=== PATIENT | female | born 1970 | race Two or more races ===

== ENCOUNTER 2020-04-09 14:00 | Outpatient (REF) | payer OTHER, SELFPAY ==
[2020-04-09 16:07] LABS: MANUAL DIFF FLAG NO
[2020-04-09 16:11] LABS: Basophils Percent Auto 0.3 % (0-2); Eosinophils Absolute Auto 0.1 X10*3/uL (0.0-0.4); Eosinophils Percent Auto 1.1 % (0-4); Hematocrit 37.6 % (37-47); Hemoglobin 12.2 g/dl (12.0-16.0); Imm Gran Abs Auto 0.05 X10*3/uL (0.00-0.03); Imm Gran Pct Auto 0.4 % (0.0-0.4); Lymphocytes Absolute Auto 4.2 X10*3/uL (1.2-4.9); Lymphocytes Percent Auto 31.7 % (20-40); Mean Corpuscular HGB Conc 32.4 g/dl (31.0-35.0); Mean Corpuscular Hemoglobin 30.2 pg (27.0-33.0); Mean Corpuscular Volume 93.1 fL (80-98); Mean Platelet Volume 10.2 fL (9.4-12.3); Monocytes Absolute Auto 0.8 X10*3/uL (0.1-1.2); Monocytes Percent Auto 6.4 % (2-11); Neutrophils Absolute Auto 7.9 X10*3/uL (2.0-8.3); Neutrophils Percent Auto 60.1 % (45-73); Platelet Count 416 X10*3/uL (160-400); Red Blood Count 4.04 X10*6/uL (4.20-5.50); Red Cell Distribution Width 13.1 % (11.0-16.0); White Blood Count 13.2 X10*3/uL (4.8-10.8)
[2020-04-09 16:38] LABS: Alanine Aminotransferase 25 U/L (0-31); Albumin Level 4.3 g/dL (3.5-5.0); Alkaline Phosphatase 112 U/L (39-117); Anion Gap 13 (12-20); Aspartate Amino Transferase 24 U/L (5-31); Bilirubin Total 0.4 mg/dL (0.0-1.0); Blood Urea Nitrogen 15 mg/dL (9-16); Calcium 9.8 mg/dL (8.4-10.2); Carbon Dioxide 27 mmol/L (22-29); Chloride 103 mmol/L (96-108); Estimated Glomerular Filt Rate > 60; Glucose Random 81 mg/dL (60-115); Potassium 3.8 mmol/l (3.3-5.1); Sodium 139 mmol/L (135-145); Total Protein 7.4 g/dL (6.5-8.0)
== END 2020-04-09 14:01 | disposition home or self-care (01) ==
LOC: HO.LAB 14:00
PROVIDERS: PCP Internal Medicine; Referring Provider Internal Medicine; Visit Provider Physician Assistant
DX: R10.11 Right upper quadrant pain (principal); R10.9 Unspecified abdominal pain
CPT/HCPCS: 36415; 80053; 85025; 99202

== ENCOUNTER 2020-04-25 11:42 | Outpatient (REF) | payer OTHER, SELFPAY | END 2020-04-25 11:43 | disposition home or self-care (01) | LOC: HO.LNP 11:42 | PROVIDERS: Visit Provider Physician Assistant | DX: A04.8 Other specified bacterial intestinal infections (principal) | CPT/HCPCS: 87338 ==

== ENCOUNTER 2020-05-01 08:08 | Outpatient (REF) | payer OTHER, SELFPAY ==
[2020-05-04 18:37] LABS: HPV mRNA E6/E7 rflx Not Detected (Not Detected)
== END 2020-05-01 08:09 | disposition home or self-care (01) ==
LOC: HO.LAB 08:08
PROVIDERS: PCP Internal Medicine; Visit Provider Obstetrics & Gynecology
DX: N93.9 Abnormal uterine and vaginal bleeding, unspecified (principal); Z12.4 Encounter for screening for malignant neoplasm of cervix
CPT/HCPCS: 87624; 87625; 88142; 99202

== ENCOUNTER → 2020-05-08 12:00 | Outpatient (BNVA) | payer OTHER, SELFPAY | PROVIDERS: PCP Internal Medicine; Referring Provider Internal Medicine; Visit Provider Physician Assistant | DX: Z76.89 Persons encountering health services in other specified circumstances (principal) ==

== ENCOUNTER → 2020-06-19 12:33 | Outpatient (BNVA) | payer OTHER, SELFPAY | PROVIDERS: PCP Internal Medicine; Visit Provider Physician Assistant | DX: Z13.89 Encounter for screening for other disorder (principal) | CPT/HCPCS: 99212 ==

== ENCOUNTER 2020-07-15 09:33 | Outpatient (REF) | payer OTHER, SELFPAY ==
[2020-07-15 10:49] LABS: Alanine Aminotransferase 22 U/L (0-31); Albumin Level 4.5 g/dL (3.5-5.0); Alkaline Phosphatase 106 U/L (39-117); Anion Gap 12 (12-20); Aspartate Amino Transferase 18 U/L (5-31); Bilirubin Total 0.3 mg/dL (0.0-1.0); Blood Urea Nitrogen 20 mg/dL (9-16); Calcium 10.3 mg/dL (8.4-10.2); Carbon Dioxide 27 mmol/L (22-29); Chloride 107 mmol/L (96-108); Cholesterol 135 mg/dL; Estimated Glomerular Filt Rate > 60; Glucose Fasting 116 mg/dL (60-99); HDL Cholesterol 45 mg/dL; LDL Cholesterol Calculated 65 mg/dl; Potassium 4.6 mmol/L (3.3-5.1); Sodium 141 mmol/L (135-145); Total Protein 7.7 g/dL (6.5-8.0); Triglycerides 126 mg/dL
== END 2020-07-15 09:34 | disposition home or self-care (01) ==
LOC: HO.LAB 09:33
PROVIDERS: Absent Provider Internal Medicine; PCP Internal Medicine; Visit Provider Physician Assistant
DX: E11.9 Type 2 diabetes mellitus without complications (principal); A04.8 Other specified bacterial intestinal infections
CPT/HCPCS: 36415; 80053; 80061; 87338

== ENCOUNTER → 2020-07-18 13:23 | Outpatient (BNVA) | payer OTHER, SELFPAY | PROVIDERS: PCP Internal Medicine; Visit Provider Physician Assistant ==

== ENCOUNTER 2020-08-26 11:16 | Outpatient (REF) | payer OTHER, SELFPAY ==
[2020-08-26 13:12] LABS: MANUAL DIFF FLAG NO
[2020-08-26 13:18] LABS: Basophils Percent Auto 0.3 % (0-2); Eosinophils Absolute Auto 0.1 X10*3/uL (0.0-0.4); Eosinophils Percent Auto 0.5 % (0-4); Hematocrit 36.4 % (37-47); Hemoglobin 11.8 g/dl (12.0-16.0); Imm Gran Abs Auto 0.03 X10*3/uL (0.00-0.03); Imm Gran Pct Auto 0.3 % (0.0-0.4); Lymphocytes Absolute Auto 2.9 X10*3/uL (1.2-4.9); Lymphocytes Percent Auto 31.3 % (20-40); Mean Corpuscular HGB Conc 32.4 g/dl (31.0-35.0); Mean Corpuscular Volume 92.6 fL (80-98); Mean Platelet Volume 10.7 fL (9.4-12.3); Monocytes Absolute Auto 0.6 X10*3/uL (0.1-1.2); Monocytes Percent Auto 6.5 % (2-11); Neutrophils Absolute Auto 5.7 X10*3/uL (2.0-8.3); Neutrophils Percent Auto 61.1 % (45-73); Platelet Count 368 X10*3/uL (160-400); Red Blood Count 3.93 X10*6/uL (4.20-5.50); Red Cell Distribution Width 12.8 % (11.0-16.0); White Blood Count 9.3 X10*3/uL (4.8-10.8)
[2020-08-26 13:43] LABS: Alanine Aminotransferase 34 U/L (0-31); Albumin Level 4.5 g/dL (3.5-5.0); Alkaline Phosphatase 122 U/L (39-117); Anion Gap 12 (12-20); Aspartate Amino Transferase 24 U/L (5-31); Bilirubin Total 0.3 mg/dL (0.0-1.0); Blood Urea Nitrogen 19 mg/dL (9-16); Calcium 10.1 mg/dL (8.4-10.2); Carbon Dioxide 25 mmol/L (22-29); Chloride 105 mmol/L (96-108); Estimated Glomerular Filt Rate > 60; Glucose Random 115 mg/dL (60-115); Potassium 4.2 mmol/L (3.3-5.1); Sodium 138 mmol/L (135-145); Total Protein 7.6 g/dL (6.5-8.0)
[2020-08-26 13:54] LABS: Ferritin 92 ng/mL (10-250)
[2020-08-26 14:17] LABS: Erythrocyte Sedimentation Rate 15 MM/HR (0-20)
[2020-08-26 14:21] LABS: Folate 6.2 ng/mL (> or = 4.0); Vitamin B12 367 pg/mL (200-900)
[2020-08-28 13:02] LABS: Transglutaminase Ab IgG 2 U/mL; Transglutaminase IgA 1 U/mL
== END 2020-08-26 11:17 | disposition home or self-care (01) ==
LOC: HO.LAB 11:16
PROVIDERS: PCP Internal Medicine; Visit Provider Internal Medicine Gastroenterology
DX: R10.11 Right upper quadrant pain (principal); R11.2 Nausea with vomiting, unspecified; G89.29 Other chronic pain; R10.13 Epigastric pain; R10.33 Periumbilical pain; E11.9 Type 2 diabetes mellitus without complications; I10 Essential (primary) hypertension; K21.9 Gastro-esophageal reflux disease without esophagitis; E78.00 Pure hypercholesterolemia, unspecified; Z88.6 Allergy status to analgesic agent; Z88.5 Allergy status to narcotic agent; Z88.0 Allergy status to penicillin; Z88.8 Allergy status to other drugs, medicaments and biological substances
CPT/HCPCS: 36415; 80053; 82607; 82728; 82746; 83516; 85025; 85652; 99212

== ENCOUNTER 2020-08-27 08:05 | Outpatient (REF) | payer OTHER, SELFPAY ==
--- NOTE | ~2020-08-27 | US_ITS ---
EXAMINATION: US ABDOMEN COMPLETE CLINICAL INFORMATION: Unspecified abdominal pain. COMPARISON: X-ray abdomen 08/27/2020. CT abdomen and pelvis 09/29/2019. Ultrasound abdomen limited 02/27/2019. Ultrasound abdomen complete 01/12/2019. KUB 10/25/2017. TECHNIQUE: Real-time imaging of the abdominal viscera. Examination limited secondary to overlying bowel gas. FINDINGS: PANCREAS: Visualized portions of pancreas are normal in appearance. ABDOMINAL AORTA: The proximal, mid, and distal segments are normal in caliber. INFERIOR VENA CAVA: Visualized portions are normal. LIVER: The liver is normal in size. The liver contour is normal. Liver echogenicity is diffusely increased. There are a few areas of decreased echogenicity adjacent to the gallbladder, suspected focal fatty sparing. No focal hepatic lesion. There is no intrahepatic biliary duct dilatation seen. GALLBLADDER: Normal. The gallbladder is physiologically distended without evidence of stones, sludge, polyps, wall thickening or pericholecystic fluid. COMMON BILE DUCT: Normal in caliber measuring 0.4 cm in diameter. RIGHT KIDNEY: Normal. No hydronephrosis. No renal calculi or focal parenchymal lesions. The kidney measures 10.9 cm in maximum dimension. LEFT KIDNEY: Normal. No hydronephrosis. No renal calculi or focal parenchymal lesions. The kidney measures 10.7 cm in maximum dimension. SPLEEN: Normal. The spleen measures 8.8 cm in maximum dimension. FREE FLUID: None. US/US abdomen complete IMPRESSION: -Diffusely increased liver echogenicity most suggestive of hepatic steatosis. Correlation with liver enzymes recommended.
--- NOTE | ~2020-08-27 | XR_ITS ---
EXAMINATION: 1. RADIOGRAPHS CERVICAL SPINE 2. RADIOGRAPHS ABDOMEN CLINICAL INFORMATION: Cervicalgia. Right upper quadrant pain. COMPARISON: CT abdomen pelvis September 29, 2019 TECHNIQUE: 3 views of the cervical spine and a supine view of the abdomen was obtained. FINDINGS: Cervical spine: The cervical spine is visualized in its entirety. Normal alignment. Normal C1/2 articulation. Vertebral body heights and disc spaces are well-maintained. Prominent anterior osteophytes off the anterior surface of the C6 vertebral body. No prevertebral soft tissue swelling. ABDOMEN: No dilated air-filled loops of small bowel to suggest an obstructive process. There is a moderate stool burden appreciated throughout the colon. No acute osseous abnormality. Punctate pelvic calcifications are likely vascular in nature. XR/XR cervical spine 3V IMPRESSION: 1. Minimal degenerative changes of the cervical spine. 2. Moderate stool burden throughout the colon suggesting constipation.
--- NOTE | ~2020-08-27 | XR_ITS ---
EXAMINATION: 1. RADIOGRAPHS CERVICAL SPINE 2. RADIOGRAPHS ABDOMEN CLINICAL INFORMATION: Cervicalgia. Right upper quadrant pain. COMPARISON: CT abdomen pelvis September 29, 2019 TECHNIQUE: 3 views of the cervical spine and a supine view of the abdomen was obtained. FINDINGS: Cervical spine: The cervical spine is visualized in its entirety. Normal alignment. Normal C1/2 articulation. Vertebral body heights and disc spaces are well-maintained. Prominent anterior osteophytes off the anterior surface of the C6 vertebral body. No prevertebral soft tissue swelling. ABDOMEN: No dilated air-filled loops of small bowel to suggest an obstructive process. There is a moderate stool burden appreciated throughout the colon. No acute osseous abnormality. Punctate pelvic calcifications are likely vascular in nature. XR/XR abdomen 1V IMPRESSION: 1. Minimal degenerative changes of the cervical spine. 2. Moderate stool burden throughout the colon suggesting constipation.
[2020-08-27 11:49] LABS: Glucose Urine UA NEG (NEG); Leukocyte Esterase Urine NEG (NEG); Nitrite Urine NEG (NEG); Urine Blood NEG (NEG); Urine Ketones NEG (NEG); Urine Protein NEG (NEG-TRACE)
[2020-08-27 12:06] LABS: Appearance Urine CLEAR; Color Urine YELLOW
[2020-09-01 22:11] LABS: Calprotectin, Fecal 115 mcg/g
== END 2020-08-27 08:06 | disposition home or self-care (01) ==
LOC: HO.US 08:05
PROVIDERS: Internal Medicine Gastroenterology; PCP Internal Medicine; Visit Provider Internal Medicine
DX: M54.2 Cervicalgia (principal); R10.11 Right upper quadrant pain; R30.0 Dysuria; R11.0 Nausea; R11.2 Nausea with vomiting, unspecified
CPT/HCPCS: 72040; 74018; 76700; 81003; 83993

== ENCOUNTER → 2020-11-12 14:30 | Outpatient (BNVA) | payer OTHER, SELFPAY | PROVIDERS: PCP Internal Medicine; Referring Provider Internal Medicine; Visit Provider Internal Medicine | DX: I25.10 Atherosclerotic heart disease of native coronary artery without angina pectoris (principal); I10 Essential (primary) hypertension; E11.8 Type 2 diabetes mellitus with unspecified complications | CPT/HCPCS: 93005; 99212 ==

== ENCOUNTER 2020-12-10 10:59 | Outpatient (REF) | payer OTHER, SELFPAY ==
[2020-12-10 12:29] LABS: Alanine Aminotransferase 34 U/L (0-31); Albumin Level 4.5 g/dL (3.5-5.0); Alkaline Phosphatase 130 U/L (39-117); Anion Gap 12 (12-20); Aspartate Amino Transferase 27 U/L (5-31); Bilirubin Total 0.4 mg/dL (0.0-1.0); Blood Urea Nitrogen 13 mg/dL (9-16); Carbon Dioxide 27 mmol/L (22-29); Chloride 106 mmol/L (96-108); Cholesterol 126 mg/dL; Estimated Glomerular Filt Rate > 60; Glucose Fasting 121 mg/dL (60-99); HDL Cholesterol 47 mg/dL; LDL Cholesterol Calculated 66 mg/dl; Potassium 4.7 mmol/L (3.3-5.1); Sodium 140 mmol/L (135-145); Total Protein 7.7 g/dL (6.5-8.0); Triglycerides 69 mg/dL
[2020-12-10 12:31] LABS: Creatinine Urine 145.96 mg/dL; Microalbum/Creatinine Ratio Ur 4.7 ug/mg cr
[2020-12-10 12:39] LABS: Calcium 10.3 mg/dL (8.4-10.2)
[2020-12-13 18:56] LABS: Vitamin D 25-OH, D2 <4 ng/mL; Vitamin D 25-OH, D3 43 ng/mL; Vitamin D 25-OH, Total 43 ng/mL (30-100)
== END 2020-12-10 11:00 | disposition home or self-care (01) ==
LOC: HO.LAB 10:59
PROVIDERS: PCP Internal Medicine; Visit Provider Internal Medicine
DX: E55.9 Vitamin D deficiency, unspecified (principal); E11.9 Type 2 diabetes mellitus without complications; E78.5 Hyperlipidemia, unspecified; E11.8 Type 2 diabetes mellitus with unspecified complications
CPT/HCPCS: 36415; 80053; 80061; 82043; 82306

== ENCOUNTER 2020-12-25 06:58 | Day surgery (SDC) | payer OTHER, SELFPAY ==
[2020-12-19 10:18] VITALS: BMI 36.3
--- NOTE | 2020-12-24 08:15 | P.CONAN_ITS ---
Documented by User: Vicky Morrissey 12/24/20 08:19 HPI - Anesthesia Eval Consult details Narrative: 50yo F for Upper Endoscopy and Colonoscopy 10/2020 Routine cardiac visit. Stable nonobstructive CAD with 1 year f/u. *Multiple Med Allergies* PMFSH Active Problems Active Problems: All Active Problems (Updated 12/19/20 @ 10:32 by Sarah Urbano) Abdominal pain (Acute) H. pylori infection (Acute) Atherosclerotic cardiovascular disease (Acute) Type 2 diabetes mellitus with unspecified complications (Acute) Mixed hyperlipidemia (Acute) Obese (Acute) Anxiety (Acute) Moderate major depression (Acute) ESQUIVEL (nonalcoholic steatohepatitis) (Acute) Easy bruising (Acute) Memory loss (Acute) Neck pain (Acute) Nausea and vomiting (Acute) GERD (gastroesophageal reflux disease) (Acute) Essential hypertension (Acute) Diabetes mellitus (Acute) Past Medical History Medical History Anxiety COVID-19 vaccine series completed Diabetes mellitus Easy bruising Essential hypertension GERD (gastroesophageal reflux disease) Giant cell arteritis History of CVA (cerebrovascular accident) Leukocytosis Memory loss Mixed hyperlipidemia Moderate major depression ESQUIVEL (nonalcoholic steatohepatitis) Nausea and vomiting Neck pain Neuropathy Obese Renal cyst Family History Family History Father Stroke Mother Uterine cancer Hypertension Colon cancer, Onset Age: 64 Diabetes Brother Substance use disorder Family/Other Mental health disorder Surgical History Surgical History (Updated 12/19/20 @ 10:28 by Sarah Urbano) H/O tubal ligation H/O: History of appendectomy History of cardiac cath History of endometrial ablation History of hernia repair History of temporal artery biopsy Social History Social History (Updated 12/19/20 @ 10:33 by Sarah Urbano) Household Members: Significant Other and Children Housing: Apartment Patient Tobacco Use Status: Never used Tobacco e-Cigarette/Vaping Use: Never Used Second Hand Smoke Exposure: No Are you DNR?: No Advance Directives: No Advance Directives Information Provided: No Advance Directives on File: No Patient : No FDLMP: 2014 : No service: No Current occupational status: disabled Sexual orientation: Straight/Heterosexual Gender identity: female Meds Allergies Allergy/AdvReac Type Severity Reaction Status Date / Time acetaminophen [Percocet] Allergy Intermediate dyspnea Verified 12/16/20 15:13 aspirin [Aspirin] Allergy Intermediate SWELLING, Verified 12/16/20 15:13 hives, uticaria carbamazepine [From TEGRETOL] Allergy Intermediate SWELLING Verified 12/16/20 15:13 gabapentin Allergy Intermediate abdominal Verified 12/16/20 15:13 pain, abd pain morphine [MORPHINE] Allergy Intermediate HIVES Verified 12/16/20 15:13 naproxen [From ALEVE] Allergy Intermediate RASH, Verified 12/16/20 15:13 MOUTH SORES oxycodone [OXYCODONE] Allergy Intermediate HIVES Verified 12/16/20 15:13 Penicillins Allergy Intermediate HIVES Verified 12/16/20 15:13 sertraline Allergy Intermediate nausea Verified 12/16/20 15:13 lisinopril [LISINOPRIL] Allergy Mild HICCUPS Verified 12/16/20 15:13 pramipexole AdvReac Mild dizziness Verified 12/16/20 15:13 Home Medications Medication Instructions Recorded Confirmed Last Taken Type buspirone 10 mg tablet 10 mg PO .at bedtime tab 02/26/20 12/19/20 Unknown History lancets 28 gauge (FreeStyle #100 ea 02/26/20 12/16/20 Unknown History Lancets) pantoprazole 40 mg tablet,delayed 40 mg PO DAILY 02/26/20 12/19/20 Unknown History release zolpidem 10 mg tablet 10 mg PO BEDTIME PRN 02/26/20 12/19/20 Unknown History bupropion HCl 300 mg 24 hr tablet, 300 mg PO DAILY 08/26/20 12/19/20 Unknown History extended release atorvastatin 80 mg tablet 80 mg PO DAILY 11/12/20 12/19/20 Unknown History enalapril maleate 10 mg tablet 1 tab PO DAILY 12/19/20 12/19/20 Unknown History Exam Exam Date and Time: December 24, 2020 0815 Height,Weight and Vital Signs: Height 5 ft 2 in Weight 90.265 kg Narrative Narrative: EKG 10/2020 sinus rhythm, 93/Min; no significant ST-T changes; poor R-wave progression across anterior leads likely from her body habitus itself Per cardiac OV 10/2020 Myocardial perfusion imaging study from 2017 showed equivocal findings with mild intensity reversible ischemia in the distal anterior and apical wall.? Subsequently, she also had coronary angiogram.? She had about 40% stenosis in the proximal LAD.? Minimal to mild disease elsewhere.? Based on the above, continue medical therapy for stable coronary disease.? Continue Plavix as she is allergic to aspirin.? Assessment and Plan Assessment Anesthesia Assessment: Chart Reviewed Documented by User: Sofia Ramos 12/25/20 07:27 [facility] Past Medical History Medical History Anxiety COVID-19 vaccine series completed Diabetes mellitus Easy bruising Essential hypertension GERD (gastroesophageal reflux disease) Giant cell arteritis History of CVA (cerebrovascular accident) Leukocytosis Memory loss Mixed hyperlipidemia Moderate major depression ESQUIVEL (nonalcoholic steatohepatitis) Nausea and vomiting Neck pain Neuropathy Obese Renal cyst Functional capacity: independent ambulation Patient : No Family History Family History Father Stroke Mother Uterine cancer Hypertension Colon cancer, Onset Age: 64 Diabetes Brother Substance use disorder Family/Other Mental health disorder Family history of problems with anesthesia: No Surgical History Surgical History (Updated 12/19/20 @ 10:28 by Sarah Urbano) H/O tubal ligation H/O: History of appendectomy History of cardiac cath History of endometrial ablation History of hernia repair History of temporal artery biopsy Social History Social History (Updated 12/19/20 @ 10:33 by Sarah Urbano) Household Members: Significant Other and Children Housing: Apartment Patient Tobacco Use Status: Never used Tobacco e-Cigarette/Vaping Use: Never Used Second Hand Smoke Exposure: No Are you DNR?: No Advance Directives: No Advance Directives Information Provided: No Advance Directives on File: No Patient : No FDLMP: 2014 : No service: No Current occupational status: disabled Sexual orientation: Straight/Heterosexual Gender identity: female Meds Allergies Allergy/AdvReac Type Severity Reaction Status Date / Time acetaminophen [Percocet] Allergy Intermediate dyspnea Verified 12/16/20 15:13 aspirin [Aspirin] Allergy Intermediate SWELLING, Verified 12/16/20 15:13 hives, uticaria carbamazepine [From TEGRETOL] Allergy Intermediate SWELLING Verified 12/16/20 15:13 gabapentin Allergy Intermediate abdominal Verified 12/16/20 15:13 pain, abd pain morphine [MORPHINE] Allergy Intermediate HIVES Verified 12/16/20 15:13 naproxen [From ALEVE] Allergy Intermediate RASH, Verified 12/16/20 15:13 MOUTH SORES oxycodone [OXYCODONE] Allergy Intermediate HIVES Verified 12/16/20 15:13 Penicillins Allergy Intermediate HIVES Verified 12/16/20 15:13 sertraline Allergy Intermediate nausea Verified 12/16/20 15:13 lisinopril [LISINOPRIL] Allergy Mild HICCUPS Verified 12/16/20 15:13 pramipexole AdvReac Mild dizziness Verified 12/16/20 15:13 Home Medications Medication Instructions Recorded Confirmed Last Taken Type buspirone 10 mg tablet 10 mg PO .at bedtime tab 02/26/20 12/19/20 Unknown History lancets 28 gauge (FreeStyle #100 ea 02/26/20 12/16/20 Unknown History Lancets) pantoprazole 40 mg tablet,delayed 40 mg PO DAILY 02/26/20 12/19/20 Unknown History release zolpidem 10 mg tablet 10 mg PO BEDTIME PRN 02/26/20 12/19/20 Unknown History bupropion HCl 300 mg 24 hr tablet, 300 mg PO DAILY 08/26/20 12/19/20 Unknown History extended release atorvastatin 80 mg tablet 80 mg PO DAILY 11/12/20 12/19/20 Unknown History enalapril maleate 10 mg tablet 1 tab PO DAILY 12/19/20 12/19/20 Unknown History Exam Airway TM Dist: >3cm Neck ROM: Full Heart: RRR Lungs: CTA Assessment and Plan Final Anesthetic Review Family History of Problems with Anesthesia: No
[2020-12-25 07:06] VITALS: BP 129/70; PULSE 79; RESP 16; TEMP 36.6; O2SAT 95
--- NOTE | 2020-12-25 07:11 | MHC.SHP ---
Pre-Procedural Eval Section A Date of Service: 12/25/20 Section B Chief Complaint: abdominal pain,nausea with vomiting Details of Present Illness: mother--crc Relevant Family History (Specify if Yes): Yes Relevant Social History: None Present Medications: see Short Stay Collaborative assessment Medical History: Significant History (Anxiety COVID-19 vaccine series completed Diabetes mellitus Easy bruising Essential hypertension GERD (gastroesophageal reflux disease) Giant cell arteritis History of CVA (cerebrovascular accident) Leukocytosis Memory loss Mixed hyperlipidemia Moderate major depression ESQUIVEL (nonalcoholic steatohepa) History of Previous Operations: Relevant previous surgery/procedure and date(s) (H/O tubal ligation H/O: History of appendectomy History of cardiac cath History of endometrial ablation History of hernia repair History of temporal artery biopsy) Allergies: Allergies Allergy/AdvReac Type Severity Reaction Status Date / Time acetaminophen [Percocet] Allergy Intermediate dyspnea Verified 12/16/20 15:13 aspirin [Aspirin] Allergy Intermediate SWELLING, Verified 12/16/20 15:13 hives, uticaria carbamazepine [From TEGRETOL] Allergy Intermediate SWELLING Verified 12/16/20 15:13 gabapentin Allergy Intermediate abdominal Verified 12/16/20 15:13 pain, abd pain morphine [MORPHINE] Allergy Intermediate HIVES Verified 12/16/20 15:13 naproxen [From ALEVE] Allergy Intermediate RASH, Verified 12/16/20 15:13 MOUTH SORES oxycodone [OXYCODONE] Allergy Intermediate HIVES Verified 12/16/20 15:13 Penicillins Allergy Intermediate HIVES Verified 12/16/20 15:13 sertraline Allergy Intermediate nausea Verified 12/16/20 15:13 lisinopril [LISINOPRIL] Allergy Mild HICCUPS Verified 12/16/20 15:13 pramipexole AdvReac Mild dizziness Verified 12/16/20 15:13 Review of Systems Sugical H&P ROS: Negative: Constitution, Cardiovascular, Respiratory, Neurological, Psychiatric, Hem-Onc, Allergic/Immunologic, Gastrointestinal, Genitourinary, Musculoskeletal, Integumentary, Endocrine and Eyes/Ears/Nose/Throat Exam Surgical H&P Exam: Normal: HEENT, Normal: Heart, Normal: Lungs, Normal: Extremities, Normal: Abdomen, Normal: Skin and Normal: Neurological Plan Diagnosis/Plan: Unchanged I have reviewed the history and physical and performed a pertinent physical examination on my patient. No changes have occurred unless specified.
[2020-12-25 07:19] LABS: Glucose, Whole Blood 131 mg/dL (60-115)
[2020-12-25] MEDS: Lactated Ringers 1,000 ML 100 ML IVCONT (07:30)
--- NOTE | 2020-12-25 08:20 | PM.OP ---
Brief Operative Note Date of Service: 12/25/20 Pre-op diagnosis: abdominal pain, FH CRC in mother Post-op diagnosis: same Procedure: see op note Surgeon: Rosa Young MD Anesthesia: MAC Was an Honing Machine Operator Semiautomatic used for this Procedure?: No Estimated blood loss (mL): 0 Condition: stable Disposition: PACU
--- NOTE | 2020-12-25 08:20 | W.PM.OPN ---
Operative Note Operative Note Date of Service: 12/25/20 Narrative: Operative Information Procedure Description: EGD, Colonoscopy FLEXIBLE TRANSORAL UPPER GASTROINTESTINAL ENDOSCOPY AND COLONOSCOPY PROCEDURE NOTE UPPER ENDOSCOPY Consent: Indications for the procedure and potential complications of bleeding, perforation, reaction to medications and missed diagnosis were discussed with the patient and informed consent was obtained. Instrument: Olympus GIF H 190 J mid size upper endoscope Monitoring: Vital signs and clinical assessment, continuous EKG monitoring, Pulse oximetry, Carbon Dioxide monitoring and blood pressure monitoring were done throughout the procedure. Procedure: The patient was placed in the left lateral decubitis position and pre-procedure medications were administered and a bite block was placed. The endoscope was inserted into the mouth and advanced under direct vision to the third part of duodenum. A careful inspection was made as the upper endoscope was withdrawn including a retroflexed examination of the proximal stomach; Findings and interventions are described below. Findings: Larynx:normal Esophagus: GE junction at 37 cm, diaphragm hiatus at 37 cm, normal mucosa, slightyl irregular z line, bx taken from GEJ and random esophagus Stomach: mild erythema Biopsies were obtained. Grade 2 flap valve on retroflexed examination of the cardia. There appeared to be lack of gastric peristalsis. Duodenum: Normal bulb and descending duodenum, bx taken Intervention: Biopsies as noted above COLONOSCOPY Instrument: Olympus variable stiffness pediatric scope 190L Colonoscopy Monitoring: Vital signs and clinical assessment, continuous EKG monitoring, Pulse oximetry, Carbon Dioxide monitoring and blood pressure monitoring were done throughout the procedure. Colon withdrawal time was 15 minutes. Procedure: The patient was placed in the left lateral decubitis position and pre-procedure medications were administered. After a digital rectal examination of the ano-rectum, the video colonoscope was inserted into the rectum and advanced through the colon to the cecum/TI. The colonoscope was slowly withdrawn in a retrograde panoramic fashion and the colon mucosa was carefully examined including a retroflexed view of the rectum. Findings and interventions are described below. Procedure Difficulty: moderate due to looping random TI and colon bx taken Findings: Terminal Ileum-normal Cecum:normal Ascending Colon: normal Transverse Colon -normal Descending Colon:normal Sigmoid Colon: normal Rectum: Retroflexion with small internal hemorrhoids, grade I Anorectum - normal Colon preparation: Aulander Bowel Preparation Scale Right colon; 2 Transverse colon: 2 Left colon; 2 (0 = Unprepared colon segment with mucosa not seen due to solid stool that cannot be cleared. 1 = Portion of mucosa of the colon segment seen, but other areas of the colon segment not well seen due to staining, residual stool and/or opaque liquid. 2 = Minor amount of residual staining, small fragments of stool and/or opaque liquid, but mucosa of colon segment seen well. 3 = Entire mucosa of colon segment seen well with no residual staining, small fragments of stool or opaque liquid) Impression and Post Procedure Diagnosis: Endoscopy Findings: gastritis Colonoscopy Findings: internal hemorrhoids Plan: Await Pathology results Repeat Colonoscopy in 5 years due to FH of CRC in mother or earlier if clinically indicated High fiber diet leaflet avoid straining at stool, epsom salts and sitz bath, anusol supps or cream as needed if bx neg then GES to r/o gastroparesis Above findings were reviewed with the patient and relevant handouts were provided if indicated.
[2020-12-25 08:57] VITALS: BP 117/71; PULSE 78; RESP 16; TEMP 36.2; O2SAT 98
[2020-12-25 09:12] VITALS: BP 143/80; PULSE 76; RESP 16; O2SAT 99
== END 2020-12-25 09:48 | disposition home or self-care (01) ==
PROVIDERS: PCP Internal Medicine; Visit Provider Internal Medicine Gastroenterology
PROC: (CPT 45380; principal; 2020-12-25 08:10)
DX: R10.9 Unspecified abdominal pain (principal); Z80.0 Family history of malignant neoplasm of digestive organs; K64.0 First degree hemorrhoids; K59.00 Constipation, unspecified; K29.50 Unspecified chronic gastritis without bleeding; K44.9 Diaphragmatic hernia without obstruction or gangrene; K21.9 Gastro-esophageal reflux disease without esophagitis; I10 Essential (primary) hypertension; E11.9 Type 2 diabetes mellitus without complications; Z79.84 Long term (current) use of oral hypoglycemic drugs; Z79.51 Long term (current) use of inhaled steroids; Z88.8 Allergy status to other drugs, medicaments and biological substances; Z88.0 Allergy status to penicillin; Z79.899 Other long term (current) drug therapy
CPT/HCPCS: 45380; 43239; 82947; 88305; 88342

== ENCOUNTER 2021-01-02 10:07 | Outpatient (REF) | payer OTHER, SELFPAY ==
--- NOTE | ~2021-01-02 | US_ITS ---
EXAMINATION: US ABDOMEN COMPLETE CLINICAL INFORMATION: Right upper quadrant pain. COMPARISON: Ultrasound abdomen complete dated 08/27/2020. X-ray abdomen dated 08/27/2020. CT abdomen and pelvis without contrast dated 09/29/2019. Ultrasound abdomen limited dated 02/27/2019. KUB dated 10/25/2017. TECHNIQUE: Real-time imaging of the abdominal viscera. FINDINGS: PANCREAS: The visualized pancreatic head and body are unremarkable. The tail is obscured by overlying bowel gas. ABDOMINAL AORTA: The proximal, mid, and distal segments are normal in caliber. INFERIOR VENA CAVA: Visualized portions are normal. LIVER: The liver is normal in size. The liver contour is normal. There is diffuse increased liver parenchymal echogenicity, consistent with hepatic steatosis. No focal hepatic lesion. There is no intrahepatic biliary duct dilatation seen. GALLBLADDER: Echogenic bile. No gallbladder wall thickening or pericholecystic free fluid to suggest acute cholecystitis. COMMON BILE DUCT: Normal in caliber measuring 0.4 cm in diameter. RIGHT KIDNEY: Simple midpole cyst measuring 1.2 cm. Findings are not clinically significant and no followup imaging is recommended. No hydronephrosis or renal calculi. The kidney measures 10.6 cm in maximum dimension. LEFT KIDNEY: Normal. No hydronephrosis. No renal calculi or focal parenchymal lesions. The kidney measures 11.2 cm in maximum dimension. SPLEEN: Normal. The spleen measures 9.0 cm in maximum dimension. FREE FLUID: None. US/US abdomen complete IMPRESSION: Increased hepatic parenchymal echogenicity, which can be seen in the setting of steatosis. Underlying hepatocellular disease cannot be excluded. No hepatic parenchymal lesion or biliary ductal dilatation. Echogenic bile without gallbladder wall thickening or pericholecystic free fluid to suggest acute cholecystitis.
== END 2021-01-02 10:08 | disposition home or self-care (01) ==
LOC: HO.US 10:07
PROVIDERS: Visit Provider Internal Medicine Gastroenterology
DX: R10.11 Right upper quadrant pain (principal); R11.2 Nausea with vomiting, unspecified
CPT/HCPCS: 76700

== ENCOUNTER → 2021-03-21 10:37 | Outpatient (BNVA) | payer OTHER, SELFPAY | PROVIDERS: PCP Internal Medicine; Visit Provider Internal Medicine Gastroenterology ==

== ENCOUNTER 2021-04-02 15:04 | Outpatient (REF) | payer OTHER, SELFPAY ==
--- NOTE | ~2021-04-02 | MM_ITS ---
EXAMINATION: MM SCREENING DIGITAL BREAST TOMOSYNTHESIS, BILATERAL CLINICAL INFORMATION: Screening. Asymptomatic. Family history breast cancer mother and 2 sisters. The lifetime risk of breast cancer based on the Tyrer-Cuzick Model is 22%. COMPARISON: Mammography: 11/13/2019, 11/07/2018, 10/02/2016 TECHNIQUE: Digital breast tomosynthesis is performed in both the craniocaudal and mediolateral oblique views along with computer-aided detection (CAD). Synthesized 2D images are generated from the tomosynthesis. FINDINGS: There are scattered areas of fibroglandular density (ACR BI-RADS breast composition Category b). There are no significant masses, abnormal calcifications, or other abnormalities. Parenchymal pattern is similar to prior exams. There is no developing density or interval architectural abnormality. The axilla are unremarkable. Skin contours are smooth. MM/MM tomosynthesis screening BI IMPRESSION: No mammographic evidence of malignancy. ASSESSMENT: BI-RADS 1: Negative RECOMMENDATION: 1. Routine annual mammography screening. 2. The lifetime risk of breast cancer based on the Tyrer-Cuzick Model is 22%. Additional annual adjunct screening with breast MRI may be of benefit in women with a risk score of 20% or greater. This patient's information was entered into a reminder system with a target due date for their next mammogram.
== END 2021-04-02 15:05 | disposition home or self-care (01) ==
LOC: HO.MAMMO 15:04
PROVIDERS: PCP Internal Medicine; Visit Provider Internal Medicine
DX: Z12.31 Encounter for screening mammogram for malignant neoplasm of breast (principal)
CPT/HCPCS: 77063; 77067

== ENCOUNTER 2021-04-07 09:39 | Outpatient (REF) | payer OTHER, SELFPAY ==
[2021-04-07 11:17] LABS: Alanine Aminotransferase 40 U/L (0-31); Albumin Level 4.3 g/dL (3.5-5.0); Alkaline Phosphatase 115 U/L (39-117); Anion Gap 12 (12-20); Aspartate Amino Transferase 25 U/L (5-31); Bilirubin Total 0.3 mg/dL (0.0-1.0); Blood Urea Nitrogen 16 mg/dL (9-16); Carbon Dioxide 24 mmol/L (22-29); Chloride 107 mmol/L (96-108); Cholesterol 118 mg/dL; Estimated Glomerular Filt Rate > 60; Glucose Fasting 129 mg/dL (60-99); HDL Cholesterol 40 mg/dL; LDL Cholesterol Calculated 66 mg/dl; Potassium 4.4 mmol/L (3.3-5.1); Sodium 139 mmol/L (135-145); Total Protein 7.3 g/dL (6.5-8.0); Triglycerides 64 mg/dL
[2021-04-07 11:21] LABS: Thyroid Stimulating Hormone 2.85 uIU/mL (0.32-4.0)
[2021-04-07 11:23] LABS: Creatinine Urine 217.35 mg/dL; Microalbum/Creatinine Ratio Ur 5.9 ug/mg cr
[2021-04-13 13:26] LABS: Vitamin D 25-OH, D2 <4 ng/mL; Vitamin D 25-OH, D3 40 ng/mL; Vitamin D 25-OH, Total 40 ng/mL (30-100)
== END 2021-04-07 09:40 | disposition home or self-care (01) ==
LOC: HO.LAB 09:39
PROVIDERS: PCP Internal Medicine; Visit Provider Internal Medicine
DX: E11.8 Type 2 diabetes mellitus with unspecified complications (principal); E55.9 Vitamin D deficiency, unspecified; R41.3 Other amnesia; E78.5 Hyperlipidemia, unspecified
CPT/HCPCS: 36415; 80053; 80061; 82043; 82306; 84443

== ENCOUNTER 2021-04-08 14:42 | Outpatient (REF) | payer OTHER, SELFPAY ==
--- NOTE | ~2021-04-08 | US_ITS ---
EXAMINATION: US VENOUS ULTRASOUND WITH DOPPLER LOWER EXTREMITY, RIGHT CLINICAL INFORMATION: This is a 51-year-old female with pain and swelling of the right leg on the knee. COMPARISON: None TECHNIQUE: Ultrasound of the deep veins is performed from the hip to the calf with compression sonography and color and pulse Doppler assessment. Spectral analysis with color-flow imaging is performed. FINDINGS: There is normal venous compression and respiratory variation and augmented flow. The visualized common femoral vein, superficial femoral vein, profunda femoral vein, popliteal vein, and the trifurcation region shows no evidence of deep venous thrombosis. There is a popliteal fossa cyst measuring 4.1 x 0.6 x 1.7 cm. If the patient's symptoms persist, followup ultrasound in 5 days 7 days might be of value to exclude proximal propagation from a non-visualized calf vein. US/US venous duplex LE RT IMPRESSION: 1. No DVT demonstrated in the right lower extremity. 2. Possible Coreas's cyst.
== END 2021-04-08 14:43 | disposition home or self-care (01) ==
LOC: HO.US 14:42
PROVIDERS: PCP Internal Medicine; Visit Provider Internal Medicine Medical Oncology
DX: R60.0 Localized edema (principal); M79.604 Pain in right leg; M79.89 Other specified soft tissue disorders
CPT/HCPCS: 93971

== ENCOUNTER 2021-04-23 09:16 | Outpatient (REF) | payer OTHER, SELFPAY ==
[2021-04-25 15:21] LABS: Calcium, Ionized 5.4 mg/dL (4.8-5.6)
[2021-04-27 22:46] LABS: Parathyroid Hormone Related Pr 17 pg/mL (11-20)
== END 2021-04-23 09:17 | disposition home or self-care (01) ==
LOC: HO.LAB 09:16
PROVIDERS: PCP Internal Medicine; Visit Provider Internal Medicine
DX: E83.52 Hypercalcemia (principal)
CPT/HCPCS: 36415; 82330; 83519

== ENCOUNTER → 2021-06-11 07:55 | Outpatient (REF) | payer OTHER, SELFPAY ==
--- NOTE | ~2021-06-11 | NM_ITS ---
EXAMINATION: NM RADIONUCLIDE SOLID FOOD GASTRIC EMPTYING 4-HOUR STUDY CLINICAL INFORMATION: Early satiety. COMPARISON: None TECHNIQUE: A standard meal consisting of 4 oz of Egg Beaters brand tagged with 1.0 microcuries Tc-99m Sulfur Colloid, 8 oz water and 2 slices of toast with jelly was administered orally to the patient. Images were obtained using a dual head gamma camera in the anterior and posterior projections over of the stomach immediately post ingestion and at hourly intervals up to 4 hours post ingestion. The anterior and posterior counts at each time interval were averaged using the geometric mean and expressed as percentage of the immediate post ingestion counts. FINDINGS: There is good visualization of activity in the stomach immediately post ingestion. As the study progresses, there is good clearance of activity from the stomach and visualization of progressively increasing small bowel activity. By the end of the study, there is almost no retention noted in the stomach. Retention in the stomach at each time interval was: 1 hour 96% (normal 37%-90%) 2 hours 39% (normal 30%-60%) 3 hours not obtained as the camera was down. 4 hours 10% (normal 0%-10%) NM/NM gastric emptying study IMPRESSION: Normal 4-hour solid food gastric emptying study.
== END ==
LOC: HO.NUCMED 07:55
PROVIDERS: Visit Provider Internal Medicine Gastroenterology
DX: R68.81 Early satiety (principal)
CPT/HCPCS: 78264; A9541

== ENCOUNTER 2021-09-10 12:14 | Outpatient (REF) | payer OTHER, SELFPAY | END 2021-09-10 12:15 | disposition home or self-care (01) | LOC: HO.LAB 12:14 | PROVIDERS: Visit Provider Hospitalist | DX: Z20.822 Contact with and (suspected) exposure to COVID-19 (principal) | CPT/HCPCS: U0003; U0005 ==

== ENCOUNTER 2021-10-27 10:14 | Outpatient (REF) | payer OTHER, SELFPAY ==
[2021-10-27 10:24] LABS: MANUAL DIFF FLAG NO
[2021-10-27 11:48] LABS: Basophils Absolute Auto 0.1 X10*3/uL (0.0-0.2); Basophils Percent Auto 0.4 % (0-2); Eosinophils Absolute Auto 0.1 X10*3/uL (0.0-0.4); Eosinophils Percent Auto 0.7 % (0-4); Hematocrit 37.4 % (37.0-47.0); Imm Gran Abs Auto 0.06 X10*3/uL (0.00-0.03); Imm Gran Pct Auto 0.5 % (0.0-0.4); Lymphocytes Absolute Auto 3.4 X10*3/uL (1.2-4.9); Lymphocytes Percent Auto 26.2 % (20-40); Mean Corpuscular HGB Conc 32.1 g/dl (31.0-35.0); Mean Corpuscular Hemoglobin 29.5 pg (27.0-33.0); Mean Corpuscular Volume 91.9 fL (80.0-98.0); Mean Platelet Volume 11.5 fL (9.4-12.3); Monocytes Absolute Auto 0.8 X10*3/uL (0.1-1.2); Neutrophils Absolute Auto 8.5 x10*3/uL (2.0-8.3); Neutrophils Percent Auto 66.2 % (45-73); Platelet Count 379 X10*3/uL (160-400); Red Blood Count 4.07 X10*6/uL (4.20-5.50); Red Cell Distribution Width 13.2 % (11.0-16.0); White Blood Count 12.8 X10*3/uL (4.8-10.8)
[2021-10-27 12:22] LABS: Alanine Aminotransferase 39 U/L (0-31); Albumin Level 4.5 g/dL (3.5-5.0); Alkaline Phosphatase 127 U/L (39-117); Anion Gap 13 (12-20); Aspartate Amino Transferase 26 U/L (5-31); Bilirubin Total 0.3 mg/dL (0.0-1.0); Blood Urea Nitrogen 20 mg/dL (9-16); Calcium 10.5 mg/dL (8.4-10.2); Carbon Dioxide 25 mmol/L (22-29); Chloride 105 mmol/L (96-108); Estimated Glomerular Filt Rate > 60; Glucose Random 114 mg/dL (60-115); Magnesium 1.9 mg/dL (1.6-2.6); Potassium 4.3 mmol/L (3.3-5.1); Sodium 139 mmol/L (135-145); Total Protein 7.6 g/dL (6.5-8.0)
[2021-10-27 12:35] LABS: Free T4 (Free Thyroxine) 0.89 ng/dL (0.71-1.85)
[2021-10-27 12:58] LABS: Vitamin B12 427 pg/mL (200-900)
[2021-10-27 13:06] LABS: Thyroid Stimulating Hormone 1.76 uIU/mL (0.32-4.0)
== END 2021-10-27 10:15 | disposition home or self-care (01) ==
LOC: HO.LAB 10:14
PROVIDERS: PCP Internal Medicine; Visit Provider Internal Medicine
DX: G62.9 Polyneuropathy, unspecified (principal)
CPT/HCPCS: 36415; 80053; 82607; 82746; 83735; 84439; 84443; 85025

== ENCOUNTER → 2021-11-17 13:23 | Outpatient (BNVA) | payer OTHER, SELFPAY | PROVIDERS: PCP Internal Medicine; Referring Provider Internal Medicine; Visit Provider Internal Medicine | DX: I25.10 Atherosclerotic heart disease of native coronary artery without angina pectoris (principal); I10 Essential (primary) hypertension; E11.8 Type 2 diabetes mellitus with unspecified complications | CPT/HCPCS: 93005; 99212 ==

== ENCOUNTER → 2021-12-08 09:15 | Outpatient (BNVA) | payer OTHER, SELFPAY | PROVIDERS: PCP Internal Medicine; Visit Provider Internal Medicine Gastroenterology | DX: G43.509 Persistent migraine aura without cerebral infarction, not intractable, without status migrainosus (principal); Z79.899 Other long term (current) drug therapy | CPT/HCPCS: 99212 ==

== ENCOUNTER 2021-12-09 11:16 | Outpatient (REF) | payer OTHER, SELFPAY ==
[2021-12-09 13:01] LABS: Alanine Aminotransferase 39 U/L (0-31); Albumin Level 4.3 g/dL (3.5-5.0); Alkaline Phosphatase 109 U/L (39-117); Anion Gap 12 (12-20); Aspartate Amino Transferase 28 U/L (5-31); Bilirubin Total 0.4 mg/dL (0.0-1.0); Blood Urea Nitrogen 16 mg/dL (9-16); Calcium 9.8 mg/dL (8.4-10.2); Carbon Dioxide 26 mmol/L (22-29); Chloride 107 mmol/L (96-108); Cholesterol 112 mg/dL; Estimated Glomerular Filt Rate > 60; Glucose Fasting 117 mg/dL (60-99); HDL Cholesterol 44 mg/dL; LDL Cholesterol Calculated 55 mg/dl; Potassium 4.3 mmol/L (3.3-5.1); Sodium 141 mmol/L (135-145); Total Protein 7.2 g/dL (6.5-8.0); Triglycerides 69 mg/dL
[2021-12-09 13:26] LABS: Vitamin D 25-OH Total 44.4 ng/mL (>30)
[2021-12-09 13:49] LABS: Creatinine Urine 140.91 mg/dL; Microalbum/Creatinine Ratio Ur 4.2 ug/mg cr
== END 2021-12-09 11:17 | disposition home or self-care (01) ==
LOC: HO.LAB 11:16
PROVIDERS: PCP Internal Medicine; Visit Provider Internal Medicine
DX: E11.8 Type 2 diabetes mellitus with unspecified complications (principal); E55.9 Vitamin D deficiency, unspecified; E78.5 Hyperlipidemia, unspecified
CPT/HCPCS: 36415; 80053; 80061; 82043; 82306

== ENCOUNTER 2022-01-13 14:01 | Outpatient (REF) | payer OTHER, SELFPAY ==
--- NOTE | ~2022-01-13 | US_ITS ---
EXAMINATION: US DIAGNOSTIC ULTRASOUND BREAST, RIGHT CLINICAL INFORMATION: Mastodynia. COMPARISON: Mammography of same day and studies dating back to May 21, 2014. TECHNIQUE: Ultrasound of the breast is performed with real-time birch scale imaging and color Doppler. FINDINGS: There is no focal suspicious finding. There is no solid mass, architectural abnormality, duct ectasia, or edema in the soft tissue planes. Results are discussed with the patient at time of visit. US/US breast RT limited IMPRESSION: No suspicious right breast ultrasound findings. ASSESSMENT: BI-RADS 1: Negative RECOMMENDATION: Routine annual mammography screening. This patient's information was entered into a reminder system with a target due date for their next mammogram.
--- NOTE | ~2022-01-13 | MM_ITS ---
EXAMINATION: MM DIAGNOSTIC DIGITAL BREAST TOMOSYNTHESIS, RIGHT US BREAST, TARGETED, RIGHT CLINICAL INFORMATION: Mastodynia The lifetime risk of breast cancer based on the Tyrer-Cuzick Model is 16.7%. COMPARISON: Mammography: 04/02/2021 and studies dating back to 05/21/2014. TECHNIQUE: Digital breast tomosynthesis is performed in both the craniocaudal and mediolateral oblique views along with computer-aided detection (CAD). Synthesized 2D images are generated from the tomosynthesis. Targeted right breast ultrasound FINDINGS: The breasts are almost entirely fatty (ACR BI-RADS breast composition Category a). There are no significant masses, abnormal calcifications, or other abnormalities. Targeted right breast ultrasound to region of pain was performed. No abnormal cystic or solid masses were identified. No ductal dilatation or edematous change were identified. Results are discussed with the patient at time of visit. MM/MM tomosynthesis diagnostic RT IMPRESSION: No mammographic evidence of malignancy. ASSESSMENT: BI-RADS 1: Negative RECOMMENDATION: Routine annual mammography screening. This patient's information was entered into a reminder system with a target due date for their next mammogram.
== END 2022-01-13 14:02 | disposition home or self-care (01) ==
LOC: HO.MAMMO 14:01
PROVIDERS: PCP Internal Medicine; Visit Provider Internal Medicine
DX: N64.4 Mastodynia (principal)
CPT/HCPCS: 76642; 77061; 77065

== ENCOUNTER 2022-03-13 15:03 | Emergency (ER) | payer OTHER, SELFPAY ==
--- NOTE | ~2022-03-13 | CT_ITS ---
EXAMINATION: CT ABDOMEN AND PELVIS WITH CONTRAST CLINICAL INFORMATION: Right upper quadrant lower chest pain COMPARISON: CT abdomen pelvis 09/29/2019 TECHNIQUE: Multidetector volumetric images were obtained from the superior aspect of the liver through the pubic symphysis following administration 85 mL of Omnipaque 350 intravenous contrast. Sagittal and coronal reformatted images were obtained on the technologist's workstation. Oral contrast: No This CT examination was performed using dose optimization techniques as appropriate, variously including the following: *Automated exposure control *Adjustment of mA and/or kV according to patient size (this includes techniques or standardized protocols for targeted exams where dose is matched to indication/reason for exam; i.e. extremities or head) *Use of iterative reconstruction technique DLP: 745 mGy-cm FINDINGS: LUNG BASES: The visualized lung bases are unremarkable. LIVER, GALLBLADDER, AND BILIARY TREE: Liver is mildly enlarged measuring 19.4 cm in craniocaudal length. Diffuse hepatic hypoattenuation/steatosis. No liver lesion. No biliary ductal dilation. The gallbladder is unremarkable with no evidence of radiopaque gallstones, gallbladder wall thickening, or obvious pericholecystic inflammatory changes. PANCREAS: Unremarkable. SPLEEN: Unremarkable. ADRENAL GLANDS: Unremarkable. KIDNEYS AND URETERS: The nephrograms are symmetric. No hydronephrosis. 0.9 cm low-density cyst partially exophytic from the right upper pole, too small to accurately characterize and similar to prior. No renal calculi. No perinephric stranding or collections BLADDER: Unremarkable. GASTROINTESTINAL TRACT: No dilated bowel loops. No small bowel wall thickening. Appendix is not discretely visualized. No inflammatory change the cecal base. No ascites or free air. ABDOMINAL WALL: Reported history of prior spigelian hernia repair. There is mild linear scar tissue in the right lower quadrant abdominal wall. There is a defect of the internal oblique and transversus abdominis muscle with the ascending colon abutting the undersurface of the external oblique muscle, unchanged. No hernia/defect through the external oblique muscle. LYMPH NODES: No lymphadenopathy. VASCULAR: Normal caliber abdominal aorta. PELVIC VISCERA: Gynecologic structures are grossly unremarkable. OSSEOUS STRUCTURES: No acute fracture or suspicious osseous lesion. Mild multilevel degenerative disc disease. Posterior disc protrusion/extrusion at L4-L5 noted incidentally. CT/CT abdomen pelvis w IV con IMPRESSION: 1. No acute intra-abdominal process identified to explain the patient's right upper quadrant pain. 2. Mild hepatomegaly and hepatic steatosis.
[2022-03-13 15:41] VITALS: BP 114/50; PULSE 76; RESP 18; TEMP 37.2; O2SAT 99; BMI 47.5
[2022-03-13 16:20] LABS: MANUAL DIFF FLAG NO
[2022-03-13 16:22] LABS: Appearance Urine Clear; Color Urine Yellow; Glucose Urine UA Negative (Negative); Leukocyte Esterase Urine Trace (Negative); Nitrite Urine Negative (Negative); UMIC TRIGGER UACC YES; Urine Blood Negative (Negative); Urine Ketones Negative (Negative); Urine Protein Negative (Neg-Trace)
[2022-03-13 16:23] LABS: Basophils Absolute Auto 0.1 X10*3/uL (0.0-0.2); Basophils Percent Auto 0.4 % (0-2); Eosinophils Absolute Auto 0.1 X10*3/uL (0.0-0.4); Eosinophils Percent Auto 0.6 % (0-4); Hematocrit 36.9 % (37.0-47.0); Hemoglobin 12.1 g/dl (12.0-16.0); Imm Gran Abs Auto 0.05 X10*3/uL (0.00-0.03); Imm Gran Pct Auto 0.4 % (0.0-0.4); Lymphocytes Absolute Auto 3.9 X10*3/uL (1.2-4.9); Lymphocytes Percent Auto 31.4 % (20-40); Mean Corpuscular HGB Conc 32.8 g/dl (31.0-35.0); Mean Corpuscular Hemoglobin 29.1 pg (27.0-33.0); Mean Corpuscular Volume 88.7 fL (80.0-98.0); Mean Platelet Volume 10.6 fL (9.4-12.3); Monocytes Absolute Auto 0.8 X10*3/uL (0.1-1.2); Monocytes Percent Auto 6.2 % (2-11); Neutrophils Absolute Auto 7.5 x10*3/uL (2.0-8.3); Platelet Count 368 X10*3/uL (160-400); Red Blood Count 4.16 X10*6/uL (4.20-5.50); White Blood Count 12.3 X10*3/uL (4.8-10.8)
[2022-03-13 16:29] LABS: Bacteria Urine None Seen (None Seen); Hyaline Casts Urine 0-2 /LPF (0-2); RBC Urine 0-2 /HPF (0-2); Squamous Epithelial Cell Urine 0-2 /HPF (0-2); WBC Urine 0-5 /HPF (0-5)
[2022-03-13 16:39] LABS: Alanine Aminotransferase 38 U/L (0-31); Albumin Level 4.5 g/dL (3.5-5.0); Alkaline Phosphatase 115 U/L (39-117); Anion Gap 16 (12-20); Aspartate Amino Transferase 26 U/L (5-31); Bilirubin Direct 0.2 mg/dL (0.0-0.5); Bilirubin Total 0.5 mg/dL (0.0-1.0); Blood Urea Nitrogen 19 mg/dL (9-16); Calcium 10.7 mg/dL (8.4-10.2); Carbon Dioxide 24 mmol/L (22-29); Chloride 103 mmol/L (96-108); Creatinine Clr Calc Pharmacy 105.1; Estimated Glomerular Filt Rate > 60; Glucose Random 107 mg/dL (60-115); Lipase 43 U/L (8-78); Potassium 4.2 mmol/L (3.3-5.1); Sodium 139 mmol/L (135-145); Total Protein 7.5 g/dL (6.5-8.0)
--- NOTE | 2022-03-13 21:50 | ED_ITS ---
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 This acute change has not been associated with nausea, vomiting, chills, fevers, diarrhea, she denies any history of renal colic but does states she still has her gallbladder. Patient denies any traumatic falls or injuries and states that there are no alleviating or exacerbating incidence other than she is unable to lie on her right side. Related Data Home Medications Medication Instructions Recorded Confirmed buspirone 10 mg tablet 10 mg PO .at bedtime 02/26/20 01/15/22 lancets 28 gauge (FreeStyle #100 ea 02/26/20 01/15/22 Lancets) zolpidem 10 mg tablet 10 mg PO BEDTIME PRN Insomnia 02/26/20 01/15/22 bupropion HCl 300 mg 24 hr tablet, 300 mg PO DAILY 08/26/20 01/15/22 extended release Previous Rx's Medication Instructions Recorded blood-glucose meter (FreeStyle #1 ea 11/14/20 Lite Meter kit) fluocinonide 0.05 % topical cream 1 appl topical BID 30 days #30 12/20/20 grams enalapril maleate 10 mg tablet 10 mg PO DAILY 90 days #90 tabs 07/09/21 fluticasone propionate 50 1 spray intranasal DAILY 30 days 08/23/21 mcg/actuation nasal #16 grams spray,suspension (Flonase Allergy Relief) metformin 500 mg tablet 500 mg PO BID #180 tabs 08/31/21 tizanidine 4 mg capsule 4 mg PO BEDTIME PRN muscle 10/27/21 spasticity #20 caps clopidogrel 75 mg tablet (Plavix) 75 mg PO DAILY #90 tabs 10/31/21 nitroglycerin 0.4 mg sublingual 0.4 mg sublingual Q5M PRN chest 11/17/21 tablet pain 30 days #30 tabs cholecalciferol (vitamin D3) 25 25 mcg PO DAILY 90 days #90 tabs 11/27/21 mcg (1,000 unit) tablet linaclotide 145 mcg capsule 145 mcg PO DAILY #30 caps 12/08/21 (Linzess) propranolol 10 mg tablet 10 mg PO BID #30 tabs 12/08/21 blood sugar diagnostic (FreeStyle #100 strips 12/31/21 Lite Strips) lancets 33 gauge (TRUEplus Lancets) ##100 12/31/21 ondansetron HCl 8 mg tablet 8 mg PO DAILY 30 days #30 tabs 01/09/22 pantoprazole 40 mg tablet,delayed 40 mg PO DAILY 90 days #90 tabs 01/09/22 release fenofibrate 54 mg tablet 54 mg PO DAILY #30 tabs 02/24/22 amitriptyline 10 mg tablet 10 mg PO BEDTIME #30 tabs 02/25/22 atorvastatin 80 mg tablet 80 mg PO DAILY #90 tabs 02/25/22 Allergies Allergy/AdvReac Type Severity Reaction Status Date / Time acetaminophen [Percocet] Allergy Intermediate dyspnea Verified 01/15/22 15:38 aspirin [Aspirin] Allergy Intermediate SWELLING, Verified 01/15/22 15:38 hives, uticaria carbamazepine [From TEGRETOL] Allergy Intermediate SWELLING Verified 01/15/22 15:38 gabapentin Allergy Intermediate abdominal Verified 01/15/22 15:38 pain, abd pain morphine [MORPHINE] Allergy Intermediate HIVES Verified 01/15/22 15:38 naproxen [From ALEVE] Allergy Intermediate RASH, Verified 01/15/22 15:38 MOUTH SORES oxycodone [OXYCODONE] Allergy Intermediate HIVES Verified 01/15/22 15:38 Penicillins Allergy Intermediate HIVES Verified 01/15/22 15:38 sertraline Allergy Intermediate nausea Verified 01/15/22 15:38 lisinopril [LISINOPRIL] Allergy Mild HICCUPS Verified 01/15/22 15:38 pramipexole AdvReac Mild dizziness Verified 01/15/22 15:38 Review of Systems Review of Systems Pertinent positives and negatives as stated in HPI 10 point review of systems is otherwise negative. [facility] Past Medical History Source: nursing notes reviewed Medical History Anxiety COVID-19 vaccine series completed Easy bruising Essential hypertension GERD (gastroesophageal reflux disease) Giant cell arteritis History of CVA (cerebrovascular accident) Hypercalcemia Leukocytosis Lumbar degenerative disc disease Memory loss Mixed hyperlipidemia Moderate major depression ESQUIVEL (nonalcoholic steatohepatitis) Nausea and vomiting Neuropathy Obese Pre-op evaluation Renal cyst Surgical History H/O tubal ligation H/O: History of appendectomy History of cardiac cath History of endometrial ablation History of esophagogastroduodenoscopy (EGD) History of hernia repair History of temporal artery biopsy Hx of colonoscopy Family History Family History Father Stroke Mother Colon cancer, Onset Age: 64 Diabetes Hypertension Uterine cancer Brother Substance use disorder Family/Other Mental health disorder Sister Breast cancer Social History Social History Household Members: Significant Other and Children Housing: Apartment Patient Tobacco Use Status: Never used Tobacco e-Cigarette/Vaping Use: Never Used Second Hand Smoke Exposure: No Advance Directives: No Advance Directives Information Provided: No service: No Current occupational status: disabled Sexual orientation: Straight/Heterosexual Gender identity: Female Cognitive needs: No Hearing needs: No Vision needs: Yes Physical Exam ED Vital Signs: Vital Signs - 24 hr 03/13/22 15:41 Temperature 98.9 F Pulse Rate 76 Respiratory Rate 18 Blood Pressure 114/50 L Pulse Oximetry 99 Oxygen Delivery Method Room Air BMI result Body Mass Index 47.5 VITAL SIGNS: Reviewed. GENERAL: Elevated BMI, Well developed, well nourished, in no acute distress. HEAD: Normocephalic/atraumatic EYES: PERRLA, EOMI EARS: Ext canals without abnormality OROPHARYNX: no oral lesions noted, posterior pharynx clear LUNGS: Normal breath sounds. No adventitious sounds or accessory muscle use. SpO2<99>; CHEST WALL: Significant tenderness to palpation across the right lower anterior chest wall without noted deformity although patient began crying with minimal palpation CARDIOVASCULAR: Regular rate and rhythm without noted murmurs, no JVD or lower extremity edema. ABDOMEN: Soft, non-tender, non-distended with bowel sounds. MUSCULOSKELETAL: No tenderness, deformities, or effusions noted on gross inspection. EXTREMITIES: No cyanosis, clubbing or edema. SKIN: Inspection of the skin reveals no rashes NEUROLOGIC: Alert and oriented x 4. Strength and sensation to light touch were grossly intact x 4. Course Course Course Narrative: 51-year-old female with history and clinical presentation of acute on chronic right upper quadrant/right lower chest wall pain that does not seem to be related to any infectious symptoms and on review all investigations thus far there are no acute findings as her leukocytosis is consistent with prior values. Patient is otherwise hemodynamically stable and on review of her record she has had a gastric emptying study as well as being treated for H pylori by GI. However, given the clinical exam where in the patient is noted to be exquisitely tender will pursue a CT of the abdomen and pelvis with IV contrast. Review of all investigations otherwise negative for acute findings. All results were discussed with the patient at bedside and concluded that this may be secondary to a inflammatory response after surgery due to either scar tissue or musculoskeletal pain. These were discussed with the patient at bedside and she was reassured that she could continue with outpatient workup and investigations. MDM - Abdominal Pain Lab Data Result diagrams: 03/13/22 16:14 03/13/22 16:14 Labs: Lab Results 03/13/22 03/13/22 03/13/22 Range/Units 16:14 16:14 16:14 WBC 12.3 H (4.8-10.8) X10*3/uL RBC 4.16 L (4.20-5.50) X10*6/uL Hgb 12.1 (12.0-16.0) g/dl Hct 36.9 L (37.0-47.0) % MCV 88.7 (80.0-98.0) fL MCH 29.1 (27.0-33.0) pg MCHC 32.8 (31.0-35.0) g/dl RDW 13.0 (11.0-16.0) % Plt Count 368 (160-400) X10*3/uL MPV 10.6 (9.4-12.3) fL Immature Gran % (Auto) 0.4 (0.0-0.4) % Neut % (Auto) 61.0 (45-73) % Lymph % (Auto) 31.4 (20-40) % [place] % (Auto) 6.2 (2-11) % Eos % (Auto) 0.6 (0-4) % Baso % (Auto) 0.4 (0-2) % Lymph # (Auto) 3.9 (1.2-4.9) X10*3/uL [place] # (Auto) 0.8 (0.1-1.2) X10*3/uL Eos # (Auto) 0.1 (0.0-0.4) X10*3/uL Baso # (Auto) 0.1 (0.0-0.2) X10*3/uL Abs Immat Gran (auto) 0.05 H (0.00-0.03) X10*3/uL Absolute Neuts (auto) 7.5 (2.0-8.3) x10*3/uL Absolute Nucleated RBC 0.000 (0.0-0.012) X10*3/uL Nucleated RBC % (auto) 0.0 (0.0-0.2) /100WBC Sodium 139 (135-145) mmol/L Potassium 4.2 (3.3-5.1) mmol/L Chloride 103 (96-108) mmol/L Carbon Dioxide 24 (22-29) mmol/L Anion Gap 16 (12-20) BUN 19 H (9-16) mg/dL Creatinine 0.78 (0.5-1.4) mg/dL Estim Creat Clear Calc 105.1 Estimated GFR > 60 Random Glucose 107 (60-115) mg/dL Calcium 10.7 H D (8.4-10.2) mg/dL Total Bilirubin 0.5 (0.0-1.0) mg/dL Direct Bilirubin 0.2 (0.0-0.5) mg/dL AST 26 (5-31) U/L ALT 38 H (0-31) U/L Alkaline Phosphatase 115 (39-117) U/L Total Protein 7.5 (6.5-8.0) g/dL Albumin 4.5 (3.5-5.0) g/dL Lipase 43 (8-78) U/L Urine Color Yellow Urine Appearance Clear Urine pH 5.0 (5.0-9.0) Ur Specific [place] 1.010 (1.005-1.025) Urine Protein Negative (Neg-Trace) mg/dL Urine Glucose (UA) Negative (Negative) mg/dL Urine Ketones Negative (Negative) mg/dL Urine Blood Negative (Negative) Urine Nitrite Negative (Negative) Ur Leukocyte Esterase Trace H (Negative) Urine RBC 0-2 (0-2) /HPF Urine WBC 0-5 (0-5) /HPF Ur Squamous Epith Cells 0-2 (0-2) /HPF Urine Bacteria None Seen (None Seen) Hyaline Casts 0-2 (0-2) /LPF Discharge Plan Discharge Clinical Impression: Abdominal pain Patient Disposition: Home, Self-Care Instructions: Abdominal Pain (ED), Musculoskeletal Pain (ED), Chest Wall Pain (ED) Additional Instructions: 1. Reanudar todos los medicamentos caseros seg?n lo prescrito. 2. Le recomendamos que tome Tylenol de venta lonnie a menos que sea al?rgico al Tylenol. 3. Parche de lidoca?na, aplique en el ?teddy de m?xima sensibilidad sadie se indica en el empaque exterior. 4. Contin?e con el seguimiento con carter proveedor de atenci?n primaria llamando a la oficina el lunes por la ma?patricia. Regrese a la sarah de emergencias si los s?ntomas empeoran. Prescriptions: No Action (DME) blood-glucose meter [FreeStyle Lite Meter] Kit See Rx Instructions .ROUTE .MEDSUPPLY Qty: 1 0RF Rx Instructions: TEST 2 TIMES DAILY fluocinonide 0.05 % cream 1 appl topical BID 30 Days Qty: 30 0RF enalapril maleate 10 mg tablet 10 mg PO DAILY 90 Days Qty: 90 3RF fluticasone propionate [Flonase Allergy Relief] 50 mcg/actuation spray ,suspension 1 spray intranasal DAILY 30 Days Qty: 16 2RF Rx Instructions: administer into each nostril metformin 500 mg tablet 500 mg PO BID Qty: 180 3RF clopidogrel [Plavix] 75 mg tablet 75 mg PO DAILY Qty: 90 3RF cholecalciferol (vitamin D3) 25 mcg (1,000 unit) tablet 25 mcg PO DAILY 90 Days Qty: 90 3RF (DME) FreeStyle Lite Strips Strip See Rx Instructions .ROUTE .COMPLEX Qty: 100 11RF Dose Instruction: TEST BLOOD SUGAR TWICE DAILY DIRECTED Rx Instructions: TEST BLOOD SUGAR TWICE DAILY DIRECTED (DME) lancets [TRUEplus Lancets] 33 gauge misc See Rx Instructions .ROUTE .COMPLEX Qty: 100 11RF Dose Instruction: TEST BLOOD SUGAR TWICE DAILY Rx Instructions: TEST BLOOD SUGAR TWICE DAILY pantoprazole 40 mg tablet,delayed release (DR/EC) 40 mg PO DAILY 90 Days Qty: 90 1RF ondansetron HCl 8 mg tablet 8 mg PO DAILY 30 Days Qty: 30 5RF fenofibrate 54 mg tablet 54 mg PO DAILY Qty: 30 6RF atorvastatin 80 mg tablet 80 mg PO DAILY Qty: 90 3RF amitriptyline 10 mg tablet 10 mg PO BEDTIME Qty: 30 1RF zolpidem 10 mg tablet 10 mg PO BEDTIME PRN (Reason: Insomnia) buspirone 10 mg tablet 10 mg PO .at bedtime (DME) lancets [FreeStyle Lancets] 28 gauge misc See Rx Instructions .ROUTE .MEDSUPPLY Qty: 100 Rx Instructions: Twice a day As directed tizanidine 4 mg capsule 4 mg PO BEDTIME PRN (Reason: muscle spasticity) Qty: 20 0RF bupropion HCl 300 mg tablet extended release 24 hr 300 mg PO DAILY nitroglycerin 0.4 mg tablet, sublingual 0.4 mg sublingual Q5M PRN (Reason: chest pain) 30 Days Qty: 30 5RF Rx Instructions: do not exceed 3 doses per episode Linzess 145 mcg capsule 145 mcg PO DAILY Qty: 30 3RF propranolol 10 mg tablet 10 mg PO BID Qty: 30 0RF Referrals: Patricia England MD [Primary Care Provider] - Print Language: Mauritanian
[2022-03-13] MEDS: iohexoL 350 MG/ML 100 ML INFUS..BTL IV (22:07)
[2022-03-13] MEDS: Lidocaine 4 % Patch ADH..PATCH 1 PATCH TRANSDERMA (22:21)
[2022-03-14] MEDS: Lidocaine HCl Viscous 2 % 15 ML SOLUTION 10 ML MUCOUS MEM (00:03)
[2022-03-14] MEDS: Magnesium Hydrox/Alum Hydrox 30 ML ORAL.SUSP PO (00:03)
== END 2022-03-14 00:07 | disposition home or self-care (01) ==
PROVIDERS: Emergency Provider Student in an Organized Health Care Education/Training Program; PCP Internal Medicine
DX: R10.11 Right upper quadrant pain (principal); I10 Essential (primary) hypertension; E78.2 Mixed hyperlipidemia; E66.9 Obesity, unspecified; Z68.42 Body mass index [BMI] 45.0-49.9, adult; Z79.02 Long term (current) use of antithrombotics/antiplatelets; Z79.899 Other long term (current) drug therapy
CPT/HCPCS: 36415; 74177; 80053; 81001; 82248; 83690; 85025; 99282; 99284; Q9967

== ENCOUNTER 2022-03-26 11:33 | Outpatient (REF) | payer OTHER, SELFPAY ==
--- NOTE | 2022-03-26 10:15 | EMG_ITS ---
Right tibial and peroneal motor studies were performed. Right superficial peroneal and sural sensory studies were performed. Tibial H-reflex was obtained and paraspinal muscles were tested with a needle. 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 There was no evidence of generalized neuropathy or radiculopathy. MD BIBI Aviles/BONITA / [phone]
== END 2022-03-26 11:34 | disposition home or self-care (01) ==
LOC: HO.NEURO 11:33
PROVIDERS: PCP Internal Medicine; Visit Provider Internal Medicine
DX: R20.0 Anesthesia of skin (principal)
CPT/HCPCS: 95886; 95909

== ENCOUNTER 2022-04-08 14:31 | Outpatient (REF) | payer OTHER, SELFPAY ==
--- NOTE | ~2022-04-08 | MM_ITS ---
EXAMINATION: MM SCREENING DIGITAL BREAST TOMOSYNTHESIS, BILATERAL CLINICAL INFORMATION: Screening. Asymptomatic. The lifetime risk of breast cancer based on the Tyrer-Cuzick Model is 15%. COMPARISON: Mammography: 01/13/2022, 04/02/2021, 11/13/2019, 11/07/2018 TECHNIQUE: Digital breast tomosynthesis is performed in both the craniocaudal and mediolateral oblique views along with computer-aided detection (CAD). Synthesized 2D images are generated from the tomosynthesis. FINDINGS: There are scattered areas of fibroglandular density (ACR BI-RADS breast composition Category b). There are no significant masses, abnormal calcifications, or other abnormalities. Parenchymal asymmetry anterior upper outer right breast is similar to prior studies. No developing density. The axilla and skin contours are unremarkable. No significant changes. MM/MM tomosynthesis screening BI IMPRESSION: No mammographic evidence of malignancy. ASSESSMENT: BI-RADS 2: Benign RECOMMENDATION: Routine annual mammography screening. This patient's information was entered into a reminder system with a target due date for their next mammogram.
== END 2022-04-08 14:32 | disposition home or self-care (01) ==
LOC: HO.MAMMO 14:31
PROVIDERS: PCP Internal Medicine; Visit Provider Internal Medicine
DX: Z12.31 Encounter for screening mammogram for malignant neoplasm of breast (principal)
CPT/HCPCS: 77063; 77067

== ENCOUNTER 2022-04-20 10:08 | Outpatient (REF) | payer OTHER, SELFPAY ==
[2022-04-20 12:04] LABS: Alanine Aminotransferase 42 U/L (0-31); Albumin Level 4.4 g/dL (3.5-5.0); Alkaline Phosphatase 116 U/L (39-117); Anion Gap 14 (12-20); Aspartate Amino Transferase 26 U/L (5-31); Bilirubin Total 0.3 mg/dL (0.0-1.0); Blood Urea Nitrogen 18 mg/dL (9-16); Calcium 10.4 mg/dL (8.4-10.2); Carbon Dioxide 24 mmol/L (22-29); Chloride 106 mmol/L (96-108); Cholesterol 123 mg/dL; Estimated Glomerular Filt Rate > 60; Glucose Fasting 116 mg/dL (60-99); HDL Cholesterol 42 mg/dL; LDL Cholesterol Calculated 62 mg/dl; Potassium 4.2 mmol/L (3.3-5.1); Sodium 140 mmol/L (135-145); Total Protein 7.2 g/dL (6.5-8.0); Triglycerides 98 mg/dL
[2022-04-20 12:08] LABS: Creatinine Urine 129.58 mg/dL; Microalbum/Creatinine Ratio Ur 4.6 ug/mg cr
[2022-04-20 12:12] LABS: Vitamin D 25-OH Total 38.7 ng/mL (>30)
== END 2022-04-20 10:09 | disposition home or self-care (01) ==
LOC: HO.LAB 10:08
PROVIDERS: PCP Internal Medicine; Visit Provider Internal Medicine
DX: E55.9 Vitamin D deficiency, unspecified (principal); E78.5 Hyperlipidemia, unspecified; E11.9 Type 2 diabetes mellitus without complications
CPT/HCPCS: 36415; 80053; 80061; 82043; 82306

== ENCOUNTER 2022-05-07 14:09 | Outpatient (REF) | payer OTHER, SELFPAY | END 2022-05-07 14:10 | disposition home or self-care (01) | LOC: HO.MRI 14:09 | PROVIDERS: Visit Provider Internal Medicine | DX: R53.1 Weakness (principal) | CPT/HCPCS: 70551 ==

== ENCOUNTER 2022-06-11 20:15 | Emergency (ER) | payer OTHER, SELFPAY ==
[2022-06-11 20:27] VITALS: BP 126/62; BP 142/74; PULSE 78; PULSE 94; RESP 21; TEMP 37.1; O2SAT 96; O2SAT 97; BMI 37.0
--- NOTE | 2022-06-11 20:42 | PC.NURSE ---
Pt presents with about 1.5 lac to L hand d/t use of kitchen knife while attempting to cut a pumpkin while cooking and the knife slipped. Pt is mildly anxious. 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
--- NOTE | 2022-06-11 20:56 | PC.NURSE ---
pt changed into hospital attire, call coburn placed within reach
--- NOTE | 2022-06-11 21:21 | PC.NURSE ---
pt afebrile, lac d/t knife slipping while cutting pumpkin, no signs of septicemia
--- NOTE | 2022-06-11 22:03 | ED_ITS ---
HPI - Wound/Laceration General Chief Complaint: Wound/Laceration Stated Complaint: left hand lac Time Seen by Provider: 06/11/22 21:27 Source: patient Mode of arrival: ambulatory History of Present Illness HPI narrative: 52-year-old female with a past medical history of diabetes,anxiety, HTN, GERD, giant cell arteritis, CVA, Torres, presenting to ED complaining of laceration to left hand s/p stabbing hand with knife [employer] while trying to cut into a pumpkin. denies injury to other area, numbness, tingling, weakness, fever. Tetanus unknown Onset (ago): hour(s) Related Data Home Medications Medication Instructions Recorded Confirmed buspirone 10 mg tablet 10 mg PO .at bedtime 02/26/20 04/23/22 lancets 28 gauge (FreeStyle #100 ea 02/26/20 04/23/22 Lancets) zolpidem 10 mg tablet 10 mg PO BEDTIME PRN Insomnia 02/26/20 04/23/22 bupropion HCl 300 mg 24 hr tablet, 300 mg PO DAILY 08/26/20 04/23/22 extended release Previous Rx's Medication Instructions Recorded blood-glucose meter (FreeStyle #1 ea 11/14/20 Lite Meter kit) fluocinonide 0.05 % topical cream 1 appl topical BID 30 days #30 12/20/20 grams enalapril maleate 10 mg tablet 10 mg PO DAILY 90 days #90 tabs 07/09/21 metformin 500 mg tablet 500 mg PO BID #180 tabs 08/31/21 tizanidine 4 mg capsule 4 mg PO BEDTIME PRN muscle 10/27/21 spasticity #20 caps clopidogrel 75 mg tablet (Plavix) 75 mg PO DAILY #90 tabs 10/31/21 cholecalciferol (vitamin D3) 25 25 mcg PO DAILY 90 days #90 tabs 11/27/21 mcg (1,000 unit) tablet linaclotide 145 mcg capsule 145 mcg PO DAILY #30 caps 12/08/21 (Linzess) propranolol 10 mg tablet 10 mg PO BID #30 tabs 12/08/21 blood sugar diagnostic (FreeStyle #100 strips 12/31/21 Lite Strips) lancets 33 gauge (TRUEplus Lancets) ##100 12/31/21 ondansetron HCl 8 mg tablet 8 mg PO DAILY 30 days #30 tabs 01/09/22 pantoprazole 40 mg tablet,delayed 40 mg PO DAILY 90 days #90 tabs 01/09/22 release fenofibrate 54 mg tablet 54 mg PO DAILY #30 tabs 02/24/22 amitriptyline 10 mg tablet 10 mg PO BEDTIME #30 tabs 02/25/22 atorvastatin 80 mg tablet 80 mg PO DAILY #90 tabs 02/25/22 lidocaine 5 % topical patch 1 patch topical DAILY PRN pain 30 04/23/22 days #30 ea nitroglycerin 0.4 mg sublingual 0.4 mg sublingual Q5M PRN chest 04/24/22 tablet pain #25 tabs fluticasone propionate 50 1 spray intranasal DAILY 30 days 04/29/22 mcg/actuation nasal #16 grams spray,suspension (Flonase Allergy Relief) nirmatrelvir 300 mg (150 mg 3 ea PO PER PKG DIR 5 days #30 ea 05/01/22 x2)-ritonavir 100 mg tablet,dose pack(EUA) (Paxlovid) cephalexin 500 mg capsule 500 mg PO QID 7 days #28 caps 06/11/22 Allergies Allergy/AdvReac Type Severity Reaction Status Date / Time acetaminophen [Percocet] Allergy Intermediate dyspnea Verified 04/23/22 15:09 aspirin [Aspirin] Allergy Intermediate SWELLING, Verified 04/23/22 15:09 hives, uticaria carbamazepine [From TEGRETOL] Allergy Intermediate SWELLING Verified 04/23/22 15:09 gabapentin Allergy Intermediate abdominal Verified 04/23/22 15:09 pain, abd pain morphine [MORPHINE] Allergy Intermediate HIVES Verified 04/23/22 15:09 naproxen [From ALEVE] Allergy Intermediate RASH, Verified 04/23/22 15:09 MOUTH SORES oxycodone [OXYCODONE] Allergy Intermediate HIVES Verified 04/23/22 15:09 Penicillins Allergy Intermediate HIVES Verified 04/23/22 15:09 sertraline Allergy Intermediate nausea Verified 04/23/22 15:09 lisinopril [LISINOPRIL] Allergy Mild HICCUPS Verified 04/23/22 15:09 pramipexole AdvReac Mild dizziness Verified 04/23/22 15:09 Review of Systems Review of Systems: Constitutional: No Fever, No Chills ENT/Mouth: No Ear Pain, No Nasal Congestion, No Swallowing Difficulty Cardiovascular: No Chest Pain, No SOB Respiratory: No Cough, No Sputum, No Wheezing Gastrointestinal: No Nausea, No Vomiting, No Diarrhea, No Constipation, No Abdominal pain Musculoskeletal: No joint pain, No Myalgias, No Joint Swelling Skin: + Skin Lesions, No rash Neuro: No Weakness, No Numbness, No Paresthesia Yes all other systems are reviewed and are negative Constitutional: Constitutional: Reports as per [facility] Past Medical History Attestation statement: The following information was validated with the patient. Medical History Anxiety COVID-19 vaccine series completed Easy bruising Essential hypertension GERD (gastroesophageal reflux disease) Giant cell arteritis History of CVA (cerebrovascular accident) Hypercalcemia Leukocytosis Lumbar degenerative disc disease Memory loss Mixed hyperlipidemia Moderate major depression TORRES (nonalcoholic steatohepatitis) Nausea and vomiting Neuropathy Obese Pre-op evaluation Renal cyst Surgical History H/O tubal ligation H/O: History of appendectomy History of cardiac cath History of endometrial ablation History of esophagogastroduodenoscopy (EGD) History of hernia repair History of temporal artery biopsy Hx of colonoscopy Family History Family History Father Stroke Mother Colon cancer, Onset Age: 64 Diabetes Hypertension Uterine cancer Brother Substance use disorder Family/Other Mental health disorder Sister Breast cancer Social History Social History Household Members: Significant Other and Children Housing: Apartment Alcohol intake: never Patient Tobacco Use Status: Never used Tobacco Smoked in Last 30 Days: No e-Cigarette/Vaping Use: Never Used Second Hand Smoke Exposure: No Use of substances other than those prescribed or required for medical reasons: No Advance Directives: No Advance Directives Information Provided: No Patient : No service: No Current occupational status: disabled Sexual orientation: Straight/Heterosexual Gender identity: Female Cognitive needs: No Hearing needs: No Vision needs: Yes Physical Exam Vital Signs: Vital Signs: Last Vital Signs Temp 98.3 F 06/11/22 23:09 Pulse 77 06/11/22 23:09 Resp 18 06/11/22 23:09 BP 116/62 06/11/22 23:09 Pulse Ox 97 06/11/22 23:09 O2 Del Method 06/11/22 23:09 BMI result Body Mass Index 37.0 Const: Other: anxious General: cooperative, healthy appearing and no acute distress Orientation/consciousness: patient oriented x3 Limitations: no limitations HEENT: Head: Yes normal to inspection and Yes atraumatic Ears: hearing grossly normal bilaterally General nose exam: Normal external nose present Face and sinus: Yes normal facial exam Eyes: General: appearance normal, both eyes and all related structures EOM: EOMs intact bilaterally Neck: Neck: Yes normal visual inspection and Yes no meningeal signs Resp: Effort & Inspection: normal respiratory effort and no respiratory distress Cardio: Rate: regular rate Heart sounds: S1 normal heart sound present and S2 normal heart sound present Peripheral pulses: radial pulses present and ulnar radial pulses present Skin: Other: 1.5 cm superficial laceration noted to left hand volar aspect between thumb and index finger. Bleeding controlled. Underlying structures intact. FROM digits intact w/pain. Sensation intact to light touch Rashes: no rashes Neuro: General: patient oriented x3, tone normal and no meningeal signs Gait exam (Neuro): Normal gait present Extrem: General: Yes normal to inspection Medications Administered Discontinued Medications Generic Name Dose Route Start Last Admin Trade Name Freq PRN Reason Stop Dose Admin Diphtheria/Tetanus/Acell Pertussis 0.5 ml 06/11/22 21:49 06/11/22 22:07 Diphth,Pertus(Acell),Tet Adult 0.5 Ml Syringe IM 06/11/22 21:50 0.5 ml .ONCE ONE Administration Lidocaine HCl 5 ml 06/11/22 21:49 06/11/22 22:07 Lidocaine Hcl 1 % Mpf 5 Ml Vial INFILTRATI 06/11/22 21:50 5 ml ONCE ONE Administration Medical Decision Making Medical Decision Making MDM Narrative: 52-year-old female with a past medical history of diabetes,anxiety, HTN, GERD, giant cell arteritis, CVA, Torres, presenting to ED complaining of laceration to left hand s/p stabbing hand with knife [employer] while trying to cut into a pumpkin. on exam mildly tachypneic and tachycardic, anxious, physical exam as above. Low suspicion or evidence of underlying structure disruption. Will update tetanus and repair wound. Differential Diagnosis Differential Diagnoses: The differential diagnosis associated with the presentation includes As above External Record Review External record reviewed: Office record and Prior outpatient labs Prescription Management I considered prescription management with: Pain Medication Procedures Laceration Laceration 1: Side (If applicable): left Size (cm): 1.5 Description: linear Depth: simple, single layer Local Anesthetic: lidocaine 1% Amount of anesthesia used (mL): 2 Pre-repair: wound explored Skin layer closed with: nylon Size (cm): 4-0 Number of sutures: 3 Technique: simple, interrupted Discharge Plan Discharge Clinical Impression: Hand laceration Patient Disposition: Home, Self-Care Instructions: Laceration (ED) Additional Instructions: Your wounds were repaired today in the emergency department. Keep dry and clean. You need to return to any emergency department, urgent care, or your PCPs office in 7-10 days for suture removal Keflex as an antibiotic please take as prescribed Apply bacitracin and or Neosporin daily Once sutures are removed apply anti scar cream like Mederma If area begins look infected, is red, there is drainage, streaking, or you have fever please return to the emergency department Tus heridas fueron reparadas hoy en el departamento de emergencias. Mant?ngase seco y limpio. Keflex sadie antibi?marcos, t?mayen seg?n lo prescrito Debe regresar a cualquier departamento de emergencias, atenci?n de urgencia o al consultorio de carter PCP en 7 a 10 d?as para que le quiten las suturas. Aplique bacitracina y/o Neosporin diariamente José vez que se retiran las suturas, aplique josé crema anticicatrices sadie Meder ma. Si el ?teddy comienza a lucir infectada, est? lawanda, hay antonyje, macario o tiene nuria, regrese al departamento de emergencias. Prescriptions: New cephalexin 500 mg capsule 500 mg PO QID 7 Days Qty: 28 0RF No Action (DME) blood-glucose meter [FreeStyle Lite Meter] Kit See Rx Instructions .ROUTE .MEDSUPPLY Qty: 1 0RF Rx Instructions: TEST 2 TIMES DAILY fluocinonide 0.05 % cream 1 appl topical BID 30 Days Qty: 30 0RF enalapril maleate 10 mg tablet 10 mg PO DAILY 90 Days Qty: 90 3RF metformin 500 mg tablet 500 mg PO BID Qty: 180 3RF clopidogrel [Plavix] 75 mg tablet 75 mg PO DAILY Qty: 90 3RF cholecalciferol (vitamin D3) 25 mcg (1,000 unit) tablet 25 mcg PO DAILY 90 Days Qty: 90 3RF (DME) FreeStyle Lite Strips Strip See Rx Instructions .ROUTE .COMPLEX Qty: 100 11RF Dose Instruction: TEST BLOOD SUGAR TWICE DAILY DIRECTED Rx Instructions: TEST BLOOD SUGAR TWICE DAILY DIRECTED (DME) lancets [TRUEplus Lancets] 33 gauge misc See Rx Instructions .ROUTE .COMPLEX Qty: 100 11RF Dose Instruction: TEST BLOOD SUGAR TWICE DAILY Rx Instructions: TEST BLOOD SUGAR TWICE DAILY pantoprazole 40 mg tablet,delayed release (DR/EC) 40 mg PO DAILY 90 Days Qty: 90 1RF ondansetron HCl 8 mg tablet 8 mg PO DAILY 30 Days Qty: 30 5RF fenofibrate 54 mg tablet 54 mg PO DAILY Qty: 30 6RF atorvastatin 80 mg tablet 80 mg PO DAILY Qty: 90 3RF amitriptyline 10 mg tablet 10 mg PO BEDTIME Qty: 30 1RF nitroglycerin 0.4 mg tablet, sublingual 0.4 mg sublingual Q5M PRN (Reason: chest pain) Qty: 25 3RF Rx Instructions: Place 1 tablet under tongue every 5 mins as needed for chest pain. Maximum of 3 tablets. fluticasone propionate [Flonase Allergy Relief] 50 mcg/actuation spray,suspension 1 spray intranasal DAILY 30 Days Qty: 16 2RF Rx Instructions: administer into each nostril Paxlovid (EUA) 300 mg (150 mg x 2)-100 mg tablets,dose pack 3 ea PO PER PKG DIR 5 Days Qty: 30 0RF zolpidem 10 mg tablet 10 mg PO BEDTIME PRN (Reason: Insomnia) buspirone 10 mg tablet 10 mg PO .at bedtime (DME) lancets [FreeStyle Lancets] 28 gauge misc See Rx Instructions .ROUTE .MEDSUPPLY Qty: 100 Rx Instructions: Twice a day As directed tizanidine 4 mg capsule 4 mg PO BEDTIME PRN (Reason: muscle spasticity) Qty: 20 0RF lidocaine 5 % adhesive patch,medicated 1 patch topical DAILY PRN (Reason: pain) 30 Days Qty: 30 1RF Rx Instructions: leave on most painful area for up to 12 hrs bupropion HCl 300 mg tablet extended release 24 hr 300 mg PO DAILY Linzess 145 mcg capsule 145 mcg PO DAILY Qty: 30 3RF propranolol 10 mg tablet 10 mg PO BID Qty: 30 0RF Referrals: Sidra Franks MD [Physician] - ( hand surgeon) Patricia England MD [Primary Care Provider] - ( 7-10 days for suture removal) Interventions: ED Discharge Assessment Last Done: 06/11/22 23:13 Discharge Date/Time: 06/11/22 23:14 Print Language: Prydeinig
[2022-06-11] MEDS: Lidocaine HCl 1 % MPF 5 ML VIAL INFILTRATI (22:07)
[2022-06-11] MEDS: Diphth,Pertus(ACell),Tet Adult 0.5 ML SYRINGE IM (22:07)
[2022-06-11 23:09] VITALS: BP 116/62; PULSE 77; RESP 18; TEMP 36.8; O2SAT 97
--- NOTE | 2022-06-11 23:13 | PC.NURSE ---
Discharge instructions given and explained; patient ambulates safely/independently; no apparent distress
== END 2022-06-11 23:14 | disposition home or self-care (01) ==
PROVIDERS: Emergency Provider Internal Medicine; PCP Internal Medicine
DX: S61.412A Laceration without foreign body of left hand, initial encounter (principal); S60.512A Abrasion of left hand, initial encounter; W26.0XXA Contact with knife, initial encounter; Y93.9 Activity, unspecified; Y92.9 Unspecified place or not applicable; Y99.9 Unspecified external cause status; Z79.899 Other long term (current) drug therapy; Z23 Encounter for immunization
CPT/HCPCS: 12001; 90471; 90715; 99284

== ENCOUNTER 2022-08-18 09:18 | Outpatient (REF) | payer OTHER, SELFPAY ==
[2022-08-18 09:26] LABS: MANUAL DIFF FLAG NO
[2022-08-18 09:40] LABS: Basophils Absolute Auto 0.1 X10*3/uL (0.0-0.2); Basophils Percent Auto 0.5 % (0-2); Eosinophils Absolute Auto 0.1 X10*3/uL (0.0-0.4); Eosinophils Percent Auto 0.8 % (0-4); Hematocrit 37.5 % (37.0-47.0); Hemoglobin 12.1 g/dl (12.0-16.0); Imm Gran Abs Auto 0.04 X10*3/uL (0.00-0.03); Imm Gran Pct Auto 0.4 % (0.0-0.4); Lymphocytes Absolute Auto 3.2 X10*3/uL (1.2-4.9); Lymphocytes Percent Auto 30.8 % (20-40); Mean Corpuscular HGB Conc 32.3 g/dl (31.0-35.0); Mean Corpuscular Hemoglobin 29.4 pg (27.0-33.0); Mean Corpuscular Volume 91.2 fL (80.0-98.0); Mean Platelet Volume 10.7 fL (9.4-12.3); Monocytes Absolute Auto 0.6 X10*3/uL (0.1-1.2); Monocytes Percent Auto 5.6 % (2-11); Neutrophils Absolute Auto 6.5 x10*3/uL (2.0-8.3); Neutrophils Percent Auto 61.9 % (45-73); Platelet Count 384 X10*3/uL (160-400); Red Blood Count 4.11 X10*6/uL (4.20-5.50); Red Cell Distribution Width 13.2 % (11.0-16.0); White Blood Count 10.5 X10*3/uL (4.8-10.8)
[2022-08-18 10:19] LABS: Alanine Aminotransferase 33 U/L (0-31); Albumin Level 4.5 g/dL (3.5-5.0); Alkaline Phosphatase 95 U/L (39-117); Anion Gap 11 (12-20); Aspartate Amino Transferase 26 U/L (5-31); Bilirubin Total 0.4 mg/dL (0.0-1.0); Blood Urea Nitrogen 19 mg/dL (9-16); Calcium 10.3 mg/dL (8.4-10.2); Carbon Dioxide 29 mmol/L (22-29); Chloride 106 mmol/L (96-108); Cholesterol 149 mg/dL; Estimated Glomerular Filt Rate > 60; Glucose Fasting 115 mg/dL (60-99); HDL Cholesterol 45 mg/dL; LDL Cholesterol Calculated 86 mg/dl; Potassium 4.8 mmol/L (3.3-5.1); Sodium 141 mmol/L (135-145); Total Protein 7.3 g/dL (6.5-8.0); Triglycerides 91 mg/dL
[2022-08-18 10:34] LABS: Creatinine Urine 94.13 mg/dL; Microalbum/Creatinine Ratio Ur 8.4 ug/mg cr
[2022-08-18 10:40] LABS: Vitamin D 25-OH Total 53.4 ng/mL (>30)
== END 2022-08-18 09:19 | disposition home or self-care (01) ==
LOC: HO.LAB 09:18
PROVIDERS: PCP Internal Medicine; Visit Provider Internal Medicine
DX: E11.9 Type 2 diabetes mellitus without complications (principal); E55.9 Vitamin D deficiency, unspecified; E78.5 Hyperlipidemia, unspecified; D64.9 Anemia, unspecified
CPT/HCPCS: 36415; 80053; 80061; 82043; 82306; 85025

== ENCOUNTER → 2022-11-17 12:42 | Outpatient (BNVA) | payer OTHER, SELFPAY | PROVIDERS: Visit Provider Internal Medicine | DX: I25.10 Atherosclerotic heart disease of native coronary artery without angina pectoris (principal); I10 Essential (primary) hypertension; E11.8 Type 2 diabetes mellitus with unspecified complications; Z79.02 Long term (current) use of antithrombotics/antiplatelets; Z79.84 Long term (current) use of oral hypoglycemic drugs; Z79.899 Other long term (current) drug therapy | CPT/HCPCS: 93005; 99212 ==

== ENCOUNTER 2022-12-17 16:44 | Emergency (ER) | payer OTHER, SELFPAY ==
--- NOTE | ~2022-12-17 | XR_ITS ---
EXAMINATION: XR KNEE, LEFT XR TIBIA-FIBULA, LEFT XR ANKLE, LEFT XR FOOT, PAIN CLINICAL INFORMATION: Left knee radiograph from 11/26/2014 left ankle radiograph from 08/22/2008 COMPARISON: None available. TECHNIQUE: 4 views of the left knee 2 views left tibia-fibula 3 views of the left foot 2 views of the left ankle FINDINGS: No acute visible fracture or dislocation. Ankle mortise is symmetric. Enthesopathy at the Achilles tendon insertion site. Tiny plantar calcaneal heel spur. Joint spaces and alignment are maintained. Trace knee joint effusion. Soft tissues are unremarkable. XR/XR foot LT min 3V IMPRESSION: 1. No acute visible fracture or dislocation. 2. Enthesopathy at the Achilles tendon insertion site. 3. Tiny plantar calcaneal heel spur. 4. Trace knee joint effusion.
--- NOTE | ~2022-12-17 | XR_ITS ---
EXAMINATION: XR KNEE, LEFT XR TIBIA-FIBULA, LEFT XR ANKLE, LEFT XR FOOT, PAIN CLINICAL INFORMATION: Left knee radiograph from 11/26/2014 left ankle radiograph from 08/22/2008 COMPARISON: None available. TECHNIQUE: 4 views of the left knee 2 views left tibia-fibula 3 views of the left foot 2 views of the left ankle FINDINGS: No acute visible fracture or dislocation. Ankle mortise is symmetric. Enthesopathy at the Achilles tendon insertion site. Tiny plantar calcaneal heel spur. Joint spaces and alignment are maintained. Trace knee joint effusion. Soft tissues are unremarkable. XR/XR tibia fibula LT 2V IMPRESSION: 1. No acute visible fracture or dislocation. 2. Enthesopathy at the Achilles tendon insertion site. 3. Tiny plantar calcaneal heel spur. 4. Trace knee joint effusion.
--- NOTE | ~2022-12-17 | XR_ITS ---
EXAMINATION: XR KNEE, LEFT XR TIBIA-FIBULA, LEFT XR ANKLE, LEFT XR FOOT, PAIN CLINICAL INFORMATION: Left knee radiograph from 11/26/2014 left ankle radiograph from 08/22/2008 COMPARISON: None available. TECHNIQUE: 4 views of the left knee 2 views left tibia-fibula 3 views of the left foot 2 views of the left ankle FINDINGS: No acute visible fracture or dislocation. Ankle mortise is symmetric. Enthesopathy at the Achilles tendon insertion site. Tiny plantar calcaneal heel spur. Joint spaces and alignment are maintained. Trace knee joint effusion. Soft tissues are unremarkable. XR/XR knee LT 3V IMPRESSION: 1. No acute visible fracture or dislocation. 2. Enthesopathy at the Achilles tendon insertion site. 3. Tiny plantar calcaneal heel spur. 4. Trace knee joint effusion.
--- NOTE | ~2022-12-17 | XR_ITS ---
EXAMINATION: XR KNEE, LEFT XR TIBIA-FIBULA, LEFT XR ANKLE, LEFT XR FOOT, PAIN CLINICAL INFORMATION: Left knee radiograph from 11/26/2014 left ankle radiograph from 08/22/2008 COMPARISON: None available. TECHNIQUE: 4 views of the left knee 2 views left tibia-fibula 3 views of the left foot 2 views of the left ankle FINDINGS: No acute visible fracture or dislocation. Ankle mortise is symmetric. Enthesopathy at the Achilles tendon insertion site. Tiny plantar calcaneal heel spur. Joint spaces and alignment are maintained. Trace knee joint effusion. Soft tissues are unremarkable. XR/XR ankle LT min 3V IMPRESSION: 1. No acute visible fracture or dislocation. 2. Enthesopathy at the Achilles tendon insertion site. 3. Tiny plantar calcaneal heel spur. 4. Trace knee joint effusion.
[2022-12-17 16:59] VITALS: BP 134/62; PULSE 74; O2SAT 97
[2022-12-17 17:47] VITALS: BP 132/81; PULSE 83; RESP 17; TEMP 36; O2SAT 100; BMI 42.3
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
[2022-12-17 19:40] VITALS: BP 134/76; PULSE 78; RESP 18; TEMP 36.6; O2SAT 99
== END 2022-12-17 23:08 | disposition home or self-care (01) ==
PROVIDERS: Emergency Provider Emergency Medicine; PCP Internal Medicine
DX: S83.92XA Sprain of unspecified site of left knee, initial encounter (principal); M25.572 Pain in left ankle and joints of left foot; M79.672 Pain in left foot; V43.52XA Car driver injured in collision with other type car in traffic accident, initial encounter; Y93.9 Activity, unspecified; Y92.410 Unspecified street and highway as the place of occurrence of the external cause; Y99.9 Unspecified external cause status
CPT/HCPCS: 73562; 73590; 73610; 73630; 99282; 99283

== ENCOUNTER → 2023-01-05 09:34 | Outpatient (REF) | payer OTHER, SELFPAY ==
--- NOTE | ~2023-01-05 | NM_ITS ---
Exercise Myocardial perfusion study Indication: Precordial pain to evaluate for myocardial ischemia Technique: The patient was brought in for an exercise perfusion study on 01/05/2023. Patient performed exercise as per Timothy protocol and was injected 35 mCi of sestamibi was given intravenously one target HR was achieved. Images were obtained using the SPECT gamma camera interlaced with the gating device. Images were obtained in supine position. Resting perfusion study was performed on 01/06/2023. Patient was administered 35 mCi of sestamibi intravenously at rest. Images were then obtained in supine position. Images obtained with and without CT attenuation. Total DLP 136 mGy-cm. Images were processed with the software and compared side to side in short axis, horizontal long axis and vertical long axis views. Findings: The stress perfusion study showed non attenuated images show minimal thinning of the distal lateral wall of the LV myocardium. Attenuation corrected images show mildly reduced uptake in the distal anterior, apical and distal septal wall of the LV myocardium.. The gated study shows normal LV systolic function with calculated LVEF of greater than 70%. LV cavity is normal in size. The gated study shows normal systolic wall thickening and contraction of all segments. There is no transient ischemic dilation. Resting study shows no change in perfusion pattern compared to stress perfusion study. Gating at rest reveals normal systolic wall motion with ejection fraction at 72%. The findings are consistent with no clear reversible defect suggestive of ischemia.. NM/NM cardiolite stress test Impression: 1. Likely normal myocardial perfusion 2. Gated LVEF is 72% 3. Transient ischemic dilatation not present Stress EKG is negative for ischemia
--- NOTE | 2023-01-05 09:41 | CA_ITS ---
Acquisition Time: 2023-01-05 09:39:57 Total Exercise Time: 00:07:33 Test Indications: CP Medications: SEE H Protocol: GEGE Max HR: 146 BPM 86% of Pred: 169 BPM Max BP: 160/076 mmHG Max Work Load: 7.2 METS Exercise stress test exercise 7 min 33 sec of Gege protocol stage 2 held achieving 86% MPHR, with 6/10 chest pressure, mild SOB, with isolated PVCs, with normotensive response to exercise, without EKG changes. Chest pressure resolved with rest. Nuclear images pending. Test reviewed with Dr. Miller Referred By: Oracio Hooker Overread By: Joellen Mcintyre
== END ==
LOC: HO.CARD 09:34
PROVIDERS: PCP Internal Medicine; Visit Provider Internal Medicine
DX: I25.10 Atherosclerotic heart disease of native coronary artery without angina pectoris (principal); R07.2 Precordial pain
CPT/HCPCS: 78452; 93017; A9500; J0280; J2785

== ENCOUNTER → 2023-01-05 09:41 | Outpatient (BNV) | payer OTHER, SELFPAY | PROVIDERS: PCP Internal Medicine; Visit Provider Nurse Practitioner | DX: R07.2 Precordial pain (principal) | CPT/HCPCS: 78452; 93016; 93018 ==

== ENCOUNTER 2023-01-05 11:27 | Outpatient (AMB) | payer OTHER, SELFPAY ==
[2023-01-05 11:31] VITALS: BP 128/84; PULSE 83; O2SAT 99; BMI 36.2
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
== END 2023-01-05 12:13 | disposition home or self-care (01) ==
PROVIDERS: PCP Internal Medicine; Visit Provider Nurse Practitioner Family
DX: M25.561 Pain in right knee (principal); M25.562 Pain in left knee; M54.9 Dorsalgia, unspecified; E11.9 Type 2 diabetes mellitus without complications
CPT/HCPCS: 83036; 99214

== ENCOUNTER → 2023-01-13 09:20 | Outpatient (REF) | payer OTHER, SELFPAY ==
--- NOTE | 2023-01-13 09:23 | CA_ITS ---
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 Study Quality: Adequate w contrast ECG Rhythm: Sinus Conclusions: - The left ventricular systolic function is normal. The calculated ejection fraction is 68% by biplane method. - No obvious valvular pathology seen on this study. Findings Procedure Information Contrast agent, definity, is being given per protocol without apparent complications. Left Ventricle Normal left ventricular cavity size. There is normal left ventricular wall thickness. The left ventricular systolic function is normal. The calculated ejection fraction is 68% by biplane method. There is no evidence of regional wall motion abnormalities. Evidence suggests grade I (mild) diastolic dysfunction. Right Ventricle Normal right ventricular cavity size. There is low normal right ventricular systolic function. Atria Both atria are normal in size. Aortic Valve There is a normal trileaflet aortic valve. There is no aortic valve stenosis. There is no aortic valve regurgitation. Mitral Valve There is mild anterior mitral leaflet thickening. There is no mitral valve regurgitation. There is no mitral valve stenosis. Pulmonic Valve The pulmonic valve is likely normal. Tricuspid Valve There is no tricuspid valve regurgitation. Tricuspid regurgitation envelope is inadequate for calculation of right ventricular systolic pressure. Great Vessels The asc aorta is normal in size. Venous The inferior vena cava was not well visualized. Pericardium/Pleural There is no evidence of pericardial effusion. Prior Study Comparison No significant change compared to prior study dated: 01/12/2019. Recommendations, Care & Conclusions No obvious valvular pathology seen on this study. Measurements 2D Linear Measurements IVSd: 0.93 0.6-0.9/0.6-1.0 cm LVIDd: 4.10 3.9-5.3/4.2-5.9 cm LVIDd Index: 2.16 2.4-3.2/2.2-3.1 cm/m2 LVIDs: 2.80 2.0-3.6 cm LVPWd: 0.91 0.7-1.1 cm LA Diam: 3.70 2.7-3.8/3.0-4.0 cm LAIDs Index: 1.95 1.5-2.3 cm/m2 LV Mass: 145.74 67-162/88-224 g LV Mass Index: 76.71 43-95/49-115 g/m2 LVOT Diam: 2.00 3.0+(-)1.3 cm 2D Systolic Function EF 4C: 66.70 >55% EF 2C: 68.70 >55% EF BiP: 67.50 >55% Mitral Valve MV Pk E: 0.75 MV PK A: 0.86 MV Decel Time: 130.00 E/A: 0.90 E'Lateral: 6.64 E'Medial: 4.57 E/E' Med: 16.30 E/E' Lat: 11.20 PHT: 38.00 MVA PHT: 5.79 Decel Brewster: 5.75 Aortic Valve AoV Pk Tc: 1.16 AoV Pk Grad: 5.00 ANUSHA: 2.12 LVOT LVOT Pk Tc: 0.78 LVOT Mn Tc: 0.57 LVOT VTI: 0.17 LVOT Pk Grad: 2.00 LVOT Mn Grad: 1.00 LVOT Diam: 2.00 LVOT Area: 3.14 Diastolic Function MV Pk E: 0.75 MV Pk A: 0.86 E/A: 0.90 E'Medial: 4.57 E/E' Med: 16.30 E' Laterial: 6.64 E/E' Lat: 11.20 Right Ventricle TAPSE (mm): 16.80 TVS' Tc: 10.40 Tricuspid Valve RA Press: 3.00 Great Vessels Aorta Sinus of Valsalva: 3.20 2.0-3.5 cm Ao Asc: 3.00 2.1-3.4 cm Ao Desc: 2.50 Pulmonary Veins Pulm Vein S/D 2.10 Pulmonary Valve PV Pk Tc: 0.77 Peak PV Grad: 2.00 Updated in Other Vendor System with Status of Final Oracio Hooker MD electronically signed on 01/15/2023 1:24:41 PM with status of Final
== END ==
LOC: HO.CARD 09:20
PROVIDERS: PCP Internal Medicine; Visit Provider Internal Medicine
DX: I25.10 Atherosclerotic heart disease of native coronary artery without angina pectoris (principal)
CPT/HCPCS: 93306; Q9957

== ENCOUNTER → 2023-01-13 09:23 | Outpatient (BNV) | payer OTHER, SELFPAY | PROVIDERS: PCP Internal Medicine; Visit Provider Internal Medicine | DX: I51.9 Heart disease, unspecified (principal) | CPT/HCPCS: 93306 ==

== ENCOUNTER 2023-01-22 09:44 | Outpatient (REF) | payer OTHER, SELFPAY ==
[2023-01-22 11:32] LABS: Creatinine Urine 87.26 mg/dL; Microalbumin Urine < 5.0 mg/L
[2023-01-22 11:40] LABS: Alanine Aminotransferase 29 U/L (0-31); Albumin Level 4.2 g/dL (3.5-5.0); Alkaline Phosphatase 131 U/L (39-117); Anion Gap 15 (12-20); Aspartate Amino Transferase 20 U/L (5-31); Bilirubin Total 0.4 mg/dL (0.0-1.0); Blood Urea Nitrogen 15 mg/dL (9-16); Calcium 10.7 mg/dL (8.4-10.2); Carbon Dioxide 25 mmol/L (22-29); Chloride 103 mmol/L (96-108); Cholesterol 118 mg/dL (<200); Estimated Glomerular Filt Rate > 60; Glucose Fasting 141 mg/dL (60-99); HDL Cholesterol 38 mg/dL (>40); LDL Cholesterol Calculated 56 mg/dL (<100); Potassium 4.4 mmol/L (3.3-5.1); Sodium 139 mmol/L (135-145); Total Protein 7.5 g/dL (6.5-8.0); Triglycerides 122 mg/dL (<150); Vitamin D 25-OH Total 50.5 ng/mL (>30)
== END 2023-01-22 09:45 | disposition home or self-care (01) ==
LOC: HO.LAB 09:44
PROVIDERS: PCP Internal Medicine; Visit Provider Internal Medicine
DX: E55.9 Vitamin D deficiency, unspecified (principal); E11.9 Type 2 diabetes mellitus without complications; E78.5 Hyperlipidemia, unspecified
CPT/HCPCS: 36415; 80053; 80061; 82043; 82306; 82570

== ENCOUNTER 2023-01-26 17:14 | Outpatient (AMB) | payer OTHER, SELFPAY ==
[2023-01-26 17:18] VITALS: BP 138/70; PULSE 84; O2SAT 98; BMI 36.9
--- NOTE | 2023-01-26 17:18 | MHC.PC.OV ---
Vital Signs 01/26/23 17:18 Height 5 ft 2 in Weight 202 lb BMI 36.9 BP 138/70 Blood Pressure Location Lt brachial Position Sitting Pulse 84 Pulse Source Pulse Oximeter Pulse Oximetry (%) 98 Oxygen Delivery Method Room Air Intake Visit Reasons: PE Card Stripper Required: No Accompanied by: Self / Same As Patient Allergies acetaminophen [Percocet] Allergy (Intermediate, Verified 01/26/23 17:31) dyspnea aspirin [Aspirin] Allergy (Intermediate, Verified 01/26/23 17:31) SWELLING, hives, uticaria carbamazepine [From TEGRETOL] Allergy (Intermediate, Verified 01/26/23 17:31) SWELLING gabapentin Allergy (Intermediate, Verified 01/26/23 17:31) abdominal pain, abd pain morphine [MORPHINE] Allergy (Intermediate, Verified 01/26/23 17:31) HIVES naproxen [From ALEVE] Allergy (Intermediate, Verified 01/26/23 17:31) RASH, MOUTH SORES oxycodone [OXYCODONE] Allergy (Intermediate, Verified 01/26/23 17:31) HIVES Penicillins Allergy (Intermediate, Verified 01/26/23 17:31) HIVES sertraline Allergy (Intermediate, Verified 01/26/23 17:31) nausea lisinopril [LISINOPRIL] Allergy (Mild, Verified 01/26/23 17:31) HICCUPS pramipexole Adverse Reaction (Mild, Verified 01/26/23 17:31) dizziness Medication List - Last Reconciled 01/26/23 by Patricia Connelyl MD amitriptyline 10 mg PO BEDTIME atorvastatin 80 mg PO DAILY blood sugar diagnostic (FreeStyle Lite Strips) TEST BLOOD SUGAR TWICE DAILY DIRECTED blood-glucose meter (FreeStyle Lite Meter kit) TEST 2 TIMES DAILY bupropion HCl 300 mg PO DAILY buspirone 10 mg PO .at bedtime cholecalciferol (vitamin D3) 25 mcg PO DAILY 90 days clopidogrel (Plavix) 75 mg PO DAILY enalapril maleate 10 mg PO DAILY 90 days fenofibrate 54 mg PO DAILY fluocinonide 0.05% 1 appl topical BID 30 days fluticasone propionate 50 mcg/actuation (Flonase Allergy Relief) 1 spray intranasal DAILY 30 days lancets (FreeStyle Lancets) Twice a day As directed lancets (TRUEplus Lancets) TEST BLOOD SUGAR TWICE DAILY lidocaine 5% 1 patch topical DAILY PRN 30 days linaclotide (Linzess) 145 mcg PO DAILY metformin 500 mg PO BID nitroglycerin 0.4 mg sublingual Q5M PRN ondansetron HCl 8 mg PO DAILY 30 days pantoprazole 40 mg PO DAILY 90 days propranolol 10 mg PO BID tizanidine 4 mg PO BEDTIME PRN 7 days zolpidem 10 mg PO BEDTIME PRN Tobacco use date assessed: 08/25/22 Dental Screening Dental Screen Date: 01/26/23 Did you have a dental visit in the last 12 months?: Yes Did you have a dental problem in the last 6 months where you did not have access to dental care?: No Was dental information given to patient?: Patient has dentist HPI HPI Comments History of Present Illness Details This is a 52-year-old female with moderate major depression and diabetes mellitus type 2 that comes for her physical exam. Depression stable with bupropion and counseling. A1c not on goal and I will add Trulicity. Side effects were discussed such as nausea and vomiting. Denies any chest pain or shortness of breath. Last mammogram was March 2022. Last Pap smear was 2019. Last colonoscopy was 2020. Complains of left knee pain. [facility] Medical History (Updated 01/26/23 @ 17:52 by Patricia Connelly MD) Anxiety COVID-19 vaccine series completed Easy bruising Essential hypertension GERD (gastroesophageal reflux disease) Giant cell arteritis History of CVA (cerebrovascular accident) Hypercalcemia Leukocytosis Lumbar degenerative disc disease Memory loss Mixed hyperlipidemia Moderate major depression ESQUIVEL (nonalcoholic steatohepatitis) Nausea and vomiting Neuropathy Obese Pre-op evaluation Renal cyst Surgical History H/O tubal ligation H/O: History of appendectomy History of cardiac cath History of endometrial ablation History of esophagogastroduodenoscopy (EGD) History of hernia repair History of temporal artery biopsy Hx of colonoscopy Family History Father Stroke Mother Colon cancer, Onset Age: 64 Diabetes Hypertension Uterine cancer Brother Substance use disorder Family/Other Mental health disorder Sister Breast cancer Social History Household Members: Significant Other and Children Housing: Apartment Alcohol intake: never Patient Tobacco Use Status: Never used Tobacco e-Cigarette/Vaping Use: Never Used Second Hand Smoke Exposure: No service: No Current occupational status: disabled Sexual orientation: Straight/Heterosexual Gender identity: Female Cognitive needs: No Hearing needs: No Vision needs: Yes Female Reproductive History Menstrual Age of Menarche: 13 Questionnaire PHQ-9 Over the last 2 weeks, how often have you been bothered by any of the following problems? 1. Little interest or pleasure in doing things: not at all 2. Feeling down, depressed, or hopeless: not at all 3. Trouble falling or staying asleep, or sleeping too much: not at all 4. Feeling tired or having little energy: not at all 5. Poor appetite or overeating: not at all 6. Feeling bad about yourself - or that you are a failure or have let yourself or your family down: not at all 7. Trouble concentrating on things, such as reading the newspaper or watching television: not at all 8. Moving or speaking so slowly that other people could have noticed. Or the opposite - being so fidgety or restless that you have been moving around a lot more than usual: not at all 9. Thoughts that you would be better off or of hurting yourself in some way: not at all Total score: 0 Depression Screening Interpretation: Negative [id number] - PHQ-9 Billing: Yes Source: Developed by Drs. Santosh Maynard, Adam Henry and colleagues, with an educational jasper from [employer]. Thrive Questionnaire Date Thrive assessed: 08/25/22 AUDIT C Alcohol Use Questionnaire (AUDIT-C) 1. How often do you have a drink containing alcohol?: Never 3. How often do you have six or more drinks on one occasion?: Never Total Score: 0 Score Reviewed/Action Taken: No MARYCARMEN-7 AMB Questionnaire MARYCARMEN-7 Date MARYCARMEN - 7 assessed: 08/25/22 Source: Developed by Drs. Santosh Maynard, Adam Henry and colleagues, with an educational jasper from [employer]. Review of Systems Const All systems reviewed & are unremarkable except as noted in HPI and below Eyes Reports no additional complaints, Denies change in vision and Denies other visual disturbances Card Denies chest pain at rest, Denies chest pain with activity, Denies edema, Denies irregular heart rhythm, Denies claudication, Denies dyspnea, Denies dyspnea on exertion, Denies orthopnea, Denies paroxysmal nocturnal dyspnea and Denies slow heart rate Resp Denies cough, Denies dyspnea and Denies dyspnea on exertion GI Denies abdominal pain, Denies change in bowel habits, Denies excessive flatus, Denies nausea and Denies vomiting Denies urinary incontinence, Denies urinary hesitancy and Denies urinary urgency Musc Denies abnormal gait, Denies atrophy, Denies deformity, Reports arthralgias and Denies limited range of motion Skin/Breast Denies bleeding lesions, Denies changing lesions and Denies rash Neuro Denies abnormal gait and Denies lack of coordination Physical exam (Primary Care) Vital Signs: Last Vital Signs Pulse 84 01/26/23 17:18 BP 138/70 01/26/23 17:18 Pulse Ox 98 01/26/23 17:18 Oxygen Delivery Method Room Air 01/26/23 17:18 BMI result Body Mass Index 36.9 Tobacco/Smoking Status: Tobacco use Status Tobacco use date assessed 08/25/22 01/26/23 17:24 Patient Tobacco Use Status Never used Tobacco 01/26/23 17:24 e-Cigarette/Vaping Use Never Used 01/26/23 17:24 PHQ-9: PHQ-9 Score PHQ-9: Total score 0 01/26/23 17:24 Depression Screening Interpretation: Negative Thrive Assessment: Date of Thrive Assessment Date Thrive assessed 08/25/22 01/26/23 17:24 Const Orientation/consciousness: patient oriented x3 Eyes General: appearance normal, both eyes and all related structures Eyelids: Yes eyelids normal Conjunctivae: conjunctivae normal Neck Neck: Yes normal visual inspection and Yes supple Resp Effort & Inspection: normal respiratory effort Auscultation: clear to auscultation bilaterally Cardio Jugular venous distension: no JVD Rate: regular rate Rhythm: regular rhythm Heart sounds: S1 normal heart sound present and S2 normal heart sound present GI Inspection: Yes normal to inspection Palpation (GI): Soft to palpation and nontender Auscultation: normal bowel sounds Skin General skin exam: no rashes or lesions noted Neuro General: patient oriented x3 and no focal motor deficits Extrem General: Yes full ROM Psych Appearance: grossly normal Assessment and Plan Assessment & Plan (1) Physical exam: Code(s): Z00.00 - Encounter for general adult medical examination without abnormal findings Plan: Repeat in a year (2) Diabetes mellitus, without long-term current use of insulin: Code(s): E11.9 - Type 2 diabetes mellitus without complications Plan: Continue metformin. Start Trulicity. A1c goal is equal or less than 7%. (3) Moderate major depression: Code(s): F32.1 - Major depressive disorder, single episode, moderate Plan: Continue bupropion. Follow-up with counseling. Orders: Orders Lipid Panel 4 Months E78.5 - Hyperlipidemia, unspecified Microalbumin, Random (w Creat) 4 Months E11.9 - Type 2 diabetes mellitus without complications Vitamin D 25-OH Total 4 Months E55.9 - Vitamin D deficiency, unspecified Comprehensive [place]. Panel Fast 4 Months E11.9 - Type 2 diabetes mellitus without complications Medications: New nabumetone 750 mg PO BID 30 days PRN 60 tabs 0RF pain diclofenac sodium 1% (Arthritis Pain (diclofenac)) apply to single elbow, wrist or hand; for hand includes palm/fingers/back of hand 2 grams topical QID 30 days 100 grams 0RF dulaglutide (Trulicity) 0.75 mg (0.5 mL) subcut QWEEK 90 days 6.5 mL 1RF E11.9 - Type 2 diabetes mellitus without complications Coding Level of Care Code Est Pt Prev Care 40-64y(58923) Diagnoses Physical exam Z00.00 Diabetes mellitus, without long-term current use of insulin E11.9 Moderate major depression F32.1 Time Spent (min) 35
== END 2023-01-26 17:49 | disposition home or self-care (01) ==
PROVIDERS: Visit Provider Internal Medicine
DX: Z00.00 Encounter for general adult medical examination without abnormal findings (principal); E11.9 Type 2 diabetes mellitus without complications; F32.1 Major depressive disorder, single episode, moderate
CPT/HCPCS: 99396

== ENCOUNTER 2023-02-02 10:02 | Outpatient (RCR) | payer OTHER, SELFPAY | END 2023-03-19 11:26 | disposition home or self-care (01) | LOC: HO.PT 10:02 | PROVIDERS: PCP Internal Medicine; Visit Provider Nurse Practitioner Family | DX: M25.562 Pain in left knee (principal) ==

== ENCOUNTER 2023-02-15 09:27 | Outpatient (REF) | payer OTHER, SELFPAY ==
[2023-02-15 10:36] LABS: Anion Gap 17 (12-20); Blood Urea Nitrogen 16 mg/dL (9-16); Calcium 10.3 mg/dL (8.4-10.2); Carbon Dioxide 24 mmol/L (22-29); Chloride 105 mmol/L (96-108); Estimated Glomerular Filt Rate > 60; Glucose Random 127 mg/dL (60-115); Potassium 4.3 mmol/L (3.3-5.1); Sodium 142 mmol/L (135-145)
== END 2023-02-15 09:28 | disposition home or self-care (01) ==
LOC: HO.LAB 09:27
PROVIDERS: PCP Internal Medicine; Visit Provider Nurse Practitioner
DX: Z01.810 Encounter for preprocedural cardiovascular examination (principal)
CPT/HCPCS: 36415; 80048

== ENCOUNTER 2023-03-05 09:20 | Outpatient (AMB) | payer OTHER, SELFPAY ==
[2023-03-05 09:22] VITALS: BP 138/74; PULSE 82; BMI 36.4
--- NOTE | 2023-03-05 09:22 | MHC.OFFVIS ---
Intake Vital Signs 03/05/23 09:22 Height 5 ft 2 in Weight 198 lb 13.711 oz BMI 36.4 BP 138/74 Blood Pressure Location Lt brachial Position Sitting Pulse 82 Pulse Source Pulse Oximeter Intake Visit Reasons: r/s followup cta Intake Note: f/u cta patient having s/b and some palpitations [employer] Administrator Required: Yes [employer] Linux Administrator Language: Full Stack Engineer Name: felecia luu [id number] Allergies acetaminophen [Percocet] Allergy (Intermediate, Verified 03/05/23 09:25) dyspnea aspirin [Aspirin] Allergy (Intermediate, Verified 03/05/23 09:25) SWELLING, hives, uticaria carbamazepine [From TEGRETOL] Allergy (Intermediate, Verified 03/05/23 09:25) SWELLING gabapentin Allergy (Intermediate, Verified 03/05/23 09:25) abdominal pain, abd pain morphine [MORPHINE] Allergy (Intermediate, Verified 03/05/23 09:25) HIVES naproxen [From ALEVE] Allergy (Intermediate, Verified 03/05/23 09:25) RASH, MOUTH SORES oxycodone [OXYCODONE] Allergy (Intermediate, Verified 03/05/23 09:25) HIVES Penicillins Allergy (Intermediate, Verified 03/05/23 09:25) HIVES sertraline Allergy (Intermediate, Verified 03/05/23 09:25) nausea lisinopril [LISINOPRIL] Allergy (Mild, Verified 03/05/23 09:25) HICCUPS pramipexole Adverse Reaction (Mild, Verified 03/05/23 09:25) dizziness Medication List - Last Reconciled 03/05/23 by Kelly Flynn NP-C amitriptyline 10 mg PO BEDTIME atorvastatin 80 mg PO DAILY baclofen 5 mg PO DAILY blood sugar diagnostic (FreeStyle Lite Strips) TEST BLOOD SUGAR TWICE DAILY DIRECTED blood-glucose meter (FreeStyle Lite Meter kit) TEST 2 TIMES DAILY bupropion HCl 300 mg PO DAILY buspirone 10 mg PO .at bedtime cholecalciferol (vitamin D3) 25 mcg PO DAILY 90 days clopidogrel (Plavix) 75 mg PO DAILY diclofenac sodium 1% (Arthritis Pain (diclofenac)) 2 grams topical QID 30 days dulaglutide (Trulicity) 0.75 mg (0.5 mL) subcut QWEEK 90 days enalapril maleate 10 mg PO DAILY 90 days fenofibrate 54 mg PO DAILY fluocinonide 0.05% 1 appl topical BID 30 days fluticasone propionate 50 mcg/actuation (Flonase Allergy Relief) 1 spray intranasal DAILY 30 days lancets (FreeStyle Lancets) Twice a day As directed lancets (TRUEplus Lancets) TEST BLOOD SUGAR TWICE DAILY lidocaine 5% 1 patch topical DAILY PRN 30 days linaclotide (Linzess) 145 mcg PO DAILY metformin 500 mg PO BID nabumetone 750 mg PO BID PRN 30 days nitroglycerin 0.4 mg sublingual Q5M PRN ondansetron HCl 8 mg PO DAILY 30 days pantoprazole 40 mg PO DAILY 90 days propranolol 10 mg PO BID tizanidine 4 mg PO BEDTIME PRN 7 days zolpidem 10 mg PO BEDTIME PRN HPI r/s followup cta HPI Details Barbara is a 52-year-old female with past medical history of obesity, hypertension, hyperlipidemia, diabetes, nonobstructive coronary artery disease who presents for follow-up after recent cardiac testing. Today she reports that she is still getting discomfort in her chest. She is vague in describing it even with the use of a machine clothing replacer. It seems to be a pain that occurs randomly. At time she takes nitroglycerin and says it does help. She is not clear exactly what brings it on but does state today that it can happen with activity and with rest. Overall it has not changed in recent months. No significant shortness of breath. She does notice heart palpitations but again is vague in describing this in more detail. No presyncope, syncope, falls. No PND, orthopnea or edema. Taking meds routinely. [facility] Medical History Pre-op evaluation Lumbar degenerative disc disease Hypercalcemia Leukocytosis Renal cyst Giant cell arteritis Neuropathy History of CVA (cerebrovascular accident) COVID-19 vaccine series completed Mixed hyperlipidemia Obese Anxiety Moderate major depression ESQUIVEL (nonalcoholic steatohepatitis) Easy bruising Memory loss Nausea and vomiting GERD (gastroesophageal reflux disease) Essential hypertension Surgical History Hx of colonoscopy History of esophagogastroduodenoscopy (EGD) History of temporal artery biopsy History of cardiac cath History of endometrial ablation History of hernia repair H/O tubal ligation History of appendectomy H/O: Family History Father Stroke Mother Colon cancer, Onset Age: 64 Diabetes Hypertension Uterine cancer Brother Substance use disorder Family/Other Mental health disorder Sister Breast cancer Social History Household Members: Significant Other and Children Housing: Apartment Alcohol intake: never Patient Tobacco Use Status: Never used Tobacco e-Cigarette/Vaping Use: Never Used Second Hand Smoke Exposure: No service: No Current occupational status: disabled Sexual orientation: Straight/Heterosexual Gender identity: Female Cognitive needs: No Hearing needs: No Vision needs: Yes Female Reproductive History Menstrual Age of Menarche: 13 Review of Systems Const All systems reviewed & are unremarkable except as noted in HPI and below ENT Reports dizziness Card Reports chest pain, Denies chest pain at rest, Denies chest pain with activity, Denies rapid heart rate, Denies pedal edema, Denies edema, Denies leg edema, Denies lightheadedness, Denies palpitations, Denies dyspnea, Denies dyspnea on exertion and Denies orthopnea Resp Denies cough, Denies dyspnea and Denies dyspnea on exertion GI Denies hematochezia and Denies change in stool character Musc Denies abnormal gait, Denies limited range of motion, Denies muscle cramps, Denies muscle weakness, Denies numbness, Denies radiating pain into limb, Denies stiffness and Denies tingling Neuro Denies abnormal gait, Reports dizziness, Denies numbness and Denies tingling Endo Denies palpitations Physical Exam Vital Signs: Last Vital Signs Pulse 82 03/05/23 09:22 BP 138/74 03/05/23 09:22 BMI result Body Mass Index 36.4 Const General: cooperative, healthy appearing, comfortable and no acute distress Orientation/consciousness: patient oriented x3 Neck Neck: Yes normal visual inspection Resp Effort & Inspection: normal respiratory effort Auscultation: clear to auscultation bilaterally, no crackles, no rales, no rhonchi and no wheezes Cardio Jugular venous distension: no JVD Rate: regular rate Rhythm: regular rhythm Heart sounds: S1 normal heart sound present, S2 normal heart sound present, no murmurs and no rubs Neuro General: patient oriented x3 Extrem General: Yes normal to inspection, No no pedal edema and No calf tenderness Psych Appearance: grossly normal Mental Status: mental status grossly normal Speech and movement: Normal speech and movement present Assessment & Plan Assessment & Plan (1) Atherosclerotic cardiovascular disease: Code(s): I25.10 - Atherosclerotic heart disease of [place] coronary artery without angina pectoris Plan: History of CAD, nonobstructive with cardiac catheterization in 2017 showing a 40% stenosis in the proximal LAD, minimal to mild disease elsewhere. Currently reporting chest discomfort which has more atypical type features. She does take nitroglycerin at times and states it does help which can be a typical finding. She did undergo an exercise stress test on 01/13/2023 with exercise 7-1/2 minutes with chest discomfort, no EKG changes and normal myocardial perfusion imaging. An echocardiogram was done 01/05/2023 showing EF 68%, no valve abnormalities and no regional wall motion abnormalities. Due to her chest discomfort she then underwent a CTA of the coronary arteries which showed proximal LAD 40% stenosis, terminal LAD not visible, proximal RCA mixed plaque, 50% stenosis. FFR is completed, mid LAD 0.94, terminal LAD 0.82, mid RCA 0.94, no significant decrease in the EF F Fares noted. Review test results with her. No strong indication that her symptom is anginal in nature. Recommended she avoid the use of nitroglycerin. Signs and symptoms of angina reviewed with her. Continue medical management for stable CAD including Plavix as she has aspirin allergy, atorvastatin, fenofibrate, propranolol. Emergency care if ever needed for symptoms. Cardiology office visit in 6 months, sooner if needed (2) Chest discomfort: Code(s): R07.89 - Other chest pain (3) Essential hypertension: Code(s): I10 - Essential (primary) hypertension Plan: Well controlled at present time. Continue enalapril, propranolol (4) Mixed hyperlipidemia: Code(s): E78.2 - Mixed hyperlipidemia Plan: [place] LDL goal less than 70. Labs done 01/22/2023 shows LDL 56. Continue high-dose atorvastatin and fenofibrate. Medications: Refilled clopidogrel (Plavix) 75 mg PO DAILY 90 tabs 3RF Coding Level of Care Code Est Pt Level 3 (50929) Diagnoses Atherosclerotic cardiovascular disease I25.10 Chest discomfort R07.89 Essential hypertension I10 Mixed hyperlipidemia E78.2 Time Spent (min) 26
== END 2023-03-05 10:00 | disposition home or self-care (01) ==
PROVIDERS: PCP Internal Medicine; Visit Provider Nurse Practitioner Family
DX: I25.10 Atherosclerotic heart disease of native coronary artery without angina pectoris (principal); R07.89 Other chest pain; I10 Essential (primary) hypertension; E78.2 Mixed hyperlipidemia
CPT/HCPCS: 99213

== ENCOUNTER → 2023-03-05 09:20 | Outpatient (BNVA) | payer OTHER, SELFPAY | PROVIDERS: PCP Internal Medicine; Visit Provider Nurse Practitioner Family | DX: I25.10 Atherosclerotic heart disease of native coronary artery without angina pectoris (principal); I10 Essential (primary) hypertension; R07.89 Other chest pain; E78.2 Mixed hyperlipidemia | CPT/HCPCS: 99212 ==

== ENCOUNTER 2023-03-09 16:20 | Outpatient (AMB) | payer OTHER, SELFPAY ==
[2023-03-09 16:21] VITALS: BP 132/80; BMI 36.6
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
== END 2023-03-09 16:41 | disposition home or self-care (01) ==
PROVIDERS: PCP Internal Medicine; Visit Provider Internal Medicine
DX: M25.562 Pain in left knee (principal); F32.1 Major depressive disorder, single episode, moderate; E11.9 Type 2 diabetes mellitus without complications; M54.9 Dorsalgia, unspecified; I10 Essential (primary) hypertension
CPT/HCPCS: 99214

== ENCOUNTER 2023-04-14 14:26 | Outpatient (REF) | payer OTHER, SELFPAY ==
--- NOTE | ~2023-04-14 | MM_ITS ---
EXAMINATION: MM SCREENING DIGITAL BREAST TOMOSYNTHESIS, BILATERAL CLINICAL INFORMATION: Screening. Asymptomatic. COMPARISON: Mammography: This study is compared with prior exams dating back to 2017. TECHNIQUE: Digital breast tomosynthesis is performed in both the craniocaudal and mediolateral oblique views along with computer-aided detection (CAD). Synthesized 2D images are generated from the tomosynthesis. FINDINGS: The breasts are almost entirely fatty (ACR BI-RADS breast composition Category a). There are no significant masses, abnormal calcifications, or other abnormalities. MM/MM tomosynthesis screening BI IMPRESSION: No mammographic evidence of malignancy. ASSESSMENT: BI-RADS BI-RADS 1 - Negative RECOMMENDATION: Routine annual mammography screening. 1 year F/U This examination should not preclude the clinical evaluation of a suspicious palpable abnormality. This patient's information was entered into a reminder system with a target due date for their next mammogram.
== END 2023-04-14 14:27 | disposition home or self-care (01) ==
LOC: HO.MAMMO 14:26
PROVIDERS: PCP Internal Medicine; Visit Provider Internal Medicine
DX: Z12.31 Encounter for screening mammogram for malignant neoplasm of breast (principal)
CPT/HCPCS: 77063; 77067

== ENCOUNTER → 2023-04-14 14:45 | Outpatient (BNV) | payer OTHER, SELFPAY | PROVIDERS: PCP Internal Medicine; Visit Provider Radiology Diagnostic Radiology | DX: Z12.31 Encounter for screening mammogram for malignant neoplasm of breast (principal) | CPT/HCPCS: 77063; 77067 ==

== ENCOUNTER 2023-06-02 09:17 | Outpatient (REF) | payer OTHER, SELFPAY ==
[2023-06-02 10:56] LABS: Alanine Aminotransferase 34 U/L (0-31); Albumin Level 4.3 g/dL (3.5-5.0); Alkaline Phosphatase 127 U/L (39-117); Anion Gap 15 (12-20); Aspartate Amino Transferase 24 U/L (5-31); Bilirubin Total 0.5 mg/dL (0.0-1.0); Blood Urea Nitrogen 16 mg/dL (9-16); Carbon Dioxide 26 mmol/L (22-29); Chloride 105 mmol/L (96-108); Cholesterol 156 mg/dL (<200); Estimated Glomerular Filt Rate > 60; Glucose Fasting 135 mg/dL (60-99); HDL Cholesterol 42 mg/dL (>40); LDL Cholesterol Calculated 86 mg/dL (<100); Potassium 4.2 mmol/L (3.3-5.1); Sodium 142 mmol/L (135-145); Triglycerides 140 mg/dL (<150)
[2023-06-02 10:58] LABS: Creatinine Urine 108.06 mg/dL; Microalbum/Creatinine Ratio Ur 14.8 ug/mg cr (<30)
[2023-06-02 11:01] LABS: Vitamin D 25-OH Total 46.4 ng/mL (>30)
== END 2023-06-02 09:18 | disposition home or self-care (01) ==
LOC: HO.LAB 09:17
PROVIDERS: PCP Internal Medicine; Visit Provider Internal Medicine
DX: E11.9 Type 2 diabetes mellitus without complications (principal); E55.9 Vitamin D deficiency, unspecified; E78.5 Hyperlipidemia, unspecified
CPT/HCPCS: 36415; 80053; 80061; 82043; 82306; 82570

== ENCOUNTER 2023-06-03 11:01 | Outpatient (AMB) | payer OTHER, SELFPAY ==
--- NOTE | 2023-06-03 11:12 | A.OFFPC_ITS ---
Vital Signs 06/03/23 11:13 Height 5 ft 2 in Weight 201 lb BMI 36.8 BP 130/82 Blood Pressure Location Lt brachial Position Sitting Intake Visit Reasons: dm Intake Note: Patient here for a follow up DM, c/o right knee pain Saw Filer Required: No Accompanied by: Self / Same As Patient Allergies acetaminophen [Percocet] Allergy (Intermediate, Verified 06/03/23 11:27) dyspnea aspirin [Aspirin] Allergy (Intermediate, Verified 06/03/23 11:27) SWELLING, hives, uticaria carbamazepine [From TEGRETOL] Allergy (Intermediate, Verified 06/03/23 11:27) SWELLING gabapentin Allergy (Intermediate, Verified 06/03/23 11:27) abdominal pain, abd pain morphine [MORPHINE] Allergy (Intermediate, Verified 06/03/23 11:) HIVES naproxen [From ALEVE] Allergy (Intermediate, Verified 06/03/23 11:) RASH, MOUTH SORES oxycodone [OXYCODONE] Allergy (Intermediate, Verified 06/03/23 11:) HIVES Penicillins Allergy (Intermediate, Verified 06/03/23 11:27) HIVES sertraline Allergy (Intermediate, Verified 06/03/23 11:27) nausea lisinopril [LISINOPRIL] Allergy (Mild, Verified 06/03/23 11:27) HICCUPS pramipexole Adverse Reaction (Mild, Verified 06/03/23 11:27) dizziness Medication List - Last Reconciled 06/03/23 by Patricia Connelly MD amitriptyline 10 mg PO BEDTIME atorvastatin 80 mg PO DAILY baclofen 5 mg PO DAILY blood sugar diagnostic (FreeStyle Lite Strips) TEST BLOOD SUGAR TWICE DAILY DIRECTED blood-glucose meter (FreeStyle Lite Meter kit) TEST 2 TIMES DAILY bupropion HCl 300 mg PO DAILY buspirone 10 mg PO .at bedtime cholecalciferol (vitamin D3) 25 mcg PO DAILY 90 days clopidogrel (Plavix) 75 mg PO DAILY diclofenac sodium 1% (Arthritis Pain (diclofenac)) 2 grams topical QID 30 days dulaglutide (Trulicity) 0.75 mg (0.5 mL) subcut QWEEK 90 days enalapril maleate 10 mg PO DAILY 90 days fenofibrate 54 mg PO DAILY fluocinonide 0.05% 1 appl topical BID 30 days fluticasone propionate 50 mcg/actuation (Flonase Allergy Relief) 1 spray intranasal DAILY 30 days lancets (FreeStyle Lancets) Twice a day As directed lancets (TRUEplus Lancets) TEST BLOOD SUGAR TWICE DAILY lidocaine 5% 1 patch topical DAILY PRN 30 days linaclotide (Linzess) 145 mcg PO DAILY metformin 500 mg PO BID nabumetone 750 mg PO BID PRN 30 days nitroglycerin 0.4 mg sublingual Q5M PRN ondansetron HCl 8 mg PO DAILY 30 days pantoprazole 40 mg PO DAILY 90 days propranolol 10 mg PO BID tizanidine 4 mg PO BEDTIME PRN 7 days zolpidem 10 mg PO BEDTIME PRN Tobacco use date assessed: 06/03/23 Dental Screening Dental Screen Date: 06/03/23 Did you have a dental visit in the last 12 months?: No Did you have a dental problem in the last 6 months where you did not have access to dental care?: No Was dental information given to patient?: Patient has dentist HPI HPI Comments History of Present Illness Details This is a 53-year-old female with diabetes mellitus type 2, hypertension, hyperlipidemia and moderate major depression that complains today of right knee pain that has been present for few months. The pain is more pro minent when she is trying to change from sitting position to standing position. Does not recall any previous injury. A1c elevated today and I will increase metformin and discontinue Trulicity to start Ozempic. Blood pressure stable. LDL more elevated and she admits not having a low-cholesterol diet this past few months. Lipid panel will be repeated in 4 months and if LDL is over 70 then we will add Zetia. Depression stable with medications and this is follow by Psychiatry. [facility] Medical History Pre-op evaluation Lumbar degenerative disc disease Hypercalcemia Leukocytosis Renal cyst Giant cell arteritis Neuropathy History of CVA (cerebrovascular accident) COVID-19 vaccine series completed Mixed hyperlipidemia Obese Anxiety Moderate major depression ESQUIVEL (nonalcoholic steatohepatitis) Easy bruising Memory loss Nausea and vomiting GERD (gastroesophageal reflux disease) Essential hypertension Surgical History Hx of colonoscopy History of esophagogastroduodenoscopy (EGD) History of temporal artery biopsy History of cardiac cath History of endometrial ablation History of hernia repair H/O tubal ligation History of appendectomy H/O: Family History Father Stroke Mother Colon cancer, Onset Age: 64 Diabetes Hypertension Uterine cancer Brother Substance use disorder Family/Other Mental health disorder Sister Breast cancer Social History Household Members: Significant Other and Children Housing: Apartment Alcohol intake: never Patient Tobacco Use Status: Never used Tobacco e-Cigarette/Vaping Use: Never Used Second Hand Smoke Exposure: No service: No Current occupational status: disabled Sexual orientation: Straight/Heterosexual Gender identity: Female Cognitive needs: No Hearing needs: No Vision needs: Yes Female Reproductive History Menstrual Age of Menarche: 13 Questionnaire PHQ-9 Over the last 2 weeks, how often have you been bothered by any of the following problems? 1. Little interest or pleasure in doing things: several days 2. Feeling down, depressed, or hopeless: several days 3. Trouble falling or staying asleep, or sleeping too much: several days 4. Feeling tired or having little energy: several days 5. Poor appetite or overeating: not at all 6. Feeling bad about yourself - or that you are a failure or have let yourself or your family down: several days 7. Trouble concentrating on things, such as reading the newspaper or watching television: several days 8. Moving or speaking so slowly that other people could have noticed. Or the opposite - being so fidgety or restless that you have been moving around a lot more than usual: several days 9. Thoughts that you would be better off or of hurting yourself in some way: not at all Total score: 7 Depression Screening Interpretation: Positive Depression Screening Follow-up: Existing condition, In treatment and Community Mental Health Worker F/U Depression Screening Done: Yes 13479 - PHQ-9 Billing: Yes Source: Developed by Drs. Santosh Maynard, Frances Santiago, Adam Cohen and colleagues, with an educational jasper from [employer]. Thrive Questionnaire Date Thrive assessed: 06/03/23 I am a: Patient What is your living situation today?: I have a steady place to live Within the past 12 months, did the food you bought not last and you didn't have the money to get more?: Never true Within the past 12 months, did you worry whether your food would run out before you got money to buy more?: Never true Do you have trouble paying for medicines?: No Do you have trouble getting transportation to medical appointments?: No Do you have trouble paying your heating and electricity bill?: No Do you have trouble taking care of your child, family member or friend?: No Do you have trouble with day-to-day activities such as bathing, preparing meals, shopping, managing finances, etc.?: No Are you currently unemployed and looking for a job?: No Are you interested in more education?: No Please select the resources that you would like help with: None Currently or been in a relationship where the following occur: no concerns reported AUDIT C Alcohol Use Questionnaire (AUDIT-C) 1. How often do you have a drink containing alcohol?: Never Total Score: 0 Score Reviewed/Action Taken: No MARYCARMEN-7 AMB Questionnaire MARYCARMEN-7 Date MARYCARMEN - 7 assessed: 06/03/23 Feeling nervous, anxious, or on edge: 1 = Several days Not being able to stop or control worryin = Not at all Worrying too much about different things: 1 = Several days Trouble relaxin = Several days Being so restless that it is hard to sit still: 1 = Several days Becoming easily annoyed or irritable: 1 = Several days Feeling afraid as if something awful might happen: 2 = More than half the days Total MARYCARMEN-7 score (0-4 normal; 5-9 mild; 10-14 moderate; 15-21 severe): 7 Source: Developed by Drs. Santosh Maynard, Frances Santiago, Adam Cohen and colleagues, with an educational jasper from [employer]. MARYCARMEN-7 Assessment Billing MARYCARMEN-7 Assessment Tool: MARYCARMEN-7 Assessment 17467 Review of Systems Const All systems reviewed & are unremarkable except as noted in HPI and below Eyes Reports no additional complaints, Denies change in vision and Denies other visual disturbances Card Denies chest pain at rest, Denies chest pain with activity, Denies edema, Denies irregular heart rhythm, Denies claudication, Denies dyspnea, Denies dyspnea on exertion, Denies orthopnea, Denies paroxysmal nocturnal dyspnea and Denies slow heart rate Resp Denies cough, Denies dyspnea and Denies dyspnea on exertion GI Denies abdominal pain, Denies change in bowel habits, Denies excessive flatus, Denies nausea and Denies vomiting Denies urinary incontinence, Denies urinary hesitancy and Denies urinary urgency Musc Denies abnormal gait, Denies atrophy, Denies deformity, Reports arthralgias and Denies limited range of motion Skin/Breast Denies bleeding lesions, Denies changing lesions and Denies rash Neuro Denies abnormal gait, Denies behavioral changes and Denies lack of coordination Psych Denies behavioral changes Physical exam (Primary Care) Vital Signs: Last Vital Signs BP 130/82 06/03/23 11:13 BMI result Body Mass Index 36.8 Tobacco/Smoking Status: Tobacco use Status Tobacco use date assessed 06/03/23 06/03/23 11:21 Patient Tobacco Use Status Never used Tobacco 06/03/23 11:17 e-Cigarette/Vaping Use Never Used 06/03/23 11:17 PHQ-9: PHQ-9 Score PHQ-9: Total score 7 06/03/23 12:18 Depression Screening Interpretation: Positive Depression Screening Follow-up: Existing condition, In treatment and Community Mental Health Worker F/U Thrive Assessment: Date of Thrive Assessment Date Thrive assessed 06/03/23 06/03/23 11:17 Currently or been in a relationship where the following occur: no concerns reported Eyes General: appearance normal, both eyes and all related structures Eyelids: Yes eyelids normal Conjunctivae: conjunctivae normal Neck Neck: Yes normal visual inspection and Yes supple Resp Effort & Inspection: normal respiratory effort Auscultation: clear to auscultation bilaterally Cardio Jugular venous distension: no JVD Rate: regular rate Rhythm: regular rhythm Heart sounds: S1 normal heart sound present and S2 normal heart sound present Extrem General: Yes full ROM Office Procedures Flu Questionnaire Does the patient have a severe egg allergy?: No Does the patient have severe life threatening allergies?: No Does the patient have a fever or illness today?: No Has the patient ever had Guillain-Dupont Syndrome?: No Has the patient ever had any past reaction to a flu shot?: No Results AMB Hemoglobin A1c AMB Hemoglobin A1c 7.9 % Last Edit by ROYCE Benites on 06/03/23 11:2 4 Immunizations flu vacc [id number] 6mos up(PF) 60 mcg(15 mcgx4)/0.5 mL IM syringe Performing Provider: Patricia Connelly MD [facility] Administered by: ROYCE Mccarty on 06/03/23 11:44 Dose Route Admin Location Dispensed Lot Number Expiration Date NDC [employer] 0.5 mL IM Left Deltoid 0.5 mL [id number] 11/21/23 12274-301-56 [employer] VIS Given Date VIS Provided VIS Publication Date 06/03/23 Single Vaccine 20 Eligibility Eligibility Date Funding Source Not VFC Eligible 06/03/23 Private Results Reviewed Results Reviewed: Laboratory Last Values Hgb A1c (Clinic) 7.9 % (4.0-6.0) H 06/03/23 11:22 Assessment and Plan Assessment & Plan (1) Diabetes mellitus, without long-term current use of insulin: Code(s): E11.9 - Type 2 diabetes mellitus without complications Qualifiers: Diabetes mellitus complication status: with hyperglycemia Diabetes mellitus type: type 2 Qualified Code(s): E11.65 - Type 2 diabetes mellitus with hyperglycemia Plan: Increase metformin. Discontinue Trulicity. Start Ozempic. A1c goal is equal or less than 7%. (2) Hyperlipidemia LDL goal <70: Code(s): E78.5 - Hyperlipidemia, unspecified Plan: Continue statins. Start low cholesterol diet. LDL goal is less than 70. (3) Moderate major depression: Code(s): F32.1 - Major depressive disorder, single episode, moderate Plan: Continue bupropion. Follow-up with psychiatry. (4) Essential hypertension: Code(s): I10 - Essential (primary) hypertension Plan: Continue enalapril. Blood pressure goal is equal or less than 130/80. (5) Right knee pain: Code(s): M25.561 - Pain in right knee Qualifiers: Chronicity: acute Qualified Code(s): M25.561 - Pain in right knee Plan: X-ray ordered. Referred to Ortho. Orders: Orders Influenza [id number] Immunization Today Z23 - Encounter for immunization AMB Hemoglobin A1c Today E11.9 - Type 2 diabetes mellitus without complications XR knee RT 2V Today M25.561 - Pain in right knee Lipid Panel 4 Months E78.5 - Hyperlipidemia, unspecified Comprehensive [place]. Panel Fast 4 Months E11.9 - Type 2 diabetes mellitus without complications Microalbumin, Random (w Creat) 4 Months E11.9 - Type 2 diabetes mellitus without complications Vitamin D 25-OH Total 4 Months E55.9 - Vitamin D deficiency, unspecified Referrals Orthopedics Referral M25.561 - Pain in right knee Medications: New semaglutide (Ozempic) for 4 weeks 0.25 mg (0.368 mL) subcut QWEEK 1.472 mL 0RF 28 days E11.9 - Type 2 diabetes mellitus without complications metformin 625 mg PO BID 180 tabs 1RF 90 days E11.9 - Type 2 diabetes mellitus without complications Discontinued metformin Discontinued Reason: Patient Completed Course 500 mg PO BID 180 tabs 3RF dulaglutide (Trulicity) Discontinued Reason: Patient Completed Course 0.75 mg (0.5 mL) subcut QWEEK 90 days 6.5 mL 1RF E11.9 - Type 2 diabetes mellitus without complications Coding Level of Care Code Est Pt Level 4 (90410) Diagnoses Type 2 diabetes mellitus with hyperglycemia, without long-term current use of insulin E11.65 Diabetes mellitus complication status: with hyperglycemia Diabetes mellitus type: type 2 Hyperlipidemia LDL goal <70 E78.5 Moderate major depression F32.1 Essential hypertension I10 Acute pain of right knee M25.561 Chronicity: acute Additional Codes MARYCARMEN-7 Assessment Billing - MARYCARMEN-7 Assessment Tool: MARYCARMEN-7 Assessment 29089 ([id number]) Time Spent (min) 23
[2023-06-03 11:13] VITALS: BP 130/82; BMI 36.8
== END 2023-06-03 11:42 | disposition home or self-care (01) ==
PROVIDERS: PCP Internal Medicine; Visit Provider Internal Medicine
DX: Z23 Encounter for immunization (principal); E11.65 Type 2 diabetes mellitus with hyperglycemia; E78.5 Hyperlipidemia, unspecified; F32.1 Major depressive disorder, single episode, moderate; I10 Essential (primary) hypertension; M25.561 Pain in right knee
CPT/HCPCS: 83036; 90471; 90686; 99214

== ENCOUNTER 2023-06-21 09:46 | Outpatient (REF) | payer OTHER, SELFPAY ==
--- NOTE | ~2023-06-21 | XR_ITS ---
EXAMINATION: XR KNEE, RIGHT CLINICAL INFORMATION: Pain in right knee. COMPARISON: 02/16/2020 TECHNIQUE: Two views of the right knee. FINDINGS: Minimal medial joint space narrowing. No significant joint effusion. Small posterior patellar osteophytes. Minimal medial and lateral marginal osteophytes. XR/XR knee RT 2V IMPRESSION: Mild tricompartmental degenerative changes.
== END 2023-06-21 09:47 | disposition home or self-care (01) ==
LOC: HO.XRAY 09:46
PROVIDERS: PCP Internal Medicine; Visit Provider Internal Medicine
DX: M25.561 Pain in right knee (principal)
CPT/HCPCS: 73560

== ENCOUNTER 2023-06-25 09:19 | Outpatient (REF) | payer OTHER, SELFPAY ==
--- NOTE | ~2023-06-25 | XR_ITS ---
EXAMINATION: XR KNEE, RIGHT XR KNEE AP STANDING CLINICAL INFORMATION: Right knee pain. COMPARISON: Prior radiographs, most recently 06/21/2023. TECHNIQUE: An axial view of the right knee is submitted knee. AP bilateral standing view of the knees was obtained. FINDINGS: The lateral, medial and patellofemoral joint space compartments of the right knee are well-maintained. There is minimal tricompartment peripheral osteophyte formation of the right knee. The lateral and medial joint space compartments of the left knee are well-maintained, each showing minimal peripheral osteophyte formation. No fracture or dislocation is seen. There is no significant varus or valgus configuration. XR/XR knee standing BI IMPRESSION: There are minimal degenerative changes of the bilateral knees. No fracture or dislocation is seen. There is no significant varus or valgus configuration bilaterally.
--- NOTE | ~2023-06-25 | XR_ITS ---
EXAMINATION: XR KNEE, RIGHT XR KNEE AP STANDING CLINICAL INFORMATION: Right knee pain. COMPARISON: Prior radiographs, most recently 06/21/2023. TECHNIQUE: An axial view of the right knee is submitted knee. AP bilateral standing view of the knees was obtained. FINDINGS: The lateral, medial and patellofemoral joint space compartments of the right knee are well-maintained. There is minimal tricompartment peripheral osteophyte formation of the right knee. The lateral and medial joint space compartments of the left knee are well-maintained, each showing minimal peripheral osteophyte formation. No fracture or dislocation is seen. There is no significant varus or valgus configuration. XR/XR knee RT 1V IMPRESSION: There are minimal degenerative changes of the bilateral knees. No fracture or dislocation is seen. There is no significant varus or valgus configuration bilaterally.
== END 2023-06-25 09:20 | disposition home or self-care (01) ==
LOC: HO.HOSX 09:19
PROVIDERS: Visit Provider Physician Assistant
DX: M17.11 Unilateral primary osteoarthritis, right knee (principal); M25.562 Pain in left knee
CPT/HCPCS: 20610; 73560; 73565; 99202; J1020

== ENCOUNTER 2023-06-25 09:57 | Outpatient (AMB) | payer OTHER, SELFPAY ==
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
[2023-06-25 10:09] VITALS: BMI 36.8
== END 2023-06-25 10:49 | disposition home or self-care (01) ==
PROVIDERS: PCP Internal Medicine; Visit Provider Physician Assistant
DX: M17.11 Unilateral primary osteoarthritis, right knee (principal)
CPT/HCPCS: 20610; 99203

== ENCOUNTER 2023-08-31 09:56 | Outpatient (AMB) | payer OTHER, SELFPAY ==
[2023-08-31 10:02] VITALS: BP 116/70; PULSE 78; BMI 36.4
--- NOTE | 2023-08-31 10:02 | MHC.OFFVIS ---
Intake Vital Signs 08/31/23 10:02 Height 5 ft 2 in Weight 198 lb 13.711 oz BMI 36.4 BP 116/70 Blood Pressure Location Lt brachial Position Sitting Pulse 78 Intake Visit Reasons: 6 month follow up Intake Note: 6 month F/U PT feels good Surgical Services Coordinator Required: Yes Surgical Services Coordinator Name: [id number] Allergies acetaminophen [Percocet] Allergy (Intermediate, Verified 06/25/23 10:10) dyspnea aspirin [Aspirin] Allergy (Intermediate, Verified 06/25/23 10:10) SWELLING, hives, uticaria carbamazepine [From TEGRETOL] Allergy (Intermediate, Verified 06/25/23 10:10) SWELLING gabapentin Allergy (Intermediate, Verified 06/25/23 10:10) abdominal pain, abd pain morphine [MORPHINE] Allergy (Intermediate, Verified 06/25/23 10:10) HIVES naproxen [From ALEVE] Allergy (Intermediate, Verified 06/25/23 10:10) RASH, MOUTH SORES oxycodone [OXYCODONE] Allergy (Intermediate, Verified 06/25/23 10:10) HIVES Penicillins Allergy (Intermediate, Verified 06/25/23 10:10) HIVES sertraline Allergy (Intermediate, Verified 06/25/23 10:10) nausea lisinopril [LISINOPRIL] Allergy (Mild, Verified 06/25/23 10:10) HICCUPS pramipexole Adverse Reaction (Mild, Verified 06/25/23 10:10) dizziness Medication List - Last Reconciled 08/31/23 by IVETH Tapia amitriptyline 10 mg PO BEDTIME atorvastatin 80 mg PO DAILY baclofen 5 mg PO DAILY blood sugar diagnostic (FreeStyle Lite Strips) TEST BLOOD SUGAR TWICE DAILY DIRECTED blood-glucose meter (FreeStyle Lite Meter kit) TEST 2 TIMES DAILY bupropion HCl XL 300 mg PO DAILY buspirone 10 mg PO .at bedtime cholecalciferol (vitamin D3) 25 mcg PO DAILY 90 days clopidogrel (Plavix) 75 mg PO DAILY diclofenac sodium 1% (Arthritis Pain (diclofenac)) 2 grams topical QID 30 days enalapril maleate 10 mg PO DAILY 90 days fenofibrate 54 mg PO DAILY fluocinonide 0.05% 1 appl topical BID 30 days fluticasone propionate 50 mcg/actuation (Flonase Allergy Relief) 1 spray intranasal DAILY 30 days lancets (FreeStyle Lancets) Twice a day As directed lancets (TRUEplus Lancets) TEST BLOOD SUGAR TWICE DAILY lidocaine 5% 1 patch topical DAILY PRN 30 days linaclotide (Linzess) 145 mcg PO DAILY metformin 850 mg PO BID 30 days nabumetone 750 mg PO BID PRN 30 days nitroglycerin 0.4 mg sublingual Q5M PRN ondansetron HCl 8 mg PO DAILY 30 days pantoprazole 40 mg PO DAILY 90 days propranolol 10 mg PO BID semaglutide (Ozempic) 0.25 mg (0.368 mL) subcut QWEEK 28 days tizanidine 4 mg PO BEDTIME PRN 7 days zolpidem 10 mg PO BEDTIME PRN HPI 6 month follow up HPI Details Barbara is a 53-year-old female with past medical history of obesity, hypertension, hyperlipidemia, diabetes, nonobstructive coronary artery disease who presents for follow-up. Today she reports that she has been feeling well recently. She says she is not getting chest discomfort in recent months. No recent nitroglycerin use. Denies shortness of breath, concerning heart palpitations, presyncope, syncope, PND, orthopnea or edema. Taking all meds as directed. 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 [facility] Medical History Pre-op evaluation Lumbar degenerative disc disease Hypercalcemia Leukocytosis Renal cyst Giant cell arteritis Neuropathy History of CVA (cerebrovascular accident) COVID-19 vaccine series completed Mixed hyperlipidemia Obese Anxiety Moderate major depression ESQUIVEL (nonalcoholic steatohepatitis) Easy bruising Memory loss Nausea and vomiting GERD (gastroesophageal reflux disease) Essential hypertension Surgical History Hx of colonoscopy History of esophagogastroduodenoscopy (EGD) History of temporal artery biopsy History of cardiac cath History of endometrial ablation History of hernia repair H/O tubal ligation History of appendectomy H/O: Family History Father Stroke Mother Colon cancer, Onset Age: 64 Diabetes Hypertension Uterine cancer Brother Substance use disorder Family/Other Mental health disorder Sister Breast cancer Social History Household Members: Significant Other and Children Housing: Apartment Alcohol intake: never Patient Tobacco Use Status: Never used Tobacco e-Cigarette/Vaping Use: Never Used Second Hand Smoke Exposure: No service: No Current occupational status: disabled Sexual orientation: Straight/Heterosexual Gender identity: Female Cognitive needs: No Hearing needs: No Vision needs: Yes Female Reproductive History Menstrual Age of Menarche: 13 Review of Systems Const All systems reviewed & are unremarkable except as noted in HPI and below Denies weakness ENT Denies dizziness Card Denies chest pain, Denies chest pain with activity, Denies syncope, Denies rapid heart rate, Denies pedal edema, Denies edema, Denies leg edema, Denies lightheadedness, Denies palpitations, Denies dyspnea, Denies dyspnea on exertion and Denies orthopnea Resp Denies cough, Denies dyspnea and Denies dyspnea on exertion GI Denies hematochezia and Denies change in stool character Musc Denies abnormal gait, Denies muscle cramps, Denies muscle weakness, Denies numbness, Denies radiating pain into limb and Denies tingling Neuro Denies abnormal gait, Denies dizziness, Denies syncope, Denies numbness, Denies tingling and Denies weakness Endo Denies palpitations Physical Exam Vital Signs: Last Vital Signs Pulse 78 08/31/23 10:02 BP 116/70 08/31/23 10:02 BMI result Body Mass Index 36.4 Const General: cooperative, healthy appearing, comfortable and no acute distress Orientation/consciousness: patient oriented x3 Neck Neck: Yes normal visual inspection Resp Effort & Inspection: normal respiratory effort Auscultation: clear to auscultation bilaterally, no crackles, no rales, no rhonchi and no wheezes Cardio Jugular venous distension: no JVD Rate: regular rate Rhythm: regular rhythm Heart sounds: S1 normal heart sound present, S2 normal heart sound present, no murmurs and no rubs Neuro General: patient oriented x3 Extrem General: Yes normal to inspection, No no pedal edema and No calf tenderness Psych Appearance: grossly normal Mental Status: mental status grossly normal Speech and movement: Normal speech and movement present Assessment & Plan Assessment & Plan (1) Atherosclerotic cardiovascular disease: Code(s): I25.10 - Atherosclerotic heart disease of [place] coronary artery without angina pectoris Plan: History of CAD, nonobstructive with cardiac catheterization in 2017 showing a 40% stenosis in the proximal LAD, minimal to mild disease elsewhere. On prior visit reported chest discomfort which had atypical type features. She was taking nitroglycerin at times and stated it does help, which can be a typical finding. She did undergo an exercise stress test on 01/13/2023 with exercise 7-1/2 minutes with chest discomfort, no EKG changes and normal myocardial perfusion imaging. An echocardiogram was done 01/05/2023 showing EF 68%, no valve abnormalities and no regional wall motion abnormalities. Due to her chest discomfort she then underwent a CTA of the coronary arteries on 02/26/2023 which showed proximal LAD 40% stenosis, terminal LAD not visible, proximal RCA mixed plaque, 50% stenosis. FFR is completed, mid LAD 0.94, terminal LAD 0.82, mid RCA 0.94, no significant decrease in the FFRs noted. No strong indication that her symptom was anginal in nature. At this time she reports that her chest discomfort has improved. She denies any concerning symptoms at this visit. Will continue medical management for stable CAD including Plavix as she has aspirin allergy, atorvastatin, fenofibrate, propranolol. Signs and symptoms of angina reviewed. Emergency care if ever needed for symptoms. Cardiology office visit in 6 months, sooner if needed (2) Essential hypertension: Code(s): I10 - Essential (primary) hypertension Plan: Well controlled at present time. Continue enalapril, propranolol (3) Mixed hyperlipidemia: Code(s): E78.2 - Mixed hyperlipidemia Plan: [place] LDL goal less than 70. Labs done 01/22/2023 shows LDL 56. Continue high-dose atorvastatin and fenofibrate. Plan Time spent on chart review, documentation, interview and assessment Coding Level of Care Code Est Pt Level 3 (96235) Diagnoses Atherosclerotic cardiovascular disease I25.10 Essential hypertension I10 Mixed hyperlipidemia E78.2 Time Spent (min) 24
== END 2023-08-31 10:37 | disposition home or self-care (01) ==
PROVIDERS: PCP Internal Medicine; Visit Provider Nurse Practitioner Family
DX: I25.10 Atherosclerotic heart disease of native coronary artery without angina pectoris (principal); I10 Essential (primary) hypertension; E78.2 Mixed hyperlipidemia
CPT/HCPCS: 99213

== ENCOUNTER → 2023-08-31 09:56 | Outpatient (BNVA) | payer OTHER, SELFPAY | PROVIDERS: PCP Internal Medicine; Visit Provider Nurse Practitioner Family | DX: I25.10 Atherosclerotic heart disease of native coronary artery without angina pectoris (principal); I10 Essential (primary) hypertension; E78.2 Mixed hyperlipidemia | CPT/HCPCS: 99212 ==

== ENCOUNTER → 2023-09-16 09:10 | Outpatient (BNVA) | payer SELFPAY | PROVIDERS: PCP Internal Medicine; Visit Provider Physician Assistant Medical ==

== ENCOUNTER 2023-10-01 09:35 | Outpatient (REF) | payer OTHER, SELFPAY ==
[2023-10-01 11:34] LABS: Alanine Aminotransferase 27 U/L (0-31); Albumin Level 4.5 g/dL (3.5-5.0); Alkaline Phosphatase 118 U/L (39-117); Anion Gap 16 (12-20); Aspartate Amino Transferase 21 U/L (5-31); Bilirubin Total 0.6 mg/dL (0.0-1.0); Blood Urea Nitrogen 11 mg/dL (9-16); Calcium 10.3 mg/dL (8.4-10.2); Carbon Dioxide 27 mmol/L (22-29); Chloride 101 mmol/L (96-108); Cholesterol 106 mg/dL (<200); Estimated Glomerular Filt Rate > 60; Glucose Fasting 112 mg/dL (60-99); HDL Cholesterol 37 mg/dL (>40); LDL Cholesterol Calculated 49 mg/dL (<100); Sodium 140 mmol/L (135-145); Total Protein 8.2 g/dL (6.5-8.0); Triglycerides 103 mg/dL (<150)
[2023-10-01 11:35] LABS: Vitamin D 25-OH Total 55.8 ng/mL (>30)
[2023-10-01 11:50] LABS: Creatinine Urine 224.11 mg/dL; Microalbum/Creatinine Ratio Ur 3.5 ug/mg cr (<30)
== END 2023-10-01 09:36 | disposition home or self-care (01) ==
LOC: HO.LAB 09:35
PROVIDERS: PCP Internal Medicine; Visit Provider Internal Medicine
DX: E78.5 Hyperlipidemia, unspecified (principal); E11.9 Type 2 diabetes mellitus without complications; E55.9 Vitamin D deficiency, unspecified
CPT/HCPCS: 36415; 80053; 80061; 82043; 82306; 82570

== ENCOUNTER 2023-10-05 09:36 | Outpatient (AMB) | payer OTHER, SELFPAY ==
--- NOTE | 2023-10-05 09:37 | MHC.PC.OV ---
Vital Signs 10/05/23 09:45 Height 5 ft 2 in Weight 193 lb BMI 35.3 BP 112/70 Blood Pressure Location Lt brachial Position Sitting Intake Visit Reasons: 4mth f/u Intake Note: Patient here for a 4 month follow up A R Collections Rep Required: No Accompanied by: Self / Same As Patient Allergies acetaminophen [Percocet] Allergy (Intermediate, Verified 10/05/23 09:52) dyspnea aspirin [Aspirin] Allergy (Intermediate, Verified 10/05/23 09:52) SWELLING, hives, uticaria carbamazepine [From TEGRETOL] Allergy (Intermediate, Verified 10/05/23 09:52) SWELLING gabapentin Allergy (Intermediate, Verified 10/05/23 09:52) abdominal pain, abd pain morphine [MORPHINE] Allergy (Intermediate, Verified 10/05/23 09:52) HIVES naproxen [From ALEVE] Allergy (Intermediate, Verified 10/05/23 09:52) RASH, MOUTH SORES oxycodone [OXYCODONE] Allergy (Intermediate, Verified 10/05/23 09:52) HIVES Penicillins Allergy (Intermediate, Verified 10/05/23 09:52) HIVES sertraline Allergy (Intermediate, Verified 10/05/23 09:52) nausea lisinopril [LISINOPRIL] Allergy (Mild, Verified 10/05/23 09:52) HICCUPS pramipexole Adverse Reaction (Mild, Verified 10/05/23 09:52) dizziness Medication List - Last Reconciled 10/05/23 by Patricia Connelly MD amitriptyline 10 mg PO BEDTIME atorvastatin 80 mg PO DAILY baclofen 5 mg PO DAILY blood sugar diagnostic (FreeStyle Lite Strips) TEST BLOOD SUGAR TWICE DAILY DIRECTED blood-glucose meter (FreeStyle Lite Meter kit) TEST 2 TIMES DAILY bupropion HCl XL 300 mg PO DAILY buspirone 10 mg PO .at bedtime cholecalciferol (vitamin D3) 25 mcg PO DAILY 90 days clopidogrel (Plavix) 75 mg PO DAILY diclofenac sodium 1% (Arthritis Pain (diclofenac)) 2 grams topical QID 30 days enalapril maleate 10 mg PO DAILY 90 days fenofibrate 54 mg PO DAILY fluocinonide 0.05% 1 appl topical BID 30 days fluticasone propionate 50 mcg/actuation (Flonase Allergy Relief) 1 spray intranasal DAILY 30 days lancets (FreeStyle Lancets) Twice a day As directed lancets (TRUEplus Lancets) TEST BLOOD SUGAR TWICE DAILY lidocaine 5% 1 patch topical DAILY PRN 30 days linaclotide (Linzess) 145 mcg PO DAILY metformin 850 mg PO BID 30 days nabumetone 750 mg PO BID PRN 30 days nitroglycerin 0.4 mg sublingual Q5M PRN ondansetron HCl 8 mg PO DAILY 30 days pantoprazole 40 mg PO DAILY 90 days propranolol 10 mg PO BID semaglutide (Ozempic) 0.25 mg (0.368 mL) subcut QWEEK 28 days tizanidine 4 mg PO BEDTIME PRN 7 days zolpidem 10 mg PO BEDTIME PRN Tobacco use date assessed: 06/03/23 Dental Screening Dental Screen Date: 06/03/23 HPI HPI Comments History of Present Illness Details This is a 53-year-old female with diabetes mellitus type 2, moderate major depression, hypertension and hyperlipidemia that comes today for follow-up on her conditions. A1c has improved to within goal. Depression stable with bupropion and this is follow by Psychiatry. Blood pressure stable. LDL within goal. Paperwork was fill out. She has 20/20 with glasses and horizontal visual jean is 125 degrees. [facility], [facility] Medical History Pre-op evaluation Lumbar degenerative disc disease Hypercalcemia Leukocytosis Renal cyst Giant cell arteritis Neuropathy History of CVA (cerebrovascular accident) COVID-19 vaccine series completed Mixed hyperlipidemia Obese Anxiety Moderate major depression ESQUIVEL (nonalcoholic steatohepatitis) Easy bruising Memory loss Nausea and vomiting GERD (gastroesophageal reflux disease) Essential hypertension Surgical History Hx of colonoscopy History of esophagogastroduodenoscopy (EGD) History of temporal artery biopsy History of cardiac cath History of endometrial ablation History of hernia repair H/O tubal ligation History of appendectomy H/O: Family History Father Stroke Mother Colon cancer, Onset Age: 64 Diabetes Hypertension Uterine cancer Brother Substance use disorder Family/Other Mental health disorder Sister Breast cancer Social History Household Members: Significant Other and Children Housing: Apartment Alcohol intake: never Patient Tobacco Use Status: Never used Tobacco e-Cigarette/Vaping Use: Never Used Second Hand Smoke Exposure: No service: No Current occupational status: disabled Sexual orientation: Straight/Heterosexual Gender identity: Female Cognitive needs: No Hearing needs: No Vision needs: Yes Female Reproductive History Menstrual Age of Menarche: 13 Questionnaire Thrive Questionnaire Date Thrive assessed: 06/03/23 MARYCARMEN-7 AMB Questionnaire MARYCARMEN-7 Date MARYCARMEN - 7 assessed: 06/03/23 Source: Developed by Drs. Santosh Maynard, Frances Santiago, Adam Cohen and colleagues, with an educational jasper from [employer]. Review of Systems Const All systems reviewed & are unremarkable except as noted in HPI and below Eyes Reports no additional complaints, Denies change in vision and Denies other visual disturbances Card Denies chest pain at rest, Denies chest pain with activity, Denies edema, Denies irregular heart rhythm, Denies claudication, Denies dyspnea, Denies dyspnea on exertion, Denies orthopnea, Denies paroxysmal nocturnal dyspnea and Denies slow heart rate Resp Denies cough, Denies dyspnea and Denies dyspnea on exertion GI Denies abdominal pain, Denies change in bowel habits, Denies excessive flatus, Denies nausea and Denies vomiting Physical exam (Primary Care) Vital Signs: Last Vital Signs BP 112/70 10/05/23 09:45 BMI result Body Mass Index 35.3 Tobacco/Smoking Status: Tobacco use Status Tobacco use date assessed 06/03/23 10/05/23 09:38 Patient Tobacco Use Status Never used Tobacco 10/05/23 09:38 e-Cigarette/Vaping Use Never Used 10/05/23 09:38 Thrive Assessment: Date of Thrive Assessment Date Thrive assessed 06/03/23 10/05/23 09:38 Const Nutritional Appearance: obese Eyes Visual Jean: normal visual jean by confrontation Resp Effort & Inspection: normal respiratory effort Auscultation: clear to auscultation bilaterally Cardio Jugular venous distension: no JVD Rate: regular rate Rhythm: regular rhythm Heart sounds: S1 normal heart sound present and S2 normal heart sound present Extrem General: Yes full ROM Psych Appearance: grossly normal Results AMB Hemoglobin A1c AMB Hemoglobin A1c 7.0 % Last Edit by ROYCE Benites on 10/05/23 10:00 Assessment and Plan Assessment & Plan (1) Diabetes mellitus, without long-term current use of insulin: Code(s): E11.9 - Type 2 diabetes mellitus without complications Qualifiers: Diabetes mellitus type: type 2 Diabetes mellitus complication status: with hyperglycemia Qualified Code(s): E11.65 - Type 2 diabetes mellitus with hyperglycemia Plan: Continue metformin and Ozempic. A1c goal is equal or less than 7% (2) Hyperlipidemia LDL goal <70: Code(s): E78.5 - Hyperlipidemia, unspecified Plan: Continue statins. LDL goal is less than 70. (3) Essential hypertension: Code(s): I10 - Essential (primary) hypertension Plan: Continue enalapril. Blood pressure goal is equal or less than 130/80. (4) Moderate major depression: Code(s): F32.1 - Major depressive disorder, single episode, moderate Plan: Continue bupropion. Follow-up with psychiatry. Orders: Orders Lipid Panel 4 Months E78.5 - Hyperlipidemia, unspecified Comprehensive [place]. Panel Fast 4 Months E11.65 - Type 2 diabetes mellitus with hyperglycemia AMB Hemoglobin A1c Today E11.65 - Type 2 diabetes mellitus with hyperglycemia Microalbumin, Random (w Creat) 4 Months E11.9 - Type 2 diabetes mellitus without complications Vitamin D 25-OH Total 4 Months E55.9 - Vitamin D deficiency, unspecified Medications: New semaglutide (Ozempic) 0.5 mg (0.736 mL) subcut QWEEK 4 weeks 2.944 mL 0RF E11.65 - Type 2 diabetes mellitus with hyperglycemia Discontinued tizanidine Discontinued Reason: Patient Completed Course 4 mg PO BEDTIME 7 days PRN 7 tabs 0RF muscle spasticity semaglutide (Ozempic) for 4 weeks Discontinued Reason: Patient Completed Course 0.25 mg (0.368 mL) subcut QWEEK 28 days 1.472 mL 0RF E11.9 - Type 2 diabetes mellitus without complications Coding Level of Care Code Est Pt Level 4 (12057) Diagnoses Type 2 diabetes mellitus with hyperglycemia, without long-term current use of insulin E11.65 Diabetes mellitus type: type 2 Diabetes mellitus complication status: with hyperglycemia Hyperlipidemia LDL goal <70 E78.5 Essential hypertension I10 Moderate major depression F32.1 Time Spent (min) 25
[2023-10-05 09:45] VITALS: BP 112/70; BMI 35.3
== END 2023-10-05 10:06 | disposition home or self-care (01) ==
PROVIDERS: PCP Internal Medicine; Visit Provider Internal Medicine
DX: E11.65 Type 2 diabetes mellitus with hyperglycemia (principal); F32.1 Major depressive disorder, single episode, moderate; E78.5 Hyperlipidemia, unspecified; I10 Essential (primary) hypertension
CPT/HCPCS: 83036; 99214

== ENCOUNTER 2024-01-27 09:56 | Outpatient (REF) | payer OTHER, SELFPAY ==
[2024-01-27 11:25] LABS: Alanine Aminotransferase 25 U/L (0-31); Albumin Level 4.2 g/dL (3.5-5.0); Alkaline Phosphatase 140 U/L (39-117); Anion Gap 12 (12-20); Aspartate Amino Transferase 19 U/L (5-31); Bilirubin Total 0.4 mg/dL (0.0-1.0); Blood Urea Nitrogen 13 mg/dL (9-16); Calcium 10.1 mg/dL (8.4-10.2); Carbon Dioxide 27 mmol/L (22-29); Chloride 107 mmol/L (96-108); Cholesterol 115 mg/dL (<200); Estimated Glomerular Filt Rate > 60; Glucose Fasting 116 mg/dL (60-99); HDL Cholesterol 41 mg/dL (>40); LDL Cholesterol Calculated 60 mg/dL (<100); Potassium 4.2 mmol/L (3.3-5.1); Sodium 142 mmol/L (135-145); Total Protein 7.6 g/dL (6.5-8.0); Triglycerides 70 mg/dL (<150)
[2024-01-27 11:26] LABS: Vitamin D 25-OH Total 58.3 ng/mL (>30)
[2024-01-27 12:52] LABS: Creatinine Urine 183.89 mg/dL; Microalbum/Creatinine Ratio Ur 3.2 ug/mg cr (<30)
== END 2024-01-27 09:57 | disposition home or self-care (01) ==
LOC: HO.LAB 09:56
PROVIDERS: PCP Internal Medicine; Visit Provider Internal Medicine
DX: E55.9 Vitamin D deficiency, unspecified (principal); E78.5 Hyperlipidemia, unspecified; E11.65 Type 2 diabetes mellitus with hyperglycemia
CPT/HCPCS: 36415; 80053; 80061; 82043; 82306; 82570

== ENCOUNTER 2024-02-02 09:07 | Outpatient (AMB) | payer OTHER, SELFPAY ==
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
[2024-02-02 09:11] VITALS: BP 120/76; BMI 32.6
== END 2024-02-02 09:43 | disposition home or self-care (01) ==
PROVIDERS: PCP Internal Medicine; Visit Provider Internal Medicine
DX: Z00.00 Encounter for general adult medical examination without abnormal findings (principal); M17.11 Unilateral primary osteoarthritis, right knee; M25.551 Pain in right hip; E11.65 Type 2 diabetes mellitus with hyperglycemia; F32.1 Major depressive disorder, single episode, moderate
CPT/HCPCS: 83036; 99213; 99396

== ENCOUNTER 2024-03-23 09:22 | Outpatient (AMB) | payer OTHER, SELFPAY ==
--- NOTE | 2024-03-23 09:29 | A.OFFVIS_ITS ---
Vital Signs 03/23/24 09:51 Height 5 ft 2 in Weight 178 lb BMI 32.6 Intake Visit Reasons: OV- Right Knee osteoarthritis Intake Note: Barbara a 54 year old female presents today for a follow up of right knee OA, last injection on 06/25/23. Patient reports last injection did not provide her with any relief, stating it only elevated her blood sugar. She continues to have constant pain, making it difficult to drive and use stairs. Her knee gives out. She continues to use knee brace, however brace is stretched out due to her loosing weight. Agency Appointments Supervisor Required: Yes Agency Appointments Supervisor Services: Agency Appointments Supervisor Present Agency Appointments Supervisor Name: Clay ID#[id number] Allergies acetaminophen [Percocet] Allergy (Intermediate, Verified 03/23/24 09:48) dyspnea aspirin [Aspirin] Allergy (Intermediate, Verified 03/23/24 09:48) SWELLING, hives, uticaria carbamazepine [From TEGRETOL] Allergy (Intermediate, Verified 03/23/24 09:48) SWELLING gabapentin Allergy (Intermediate, Verified 03/23/24 09:48) abdominal pain, abd pain morphine [MORPHINE] Allergy (Intermediate, Verified 03/23/24 09:48) HIVES naproxen [From ALEVE] Allergy (Intermediate, Verified 03/23/24 09:48) RASH, MOUTH SORES oxycodone [OXYCODONE] Allergy (Intermediate, Verified 03/23/24 09:48) HIVES Penicillins Allergy (Intermediate, Verified 03/23/24 09:48) HIVES sertraline Allergy (Intermediate, Verified 03/23/24 09:48) nausea lisinopril [LISINOPRIL] Allergy (Mild, Verified 03/23/24 09:48) HICCUPS pramipexole Adverse Reaction (Mild, Verified 03/23/24 09:48) dizziness Medication List - Last Reconciled 03/23/24 by Idris De La Paz PA-C amitriptyline 10 mg PO BEDTIME atorvastatin 80 mg PO DAILY baclofen 5 mg PO DAILY blood sugar diagnostic (FreeStyle Lite Strips) TEST BLOOD SUGAR TWICE DAILY DIRECTED blood-glucose meter (FreeStyle Lite Meter kit) TEST 2 TIMES DAILY bupropion HCl XL 300 mg PO DAILY buspirone 10 mg PO .at bedtime cholecalciferol (vitamin D3) 25 mcg PO DAILY 90 days clopidogrel 75 mg PO DAILY diclofenac sodium 1% (Arthritis Pain (diclofenac)) 2 grams topical QID 30 days enalapril maleate 10 mg PO DAILY 90 days fenofibrate 54 mg PO DAILY fluocinonide 0.05% 1 appl topical BID 30 days fluticasone propionate 50 mcg/actuation (Flonase Allergy Relief) 1 spray intranasal DAILY 30 days lancets (FreeStyle Lancets) Twice a day As directed lancets (TRUEplus Lancets) TEST BLOOD SUGAR TWICE DAILY lidocaine 5% 1 patch topical DAILY PRN 30 days linaclotide (Linzess) 145 mcg PO DAILY metformin 850 mg PO BID 30 days nabumetone 750 mg PO BID PRN 30 days nitroglycerin 0.4 mg sublingual Q5M PRN ondansetron HCl 8 mg PO DAILY 30 days pantoprazole 40 mg PO DAILY 90 days propranolol 10 mg PO BID semaglutide (Ozempic) 1 mg (0.75 mL) subcut QWEEK 4 weeks zolpidem 10 mg PO BEDTIME PRN HPI HPI OV- Right Knee osteoarthritis: Details: 54-year-old female who returns to the office today with an graphics manager for a fo llow-up of right knee pain. She continues to have constant pain in her knee that makes her difficult to drive or use stairs. She also reports her knee gives out. She has been using her knee brace however her brace is stretched out due to her losing weight. She had her last injection on 06/25/23 that did not provide her any relief. She reports her sugar level went up after taking the injection. [facility] Medical History Pre-op evaluation Lumbar degenerative disc disease Hypercalcemia Leukocytosis Renal cyst Giant cell arteritis Neuropathy History of CVA (cerebrovascular accident) COVID-19 vaccine series completed Mixed hyperlipidemia Obese Anxiety Moderate major depression ESQUIVEL (nonalcoholic steatohepatitis) Easy bruising Memory loss Nausea and vomiting GERD (gastroesophageal reflux disease) Essential hypertension Surgical History Hx of colonoscopy History of esophagogastroduodenoscopy (EGD) History of temporal artery biopsy History of cardiac cath History of endometrial ablation History of hernia repair H/O tubal ligation History of appendectomy H/O: Family History Father Stroke Mother Colon cancer, Onset Age: 64 Diabetes Hypertension Uterine cancer Brother Substance use disorder Family/Other Mental health disorder Sister Breast cancer Social History Household Members: Significant Other and Children Housing: Apartment Alcohol intake: never Patient Tobacco Use Status: Never used Tobacco e-Cigarette/Vaping Use: Never Used Second Hand Smoke Exposure: No service: No Current occupational status: disabled Sexual orientation: Straight/Heterosexual Gender identity: Female Cognitive needs: No Hearing needs: No Vision needs: Yes Female Reproductive History Menstrual Age of Menarche: 13 Review of Systems Const All systems reviewed & are unremarkable except as noted in HPI and below Physical Exam Vital Signs: BMI result Body Mass Index 32.6 Extrem Other: Right knee: Skin intact, no erythema or joint effusion. Tenderness along the medial and lateral joint line. Full ROM with crepitus. Negative Nando?s. No ligamentous laxity. NVI. Assessment & Plan Assessment & Plan (1) Osteoarthritis of right knee: Code(s): M17.11 - Unilateral primary osteoarthritis, right knee Category: Medical Qualifiers: Osteoarthritis type: primary Qualified Code(s): M17.11 - Unilateral primary osteoarthritis, right knee Plan We discussed options which include PT, NSAIDs and injections. The patient will defer on the injection today and proceed with PT and NSAIDs. If symptoms persist, she will contact me for an injection, otherwise, PRN. Orders: Orders PT Evaluation and Treatment Today M17.11 - Unilateral primary osteoarthritis, right knee Medications: New celecoxib (Celebrex) 200 mg PO BID 60 caps 3RF 30 days Patient Instructions: Scribed for Idris De La Paz PA-C, by Moises Loomis medical staffing coordinator, on 03/23/2024 at 9:45 AM EST.? I, Idris De La Paz PA-C, have personally reviewed and agree with the information entered by the scribe. Coding Level of Care Code Est Pt Level 3 (84062) Complex EM visit Add On G2211 Diagnoses Primary osteoarthritis of right knee M17.11 Osteoarthritis type: primary
[2024-03-23 09:51] VITALS: BMI 32.6
== END 2024-03-23 10:18 | disposition home or self-care (01) ==
LOC: HO.HOS 09:22
PROVIDERS: PCP Internal Medicine; Visit Provider Physician Assistant
DX: M17.11 Unilateral primary osteoarthritis, right knee (principal)
CPT/HCPCS: 99213; G2211

== ENCOUNTER → 2024-03-23 09:22 | Outpatient (BNVA) | payer OTHER, SELFPAY | PROVIDERS: PCP Internal Medicine; Visit Provider Physician Assistant | DX: M17.11 Unilateral primary osteoarthritis, right knee (principal) | CPT/HCPCS: 99212 ==

== ENCOUNTER 2024-04-28 09:52 | Outpatient (AMB) | payer OTHER, SELFPAY ==
--- NOTE | 2024-04-28 09:58 | A.OFFVIS_ITS ---
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/Financial Market Dealer Required: Yes Account Adjuster Name: Jet [id number] Information Interpreted: non-clinical & clinical Apricot Packer: Apricot Packer Present ([place]) Allergies acetaminophen [Percocet] Allergy (Intermediate, Verified 04/28/24 10:01) dyspnea aspirin [Aspirin] Allergy (Intermediate, Verified 04/28/24 10:01) SWELLING, hives, uticaria carbamazepine [From TEGRETOL] Allergy (Intermediate, Verified 04/28/24 10:01) SWELLING gabapentin Allergy (Intermediate, Verified 04/28/24 10:01) abdominal pain, abd pain morphine [MORPHINE] Allergy (Intermediate, Verified 04/28/24 10:01) HIVES naproxen [From ALEVE] Allergy (Intermediate, Verified 04/28/24 10:01) RASH, MOUTH SORES oxycodone [OXYCODONE] Allergy (Intermediate, Verified 04/28/24 10:01) HIVES Penicillins Allergy (Intermediate, Verified 04/28/24 10:01) HIVES sertraline Allergy (Intermediate, Verified 04/28/24 10:01) nausea lisinopril [LISINOPRIL] Allergy (Mild, Verified 04/28/24 10:01) HICCUPS pramipexole Adverse Reaction (Mild, Verified 04/28/24 10:01) dizziness HPI Comments Details: She is a postmenopausal woman 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 She is doing well with concerns: She reports urgency and incontinence symptoms, denies any UTI symptoms or pelvic pain. Currently not sexually active. Denies any vaginal dryness or irritation. STI testing offered; she accepts including bloodwork. Attempting to eat a healthy diet with calcium and vitamin D and stays active with exercise. Last pap smear; 2019, negative. Last mammogram; March,. Colonoscopy is UTD-2020. Denies any family history of ovarian cancer. Three relatives first-degree with breast cancer. Family history of colon cancer-mother. [facility] Medical History (Updated 04/28/24 @ 10:59 by Suzette Reilly CNM) Urge incontinence of urine FHx: breast cancer in first degree relative Pre-op evaluation Lumbar degenerative disc disease Hypercalcemia Leukocytosis Renal cyst Giant cell arteritis Neuropathy History of CVA (cerebrovascular accident) COVID-19 vaccine series completed Mixed hyperlipidemia Obese Anxiety Moderate major depression ESQUIVEL (nonalcoholic steatohepatitis) Easy bruising Memory loss Nausea and vomiting GERD (gastroesophageal reflux disease) Essential hypertension Surgical History Hx of colonoscopy History of esophagogastroduodenoscopy (EGD) History of temporal artery biopsy History of cardiac cath History of endometrial ablation History of hernia repair H/O tubal ligation History of appendectomy H/O: Family History (Updated 04/28/24 @ 10:48 by Suzette Reilly CNM) Father Stroke Breast cancer Mother Colon cancer, Onset Age: 64 Diabetes Hypertension Uterine cancer Breast cancer Brother Substance use disorder Family/Other Mental health disorder Sister Breast cancer Social History Household Members: Significant Other and Children Housing: Apartment Alcohol intake: never Patient Tobacco Use Status: Never used Tobacco e-Cigarette/Vaping Use: Never Used Second Hand Smoke Exposure: No service: No Current occupational status: disabled Sexual orientation: Straight/Heterosexual Gender identity: Female Cognitive needs: No Hearing needs: No Vision needs: Yes Female Reproductive History Menstrual Age of Menarche: 13 control method: permanent sterilization Permanent Sterilization: BTL Menopause type: surgical Total pregnancies: 3 Full term: 3 Number of Living Children: 3 Date of last pap smear: 05/01/20 (neg pap and hpv) Date of Mammogram: 04/14/23 (Bir[facility] 1) Review of Systems Const All systems reviewed & are unremarkable except as noted in HPI and below Reports as per HPI Eyes Reports no additional complaints ENT Reports no additional complaints Card Reports no additional complaints Resp Reports no additional complaints GI Reports as per HPI and Reports no additional complaints Reports as per HPI Musc Reports no additional complaints Skin/Breast Reports as per HPI Neuro Reports no additional complaints Psych Reports no additional complaints Endo Reports no additional complaints Ryan/Lymph Reports no additional complaints Aller/Immun Reports no additional complaints Physical Exam Vital Signs: Last Vital Signs BP 108/74 04/28/24 10:01 BMI result Body Mass Index 30.9 Const General: cooperative, healthy appearing, no acute distress, well developed and alert Orientation/consciousness: patient oriented x3 HEENT Head: Yes normal to inspection Eyes General: appearance normal, both eyes and all related structures Neck Neck: Yes normal visual inspection Thyroid: Thyroid normal Chest Chest palpation & inspection: normal inspection of the chest and other (no puckering, dimpling, peau de orange, retraction, discharge, masses) Breast/axilla inspection: normal inspection of the breasts Breast/axilla palpation: normal palpation of the breasts Resp Effort & Inspection: normal respiratory effort GI Inspection: Yes normal to inspection Palpation (GI): Soft to palpation Rectal Exam - Female: deferred General: Yes bladder normal to palpation External Female Exam: normal external appearance and normal appearance of the urethra Speculum Exam - Vagina: normal appearance of the vagina, normal palpation, normal vaginal discharge and vagina atrophic Speculum Exam - Cervix: normal appearance of the cervix and normal palpation Bimanual exam- vagina & uterus: normal bimanual exam, normal palpation, uterine size normal, bladder normal to palpation, normal palpation and non-tender Bimanual Exam- Adnexa, other: no masses Skin General skin exam: no rashes or lesions noted Rashes: no rashes Neuro General: patient oriented x3 Cognition (Neuro): normal cognition Extrem General: Yes normal to inspection Psych Attitude: cooperative Thought process: Normal thought process present Results AMB Urinalysis, Automated UA Leukoctes 0 Marianela/uL Last Edit by ROYCE Mauricio on 04/28/24 11:16 UA Nitrite Negative Last Edit by ROYCE Mauricio on 04/28/24 11:16 UA Urobilinogen 0 mg/dL Last Edit by ROYCE Mauricio on 04/28/24 11:1 6 UA Protein 0.5 mg/dL Last Edit by ROYCE Mauricio on 04/28/24 11:16 UA pH 5.0 Last Edit by ROYCE Mauricio on 04/28/24 11:16 UA Blood 0 Rafael/uL Last Edit by ROYCE Mauricio on 04/28/24 11:16 UA Specific [place] 1.030 Last Edit by ROYCE Mauricio on 04/28/24 11:16 UA Ketone Negative Last Edit by ORYCE Mauricio on 04/28/24 11:16 UA Bilirubin 1 mg/dL Last Edit by ROYCE Mauricio on 04/28/24 11:16 UA Glucose 0 mg/dL Last Edit by ROYCE Mauricio on 04/28/24 11:16 Assessment & Plan Assessment & Plan (1) Encounter for well woman exam with routine gynecological exam: Code(s): Z01.419 - Encounter for gynecological examination (general) (routine) without abnormal findings Category: Medical (2) Urge incontinence of urine: Code(s): N39.41 - Urge incontinence Category: Medical (3) FHx: breast cancer in first degree relative: Code(s): Z80.3 - Family history of malignant neoplasm of breast Category: Medical Plan Discussed: Current recommendations for pap smears per ASCCP guidelines. Breast awareness, periodic self breast exams and yearly mammogram. Maintain a healthy lifestyle, well balanced diet including Calcium 1,200 mg and Vitamin D 600 IU daily, and routine exercise. Use of condoms for STI prevention if indicated. Contact the office with any postmenopausal bleeding. Referral placed to urology for evaluation, and to breast surgeon for genetic screening. Patient verbalizes understanding and agrees to the plan of care. She was given opportunity to ask questions and all questions were answered to the best of my ability. RTO in 1 year for annual simulation technician exam. This note is constructed using voice recognition software. While every effort has been made to ensure accuracy, contact lens inspector errors may have been included. Orders: Orders Syphilis Screen Today Z20.2 - Contact with and (suspected) exposure to infections with a predominantly sexual mode of transmission Bacterial Vaginosis Panel Today Z20.2 - Contact with and (suspected) exposure to infections with a predominantly sexual mode of transmission HIV Ab/Ag Today Z20.2 - Contact with and (suspected) exposure to infections with a predominantly sexual mode of transmission Hepatitis C Antibody Reflex Today Z20.2 - Contact with and (suspected) exposure to infections with a predominantly sexual mode of transmission Hepatitis B Core Antibody Today Z20.2 - Contact with and (suspected) exposure to infections with a predominantly sexual mode of transmission CT NG by PCR Today Z20.2 - Contact with and (suspected) exposure to infections with a predominantly sexual mode of transmission Referrals Breast Surgery Referral Z80.3 - Family history of malignant neoplasm of breast Urology Referral N39.41 - Urge incontinence Coding Level of Care Code Est Pt Prev Care 40-64y(14068) Diagnoses Encounter for well woman exam with routine gynecological exam Z01.419 Urge incontinence of urine N39.41 FHx: breast cancer in first degree relative Z80.3
[2024-04-28 10:01] VITALS: BP 108/74; BMI 30.9
== END 2024-04-28 11:15 | disposition home or self-care (01) ==
LOC: HO.HWS 09:52
PROVIDERS: PCP Internal Medicine; Visit Provider Advanced Practice Midwife
DX: Z01.419 Encounter for gynecological examination (general) (routine) without abnormal findings (principal); N39.41 Urge incontinence; Z80.3 Family history of malignant neoplasm of breast
CPT/HCPCS: 99396

== ENCOUNTER 2024-04-28 09:52 | Outpatient (REF) | payer OTHER, SELFPAY ==
[2024-04-28 15:20] LABS: Bacterial Vaginosis PCR NEGATIVE (Negative); Candida Group PCR NOT DETECTED (Not Detect); Candida glab krusei PCR NOT DETECTED (Not Detect); Trichomonas vaginalis PCR NOT DETECTED (Not Detect)
== END 2024-04-28 09:53 | disposition home or self-care (01) ==
LOC: HO.LAB 09:52
PROVIDERS: PCP Internal Medicine; Visit Provider Advanced Practice Midwife
DX: Z01.419 Encounter for gynecological examination (general) (routine) without abnormal findings (principal); Z20.2 Contact with and (suspected) exposure to infections with a predominantly sexual mode of transmission; N39.41 Urge incontinence; Z80.3 Family history of malignant neoplasm of breast
CPT/HCPCS: 0352U; 81003; 99396

== ENCOUNTER 2024-04-28 10:57 | Outpatient (REF) | payer OTHER, SELFPAY ==
[2024-04-28 12:51] LABS: Syphilis Screen Nonreactive (Nonreactive)
[2024-04-28 12:55] LABS: HBc Num1 0.09 S/CO (0.00-0.79); HIV AB/AG Nonreactive (Nonreactive); HIV Num 1 0.05 S/CO (0.00-0.99); Hepatitis B Core Antibody Nonreactive (Nonreactive); ~Hepatitis C Antibody Nonreactive (Nonreactive)
[2024-04-28 13:47] LABS: CT PCR NOT DETECTED (Not Detect.); NG PCR NOT DETECTED (Not Detect.)
== END 2024-04-28 10:58 | disposition home or self-care (01) ==
LOC: HO.LNP 10:57
PROVIDERS: Visit Provider Advanced Practice Midwife
DX: Z20.2 Contact with and (suspected) exposure to infections with a predominantly sexual mode of transmission (principal)
CPT/HCPCS: 86704; 86780; 86803; 87389; 87491; 87591

== ENCOUNTER 2024-05-01 09:23 | Outpatient (AMB) | payer OTHER, SELFPAY ==
--- NOTE | 2024-05-01 09:27 | AM.OFFVISNUR ---
Intake Visit Reasons: Flu shot Allergies acetaminophen [Percocet] Allergy (Intermediate, Verified 04/28/24 10:01) dyspnea aspirin [Aspirin] Allergy (Intermediate, Verified 04/28/24 10:01) SWELLING, hives, uticaria carbamazepine [From TEGRETOL] Allergy (Intermediate, Verified 04/28/24 10:01) SWELLING gabapentin Allergy (Intermediate, Verified 04/28/24 10:01) abdominal pain, abd pain morphine [MORPHINE] Allergy (Intermediate, Verified 04/28/24 10:01) HIVES naproxen [From ALEVE] Allergy (Intermediate, Verified 04/28/24 10:01) RASH, MOUTH SORES oxycodone [OXYCODONE] Allergy (Intermediate, Verified 04/28/24 10:01) HIVES Penicillins Allergy (Intermediate, Verified 04/28/24 10:01) HIVES sertraline Allergy (Intermediate, Verified 04/28/24 10:01) nausea lisinopril [LISINOPRIL] Allergy (Mild, Verified 04/28/24 10:01) HICCUPS pramipexole Adverse Reaction (Mild, Verified 04/28/24 10:01) dizziness Office Procedures Flu Questionnaire Does the patient have a severe egg allergy?: No Does the patient have severe life threatening allergies?: No Does the patient have a fever or illness today?: No Has the patient ever had Guillain-Clanton Syndrome?: No Has the patient ever had any past reaction to a flu shot?: No Immunizations Fluarix Triv [id number] (PF) 45 mcg (15 mcg x 3)/0.5 mL IM syringe Performing Provider: Patricia Connelly MD [facility] Administered by: Kelsey Ba LPN on 05/01/24 09:28 Dose Route Admin Location Dispensed Lot Number Expiration Date [facility] System Validation Engineer 0.5 mL IM Left Deltoid 0.5 mL [id number] 11/20/24 07862-935-53 [employer] VIS Given Date VIS Provided VIS Publication Date 05/01/24 Single Vaccine 20 Eligibility Eligibility Date Funding Source Not [facility] Eligible 05/01/24 Private Assessment & Plan Assessment & Plan Orders: Orders Influenza [id number] Immunization Today Z23 - Encounter for immunization Medications: New Fluarix Triv (PF) (flu vacc [id number] 6mos up(PF)) 0.5 mL IM ONCE 0.5 mL 0RF NS Z23 - Encounter for immunization
== END 2024-05-01 12:07 | disposition home or self-care (01) ==
PROVIDERS: PCP Internal Medicine; Visit Provider Internal Medicine
DX: Z23 Encounter for immunization (principal)

== ENCOUNTER → 2024-05-01 09:23 | Outpatient (BNVA) | payer OTHER, SELFPAY | PROVIDERS: PCP Internal Medicine; Visit Provider Internal Medicine | DX: Z23 Encounter for immunization (principal) | CPT/HCPCS: 90471; 90656 ==

== ENCOUNTER 2024-05-19 10:00 | Outpatient (RCR) | payer OTHER, SELFPAY ==
--- NOTE | 2024-05-08 12:30 | MHC.PT.EP ---
[facility] Office [place] Office [place] Office [address] [phone] F: [phone] F: [phone] F: [phone] F: [phone] Physical Therapy Plan of Care Date of Evaluation: 05/08/24 Date of Surgery: Diagnosis: OA Rt KNEE Assessment: 54 YO FEMALE REF TO PT FOR Rt KNEE OA, PROGRESSIVE x 1.5 YRS- SHE HAS HAD AN INJECTION W SOIME RELIEF- SHE DOES NOT USE ANY ASST DEVICES. OBJECTIVE FINDINGS, PAIN LIMITING END ROM Rt KNEE, DECR STRENGTH IN Rt LE/ LUMBOPELVIC REGION, DECR PATELLAR MOB, AND FLUCTUATING PAIN IN Rt INFRAPATELLAR REGION. THE Pt HAS ALTERED GAIT, LIMITED STAIR NAVIGATION AND SQUATTING MECH. 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 SHE WOULD BENEFIT FROM PT TO ADDRESS THE ABOVE FINDINGS AND MAXIMIZE INDEPENDENCE. Frequency and Duration: The patient will be seen 2 x WK x 4 WKS Short Term Goals: DECR Rt KNEE PAIN INCR Rt LATERAL PATELLAR MOB INITIATE HEP IMPROVE EFFICIENCY W STAIR NAVIGATION Pt DEMON IMPROVED FUNCT SQUAT Painting Worker Goals: Pt INDEP W HEP AND SELF SX MGMT TECHN Pt INCR Rt LE STRENGTH BY 1 GRADE Pt RESUME REG ADLs W/O EXACERB Rt KNEE SXS IMPROVE LEFI ( AT EVAL ) Treatment Plan: Modalities to reduce pain, spasms and effusion. Manual therapy to restore motion and function. Therapeutic exercise to improve strength and flexibility. Neuromuscular re-education for posture and balance. Therapeutic activities to return to functional activities of daily living. Electronically signed by: TRISTIN VERDUGO,PT Please sign and return to therapist. Thank you for your referral.
--- NOTE | 2024-06-03 15:10 | MHC.PT.DC ---
[facility] [place] Office [place] Office [place] Office [address] Flex [address] [phone] F: [phone] F: [phone] F: [phone] F: [phone] Physical Therapy Discharge Report Diagnosis: OA Rt KNEE Date of Surgery: Date of Evaluation: 05/08/24 Date of Discharge: 06/03/24 Treatments to Date: 4 Cancellations to Date: 1 No Shows to Date: 3 Discharge Status: Improved Function Patient Elected to Stop Visit Non-compliance Discharge Summary: SOILA WAS MAKING PROGRESS IN PT FOR HER Rt KNEE PAIN- WE WERE ADDRESSING PATELLAR MOB, SOFT TISSUE EASING, MAN TECH, GAIT MECH, AND THER EXR FOR STRENGTH/ FLEXIB/ STABILITY-> UTMOST, EDUC HER RE DECR COMPRESSIVE FORCES ON HER PATELLA (IE W TIGHT LEGGINGS AND PROLONGED SITTING W INCR KNEE FLEX...- SHE HAD OBVIOUS MUSCULAR FATIGUE W CAUTIOUSLY PROGRESSIVE THER EXER. TH EPt DID NOT ATTEND HER LAST FEW SCHED APPTS, AND, PER OUR DEPT ATTENDANCE POLICY, SHE IS D/C THIS DATE FROM PT. Electronically signed by: charlette castelan,pt Please sign and return to therapist. Thank you for your referral.
== END 2024-06-03 15:11 | disposition home or self-care (01) ==
LOC: HO.PT 10:00
PROVIDERS: PCP Internal Medicine; Visit Provider Physician Assistant
DX: M17.11 Unilateral primary osteoarthritis, right knee (principal)
CPT/HCPCS: 97110; 97140; 97161

== ENCOUNTER 2024-06-01 09:37 | Outpatient (AMB) | payer OTHER, SELFPAY ==
--- NOTE | 2024-06-01 09:38 | MHC.OFFVIS ---
Vital Signs 06/01/24 09:49 Height 5 ft 2 in Weight 165 lb BMI 30.2 BP 135/65 Blood Pressure Location Lt brachial Position Sitting Pulse 86 Intake Visit Reasons: Fam hx of malignant neoplasm of breast Intake Note: Patient is seen in office for family history of malignant neoplasm of the breast. 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 Accompanied by: Self / Same As Patient Allergies acetaminophen [Percocet] Allergy (Intermediate, Verified 06/01/24 09:49) dyspnea aspirin [Aspirin] Allergy (Intermediate, Verified 06/01/24 09:49) SWELLING, hives, uticaria carbamazepine [From TEGRETOL] Allergy (Intermediate, Verified 06/01/24 09:49) SWELLING gabapentin Allergy (Intermediate, Verified 06/01/24 09:49) abdominal pain, abd pain morphine [MORPHINE] Allergy (Intermediate, Verified 06/01/24 09:49) HIVES naproxen [From ALEVE] Allergy (Intermediate, Verified 06/01/24 09:49) RASH, MOUTH SORES oxycodone [OXYCODONE] Allergy (Intermediate, Verified 06/01/24 09:49) HIVES Penicillins Allergy (Intermediate, Verified 06/01/24 09:49) HIVES sertraline Allergy (Intermediate, Verified 06/01/24 09:49) nausea lisinopril [LISINOPRIL] Allergy (Mild, Verified 06/01/24 09:49) HICCUPS pramipexole Adverse Reaction (Mild, Verified 06/01/24 09:49) dizziness Medication List - Last Reconciled 06/01/24 by Samir Lozoya MD amitriptyline 10 mg PO BEDTIME atorvastatin 80 mg PO DAILY baclofen 5 mg PO DAILY blood sugar diagnostic (FreeStyle Lite Strips) TEST BLOOD SUGAR TWICE DAILY DIRECTED blood-glucose meter (FreeStyle Lite Meter kit) TEST 2 TIMES DAILY bupropion HCl XL 300 mg PO DAILY buspirone 10 mg PO .at bedtime celecoxib (Celebrex) 200 mg PO BID 30 days cholecalciferol (vitamin D3) 25 mcg PO DAILY 90 days clopidogrel 75 mg PO DAILY diclofenac sodium 1% (Arthritis Pain (diclofenac)) 2 grams topical QID 30 days enalapril maleate 10 mg PO DAILY 90 days fenofibrate 54 mg PO DAILY fluocinonide 0.05% 1 appl topical BID 30 days fluticasone propionate 50 mcg/actuation (Flonase Allergy Relief) 1 spray intranasal DAILY 30 days lancets (FreeStyle Lancets) Twice a day As directed lancets (TRUEplus Lancets) TEST BLOOD SUGAR TWICE DAILY lidocaine 5% 1 patch topical DAILY PRN 30 days linaclotide (Linzess) 145 mcg PO DAILY metformin 850 mg PO BID 30 days nabumetone 750 mg PO BID PRN 30 days nitroglycerin 0.4 mg sublingual Q5M PRN ondansetron HCl 8 mg PO DAILY 30 days pantoprazole 40 mg PO DAILY 90 days propranolol 10 mg PO BID semaglutide (Ozempic) 1 mg (0.75 mL) subcut QWEEK 4 weeks zolpidem 10 mg PO BEDTIME PRN HPI Comments Details: 54-year-old female patient presenting for high risk breast cancer evaluation. She has a strong family history of breast cancer including her father, mother, and 2 sisters. She denies any current breast symptoms or breast lumps and denies any previous history of breast surgery or breast biopsies. She is postmenopausal and her last menstrual period was 1-2 years ago. She is 3 para 3 and breastfed 2 of her children. Menarche was the age of 13. Her last mammogram was dated 04/14/2023 and revealed no mammographic evidence of malignancy (BI-RADS 1). She missed her appointment for a mammogram in 2023 in [facility]. [facility] Medical History Urge incontinence of urine FHx: breast cancer in first degree relative Pre-op evaluation Lumbar degenerative disc disease Hypercalcemia Leukocytosis Renal cyst Giant cell arteritis Neuropathy History of CVA (cerebrovascular accident) COVID-19 vaccine series completed Mixed hyperlipidemia Obese Anxiety Moderate major depression ESQUIVEL (nonalcoholic steatohepatitis) Easy bruising Memory loss Nausea and vomiting GERD (gastroesophageal reflux disease) Essential hypertension Surgical History Hx of colonoscopy History of esophagogastroduodenoscopy (EGD) History of temporal artery biopsy History of cardiac cath History of endometrial ablation History of hernia repair H/O tubal ligation History of appendectomy H/O: Family History Father Stroke Breast cancer Mother Colon cancer, Onset Age: 64 Diabetes Hypertension Uterine cancer Brother Substance use disorder Family/Other Mental health disorder Sister Breast cancer, Onset Age: 38 Sister Breast cancer, Onset Age: 49 Social History Household Members: Significant Other and Children Housing: Apartment Alcohol intake: never Patient Tobacco Use Status: Never used Tobacco e-Cigarette/Vaping Use: Never Used Second Hand Smoke Exposure: No service: No Current occupational status: disabled Sexual orientation: Straight/Heterosexual Gender identity: Female Cognitive needs: No Hearing needs: No Vision needs: Yes Female Reproductive History Menstrual Age of Menarche: 13 Age of menopause: 51 Total pregnancies: 3 Number of Living Children: 3 Review of Systems Const All systems reviewed & are unremarkable except as noted in HPI and below Denies chills, Denies fever(s), Denies headache(s), Denies poor appetite and Denies weakness ENT Denies headache(s) Card Denies chest pain, Denies irregular heart rhythm, Denies palpitations and Denies dyspnea Resp Denies cough, Denies excessive phlegm production and Denies dyspnea GI Denies abdominal pain, Denies bloating, Denies change in bowel habits, Denies constipation, Denies heartburn, Denies diarrhea, Denies nausea and Denies vomiting Denies urinary frequency Musc Denies back pain, Denies muscle weakness and Denies numbness Skin/Breast Denies changing lesions and Denies unusual bruising Neuro Denies headache(s), Denies numbness, Denies paresthesias and Denies weakness Psych Denies anxiety and Denies depression Endo Denies palpitations Ryan/Lymph Denies lymphadenopathy Physical Exam Vital Signs: Last Vital Signs Pulse 86 06/01/24 09:49 BP 135/65 06/01/24 09:49 BMI result Body Mass Index 30.2 Const General: cooperative and no acute distress Nutritional Appearance: well nourished Orientation/consciousness: patient oriented x3 Limitations: no limitations HEENT Head: Yes normocephalic and Yes atraumatic Ears: hearing grossly normal bilaterally Chest Other: Left breast: No skin change, no nipple retraction, no nipple discharge, no palpable mass, no enlarged lymph nodes. Right breast: No skin change, no nipple retraction, no nipple discharge, no palpable mass, no enlarged lymph nodes Resp Effort & Inspection: normal respiratory effort, no audible wheezes, no cough and no respiratory distress Cardio Jugular venous distension: no JVD GI Inspection: Yes normal to inspection Skin Other: Warm, dry, no rash Neuro General: patient oriented x3 Extrem General: Yes no clubbing, cyanosis or edema Assessment & Plan Assessment & Plan (1) FHx: breast cancer in first degree relative: Code(s): Z80.3 - Family history of malignant neoplasm of breast Category: Medical (2) At high risk for breast cancer: Code(s): Z91.89 - Other specified personal risk factors, not elsewhere classified Category: Medical Plan 54-year-old female patient with a strong family history of breast cancer including her father, mother, and 2 sisters. None of her family members have undergone genetic testing prior to this. She denies any breast symptoms currently and examination revealed no suspicious findings in either breast. Her last mammogram performed on 04/14/2023 revealed no mammographic evidence of malignancy (BI-RADS 1). I will place an order for a new mammogram to be performed as soon as possible. We discussed genetic testing including the risks and benefits. She wishes to proceed with this and will return approximately 6 weeks to review the results. She would also be a good candidate for increased breast screening including twice yearly clinical breast 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 Further high-risk screening would be based on the genetic testing. She expressed understanding and agrees with the plan. Coding Level of Care Code New Pt Level 4 (16168) Diagnoses FHx: breast cancer in first degree relative Z80.3 At high risk for breast cancer Z91.89
[2024-06-01 09:49] VITALS: BP 135/65; PULSE 86; BMI 30.2
== END 2024-06-01 10:08 | disposition home or self-care (01) ==
PROVIDERS: PCP Internal Medicine; Referring Provider Internal Medicine; Visit Provider Surgery
DX: Z80.3 Family history of malignant neoplasm of breast (principal); Z91.89 Other specified personal risk factors, not elsewhere classified
CPT/HCPCS: 99204

== ENCOUNTER → 2024-06-01 09:37 | Outpatient (BNVA) | payer OTHER, SELFPAY | PROVIDERS: PCP Internal Medicine; Referring Provider Internal Medicine; Visit Provider Surgery | DX: Z91.89 Other specified personal risk factors, not elsewhere classified (principal); Z80.3 Family history of malignant neoplasm of breast | CPT/HCPCS: 99202 ==

== ENCOUNTER 2024-06-18 14:20 | Emergency (ER) | payer OTHER, SELFPAY ==
--- NOTE | ~2024-06-18 | XR_ITS ---
CLINICAL HISTORY: chest pain 2 view chest x-ray Comparison: CR/SR - CHEST 2 VIEWS - 12/12/18 08:58 EDT Findings: The lungs are clear. Normal size heart. No acute fracture. IMPRESSION: 1. No acute findings. This document has been electronically signed by: Katina Gannon MD on 06/18/2024 16:35:15
[2024-06-18 15:02] VITALS: BP 113/73; PULSE 100; RESP 18; TEMP 36.7; O2SAT 98; BMI 29.6
--- NOTE | 2024-06-18 15:05 | ECG_ITS ---
Test Reason : CHEST PAIN Blood Pressure : */* mmHG Vent. Rate : 98 BPM Atrial Rate : 98 BPM P-R Int : 176 ms QRS Dur : 96 ms QT Int : 354 ms P-R-T Axes : 60 30 55 degrees QTcB Int : 451 ms Normal sinus rhythm Cannot rule out Anterior infarct , age undetermined Abnormal ECG When compared with ECG of 12-Dec-2018 08:20, NH interval has decreased Criteria for Inferior infarct are no longer Present Referred By: Generic ED Physician Electronically Signed By: FAVIOLA BERGMAN
--- NOTE | 2024-06-18 15:12 | ED.GENADULT ---
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 Paul Zhou HPI narrative: 54-year-old female with a history diabetes mellitus, hypertension, coronary disease, who presents emergency department for evaluation of headache, chest pain, dizziness, nausea, chills shortness of breath and neck pain x2 days. The patient's states she was had nausea with no vomiting. Patient has a tightness in the center of her chest that is worse with breathing. She denied fever denied cough. She states that the chest tightness and symptoms got worse today. The patient denied myalgias, arthralgias or diarrhea. Related Data Home Medications ?Medication ?Instructions ?Recorded ?Confirmed buspirone 10 mg tablet 10 mg PO .at bedtime 02/26/20 06/01/24 lancets 28 gauge (FreeStyle #100 ea 02/26/20 06/01/24 Lancets) zolpidem 10 mg tablet 10 mg PO BEDTIME PRN Insomnia 02/26/20 06/01/24 bupropion HCl 300 mg 24 hr tablet, 300 mg PO DAILY 08/26/20 06/01/24 extended release baclofen 5 mg tablet 5 mg PO DAILY 03/05/23 06/01/24 Previous Rx's ?Medication ?Instructions ?Recorded blood-glucose meter (FreeStyle #1 ea 11/14/20 Lite Meter kit) fluocinonide 0.05 % topical cream 1 appl topical BID 30 days #30 12/20/20 grams linaclotide 145 mcg capsule 145 mcg PO DAILY #30 caps 12/08/21 (Linzess) propranolol 10 mg tablet 10 mg PO BID #30 tabs 12/08/21 blood sugar diagnostic (FreeStyle #100 strips 12/31/21 Lite Strips) lancets 33 gauge (TRUEplus Lancets) ##100 12/31/21 ondansetron HCl 8 mg tablet 8 mg PO DAILY 30 days #30 tabs 01/09/22 nitroglycerin 0.4 mg sublingual 0.4 mg sublingual Q5M PRN chest 04/24/22 tablet pain #25 tabs fenofibrate 54 mg tablet 54 mg PO DAILY #30 tabs 10/22/22 diclofenac sodium 1 % topical gel 2 g topical QID 30 days #100 grams 01/26/23 (Arthritis Pain (diclofenac)) lidocaine 5 % topical patch 1 patch topical DAILY PRN pain 30 07/03/23 days #30 ea enalapril maleate 10 mg tablet 10 mg PO DAILY 90 days #90 tabs 08/03/23 cholecalciferol (vitamin D3) 25 25 mcg PO DAILY 90 days #90 tabs 09/08/23 mcg (1,000 unit) tablet nabumetone 750 mg tablet 750 mg PO BID PRN pain 30 days #60 02/25/24 tabs pantoprazole 40 mg tablet,delayed 40 mg PO DAILY 90 days #90 tabs 02/27/24 release clopidogrel 75 mg tablet 75 mg PO DAILY #90 tabs 02/28/24 celecoxib 200 mg capsule (Celebrex) 200 mg PO BID 30 days #60 caps 03/23/24 atorvastatin 80 mg tablet 80 mg PO DAILY #90 tabs 04/24/24 amitriptyline 10 mg tablet 10 mg PO BEDTIME #30 tabs 05/02/24 fluticasone propionate 50 1 spray intranasal DAILY 30 days 05/18/24 mcg/actuation nasal #16 grams spray,suspension (Flonase Allergy Relief) metformin 850 mg tablet 850 mg PO BID 30 days #60 tabs 05/21/24 semaglutide 1 mg/dose (4 mg/3 mL) 1 mg (0.75 mL) subcut QWEEK 4 05/24/24 subcutaneous pen injector (Ozempic) weeks #3 mL ondansetron 4 mg disintegrating 4 mg PO Q6-8H PRN nausea and 06/18/24 tablet vomiting #14 tabs Allergies Allergy/AdvReac Type Severity Reaction Status Date / Time acetaminophen [Percocet] Allergy Intermediate dyspnea Verified 06/18/24 15:03 aspirin [Aspirin] Allergy Intermediate SWELLING, Verified 06/18/24 15:03 hives, uticaria carbamazepine [From TEGRETOL] Allergy Intermediate SWELLING Verified 06/18/24 15:03 gabapentin Allergy Intermediate abdominal Verified 06/18/24 15:03 pain, abd pain morphine [MORPHINE] Allergy Intermediate HIVES Verified 06/18/24 15:03 naproxen [From ALEVE] Allergy Intermediate RASH, Verified 06/18/24 15:03 MOUTH SORES oxycodone [OXYCODONE] Allergy Intermediate HIVES Verified 06/18/24 15:03 Penicillins Allergy Intermediate HIVES Verified 06/18/24 15:03 sertraline Allergy Intermediate nausea Verified 06/18/24 15:03 lisinopril [LISINOPRIL] Allergy Mild HICCUPS Verified 06/18/24 15:03 pramipexole AdvReac Mild dizziness Verified 06/18/24 15:03 Review of Systems Review of Systems: Yes all other systems are reviewed and are negative COUNT INCLUDES THE [facility] Past Medical History Medical History Urge incontinence of urine FHx: breast cancer in first degree relative Pre-op evaluation Lumbar degenerative disc disease Hypercalcemia Leukocytosis Renal cyst Giant cell arteritis Neuropathy History of CVA (cerebrovascular accident) COVID-19 vaccine series completed Mixed hyperlipidemia Obese Anxiety Moderate major depression ESQUIVEL (nonalcoholic steatohepatitis) Easy bruising Memory loss Nausea and vomiting GERD (gastroesophageal reflux disease) Essential hypertension Surgical History Hx of colonoscopy History of esophagogastroduodenoscopy (EGD) History of temporal artery biopsy History of cardiac cath History of endometrial ablation History of hernia repair H/O tubal ligation History of appendectomy H/O: Family History Family History Father Stroke Breast cancer Mother Colon cancer, Onset Age: 64 Diabetes Hypertension Uterine cancer Brother Substance use disorder Family/Other Mental health disorder Sister Breast cancer, Onset Age: 38 Sister Breast cancer, Onset Age: 49 Social History Social History Household Members: Significant Other and Children Housing: Apartment Alcohol intake: never Patient Tobacco Use Status: Never used Tobacco e-Cigarette/Vaping Use: Never Used Second Hand Smoke Exposure: No Advance Directives: No Advance Directives Information Provided: No Do you have a plan to hurt others: No Plan service: No Current occupational status: disabled Sexual orientation: Straight/Heterosexual Gender identity: Female Cognitive needs: No Hearing needs: No Vision needs: Yes Physical Exam ED Vital Signs: Vital Signs - 24 hr 06/18/24 15:02 06/18/24 19:29 06/18/24 21:29 Temperature 98.1 F 97.9 F 98.3 F Pulse Rate 100 85 77 Respiratory Rate 18 16 16 Blood Pressure 113/73 122/63 124/73 Pulse Oximetry 98 98 98 Oxygen Delivery Method Room Air Room Air Room Air 06/18/24 21:50 Temperature 98.3 F Pulse Rate 77 Respiratory Rate 16 Blood Pressure 124/73 Pulse Oximetry 98 Oxygen Delivery Method Room Air BMI result Body Mass Index 29.6 Vital signs were unremarkable. Exam: General: Awake, alert in no distress Head: Normocephalic, atraumatic EENT: PERRL, Lids normal, sclera normal, conjunctiva normal, nose normal , ears normal, throat without erythema or exudates Neck: Supple, no adenopathy Lung: breath sounds symmetric, no wheezing, rales or rhonchi Chest: symmetric movement, nontender Heart: regular rate and rhythm, normal S1, S2 no murmurs or rubs Abdomen: soft, non-tender, nondistended, normal bowel sounds Back: no vertebral tenderness, no CVAT Extremities: no deformities, moves all extremities symmetrically Neuro: Awake, alert, oriented, normal speech, cranial nerves intact, moves all extremities symmetrically Psych: Pleasant, cooperative Course Course Course Narrative: This is a rapid medical exam. Deferred additional HPI, ROS, PE to primary provider. 54 yo female with history of DM, HLD, HTN here with complaints of headache, dizziness, chest pain, shortness of breath, chills. Will obtain labs, EKG, CXR, viral testing TAZ Lilly APRN Medications Administered Discontinued Medications Generic Name Dose Route Start Last Admin Trade Name Freq PRN Reason Stop Dose Admin Ibuprofen 400 mg 06/18/24 21:22 06/18/24 21:48 Ibuprofen 400 Mg Tablet PO 06/18/24 21:23 400 mg ONCE STA Administration Ondansetron HCl 4 mg 06/18/24 21:22 06/18/24 21:49 Ondansetron Odt 4 Mg Tab.Rapdis TRANSLINGU 06/18/24 21:23 4 mg ONCE STA Administration Medical Decision Making Medical Decision Making MDM Narrative: 54-year-old female with a history diabetes mellitus, hypertension, coronary disease, who presents emergency department for evaluation of headache, chest pain, dizziness, nausea, chills shortness of breath and neck pain x2 days. The patient's states she was had nausea with no vomiting. Patient has a tightness in the center of her chest that is worse with breathing. She denied fever denied cough. She states that the chest tightness and symptoms got worse today. The patient denied myalgias, arthralgias or diarrhea. Differential diagnosis: ?Includes but is not limited to viral syndrome, myocardial infarction, myocardial ischemia, RSV, influenza, COVID-19, anemia, electrolyte abnormalities Course: The patient's laboratory evaluation was unremarkable. The patient's COVID-19, RSV and influenza tests were negative. Patient's 12 EKG did not reveal any acute abnormalities and patient was high sensitive troponin I was below detectable limits which is reassuring suggesting that your chest pain is not caused by myocardial ischemia or infarction. Patient's symptoms are most likely caused by a viral syndrome and I did discuss this with the patient. Patient was advised to take Tylenol and ibuprofen for pain and fever. She was prescribed Zofran ODT 4 mg every 8 hours as needed for nausea and vomiting. She was given printed and verbal instructions and discharged home. Admission/Observation Consideration of admission/observation: Escalation of care including admission/observation considered (Yes) Lab Data MDM Lab Attestation statement: I reviewed the patient's lab results. My independent interpretation patient's laboratory evaluation is as follows: CBC was normal. Glucose elevated 169. COVID-19, influenza and RSV were negative. High sensitive troponin I was below detectable limits. 06/18/24 15:13 06/18/24 15:13 Labs: Lab Results 06/18/24 Range/Units 15:13 WBC 8.9 (4.8-10.8) X10*3/uL RBC 4.42 (4.20-5.50) X10*6/uL Hgb 13.5 (12.0-16.0) g/dl Hct 39.6 (37.0-47.0) % MCV 89.6 (80.0-98.0) fL MCH 30.5 (27.0-33.0) pg MCHC 34.1 (31.0-35.0) g/dl RDW 12.8 (11.0-16.0) % Plt Count 330 (160-400) X10*3/uL MPV 10.6 (9.4-12.3) fL Immature Gran % (Auto) 0.2 (0.0-0.4) % Neut % (Auto) 58.2 (45-73) % Lymph % (Auto) 34.6 (20-40) % [place] % (Auto) 6.1 (2-11) % Eos % (Auto) 0.6 (0-4) % Baso % (Auto) 0.3 (0-2) % Lymph # (Auto) 3.1 (1.2-4.9) X10*3/uL [place] # (Auto) 0.5 (0.1-1.2) X10*3/uL Eos # (Auto) 0.1 (0.0-0.4) X10*3/uL Baso # (Auto) 0.0 (0.0-0.2) X10*3/uL Abs Immat Gran (auto) 0.02 (0.00-0.03) X10*3/uL Absolute Neuts (auto) 5.2 (2.0-8.3) x10*3/uL Absolute Nucleated RBC 0.000 (0.0-0.012) X10*3/uL Nucleated RBC % (auto) 0.0 (0.0-0.2) /100WBC Sodium 140 (135-145) mmol/L Potassium 3.6 (3.3-5.1) mmol/L Chloride 106 (96-108) mmol/L Carbon Dioxide 27 (22-29) mmol/L Anion Gap 11 L (12-20) BUN 12 (9-16) mg/dL Creatinine 0.94 (0.5-1.4) mg/dL Estim Creat Clear Calc 64.9 Estimated GFR > 60 Random Glucose 169 H (60-115) mg/dL Calcium 10.2 (8.4-10.2) mg/dL Magnesium 2.1 (1.6-2.6) mg/dL Total Bilirubin 0.5 (0.0-1.0) mg/dL Direct Bilirubin 0.2 (0.0-0.5) mg/dL AST 29 (5-31) U/L ALT 26 (0-31) U/L Alkaline Phosphatase 108 (39-117) U/L Troponin I High Sens < 2.7 (<3.5-17.0) ng/L Total Protein 7.9 (6.5-8.0) g/dL Albumin 4.3 (3.5-5.0) g/dL Influenza Type A (PCR) NEGATIVE (Negative) Influenza Type B (PCR) NEGATIVE (Negative) RSV RNA Qual (PCR) NEGATIVE (Negative) SARS-CoV-2 RNA (RT-PCR) NEGATIVE (Negative) Independent Interpretation I performed an independent interpretation of an: EKG Interpretation: My independent interpretation patient's 12 EKG done at 15:07 hours is as follows: Normal sinus rhythm with rate of 98, normal DE interval, QRS duration QTC interval, no ST segment elevation, no ST segment depression, poor R-wave progression from V2 to V3, no significant T-wave abnormalities, no PACs, no PVCs. Compared to EKG dated 12/12/2018 at 08:20 hours the poor R-wave progression is new however I suspect that it may be due to lead placement and not secondary to myocardial injury. My independent interpretation patient's 12 EKG is as follows: No acute disease Radiology Impression Discussion of test interpretation with radiology: I have reviewed the radiologist's reading. Radiologist Impression: 2 view chest x-ray Comparison: CR/SR - CHEST 2 VIEWS - 12/12/18 08:58 EDT Findings: The lungs are clear. Normal size heart. No acute fracture. IMPRESSION: 1. No acute findings. This document has been electronically signed by: Katina Gannon MD on 06/18/2024 16:35:15 Prescription Management I considered prescription management with: Other (Antiemetic: Zofran ODT) Chronic Conditions Patient?s care impacted by: Diabetes Discharge Plan Discharge Clinical Impression: Viral syndrome, Nausea, Chest pain Patient Disposition: Home, Self-Care Instructions: Viral Syndrome (ED) Additional Instructions: You had a complete blood count, comprehensive metabolic panel, high sensitive troponin I, chest x-ray, EKG, COVID-19, influenza and RSV test. All of these tests were normal which is reassuring. Your symptoms are consistent with a viral infection/viral syndrome Take ibuprofen 200 mg pills, 2 pills every 6 hours as needed for pain or fever. Take Tylenol (acetaminophen) 500 mg pills, 2 pills every 6 hours as needed for pain or fever. Take Zofran ODT 4 mg pills, 1 pill dissolved in your mouth every 8 hours as needed for nausea and vomiting. Follow-up with your doctor in 2 days. Please return to the emergency department if your symptoms get worse or if you develop any symptoms that are concerning to you. Prescriptions: New ondansetron 4 mg tablet,disintegrating 4 mg PO Q6-8H PRN (Reason: nausea and vomiting) Qty: 14 0RF No Action (DME) blood-glucose meter [FreeStyle Lite Meter] Kit See Rx Instructions .ROUTE .MEDSUPPLY Qty: 1 0RF Rx Instructions: TEST 2 TIMES DAILY fluocinonide 0.05 % cream 1 appl topical BID 30 Days Qty: 30 0RF (DME) FreeStyle Lite Strips Strip See Rx Instructions .ROUTE .COMPLEX Qty: 100 11RF Dose Instruction: TEST BLOOD SUGAR TWICE DAILY DIRECTED Rx Instructions: TEST BLOOD SUGAR TWICE DAILY DIRECTED (DME) lancets [TRUEplus Lancets] 33 gauge misc See Rx Instructions .ROUTE .COMPLEX Qty: 100 11RF Dose Instruction: TEST BLOOD SUGAR TWICE DAILY Rx Instructions: TEST BLOOD SUGAR TWICE DAILY ondansetron HCl 8 mg tablet 8 mg PO DAILY 30 Days Qty: 30 5RF nitroglycerin 0.4 mg tablet, sublingual 0.4 mg sublingual Q5M PRN (Reason: chest pain) Qty: 25 3RF Rx Instructions: Place 1 tablet under tongue every 5 mins as needed for chest pain. Maximum of 3 tablets. fenofibrate 54 mg tablet 54 mg PO DAILY Qty: 30 6RF lidocaine 5 % adhesive patch,medicated 1 patch topical DAILY PRN (Reason: pain) 30 Days Qty: 30 1RF Rx Instructions: leave on most painful area for up to 12 hrs enalapril maleate 10 mg tablet 10 mg PO DAILY 90 Days Qty: 90 3RF cholecalciferol (vitamin D3) 25 mcg (1,000 unit) tablet 25 mcg PO DAILY 90 Days Qty: 90 3RF nabumetone 750 mg tablet 750 mg PO BID PRN (Reason: pain) 30 Days Qty: 60 0RF pantoprazole 40 mg tablet,delayed release (DR/EC) 40 mg PO DAILY 90 Days Qty: 90 1RF clopidogrel 75 mg tablet 75 mg PO DAILY Qty: 90 3RF atorvastatin 80 mg tablet 80 mg PO DAILY Qty: 90 3RF amitriptyline 10 mg tablet 10 mg PO BEDTIME Qty: 30 2RF fluticasone propionate [Flonase Allergy Relief] 50 mcg/actuation spray,suspension 1 spray intranasal DAILY 30 Days Qty: 16 2RF Rx Instructions: administer into each nostril metformin 850 mg tablet 850 mg PO BID 30 Days Qty: 60 3RF Ozempic 1 mg/dose (4 mg/3 mL) pen injector 1 mg subcut QWEEK 28 Days Qty: 3 2RF zolpidem 10 mg tablet 10 mg PO BEDTIME PRN (Reason: Insomnia) buspirone 10 mg tablet 10 mg PO .at bedtime (DME) lancets [FreeStyle Lancets] 28 gauge misc See Rx Instructions .ROUTE .MEDSUPPLY Qty: 100 Rx Instructions: Twice a day As directed diclofenac sodium [Arthritis Pain (diclofenac)] 1 % gel 2 g topical QID 30 Days Qty: 100 0RF Rx Instructions: apply to single elbow, wrist or hand; for hand includes palm/fingers/back of hand bupropion HCl 300 mg tablet extended release 24 hr 300 mg PO DAILY Linzess 145 mcg capsule 145 mcg PO DAILY Qty: 30 3RF propranolol 10 mg tablet 10 mg PO BID Qty: 30 0RF celecoxib [Celebrex] 200 mg capsule 200 mg PO BID 30 Days Qty: 60 3RF baclofen 5 mg tablet 5 mg PO DAILY Interventions: ED Discharge Assessment Last Done: 06/18/24 21:50 Discharge Date/Time: 06/18/24 21:50 Print Language: Ivorian
[2024-06-18 15:17] LABS: MANUAL DIFF FLAG NO
[2024-06-18 15:19] LABS: Basophils Percent Auto 0.3 % (0-2); Eosinophils Absolute Auto 0.1 X10*3/uL (0.0-0.4); Eosinophils Percent Auto 0.6 % (0-4); Hematocrit 39.6 % (37.0-47.0); Hemoglobin 13.5 g/dl (12.0-16.0); Imm Gran Abs Auto 0.02 X10*3/uL (0.00-0.03); Imm Gran Pct Auto 0.2 % (0.0-0.4); Lymphocytes Absolute Auto 3.1 X10*3/uL (1.2-4.9); Lymphocytes Percent Auto 34.6 % (20-40); Mean Corpuscular HGB Conc 34.1 g/dl (31.0-35.0); Mean Corpuscular Hemoglobin 30.5 pg (27.0-33.0); Mean Corpuscular Volume 89.6 fL (80.0-98.0); Mean Platelet Volume 10.6 fL (9.4-12.3); Monocytes Absolute Auto 0.5 X10*3/uL (0.1-1.2); Monocytes Percent Auto 6.1 % (2-11); Neutrophils Absolute Auto 5.2 x10*3/uL (2.0-8.3); Neutrophils Percent Auto 58.2 % (45-73); Platelet Count 330 X10*3/uL (160-400); Red Blood Count 4.42 X10*6/uL (4.20-5.50); Red Cell Distribution Width 12.8 % (11.0-16.0); White Blood Count 8.9 X10*3/uL (4.8-10.8)
[2024-06-18 15:35] LABS: Alanine Aminotransferase 26 U/L (0-31); Albumin Level 4.3 g/dL (3.5-5.0); Alkaline Phosphatase 108 U/L (39-117); Anion Gap 11 (12-20); Aspartate Amino Transferase 29 U/L (5-31); Bilirubin Direct 0.2 mg/dL (0.0-0.5); Bilirubin Total 0.5 mg/dL (0.0-1.0); Blood Urea Nitrogen 12 mg/dL (9-16); Calcium 10.2 mg/dL (8.4-10.2); Carbon Dioxide 27 mmol/L (22-29); Chloride 106 mmol/L (96-108); Creatinine Clr Calc Pharmacy 64.9; Estimated Glomerular Filt Rate > 60; Glucose Random 169 mg/dL (60-115); Magnesium 2.1 mg/dL (1.6-2.6); Potassium 3.6 mmol/L (3.3-5.1); Sodium 140 mmol/L (135-145); Total Protein 7.9 g/dL (6.5-8.0)
[2024-06-18 15:48] LABS: Troponin-I High Sensitivity < 2.7 ng/L (<3.5-17.0)
[2024-06-18 15:57] LABS: Influenza A PCR NEGATIVE (Negative); Influenza B PCR NEGATIVE (Negative); Resp Syncy Virus RNA Qual PCR NEGATIVE (Negative); SARS COV2 PCR INHOUSE NEGATIVE (Negative)
[2024-06-18 19:29] VITALS: BP 122/63; PULSE 85; RESP 16; TEMP 36.6; O2SAT 98
--- OUTSIDE RECORDS SUMMARY | 2024-06-18 19:48 | XMS_ITS | Encounter Summary ---
Author Organization [facility] Address [address] [place] [address] Care Team Providers Care Contract Coordinator Name Role Phone Unavailable Primary Care Provider Unavailabl e Encounter Details Date Type Department Care Team (Latest Contact Info) Description 10/01/2021 Abstract [facility] Dental, Provider, DDS Social History Tobacco Use Types Packs/Day Years Used Date Smoking Tobacco: Never Assessed Comments Unknown Sex and Gender Information Value Date Recorded Sex Assigned at Female 03/23/2022 10:20 AM EDT Legal Sex Female 10:20 AM EDT Gender Identity Female 03/23/2022 10:20 AM EDT Sexual Orientation Straight 03/23/2022 10 :20 AM EDT documented as of this encounter Plan of Treatment Not on file documented as of this encounter Visit Diagnoses Not on filedocumented in this encounter
--- OUTSIDE RECORDS SUMMARY | 2024-06-18 19:48 | XMS_ITS | Encounter Summary ---
Author Organization [facility] Address [address] [place] [address] Care Team Providers Care Nurse Anesthesia Program Director Name Role Phone Unavailable Primary Care Provider Unavailabl e Encounter Details Date Type Department Care Team (Latest Contact Info) Description 07/22/2020 Abstract [facility] Dental, Provider, DDS Social [...]
--- OUTSIDE RECORDS SUMMARY | 2024-06-18 19:48 | XMS_ITS | Encounter Summary ---
Author Organization [employer] Address [address] [place] [address] Care Team Providers Care Garment Parts Cutter Hand Name Role Phone Unavailable Primary Care Provider Unavailabl e Encounter Details Date Type Department Care Team (Late st Contact Info) Description 04/22/2022 Abstract [facility] [address] [place] [address] Dental, Provider, DDS Social History Tobacco Use [...] on file documented as of this encounter Procedures Procedure Name Priority Date/Time Associated Diagnosis Comments 31,30,19,22 PARTIAL DENTURE - RESIN Routine 04/22/2022 12:00 AM EST 6,10,11,14 PARTIAL DENTURE - RESIN Routine 04/22/2022 12:00 AM EST 9 CROWN - PORCELAIN/CERAMIC Routine 04/22/2022 12:00 AM EST 8 CROWN - PORCELAIN/CERAMIC Routine 04/22/2022 12:00 AM EST 13 MOD COMPOSITE FILLING Routine 022 12:00 AM EST 12 O COMPOSITE FILLING Routine 12:00 AM EST 7 ML COMPOSITE FILLING Routine 12:00 AM EST 5 DO COMPOSITE FILLING Routine 2 12:00 AM EST 4 O COMPOSITE FILLING Routine 04/22/2022 12:00 AM EST 4 M COMPOSITE FILLING Routine 04/22/2022 12:00 AM EST 4 D COMPOSITE FILLING Routine 04/22/2022 12:00 AM EST 29 O AMALGAM FILLING Routine 04/22/2022 12:00 AM EST 28 O AMALGAM FILLING Routine 04/22/2022 12:00 AM EST 21 O AMALGAM FILLING Routine 04/22/2022 12:00 AM EST 20 O AMALGAM FILLING Routine 04/22/2022 12:00 AM EST 18 O AMALGAM FILLING Routine 04/22/2022 12:00 AM EST 15 O AMALGAM FILLING Routine 04/22/2022 12:00 AM EST 12 D AMALGAM FILLING Routine 04/22/2022 12:00 AM EST 5 MO AMALGAM FILLING Routine 04/22/2022 12:00 AM EST 3 MOD AMALGAM FILLING Routine 04/22/2022 12:00 AM EST 2 DO AMALGAM FILLING Routine 04/22/2022 12:00 AM EST 17 O AMALGAM FILLING Routine 04/22/2022 12:00 AM EST 12 M AMALGAM FILLING Routine 04/22/2022 12:00 AM EST 32 EXTRACTION Routine 04/22/2022 12:00 AM EST 31 EXTRACTION Routine 04/22/2022 12:00 AM EST 30 EXTRACTION Routine 04/22/2022 12:00 AM EST 19 EXTRACTION Routine 04/22/2022 12:00 AM EST 16 EXTRACTION Routine 04/22/2022 12:00 AM EST 14 EXTRACTION Routine 04/22/2022 12:00 AM EST 10 EXTRACTION Routine 04/22/2022 12:00 AM EST 6 EXTRACTION Routine 04/22/2022 12:00 AM EST 1 EXTRACTION Routine 04/22/2022 12:00 AM EST 11 EXTRACTION Routine 04/22/2022 12:00 AM EST documented in this encounter Visit Diagnoses Not on filedocumented in this encounter
--- OUTSIDE RECORDS SUMMARY | 2024-06-18 19:48 | XMS_ITS | Encounter Summary ---
Author Organization [facility] [place] [facility] Address [address] [place] [address] Care Team Providers Care Founder Name Role Phone Unavailable Primary Care Provider Unavailabl e Encounter Details Date Type Department Care Team (Latest Contact Info) Description 01/11/2019 Abstract [facility] CONVERSIONS Dental, Provider, DDS Social History Tobacco [...]
--- OUTSIDE RECORDS SUMMARY | 2024-06-18 19:48 | XMS_ITS | Encounter Summary ---
Author Organization [facility] Address [address] [place] [address] Care Team Providers Care Relief Charge Nurse Name Role Phone Unavailable Primary Care Provider Unavailabl e Encounter Details Date Type Department Care Team (Latest Contact Info) Description 08/01/2020 Abstract [facility] CONVERSIONS Dental, Provider, DDS Social History Tobacco [...]
--- OUTSIDE RECORDS SUMMARY | 2024-06-18 19:48 | XMS_ITS | Clinical Summary ---
Author Organization [employer] Address [address] [facility] 7[address] [place] [address] Care Team Providers Care Managing Jeweler Name Role Phone Unavailable Primary Care Provider Unavailabl e Allergies Active Allergy Reactions Criticality Noted Date Comments Acetaminophen Rash Low 12/23/2015 Aspirin Rash Low 12/07/2012 Morphine Unknown 09/26/2020 Oxycodone Rash Low 12/23/2015 Medications clopidogrel (Plavix) 75 MG tablet Take 1 tablet by mouth at bed time. Active metFORMIN (Glucophage) 500 MG tablet Take 1 tablet by mouth every 12 (twelve) hours. Active nitroglycerin ER (Nitro-Time) 2.5 MG ER capsule Take by mouth. Activ e prednisoLONE (Prelone) 15 MG/5ML syrup 20 ml per 5 days, 10 ml for days, 5 ml for days, total 10 days 9 Active amitriptyline (Elavil) 10 MG tablet Take 10 mg by mouth at bedtime. 2 Active atorvastatin (Lipitor) 80 MG tablet Take 80 mg by mouth in the morning. 2 Active busPIRone (Buspar) 10 MG tablet Take 10 mg by mouth in the morning, at noon, and at bedtime. 2 Active cholecalciferol (Vitamin D-3) 25 MCG tablet Take 25 mcg by mouth in the morning. 2 Active enalapril (Vasotec) 10 MG tablet 9 Active fenofibrate (Tricor) 54 MG tablet Take 54 mg by mouth in the morning. 2 Active fluticasone (Flonase) 50 MCG/ACT nasal spray Administer 1 spray into each nostril in the morning. 2 Active FREESTYLE LITE test strip TEST BLOOD SUGAR TWICE DAILY DIRECTED 2 Active TRUEplus Lancets 33G misc TEST BLOOD SUGAR TWICE DAILY 2 Active latanoprost (Xalatan) 0.005 % ophthalmic solution INSTILL 1 DROP IN EACH EYE AT BEDTIME 2 Active lidocaine (Lidoderm) 5 % patch APPLY 1 PATCH TOPICALLY TO SKIN, LEAVE ON FOR 12 HOURS AND OFF FOR 12 HOURS DIRECTED 2 Active Linzess 145 MCG capsule Take 145 mcg by mouth in the morning. 2 Active meloxicam (Mobic) 15 MG tablet TAKE 1 TABLET BY MOUTH DAILY WITH FOOD OR MILK 2 Active methocarbamol (Robaxin) 500 MG tablet Take 500 mg by mouth in the morning and at bedtime. 2 Active nitroglycerin (Nitrostat) 0.[address] 1 TABLET UNDER THE TONGUE NEEDED FOR CHEST PAIN - MAY REPEAT IN 5 MINUTES TWICE. IF NO RELIEF CALL 911 OR GO TO EMERGENCY ROOM. 2 Active ondansetron (Zofran) 8 MG tablet Take 8 mg by mouth in the morning. 2 Active pantoprazole (ProtoNix) 40 MG EC tablet Take 40 mg by mouth in the morning. 2 Active zolpidem (Ambien) 10 MG tablet Take 10 mg by mouth if needed at bedtime. 2 Active Active Problems Problem Noted Date Diagnosed Date Diabetes mellitus 04/27/2022 Hypertension 04/27/2022 Gingivitis 04/27/2022 Immunizations Name Administration Dates Next Due Influenza injectable quadriv alent IIV4 with preservative 02/21/2019,04/09/2017 Influenza injectable quadriv alent preservative free 04/23/2022,03/05/2021,02/17/2018 Influenza, IIV3, injectable 05/14/2015 Pneumococcal Polysaccharide PPSV23 04/09/2017 Tdap 06/11/2022,03/31/2016 Zoster, Recombinant 12/04/2022 Social History Tobacco Use Types Packs/Day Years Used Date Smoking Tobacco: Never Passive Smoke Exposure: Never Smokeless Tobacco: Never Tobacco Cessation:Counseling Given: Not Answered Alcohol Use Standard Drinks/Week Comments Never 0 (1 standard drink = 0.6 oz pur e alcohol) Comments Unknown Sex and Gender Information Value Date Recorded Sex Assigned at Female 03/23/2022 10:20 AM EDT Legal Sex Female 10:20 AM EDT Gender Identity Female 03/23/2022 10:20 AM EDT Sexual Orientation Straight 03/23/2022 10 :20 AM EDT Last Filed Vital Signs Vital Sign Reading Time Taken Comments Blood Pressure 124/72 04/27/2022 2:52 PM EST Pulse 70 04/27/2022 2:48 PM EST Temperature 21.1 ??C (70 ??F) 04/27/2022 2:52 PM EST Respiratory Rate - - Oxygen Saturation - - Inhaled Oxygen Concentration - - Weight - - Height - - Body Mass Index - - Plan of Treatment Health Maintenance Due Date Last Done Comments CT Colonography 1971 Colonoscopy 1971 Colorectal Cancer Screening 1971 Dental Oral Exam 1971 Dental X-Ray: Bitewings 1971 Dental X-Ray: Full Mouth 1971 Depression Screening 1971 Diabetes: Hemoglobin A1C 1971 FIT DNA/Cologuard 1971 FIT 1971 FOBT 1971 HIV Screening 1971 Lipid Panel 1971 SDOH Screening 1971 Sigmoidoscopy 1971 Diabetes: Foot Exam 1981 Eye Exam 1981 Alcohol/Substance Use Screening 1983 Hepatitis C Screening 1989 Diabetes: Urine Protein Screening 1990 Hepatitis B Vaccines (1 of 3 - 19+ 3-dose series) 1990 Pap Smear 1992 Cervical Cancer Screening 2001 HPV/Cotest 2001 Mammogram 2011 Pneumococcal Vaccine: Pediatrics (0 to 5 Years) and At-Risk Patients (6 to 64 Years) (2 of 2 - PCV) 04/09/2018 04/09/2017 Dental Prophylaxis 10/27/2022 04/27/2022 Zoster Vaccines (2 of 2) 01/29/2023 12/04/2022 Tobacco Screening 04/27/2023 04/27/2022 COVID-19 Vaccine ( season) 2024 04/09/2021, 08/01/2020, 07/04/2020 Influenza Vaccine (#1) 2024 2, 03/05/2021, 02/21/2019, Additional history exists DTaP/Tdap/Td Vaccines (3 - Td or Tdap) 06/11/2032 06/11/2022, 03/31/2016 RSV Patients and Patients Aged 60 years or older (1 - 1-dose 75+ series) 2046 HIB Vaccines Aged Out No longer eligi ble based on patient's age to complete this topic HPV Vaccines Aged Out No longer eligi ble based on patient's age to complete this topic Hepatitis A Vaccines Aged Out No long er eligible based on patient's age to complete this topic IPV Vaccines Aged Out No longer eligi ble based on patient's age to complete this topic Meningococcal Vaccine Aged Out No loretta derrell eligible based on patient's age to complete this topic RSV under 20 months Aged Out No longe r eligible based on patient's age to complete this topic Rotavirus Vaccines Aged Out No longer eligible based on patient's age to complete this topic Procedures Procedure Name Priority Date/Time Associated Diagnosis Comments Full PROPHYLAXIS - ADULT Routine 04/27/2022 2:30 PM EST from Last 3 Months or Most Recently Relevant to Health Maintenance Insurance [facility] STAND ADULT
[2024-06-18 21:29] VITALS: BP 124/73; PULSE 77; RESP 16; TEMP 36.8; O2SAT 98
[2024-06-18] MEDS: Ibuprofen 400 MG TABLET PO (21:48)
[2024-06-18] MEDS: Ondansetron ODT 4 MG TAB.RAPDIS TRANSLINGU (21:49)
[2024-06-18 21:50] VITALS: BP 124/73; PULSE 77; RESP 16; TEMP 36.8; O2SAT 98
== END 2024-06-18 21:50 | disposition home or self-care (01) ==
PROVIDERS: Nurse Practitioner Family; Emergency Provider Emergency Medicine Emergency Medical Services; PCP Internal Medicine
DX: B34.9 Viral infection, unspecified (principal); R42 Dizziness and giddiness; R51.9 Headache, unspecified; R07.89 Other chest pain; R11.0 Nausea; Z03.818 Encounter for observation for suspected exposure to other biological agents ruled out; Z79.899 Other long term (current) drug therapy
CPT/HCPCS: 0241U; 36415; 71046; 80048; 80076; 83735; 84484; 85025; 93005; 99284

== ENCOUNTER → 2024-06-18 15:05 | Outpatient (BNV) | payer OTHER, SELFPAY | PROVIDERS: Emergency Provider Emergency Medicine Emergency Medical Services; PCP Internal Medicine; Visit Provider Internal Medicine | DX: R94.31 Abnormal electrocardiogram [ECG] [EKG] (principal) | CPT/HCPCS: 93010 ==

== ENCOUNTER → 2024-06-18 15:13 | Outpatient (BNV) | payer OTHER, SELFPAY | PROVIDERS: PCP Internal Medicine; Visit Provider Radiology Diagnostic Radiology | DX: R07.9 Chest pain, unspecified (principal) | CPT/HCPCS: 71046 ==

== ENCOUNTER 2024-06-26 08:26 | Outpatient (REF) | payer OTHER, SELFPAY ==
--- OUTSIDE RECORDS SUMMARY | 2024-06-26 08:30 | XMS_ITS | Encounter Summary ---
Author Organization [facility] Address [address] [facility] [address] [place] [address] Care Team Providers Care Educational Interpreter Name Role Phone Unavailable Primary Care Provider [...]
--- OUTSIDE RECORDS SUMMARY | 2024-06-26 08:30 | XMS_ITS | Encounter Summary ---
Author Organization [employer] [facility] Address [address] [facility] 7t [place] [address] Care Team Providers Care Access Rn Name Role Phone Unavailable Primary Care Provider Unavailabl e Encounter Details Date Type Department Care Team (Latest Contact Info) Description 01/11/2019 Abstract [facility] CONVERSIONS Dental, Provider, DDS Social History Tobacco [...]
--- OUTSIDE RECORDS SUMMARY | 2024-06-26 08:30 | XMS_ITS | Encounter Summary ---
Author Organization [facility] [facility] Address [address] [facility] [address] [place] [address] Care Team Providers Care Telecom Billing Analyst Name Role Phone Unavailable Primary Care Provider [...]
--- OUTSIDE RECORDS SUMMARY | 2024-06-26 08:30 | XMS_ITS | Encounter Summary ---
Author Organization [employer] Address [address] [place] [address] Care Team Providers Care Presser Hand Name Role Phone Unavailable Primary Care Provider Unavailabl e Encounter Details Date Type Department Care Team (Late st Contact Info) Description 04/22/2022 Abstract [facility] ADULT D[facility]AL [address] [place] [address] Dental, Provider, DDS Social History Tobacco Use [...]
--- OUTSIDE RECORDS SUMMARY | 2024-06-26 08:30 | XMS_ITS | Encounter Summary ---
Author Organization [employer] [facility] Address [address] [facility] [address]t [place] [address] Care Team Providers Care Twisting Frame Fixer Name Role Phone Unavailable Primary Care Provider [...]
--- OUTSIDE RECORDS SUMMARY | 2024-06-26 08:30 | XMS_ITS | Clinical Summary ---
Author Organization [facility] Address [address] [facility] [address]t [place] [address] Care Team Providers Care Director Of Food And Beverage Services Name Role Phone Unavailable Primary Care Provider [...] 2001 HPV/Cotest 2001 Mammogram 2011 Pneumococcal Vaccine: 50+ Years (2 of 2 - PCV) 04/09/2018 04/09/2017 Pneumococcal Vaccine: Pediatrics (0 to 5 Years) and At-Risk Patients (6 to 49) Years) (2 of 2 - PCV) 04/09/2018 [...] Most Recently Relevant to Health Maintenance Insurance * Guarantor: Barbara Calles Account Type Relation to Patient Date of Phone Billing Address Personal/Family Self 1970 [address] [place] [address] [facility] ACO [facility] STAND ADULT
== END 2024-06-26 08:27 | disposition home or self-care (01) ==
LOC: HO.MAMMO 08:26
PROVIDERS: PCP Internal Medicine; Visit Provider Surgery
DX: Z12.31 Encounter for screening mammogram for malignant neoplasm of breast (principal)
CPT/HCPCS: 77063; 77067

== ENCOUNTER → 2024-06-26 08:30 | Outpatient (BNV) | payer OTHER, SELFPAY | PROVIDERS: PCP Internal Medicine; Visit Provider Internal Medicine | DX: Z12.31 Encounter for screening mammogram for malignant neoplasm of breast (principal) | CPT/HCPCS: 77063; 77067 ==

== ENCOUNTER 2024-06-27 09:03 | Outpatient (AMB) | payer OTHER, SELFPAY ==
--- NOTE | 2024-06-27 09:05 | MHC.OFFVIS ---
Intake Visit Reasons: urinary urgency/incontinence Intake Note: New Patient presents for initial visit for urinary urgency and incontinence Urology Medications: none Blood Thinner: clopidogrel PVR: Obstetrics And Gynecology Professor Required: Yes Obstetrics And Gynecology Professor Services: Obstetrics And Gynecology Professor Present Obstetrics And Gynecology Professor Name: Maryann Accompanied by: Self / Same As Patient Allergies acetaminophen [Percocet] Allergy (Intermediate, Verified 06/27/24 09:59) dyspnea aspirin [Aspirin] Allergy (Intermediate, Verified 06/27/24 09:59) SWELLING, hives, uticaria carbamazepine [From TEGRETOL] Allergy (Intermediate, Verified 06/27/24 09:59) SWELLING gabapentin Allergy (Intermediate, Verified 06/27/24 09:59) abdominal pain, abd pain morphine [MORPHINE] Allergy (Intermediate, Verified 06/27/24 09:59) HIVES naproxen [From ALEVE] Allergy (Intermediate, Verified 06/27/24 09:59) RASH, MOUTH SORES oxycodone [OXYCODONE] Allergy (Intermediate, Verified 06/27/24 09:59) HIVES Penicillins Allergy (Intermediate, Verified 06/27/24 09:59) HIVES sertraline Allergy (Intermediate, Verified 06/27/24 09:59) nausea lisinopril [LISINOPRIL] Allergy (Mild, Verified 06/27/24 09:59) HICCUPS pramipexole Adverse Reaction (Mild, Verified 06/27/24 09:59) dizziness Medication List - Last Reconciled 06/27/24 by LEXY Coyne amitriptyline 10 mg PO BEDTIME atorvastatin 80 mg PO DAILY baclofen 5 mg PO DAILY blood sugar diagnostic (FreeStyle Lite Strips) TEST BLOOD SUGAR TWICE DAILY DIRECTED blood-glucose meter (FreeStyle Lite Meter kit) TEST 2 TIMES DAILY bupropion HCl XL 300 mg PO DAILY buspirone 10 mg PO .at bedtime celecoxib (Celebrex) 200 mg PO BID 30 days cholecalciferol (vitamin D3) 25 mcg PO DAILY 90 days clopidogrel 75 mg PO DAILY diclofenac sodium 1% (Arthritis Pain (diclofenac)) 2 grams topical QID 30 days enalapril maleate 10 mg PO DAILY 90 days fenofibrate 54 mg PO DAILY fluocinonide 0.05% 1 appl topical BID 30 days fluticasone propionate 50 mcg/actuation (Flonase Allergy Relief) 1 spray intranasal DAILY 30 days lancets (FreeStyle Lancets) Twice a day As directed lancets (TRUEplus Lancets) TEST BLOOD SUGAR TWICE DAILY lidocaine 5% 1 patch topical DAILY PRN 30 days linaclotide (Linzess) 145 mcg PO DAILY metformin 850 mg PO BID 30 days nabumetone 750 mg PO BID PRN 30 days nitroglycerin 0.4 mg sublingual Q5M PRN ondansetron 4 mg PO Q6-8H PRN ondansetron HCl 8 mg PO DAILY 30 days pantoprazole 40 mg PO DAILY 90 days propranolol 10 mg PO BID semaglutide (Ozempic) 1 mg (0.75 mL) subcut QWEEK 4 weeks zolpidem 10 mg PO BEDTIME PRN HPI Comments Details: Barbara is a very pleasant Georgian-speaking 54-year-old patient of . She has a past medical history of type 2 diabetes, urge incontinence, lumbar degenerative disc disease, hypercalcemia, renal cysts, giant cell arteritis, history of CVA, neuropathy, mixed hyperlipidemia, anxiety, depression, ESQUIVEL, GERD, and hypertension. She presents to the office today as a new patient for stress/urge incontinence. She reports symptoms have been present for over a year. She denies currently using any Araceli pads for episodes of incontinence. She does report a previous history of 2 vaginal births in 1 . In office urinalysis results reviewed with the patient today. PVR 0 mL. We discussed at length potential causes of stress/urge incontinence as well as further treatment options and risks and benefits of these treatment options. In review of patient's chart it appears last A1c 02/14 6.3. We discussed importance of managing diabetes for improvement in lower urinary tract symptoms as well as overall health and well-being. She denies urinary urgency, urinary frequency, nocturia, hematuria, dysuria, foul smelling urine, changes to urinary stream, flank pain, fever, and or chills. She otherwise offers no other issues or concerns at this time. [facility] Medical History Urge incontinence of urine FHx: breast cancer in first degree relative Pre-op evaluation Lumbar degenerative disc disease Hypercalcemia Leukocytosis Renal cyst Giant cell arteritis Neuropathy History of CVA (cerebrovascular accident) COVID-19 vaccine series completed Mixed hyperlipidemia Obese Anxiety Moderate major depression ESQUIVEL (nonalcoholic steatohepatitis) Easy bruising Memory loss Nausea and vomiting GERD (gastroesophageal reflux disease) Essential hypertension Surgical History Hx of colonoscopy History of esophagogastroduodenoscopy (EGD) History of temporal artery biopsy History of cardiac cath History of endometrial ablation History of hernia repair H/O tubal ligation History of appendectomy H/O: Family History Father Stroke Breast cancer Mother Colon cancer, Onset Age: 64 Diabetes Hypertension Uterine cancer Brother Substance use disorder Family/Other Mental health disorder Sister Breast cancer, Onset Age: 38 Sister Breast cancer, Onset Age: 49 Social History Household Members: Significant Other and Children Housing: Apartment Alcohol intake: never Patient Tobacco Use Status: Never used Tobacco e-Cigarette/Vaping Use: Never Used Second Hand Smoke Exposure: No service: No Current occupational status: disabled Sexual orientation: Straight/Heterosexual Gender identity: Female Cognitive needs: No Hearing needs: No Vision needs: Yes Female Reproductive History Menstrual Age of Menarche: 13 Review of Systems Const All systems reviewed & are unremarkable except as noted in HPI and below Eyes Reports no additional complaints ENT Reports no additional complaints Card Reports as per HPI Resp Reports no additional complaints GI Reports as per HPI Reports as per HPI Musc Reports as per HPI Neuro Reports as per HPI Psych Reports as per HPI Endo Reports as per HPI Physical Exam Const General: cooperative, healthy appearing, comfortable, no acute distress, well developed, alert and awake Nutritional Appearance: overweight Orientation/consciousness: patient oriented x3 Limitations: no limitations HEENT Head: Yes normal to inspection, Yes normocephalic and Yes atraumatic Ears: hearing grossly normal bilaterally Eyes General: appearance normal, both eyes and all related structures Neck Neck: Yes normal visual inspection and Yes trachea midline Chest Chest palpation & inspection: normal inspection of the chest Resp Effort & Inspection: normal respiratory effort and able to speak in complete sentences Cardio Rate: regular rate GI Inspection: Yes normal to inspection General: Yes no CVA tenderness Back/Spine/Pelvis Back: no CVA tenderness Skin General skin exam: no rashes or lesions noted Neuro General: patient oriented x3 Extrem General: Yes normal to inspection Psych Appearance: grossly normal and well kempt Mental Status: mental status grossly normal Speech and movement: Normal speech and movement present and Clear speech present Affect: normal affect Attitude: cooperative Thought process: Normal thought process present Thought content: Normal thought content present Insight: Fair insight present (Psych) Judgement: Fair judgement present (Psych) Office Procedures Post Void Residual Post Residual Void Post Void Residual (PVR): 0 49064-Gpcx Void Residual by ultrasound Results AMB Urinalysis, Automated UA Leukoctes 0 Marianela/uL Last Edit by Perez Karidavid on 06/27/24 09:38 UA Nitrite Last Edit by [employer] [facility] on 06/27/24 09:38 UA Urobilinogen 0.2 mg/dL Last Edit by [employer] on 06/27/24 09:38 UA Protein 15 mg/dL Last Edit by [employer] [facility] on 06/27/24 09:38 UA pH 6.0 Last Edit by [employer] on 06/27/24 09:38 UA Blood 0 Rafael/uL Last Edit by [employer] on 06/27/24 09:38 UA Specific [place] 1.025 Last Edit by [employer] on 06/27/24 09:38 UA Ketone Last Edit by [employer] on 06/27/24 09:38 UA Bilirubin 1 mg/dL Last Edit by [employer] [facility] on 06/27/24 09:38 UA Glucose 0 mg/dL Last Edit by [employer] [facility] on 06/27/24 09:38 Results Reviewed Results Reviewed: Laboratory Last Values Urine pH (Auto) 6.0 06/27/24 09:13 Specific [place] (Auto) 1.025 06/27/24 09:13 Urine Protein (Auto) 15 mg/dL 06/27/24 09:13 Glucose (UA)(Auto) 0 mg/dL 06/27/24 09:13 Urine Blood (Auto) 0 Rafael/uL 06/27/24 09:13 Urine Bilirubin (Auto) 1 mg/dL 06/27/24 09:13 Urine Urobilinogen (Auto) 0.2 mg/dL 06/27/24 09:13 Leukocyte Esterase (Auto) 0 Marianela/uL 06/27/24 09:13 Assessment & Plan Assessment & Plan (1) Urge incontinence of urine: Code(s): N39.41 - Urge incontinence Category: Medical Plan In office urinalysis results reviewed with the patient today; as noted above. PVR 0 mL. Will obtain retroperitoneal ultrasound for further assessment evaluation. We discussed possible causes of stress/urge incontinence. We discussed further treatment options of stress/urge incontinence and risks and benefits of these interventions. We discussed pelvic floor therapy however patient declines at this time. Will schedule for urodynamics as discussed Follow-up per doctor's orders; or sooner with any issues, concerns, and or questions. Orders: Orders AMB Urinalysis Automated Today Z13.9 - Encounter for screening, unspecified AMB Post Void Residual by ultrasound Today N39.41 - Urge incontinence US retroperitoneal comp Today N39.3 - Stress incontinence (female) (male), N39.41 - Urge incontinence Patient Instructions: The patient had an opportunity to ask questions regarding the treatment plan. All questions were answered. Physical exam, labs, and imaging were discussed and reviewed in detail. As well as risks, benefits, and discussion of treatment choices. No major barriers to understanding were identified. The patient expressed understanding and agreement with the above treatment plan. The patient was made aware they should contact our office by phone for worsening of their current condition, the appearance of new symptoms, or with any questions or concerns. Compliance is encouraged with any medications and follow up testing that is ordered. It is a privilege to be allowed the opportunity to participate in? your urological care.? Again, if you have any questions or concerns If you have any questions or concerns please do not hesitate to contact me. The office is [phone]. This note is constructed using voice recognition software. While every effort has been made to ensure accuracy bi specialist errors may have been included. Yours sincerely, LEXY Coyne Coding Level of Care Code New Pt Level 3 (87427) Diagnoses Urge incontinence of urine N39.41 CPT Codes Post Residual Void - PVR CPT Code: 42670-Dahk Void Residual by ultrasound ([id number])
--- OUTSIDE RECORDS SUMMARY | 2024-06-27 09:24 | XMS_ITS | Encounter Summary ---
Author Organization [employer] [facility] Address [address] [facility] [address] [place] [address] Care Team Providers Care Accounting Representative Name Role Phone Unavailable Primary Care Provider [...]
--- OUTSIDE RECORDS SUMMARY | 2024-06-27 09:24 | XMS_ITS | Encounter Summary ---
Author Organization [facility] Address [address] [facility] [address]t [place] [address] Care Team Providers Care Control System Computer Scientist Name Role Phone Unavailable Primary Care Provider Unavailabl e Encounter Details Date Type Department Care Team (Latest Contact Info) Description 01/11/2019 Abstract [facility] CONVERSIONS Dental, Provider, DDS Social History Tobacco [...]
--- OUTSIDE RECORDS SUMMARY | 2024-06-27 09:24 | XMS_ITS | Encounter Summary ---
Author Organization [employer] [facility] Address [address] [facility] [address] [place] [address] Care Team Providers Care Treasurer [employer] Name Role Phone Unavailable Primary Care Provider [...]
--- OUTSIDE RECORDS SUMMARY | 2024-06-27 09:24 | XMS_ITS | Encounter Summary ---
Author Organization [employer] Address [address] [facility] [address] [address] [place] [address] Care Team Providers Care Product Managent Intern Name Role Phone Unavailable Primary Care Provider Unavailabl e Encounter Details Date Type Department Care Team (Late st Contact Info) Description 04/22/2022 Abstract [facility] ADULT DENTAL [address] [place] [address] Dental, Provider, DDS Social History Tobacco Use [...] AM EST 5 DO COMPOSITE FILLING Routine 12:00 AM EST 4 O COMPOSITE FILLING [...]
--- OUTSIDE RECORDS SUMMARY | 2024-06-27 09:24 | XMS_ITS | Clinical Summary ---
Author Organization [employer] Address [address] [facility] [address] [place] [address] Care Team Providers Care Stenciler Name Role Phone Unavailable Primary Care Provider [...] Most Recently Relevant to Health Maintenance Insurance [facility] ACO [facility] STANDARD DENTAL[facility] STAND ADULT
--- OUTSIDE RECORDS SUMMARY | 2024-06-27 09:24 | XMS_ITS | Encounter Summary ---
Author Organization [email or web address] [facility] Address [address] [facility] [address] [place] [address] Care Team Providers Care Duralumin Metalworker Name Role Phone Unavailable Primary Care Provider [...]
== END 2024-06-27 09:49 | disposition home or self-care (01) ==
PROVIDERS: PCP Internal Medicine; Visit Provider Nurse Practitioner Family
DX: Z13.9 Encounter for screening, unspecified (principal); N39.41 Urge incontinence
CPT/HCPCS: 99203

== ENCOUNTER → 2024-06-27 09:03 | Outpatient (BNVA) | payer OTHER, SELFPAY | PROVIDERS: PCP Internal Medicine; Visit Provider Nurse Practitioner Family | DX: N39.41 Urge incontinence (principal) | CPT/HCPCS: 51798; 81003; 99202 ==

== ENCOUNTER → 2024-06-28 10:52 | Outpatient (BNVA) | payer SELFPAY | PROVIDERS: PCP Internal Medicine; Visit Provider Physician Assistant | DX: Z02.79 Encounter for issue of other medical certificate (principal) ==

== ENCOUNTER 2024-06-30 11:03 | Outpatient (REF) | payer OTHER, SELFPAY ==
--- NOTE | ~2024-06-30 | XR_ITS ---
EXAMINATION: XR HIP, RIGHT CLINICAL INFORMATION: M25.551 - Pain in right hip COMPARISON: May 15, 2015 TECHNIQUE: Two views of the right hip. FINDINGS: No acute cortical disruption or malalignment. Preservation of the joint space. No lytic or blastic lesions. No subchondral cyst formation. Sclerosis and the sacroiliac joints. XR/XR hip RT min 2V IMPRESSION: Normal right hip. Questionable sacroiliitis, right side. Electronically signed by: Rios Jenkins MD 06/30/2024 12:00 PM HESHAM REILLY
--- OUTSIDE RECORDS SUMMARY | 2024-06-30 12:10 | XMS_ITS | Encounter Summary ---
Author Organization [employer] [facility] Address [address] [facility] [address] [place] [address] Care Team Providers Care Coil Wrapper Name Role Phone Unavailable Primary Care Provider Unavailabl e Encounter Details Date Type Department Care Team (Latest Contact Info) Description 01/11/2019 Abstract [facility] CONVERSIONS Dental, Provider, DDS Social History [...]
--- OUTSIDE RECORDS SUMMARY | 2024-06-30 12:10 | XMS_ITS | Clinical Summary ---
Author Organization [employer] Address [address] [facility] [address] [place] [address] Care Team Providers Care Benefits Officer Name Role Phone Unavailable Primary Care Provider [...] Most Recently Relevant to Health Maintenance Insurance [facility] [place] [address] [facility] STAND ADULT
--- OUTSIDE RECORDS SUMMARY | 2024-06-30 12:10 | XMS_ITS | Encounter Summary ---
Author Organization [employer] [facility] Address [address] [facility] [address] [place] [address] Care Team Providers Care Improvement Intern Name Role Phone Unavailable Primary Care [...]
--- OUTSIDE RECORDS SUMMARY | 2024-06-30 12:10 | XMS_ITS | Encounter Summary ---
Author Organization [email or web address] [facility] Address [address] [facility] [address] [place] [address] Care Team Providers Care Solution Director Name Role Phone Unavailable Primary Care [...]
--- OUTSIDE RECORDS SUMMARY | 2024-06-30 12:10 | XMS_ITS | Encounter Summary ---
Author Organization [facility] Address [address] [place] [address] Care Team Providers Care Legal Manager Name Role Phone Unavailable Primary Care Provider [...]
--- OUTSIDE RECORDS SUMMARY | 2024-06-30 12:10 | XMS_ITS | Encounter Summary ---
Author Organization [employer] Address [address] [place] [address] Care Team Providers Care Technical Services Consultant Name Role Phone Unavailable Primary Care Provider Unavailabl e Encounter Details Date Type Department Care Team (Late st Contact Info) Description 04/22/2022 Abstract [facility] ADULT DENTAL [address] [place] [address] Dental, Provider, DDS Social History Tobacco Use [...]
[2024-06-30 12:50] LABS: Alanine Aminotransferase 20 U/L (0-31); Albumin Level 4.3 g/dL (3.5-5.0); Alkaline Phosphatase 133 U/L (39-117); Anion Gap 7 (12-20); Aspartate Amino Transferase 22 U/L (5-31); Bilirubin Total 0.4 mg/dL (0.0-1.0); Blood Urea Nitrogen 15 mg/dL (9-16); Carbon Dioxide 28 mmol/L (22-29); Chloride 107 mmol/L (96-108); Cholesterol 119 mg/dL (<200); Estimated Glomerular Filt Rate > 60; Glucose Fasting 109 mg/dL (60-99); HDL Cholesterol 42 mg/dL (>40); LDL Cholesterol Calculated 58 mg/dL (<100); Sodium 138 mmol/L (135-145); Total Protein 7.8 g/dL (6.5-8.0); Triglycerides 99 mg/dL (<150)
[2024-06-30 13:07] LABS: Vitamin D 25-OH Total 55.3 ng/mL (>30)
[2024-06-30 13:19] LABS: Creatinine Urine 298.95 mg/dL; Microalbum/Creatinine Ratio Ur 5.6 ug/mg cr (<30)
== END 2024-06-30 11:04 | disposition home or self-care (01) ==
LOC: HO.XRAY 11:03
PROVIDERS: PCP Internal Medicine; Visit Provider Internal Medicine
DX: E11.65 Type 2 diabetes mellitus with hyperglycemia (principal); E78.5 Hyperlipidemia, unspecified; E55.9 Vitamin D deficiency, unspecified; M25.551 Pain in right hip
CPT/HCPCS: 36415; 73502; 80053; 80061; 82043; 82306; 82570

== ENCOUNTER → 2024-06-30 11:38 | Outpatient (BNV) | payer OTHER, SELFPAY | PROVIDERS: PCP Internal Medicine; Visit Provider Radiology Diagnostic Radiology | DX: M25.551 Pain in right hip (principal) | CPT/HCPCS: 73502 ==

== ENCOUNTER 2024-07-04 10:05 | Outpatient (AMB) | payer OTHER, SELFPAY ==
--- NOTE | 2024-07-04 10:08 | MHC.PC.OV ---
Vital Signs 07/04/24 10:13 Height 5 ft 2 in Weight 163 lb BMI 29.8 BP 110/68 Blood Pressure Location Lt brachial Position Sitting Intake Visit Reasons: DM Intake Note: Patient here for a follow up DM Customer Support Consultant Required: Yes Customer Support Consultant Language: Cylinder Machine Operator Pulp Drier Name: Patricia Connelly MD Information Interpreted: non-clinical & clinical Accompanied by: Self / Same As Patient Allergies acetaminophen [Percocet] Allergy (Intermediate, Verified 07/04/24 10:32) dyspnea aspirin [Aspirin] Allergy (Intermediate, Verified 07/04/24 10:32) SWELLING, hives, uticaria carbamazepine [From TEGRETOL] Allergy (Intermediate, Verified 07/04/24 10:32) SWELLING gabapentin Allergy (Intermediate, Verified 07/04/24 10:32) abdominal pain, abd pain morphine [MORPHINE] Allergy (Intermediate, Verified 07/04/24 10:32) HIVES naproxen [From ALEVE] Allergy (Intermediate, Verified 07/04/24 10:32) RASH, MOUTH SORES oxycodone [OXYCODONE] Allergy (Intermediate, Verified 07/04/24 10:32) HIVES Penicillins Allergy (Intermediate, Verified 07/04/24 10:32) HIVES sertraline Allergy (Intermediate, Verified 07/04/24 10:32) nausea lisinopril [LISINOPRIL] Allergy (Mild, Verified 07/04/24 10:32) HICCUPS pramipexole Adverse Reaction (Mild, Verified 07/04/24 10:32) dizziness Medication List - Last Reconciled 07/04/24 by Patricia Connelly MD amitriptyline 10 mg PO BEDTIME atorvastatin 80 mg PO DAILY baclofen 5 mg PO DAILY blood sugar diagnostic (FreeStyle Lite Strips) TEST BLOOD SUGAR TWICE DAILY DIRECTED blood-glucose meter (FreeStyle Lite Meter kit) TEST 2 TIMES DAILY bupropion HCl XL 300 mg PO DAILY buspirone 10 mg PO .at bedtime celecoxib (Celebrex) 200 mg PO BID 30 days cholecalciferol (vitamin D3) 25 mcg PO DAILY 90 days clopidogrel 75 mg PO DAILY diclofenac sodium 1% (Arthritis Pain (diclofenac)) 2 grams topical QID 30 days enalapril maleate 10 mg PO DAILY 90 days fenofibrate 54 mg PO DAILY fluocinonide 0.05% 1 appl topical BID 30 days fluticasone propionate 50 mcg/actuation (Flonase Allergy Relief) 1 spray intranasal DAILY 30 days lancets (FreeStyle Lancets) Twice a day As directed lancets (TRUEplus Lancets) TEST BLOOD SUGAR TWICE DAILY lidocaine 5% 1 patch topical DAILY PRN 30 days linaclotide (Linzess) 145 mcg PO DAILY metformin 850 mg PO BID 30 days nabumetone 750 mg PO BID PRN 30 days nitroglycerin 0.4 mg sublingual Q5M PRN ondansetron 4 mg PO Q6-8H PRN ondansetron HCl 8 mg PO DAILY 30 days pantoprazole 40 mg PO DAILY 90 days propranolol 10 mg PO BID semaglutide (Ozempic) 1 mg (0.75 mL) subcut QWEEK 4 weeks zolpidem 10 mg PO BEDTIME PRN Tobacco use date assessed: 07/04/24 Dental Screening Dental Screen Date: 07/04/24 Did you have a dental visit in the last 12 months?: No Did you have a dental problem in the last 6 months where you did not have access to dental care?: No Was dental information given to patient?: Patient has dentist HPI HPI Comments History of Present Illness Details The patient is a 54-year-old female presenting for a follow-up visit to discuss laboratory results and ongoing management of her chronic conditions, including Type 2 Diabetes Mellitus, Essential Hypertension, Dyslipidemia, Depression, Anxiety, GERD, and sleep disturbances. The patient's A1c level is stable at 6%, indicating well-managed diabetes. Blood pressure and cholesterol levels are also well-controlled with an LDL level below 70 mg/dL. However, the patient reports experiencing decreased appetite, nausea, severe constipation, and insomnia. These symptoms contribute to her overall discomfort and are associated with her current medication regimen, including a concern that these symptoms might be related to the current dose of Ozempic (semaglutide) at 1 mg. The patient has been facing stressful social circumstances, including caring for grandchildren with developmental disorders, which may exacerbate her anxiety and sleep issues. She is allergic to medications such as Percocet, aspirin, carbamazepine, gabapentin, morphine, naproxen, oxycodone, penicillin, sertraline, and lisinopril. Current medications include amitriptyline, atorvastatin, baclofen, bupropion, buspirone, Celebrex, vitamin D, Plavix, enalapril, fenofibrate, linagliptin, metformin, nabumetone, ondansetron, pantoprazole, propranolol, Ozempic, zolpidem, and nitroglycerine. [facility] Medical History (Updated 07/04/24 @ 10:47 by Patricia Connelly MD) Urge incontinence of urine FHx: breast cancer in first degree relative Pre-op evaluation Lumbar degenerative disc disease Hypercalcemia Leukocytosis Renal cyst Giant cell arteritis Neuropathy History of CVA (cerebrovascular accident) COVID-19 vaccine series completed Mixed hyperlipidemia Obese Anxiety Moderate major depression ESQUIVEL (nonalcoholic steatohepatitis) Easy bruising Memory loss Nausea and vomiting GERD (gastroesophageal reflux disease) Essential hypertension Surgical History Hx of colonoscopy History of esophagogastroduodenoscopy (EGD) History of temporal artery biopsy History of cardiac cath History of endometrial ablation History of hernia repair H/O tubal ligation History of appendectomy H/O: Family History Father Stroke Breast cancer Mother Colon cancer, Onset Age: 64 Diabetes Hypertension Uterine cancer Brother Substance use disorder Family/Other Mental health disorder Sister Breast cancer, Onset Age: 38 Sister Breast cancer, Onset Age: 49 Social History Household Members: Significant Other and Children Housing: Apartment Alcohol intake: never Patient Tobacco Use Status: Never used Tobacco e-Cigarette/Vaping Use: Never Used Second Hand Smoke Exposure: No service: No Current occupational status: unemployed and disabled Sexual orientation: Straight/Heterosexual Gender identity: Female Cognitive needs: No Hearing needs: No Vision needs: Yes Female Reproductive History Menstrual Age of Menarche: 13 Questionnaire PHQ-9 Over the last 2 weeks, how often have you been bothered by any of the following problems? 1. Little interest or pleasure in doing things: several days 2. Feeling down, depressed, or hopeless: several days 3. Trouble falling or staying asleep, or sleeping too much: several days 4. Feeling tired or having little energy: several days 5. Poor appetite or overeating: not at all 6. Feeling bad about yourself - or that you are a failure or have let yourself or your family down: not at all 7. Trouble concentrating on things, such as reading the newspaper or watching television: not at all 8. Moving or speaking so slowly that other people could have noticed. Or the opposite - being so fidgety or restless that you have been moving around a lot more than usual: not at all 9. Thoughts that you would be better off or of hurting yourself in some way: not at all Total score: 4 Depression Screening Interpretation: Positive Depression Screening Follow-up: Existing condition, In treatment, Community Mental Health Worker F/U and Follow-up Visit Requested Depression Screening Done: Yes 39958 - PHQ-9 Billing: Yes Source: Developed by Drs. Santosh Maynard, Frances Santiago, Adam Coehn and colleagues, with an educational jasper from [employer]. Thrive Questionnaire Date Thrive assessed: 07/04/24 I am a: Patient What is your living situation today?: I have a steady place to live Within the past 12 months, did the food you bought not last and you didn't have the money to get more?: Sometimes True Within the past 12 months, did you worry whether your food would run out before you got money to buy more?: Often true Do you have trouble paying for medicines?: No Do you have trouble getting transportation to medical appointments?: No Do you have trouble paying your heating and electricity bill?: Yes Do you have trouble taking care of your child, family member or friend?: No Do you have trouble with day-to-day activities such as bathing, preparing meals, shopping, managing finances, etc.?: No Are you currently unemployed and looking for a job?: Yes Are you interested in more education?: Yes Please select the resources that you would like help with: Education Currently or been in a relationship where the following occur: No concerns reported THRIVE Score: 3 AUDIT C Alcohol Use Questionnaire (AUDIT-C) 1. How often do you have a drink containing alcohol?: Never Total Score: 0 Score Reviewed/Action Taken: No MARYCARMEN-7 AMB Questionnaire MARYCARMEN-7 Date MARYCARMEN - 7 assessed: 07/04/24 Feeling nervous, anxious, or on edge: 1 = Several days Not being able to stop or control worryin = Not at all Worrying too much about different things: 1 = Several days Trouble relaxin = Several days Being so restless that it is hard to sit still: 0 = Not at all Becoming easily annoyed or irritable: 1 = Several days Feeling afraid as if something awful might happen: 0 = Not at all Total MARYCARMEN-7 score (0-4 normal; 5-9 mild; 10-14 moderate; 15-21 severe): 4 Source: Developed by Drs. Santosh Maynard, Frances Santiago, Adam Cohen and colleagues, with an educational jasper from [employer]. MARYCARMEN-7 Assessment Billing MARYCARMEN-7 Assessment Tool: MARYCARMEN-7 Assessment 91353 Review of Systems Const All systems reviewed & are unremarkable except as noted in HPI and below Card Denies chest pain at rest, Denies chest pain with activity, Denies edema, Denies irregular heart rhythm, Denies claudication, Denies dyspnea, Denies dyspnea on exertion, Denies orthopnea, Denies paroxysmal nocturnal dyspnea and Denies slow heart rate Resp Denies cough, Denies dyspnea and Denies dyspnea on exertion GI Denies abdominal pain, Denies change in bowel habits, Denies excessive flatus, Denies nausea and Denies vomiting Physical exam (Primary Care) Vital Signs: Last Vital Signs BP 110/68 07/04/24 10:13 BMI result Body Mass Index 29.8 Tobacco/Smoking Status: Tobacco use Status Tobacco use date assessed 07/04/24 07/04/24 10:17 Patient Tobacco Use Status Never used Tobacco 07/04/24 10:17 e-Cigarette/Vaping Use Never Used 07/04/24 10:17 PHQ-9: PHQ-9 Score PHQ-9: Total score 4 07/04/24 10:34 Depression Screening Interpretation: Positive Depression Screening Follow-up: Existing condition, In treatment, Community Mental Health Worker F/U and Follow-up Visit Requested Thrive Assessment: Date of Thrive Assessment Date Thrive assessed 07/04/24 07/04/24 10:17 Currently or been in a relationship where the following occur: No concerns reported Resp Effort & Inspection: normal respiratory effort Auscultation: clear to auscultation bilaterally Cardio Jugular venous distension: no JVD Rate: regular rate Rhythm: regular rhythm Heart sounds: S1 normal heart sound present and S2 normal heart sound present Extrem General: Yes full ROM Results AMB Hemoglobin A1c AMB Hemoglobin A1c 6.0 % Last Edit by ROYCE Benites on 07/04/24 10:23 Results Reviewed Results Reviewed: Laboratory Last Values Hgb A1c (Clinic) 6.0 % (4.0-6.0) 07/04/24 10:07 Coding Level of Care Code Est Pt Level 4 (99715) Complex EM visit Add On G2211 Diagnoses Right foot pain M79.671 Type 2 diabetes mellitus with hyperglycemia, without long-term current use of insulin E11.65 Diabetes mellitus type: type 2 Diabetes mellitus complication status: with hyperglycemia Hyperlipidemia LDL goal <70 E78.5 Essential hypertension I10 Moderate major depression F32.1 Additional Codes MARYCARMEN-7 Assessment Billing - MARYCARMEN-7 Assessment Tool: MARYCARMEN-7 Assessment 27245 ([id number]) PHQ-9 - 49951 - PHQ-9 Billing: Yes ([id number]) Time Spent (min) 22 Assessment & Plan Assessment & Plan (1) Right foot pain: Code(s): M79.671 - Pain in right foot Category: Medical (2) Diabetes mellitus, without long-term current use of insulin: Code(s): E11.9 - Type 2 diabetes mellitus without complications Category: Medical Qualifiers: Diabetes mellitus type: type 2 Diabetes mellitus complication status: with hyperglycemia Qualified Code(s): E11.65 - Type 2 diabetes mellitus with hyperglycemia (3) Hyperlipidemia LDL goal <70: Code(s): E78.5 - Hyperlipidemia, unspecified Category: Medical (4) Essential hypertension: Code(s): I10 - Essential (primary) hypertension Category: Medical (5) Moderate major depression: Code(s): F32.1 - Major depressive disorder, single episode, moderate Category: Medical Plan - Decrease Ozempic to 0. 5 mg to assess the impact on gastrointestinal symptoms and hunger levels: - Continue current medication regimen for hypertension, dyslipidemia, depression, and anxiety with monitoring for any side effects or the need for dose adjustments. - Evaluate the need for additional gastrointestinal support to manage constipation. - Encourage stress management strategies and explore options to alleviate caregiving burdens. - Continue monitoring glucose, blood pressure, and lipid levels through regular follow-up. Patient was informed and verbally consented to the use of an ambient scribe for clinic note documentation during this visit. I reviewed the patient's laboratory results, which show that diabetes and dyslipidemia are well-controlled with the current treatments. We discussed the gastrointestinal side effects potentially linked to Ozempic, and agreed to try reducing the dose to see if symptoms improve without compromising blood glucose control. I emphasized the importance of maintaining medication adherence while closely monitoring for side effects. The patient described high levels of stress, likely exacerbating her anxiety and sleep disturbances. I discussed the benefits of managing stress through lifestyle modifications and supported her plan to mitigate caregiving roles to focus on her health. Orders: Orders Vitamin D 25-OH Total 4 Months E55.9 - Vitamin D deficiency, unspecified Microalbumin, Random (w Creat) 4 Months R80.9 - Proteinuria, unspecified XR foot RT 2V Today M79.671 - Pain in right foot AMB Hemoglobin A1c Today E11.65 - Type 2 diabetes mellitus with hyperglycemia Lipid Panel 4 Months E78.5 - Hyperlipidemia, unspecified Comprehensive [place]. Panel Fast 4 Months E11.65 - Type 2 diabetes mellitus with hyperglycemia Medications: New semaglutide (Ozempic) 0.5 mg (0.736 mL) subcut QWEEK 2.944 mL 6RF 4 weeks E11.65 - Type 2 diabetes mellitus with hyperglycemia Discontinued semaglutide (Ozempic) Discontinued Reason: Patient Completed Course 1 mg (0.75 mL) subcut QWEEK 4 weeks 3 mL 2RF Patient Instructions: - Follow instructions regarding medication adjustments for Ozempic. - Maintain regular follow-up appointments to monitor blood glucose and blood pressure levels. - Employ stress management techniques as discussed, including taking breaks from caregiving responsibilities. - Report any new or worsening symptoms such as nausea, constipation, or psychological distress immediately. - Follow dietary recommendations to aid in gastrointestinal health. - Ensure medication adherence and monitor for any adverse effects.
[2024-07-04 10:13] VITALS: BP 110/68; BMI 29.8
--- OUTSIDE RECORDS SUMMARY | 2024-07-04 11:12 | XMS_ITS | Clinical Summary ---
Author Organization [employer] Address [address] [facility] [address] [place] [address] Care Team Providers Care Highway Maintainer Name Role Phone Unavailable Primary Care Provider [...] Most Recently Relevant to Health Maintenance Insurance [facility] ADULT
--- OUTSIDE RECORDS SUMMARY | 2024-07-04 11:12 | XMS_ITS | Encounter Summary ---
Author Organization [facility] Address [address] [facility] [address] [place] [address] Care Team Providers Care Sheet Taker Name Role Phone Unavailable Primary Care Provider Unavailabl e Encounter Details Date Type Department Care Team (Latest Contact Info) Description 01/11/2019 Abstract [facility] CONVERSIONS Dental, Provider, DDS Social History [...]
--- OUTSIDE RECORDS SUMMARY | 2024-07-04 11:12 | XMS_ITS | Encounter Summary ---
Author Organization [facility] Address [address] [place] [address] Care Team Providers Care Teacher Vocal Name Role Phone Unavailable Primary Care Provider Unavailabl e Encounter Details Date Type Department Care Team (Late st Contact Info) Description 04/22/2022 Abstract [facility] ADULT DENTAL [address] [place] [address] Dental, Provider, DDS Social History Tobacco Use [...]
--- OUTSIDE RECORDS SUMMARY | 2024-07-04 11:12 | XMS_ITS | Encounter Summary ---
Author Organization [employer] [facility] Address [address] [facility] [address] [address] [place] [address] Care Team Providers Care Waistline Joiner Overlock Name Role Phone Unavailable Primary Care Provider [...]
--- OUTSIDE RECORDS SUMMARY | 2024-07-04 11:12 | XMS_ITS | Encounter Summary ---
Author Organization [facility] Address [address] [place] [address] Care Team Providers Care Residential Recycle Driver Name Role Phone Unavailable Primary Care Provider [...]
--- OUTSIDE RECORDS SUMMARY | 2024-07-04 11:12 | XMS_ITS | Encounter Summary ---
Author Organization [employer] [facility] Address [address] [facility] [address] [place] [address] Care Team Providers Care Dough Mixer Name Role Phone Unavailable Primary Care Provider [...]
== END 2024-07-04 10:48 | disposition home or self-care (01) ==
PROVIDERS: PCP Internal Medicine; Visit Provider Internal Medicine
DX: M79.671 Pain in right foot (principal); E11.65 Type 2 diabetes mellitus with hyperglycemia; F32.1 Major depressive disorder, single episode, moderate; E78.5 Hyperlipidemia, unspecified; I10 Essential (primary) hypertension

== ENCOUNTER → 2024-07-04 10:05 | Outpatient (BNVA) | payer OTHER, SELFPAY | PROVIDERS: PCP Internal Medicine; Visit Provider Internal Medicine | DX: M79.671 Pain in right foot (principal); E11.65 Type 2 diabetes mellitus with hyperglycemia; E78.5 Hyperlipidemia, unspecified; F32.1 Major depressive disorder, single episode, moderate; I10 Essential (primary) hypertension | CPT/HCPCS: 83036; 96127; 99212 ==

== ENCOUNTER 2024-07-13 10:09 | Outpatient (AMB) | payer OTHER, SELFPAY ==
[2024-07-13 10:12] VITALS: PULSE 72; RESP 16; BMI 31.9
--- NOTE | 2024-07-13 10:12 | MHC.OFFVIS ---
Vital Signs 07/13/24 10:12 Height 5 ft 2 in Weight 174 lb 2.643 oz BMI 31.9 Respiration 16 Pulse 72 Intake Visit Reasons: Follow up genetic testing 06-01-24 Intake Note: Patient is seen in office for genetic testing results. Solar Sales Advisor Required: Yes Solar Sales Advisor Language: Shuttle Threader Services: Solar Sales Advisor Offered & Declined Solar Sales Advisor Name: Sonya CRANE Information Interpreted: non-clinical & clinical Manager Pest: Manager Pest Present Accompanied by: Self / Same As Patient Allergies acetaminophen [Percocet] Allergy (Intermediate, Verified 07/13/24 10:17) dyspnea aspirin [Aspirin] Allergy (Intermediate, Verified 07/13/24 10:17) SWELLING, hives, uticaria carbamazepine [From TEGRETOL] Allergy (Intermediate, Verified 07/13/24 10:17) SWELLING gabapentin Allergy (Intermediate, Verified 07/13/24 10:17) abdominal pain, abd pain morphine [MORPHINE] Allergy (Intermediate, Verified 07/13/24 10:17) HIVES naproxen [From ALEVE] Allergy (Intermediate, Verified 07/13/24 10:17) RASH, MOUTH SORES oxycodone [OXYCODONE] Allergy (Intermediate, Verified 07/13/24 10:17) HIVES Penicillins Allergy (Intermediate, Verified 07/13/24 10:17) HIVES sertraline Allergy (Intermediate, Verified 07/13/24 10:17) nausea lisinopril [LISINOPRIL] Allergy (Mild, Verified 07/13/24 10:17) HICCUPS pramipexole Adverse Reaction (Mild, Verified 07/13/24 10:17) dizziness HPI Comments Details: 54-year-old female patient presenting for high risk breast cancer evaluation. She has a strong family history of breast cancer including her father, mother, and 2 sisters. She denies any current breast symptoms or breast lumps and denies any previous history of breast surgery or breast biopsies. She is postmenopausal and her last menstrual period was 1-2 years ago. She is 3 para 3 and breastfed 2 of her children. Menarche was the age of 13. Her most recent mammogram was performed on 06/26/2024. This revealed no mammographic evidence of malignancy (BI-RADS 2). She underwent genetic testing on 06/01/2024. She returns today to review the results. Results indicate no clinically significant mutations and no variance of uncertain significance identified. Based on her family history however her breast cancer risk score was calculated at 26.6%. This is well over the 20% threshold placing her at high risk for breast cancer. A copy of the report was provided to the patient for her records. We discussed recommendations including monthly self-examination, twice yearly clinical breast examination, yearly mammogram and yearly breast MRIs alternating every 6 months. [facility] Medical History Urge incontinence of urine FHx: breast cancer in first degree relative Pre-op evaluation Lumbar degenerative disc disease Hypercalcemia Leukocytosis Renal cyst Giant cell arteritis Neuropathy History of CVA (cerebrovascular accident) COVID-19 vaccine series completed Mixed hyperlipidemia Obese Anxiety Moderate major depression ESQUIVEL (nonalcoholic steatohepatitis) Easy bruising Memory loss Nausea and vomiting GERD (gastroesophageal reflux disease) Essential hypertension Surgical History Hx of colonoscopy History of esophagogastroduodenoscopy (EGD) History of temporal artery biopsy History of cardiac cath History of endometrial ablation History of hernia repair H/O tubal ligation History of appendectomy H/O: Family History Father Stroke Breast cancer Mother Colon cancer, Onset Age: 64 Diabetes Hypertension Uterine cancer Brother Substance use disorder Family/Other Mental health disorder Sister Breast cancer, Onset Age: 38 Sister Breast cancer, Onset Age: 49 Social History Household Members: Significant Other and Children Housing: Apartment Alcohol intake: never Patient Tobacco Use Status: Never used Tobacco e-Cigarette/Vaping Use: Never Used Second Hand Smoke Exposure: No service: No Current occupational status: unemployed and disabled Sexual orientation: Straight/Heterosexual Gender identity: Female Cognitive needs: No Hearing needs: No Vision needs: Yes Female Reproductive History Menstrual Age of Menarche: 13 Review of Systems Const All systems reviewed & are unremarkable except as noted in HPI and below Denies chills, Denies fever(s), Denies headache(s), Denies poor appetite and Denies weakness ENT Denies headache(s) Card Denies chest pain, Denies irregular heart rhythm, Denies palpitations and Denies dyspnea Resp Denies cough, Denies excessive phlegm production and Denies dyspnea GI Denies abdominal pain, Denies bloating, Denies change in bowel habits, Denies constipation, Denies heartburn, Denies diarrhea, Denies nausea and Denies vomiting Denies urinary frequency Musc Denies back pain, Denies muscle weakness and Denies numbness Skin/Breast Denies changing lesions and Denies unusual bruising Neuro Denies headache(s), Denies numbness, Denies paresthesias and Denies weakness Psych Denies anxiety and Denies depression Endo Denies palpitations Ryan/Lymph Denies lymphadenopathy Physical Exam Vital Signs: Last Vital Signs Pulse 72 07/13/24 10:12 Resp 16 07/13/24 10:12 BMI result Body Mass Index 31.9 Const Other: Exam deferred Assessment & Plan Assessment & Plan (1) At high risk for breast cancer: Code(s): Z91.89 - Other specified personal risk factors, not elsewhere classified Category: Medical (2) FHx: breast cancer in first degree relative: Code(s): Z80.3 - Family history of malignant neoplasm of breast Category: Medical Plan 54-year-old female patient returning to review the genetic testing. Genetic testing revealed no clinically significant mutations and no variance of unknown significance. Her breast cancer risk score was calculated at 26.6% placing her at high risk for breast cancer. She will be placed on a high risk protocol with twice yearly clinical breast examination is, yearly mammogram and breast MRIs alternating every 6 months. She expressed understanding and agrees with the plan. An MRI has been requested and she will follow up in 6 months for routine breast 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 She is welcome to call sooner for any new concerns. Orders: Orders MR breast BI wo/w con Today Z80.3 - Family history of malignant neoplasm of breast, Z91.89 - Other specified personal risk factors, not elsewhere classified Coding Level of Care Code Est Pt Level 3 (52976) Diagnoses At high risk for breast cancer Z91.89 FHx: breast cancer in first degree relative Z80.3
--- OUTSIDE RECORDS SUMMARY | 2024-07-13 11:14 | XMS_ITS | Encounter Summary ---
Author Organization [employer] [facility] Address [address] [place] [address] Care Team Providers Care Emergency Room Specialist Name Role Phone Unavailable Primary Care Provider [...]
--- OUTSIDE RECORDS SUMMARY | 2024-07-13 11:14 | XMS_ITS | Clinical Summary ---
Author Organization [employer] Address [address] [facility] 7t [place] [address] Care Team Providers Care Commodity Buyer Name Role Phone Unavailable Primary Care Provider [...] Most Recently Relevant to Health Maintenance Insurance [facility] [place] [address] [facility] ST[facility]
--- OUTSIDE RECORDS SUMMARY | 2024-07-13 11:14 | XMS_ITS | Encounter Summary ---
Author Organization [employer] [facility] Address [address] [facility] [address] [place] [address] Care Team Providers Care Collar Feller Name Role Phone Unavailable Primary Care Provider [...]
--- OUTSIDE RECORDS SUMMARY | 2024-07-13 11:14 | XMS_ITS | Encounter Summary ---
Author Organization [employer] [facility] Address [address] [facility] [address] [place] [address] Care Team Providers Care Cardiopulmonary Technologist Chief Name Role Phone Unavailable Primary Care Provider Unavailabl e Encounter Details Date Type Department Care Team (Latest Contact Info) Description 01/11/2019 Abstract [facility] CONVERSIONS Dental, Provider, DDS Social History [...]
--- OUTSIDE RECORDS SUMMARY | 2024-07-13 11:14 | XMS_ITS | Encounter Summary ---
Author Organization [employer] [facility] Address [address] [facility] [address] [place] [address] Care Team Providers Care Slackman Name Role Phone Unavailable Primary Care Provider [...]
--- OUTSIDE RECORDS SUMMARY | 2024-07-13 11:14 | XMS_ITS | Encounter Summary ---
Author Organization [employer] Address [address] [place] [address] Care Team Providers Care Title I Math Tutor Name Role Phone Unavailable Primary Care Provider Unavailabl e Encounter Details Date Type Department Care Team (Late st Contact Info) Description 04/22/2022 Abstract [facility] ADULT DENTAL [address] [place] [address] Dental, Provider, DDS Social History Tobacco Use [...]
== END 2024-07-13 10:34 | disposition home or self-care (01) ==
PROVIDERS: PCP Internal Medicine; Visit Provider Surgery
DX: Z91.89 Other specified personal risk factors, not elsewhere classified (principal); Z80.3 Family history of malignant neoplasm of breast
CPT/HCPCS: 99213

== ENCOUNTER 2024-07-13 10:09 | Outpatient (REF) | payer OTHER, SELFPAY ==
--- NOTE | ~2024-07-13 | XR_ITS ---
CLINICAL HISTORY: M79.671 - Pain in right foot Radiographs of the right foot, 3 views Comparison: None Findings: No fracture or dislocation. Question mild osteophytosis at the lateral aspect of the 1st metatarsophalangeal joint. Tiny calcaneal spur. Small enthesophyte at the insertion of the Achilles tendon bone mineralization is normal. No soft tissue swelling. Impression: No acute findings. Mild degenerative change. This document has been electronically signed by: Patricia Alejandro MD on 07/13/2024 15:30:58
== END 2024-07-13 10:10 | disposition home or self-care (01) ==
LOC: HO.XRAY 10:09
PROVIDERS: Absent Provider Internal Medicine; PCP Internal Medicine; Visit Provider Surgery
DX: M79.671 Pain in right foot (principal); Z91.89 Other specified personal risk factors, not elsewhere classified; Z80.3 Family history of malignant neoplasm of breast
CPT/HCPCS: 73620; 99212

== ENCOUNTER → 2024-07-13 10:42 | Outpatient (BNV) | payer OTHER, SELFPAY | PROVIDERS: Absent Provider Internal Medicine; PCP Internal Medicine; Visit Provider Radiology Diagnostic Radiology | DX: M79.671 Pain in right foot (principal) | CPT/HCPCS: 73620 ==

== ENCOUNTER → 2024-08-08 10:24 | Outpatient (BNV) | payer OTHER, SELFPAY | PROVIDERS: PCP Internal Medicine; Visit Provider Internal Medicine | DX: N64.4 Mastodynia (principal); Z80.3 Family history of malignant neoplasm of breast | CPT/HCPCS: 77049 ==

== ENCOUNTER 2024-08-08 10:29 | Outpatient (REF) | payer OTHER, SELFPAY ==
[2024-08-08] MEDS: gadobutroL 7.5 ML VIAL IVPUSH (11:44)
--- OUTSIDE RECORDS SUMMARY | 2024-08-08 12:28 | XMS_ITS | Encounter Summary ---
Author Organization [employer] [facility] Address [address] [facility] [address] [place] [address] Care Team Providers Care Course Instructor Name Role Phone Unavailable Primary Care Provider [...]
--- OUTSIDE RECORDS SUMMARY | 2024-08-08 12:28 | XMS_ITS | Encounter Summary ---
Author Organization [employer] [facility] Address [address] [facility] [address] [place] [address] Care Team Providers Care Laboratory Specialist Name Role Phone Unavailable Primary Care [...]
--- OUTSIDE RECORDS SUMMARY | 2024-08-08 12:28 | XMS_ITS | Encounter Summary ---
Author Organization [employer] Address [address] [place] [address] Care Team Providers Care Log Manager Name Role Phone Unavailable Primary Care Provider Unavailabl e Encounter Details Date Type Department Care Team (Late st Contact Info) Description 04/22/2022 Abstract [facility] ADULT DENTAL [address] [place] [address] Dental, Provider, DDS Social History Tobacco Use [...]
--- OUTSIDE RECORDS SUMMARY | 2024-08-08 12:28 | XMS_ITS | Encounter Summary ---
Author Organization [employer] [facility] Address [address] [facility] [address] [place] [address] Care Team Providers Care Medical Case Manager Name Role Phone Unavailable Primary Care Provider Unavailabl e Encounter Details Date Type Department Care Team (Latest Contact Info) Description 01/11/2019 Abstract [facility] CONVERSIONS Dental, Provider, DDS Social History Tobacco [...]
--- OUTSIDE RECORDS SUMMARY | 2024-08-08 12:28 | XMS_ITS | Encounter Summary ---
Author Organization [employer] [facility] Address [address] [facility] [address] [place] [address] Care Team Providers Care Shop Girl Name Role Phone Unavailable Primary Care Provider [...]
--- OUTSIDE RECORDS SUMMARY | 2024-08-08 12:28 | XMS_ITS | Clinical Summary ---
Author Organization [employer] Address [address] [facility] [address] [place] [address] Care Team Providers Care Appointment Clerk Name Role Phone Unavailable Primary Care Provider [...] Most Recently Relevant to Health Maintenance Insurance [facility] ST[facility] STAND ADULT
== END 2024-08-08 10:30 | disposition home or self-care (01) ==
LOC: HO.MRI 10:29
PROVIDERS: PCP Internal Medicine; Visit Provider Surgery
DX: Z91.89 Other specified personal risk factors, not elsewhere classified (principal); Z80.3 Family history of malignant neoplasm of breast
CPT/HCPCS: 77049; A9585

== ENCOUNTER 2024-09-26 09:56 | Outpatient (REF) | payer OTHER, SELFPAY ==
--- NOTE | ~2024-09-26 | US_ITS ---
EXAMINATION: US RETROPERITONEUM HISTORY: N39.41 - Urge incontinence TECHNIQUE: Real-time grayscale ultrasound imaging of the kidneys was performed and images were reviewed. COMPARISON: Correlation is made with a CT of the abdomen with contrast dated 03/13/2022. FINDINGS: Right kidney: The right kidney measures 11.0 x 4.8 x 5.1 cm. Renal parenchymal echotexture and thickness are normal. There is an upper pole cyst measuring 11 x 10 x 11 mm. There is no hydronephrosis or renal calculi. Left Kidney: The left kidney measures 10.9 x 4.9 x 4.0 cm. Renal parenchymal echotexture and thickness are normal. There are no masses. There is no hydronephrosis or renal calculi. There is a possible duplicated collecting system. The urinary bladder is unremarkable. Bilateral ureteral jets are identified. Before voiding, the urinary bladder measured 11.9 x 8.7 x 10.7 cm, for an estimated volume of 580 mL. After voiding, the urinary bladder measured 5.1 x 2.3 x 6.4 cm, for an estimated volume of 39 mL. US/US retroperitoneal comp IMPRESSION: 11 mm right renal cyst. Possible duplicated left renal collecting system. Otherwise unremarkable renal ultrasound and bladder. Post void bladder residual of 39 mL. Electronically signed by: Santosh Brito MD 09/26/2024 11:32 AM EDT
--- OUTSIDE RECORDS SUMMARY | 2024-09-26 11:11 | XMS_ITS | Encounter Summary ---
Author Organization [employer] Address [address] [facility] [address] [place] [address] Care Team Providers Care Php Magento Developer Name Role Phone Unavailable Primary Care Provider Unavailabl e Encounter Details Date Type Department Care Team (Latest Contact Info) Description 08/01/[address] [facility] CONVERSIONS Dental, Provider, DDS Social History [...]
--- OUTSIDE RECORDS SUMMARY | 2024-09-26 11:11 | XMS_ITS | Encounter Summary ---
Author Organization [employer] Address [address] [facility] [address] [place] [address] Care Team Providers Care Patent Engineer Name Role Phone Unavailable Primary Care Provider Unavailabl e Encounter Details Date Type Department Care Team (Latest Contact Info) Description 01/11/2019 Abstract [facility] CONVERSIONS Dental, Provider, DDS Social History [...]
--- OUTSIDE RECORDS SUMMARY | 2024-09-26 11:11 | XMS_ITS | Encounter Summary ---
Author Organization [employer] Address [address] [facility] [address] [place] [address] Care Team Providers Care Inserter Operator Name Role Phone Unavailable Primary Care Provider Unavailabl e Encounter Details Date Type Department Care Team (Latest Contact Info) Description 07/22/[address] [facility] CONVERSIONS Dental, Provider, DDS Social History [...]
--- OUTSIDE RECORDS SUMMARY | 2024-09-26 11:11 | XMS_ITS | Clinical Summary ---
Author Organization [employer] Address [address] [facility] [address] [place] [address] Care Team Providers Care Migratory Game Bird Biologist Name Role Phone Unavailable Primary Care Provider [...] Most Recently Relevant to Health Maintenance Insurance [facility] STAND [facility]
--- OUTSIDE RECORDS SUMMARY | 2024-09-26 11:11 | XMS_ITS | Encounter Summary ---
Author Organization [employer] Address [address] [facility] [address] [place] [address] Care Team Providers Care Right Of Way Agent Name Role Phone Unavailable Primary Care Provider Unavailabl e Encounter Details Date Type Department Care Team (Latest Contact Info) Description 10/01/2021 Abstract [facility] CONVERSIONS Dental, Provider, DDS Social [...]
--- OUTSIDE RECORDS SUMMARY | 2024-09-26 11:11 | XMS_ITS | Encounter Summary ---
Author Organization [employer] Address [address] [facility] [address] [place] [address] Care Team Providers Care Boat Carpenter Name Role Phone Unavailable Primary Care Provider Unavailabl e Encounter Details Date Type Department Care Team (Late st Contact Info) Description 04/22/[address] [facility] ADULT DENTAL [address] [place] [address] Dental, Provider, DDS Social History Tobacco Use [...]
== END 2024-09-26 09:57 | disposition home or self-care (01) ==
LOC: HO.US 09:56
PROVIDERS: PCP Internal Medicine; Visit Provider Nurse Practitioner Family
DX: N39.41 Urge incontinence (principal); N39.3 Stress incontinence (female) (male)
CPT/HCPCS: 76770

== ENCOUNTER → 2024-09-26 09:58 | Outpatient (BNV) | payer OTHER, SELFPAY | PROVIDERS: PCP Internal Medicine; Visit Provider Radiology Diagnostic Radiology | DX: N28.1 Cyst of kidney, acquired (principal) | CPT/HCPCS: 76770 ==

== ENCOUNTER 2024-10-13 08:55 | Outpatient (AMB) | payer OTHER, SELFPAY ==
--- OUTSIDE RECORDS SUMMARY | 2024-10-13 09:16 | XMS_ITS | Encounter Summary ---
Author Organization [employer] Address [address] [facility] [address] [place] [address] Care Team Providers Care Newspaper Delivery Counselor Name Role Phone Unavailable Primary Care Provider Unavailabl e Encounter Details Date Type Department Care Team (Late st Contact Info) Description 04/22/2022 Abstract [facility] ADULT DENTAL [address] [place] [address] Dental, Provider, DDS Social History Tobacco Use [...]
--- NOTE | 2024-10-13 10:01 | MHC.OFFVIS ---
Intake Visit Reasons: UroD Allergies acetaminophen [Percocet] Allergy (Intermediate, Verified 07/13/24 10:17) dyspnea aspirin [Aspirin] Allergy (Intermediate, Verified 07/13/24 10:17) SWELLING, hives, uticaria carbamazepine [From TEGRETOL] Allergy (Intermediate, Verified 07/13/24 10:17) SWELLING gabapentin Allergy (Intermediate, Verified 07/13/24 10:17) abdominal pain, abd pain morphine [MORPHINE] Allergy (Intermediate, Verified 07/13/24 10:17) HIVES naproxen [From ALEVE] Allergy (Intermediate, Verified 07/13/24 10:17) RASH, MOUTH SORES oxycodone [OXYCODONE] Allergy (Intermediate, Verified 07/13/24 10:17) HIVES Penicillins Allergy (Intermediate, Verified 07/13/24 10:17) HIVES sertraline Allergy (Intermediate, Verified 07/13/24 10:17) nausea lisinopril [LISINOPRIL] Allergy (Mild, Verified 07/13/24 10:17) HICCUPS pramipexole Adverse Reaction (Mild, Verified 07/13/24 10:17) dizziness Medication List - Last Reconciled 10/13/24 by Mar Thomas MD amitriptyline 10 mg PO BEDTIME atorvastatin 80 mg PO DAILY baclofen 5 mg PO DAILY blood sugar diagnostic (FreeStyle Lite Strips) TEST BLOOD SUGAR TWICE DAILY DIRECTED blood-glucose meter (FreeStyle Lite Meter kit) TEST 2 TIMES DAILY bupropion HCl XL 300 mg PO DAILY buspirone 10 mg PO .at bedtime celecoxib (Celebrex) 200 mg PO BID 30 days cholecalciferol (vitamin D3) 25 mcg PO DAILY 90 days clopidogrel 75 mg PO DAILY diclofenac sodium 1% (Arthritis Pain (diclofenac)) 2 grams topical QID 30 days enalapril maleate 10 mg PO DAILY 90 days fenofibrate 54 mg PO DAILY fluocinonide 0.05% 1 appl topical BID 30 days fluticasone propionate 50 mcg/actuation (Flonase Allergy Relief) 1 spray intranasal DAILY 30 days lancets (FreeStyle Lancets) Twice a day As directed lancets (TRUEplus Lancets) TEST BLOOD SUGAR TWICE DAILY lidocaine 5% 1 patch topical DAILY PRN 30 days linaclotide (Linzess) 145 mcg PO DAILY metformin 850 mg PO BID 30 days nabumetone 750 mg PO BID PRN 30 days nitroglycerin 0.4 mg sublingual Q5M PRN ondansetron 4 mg PO Q6-8H PRN ondansetron HCl 8 mg PO DAILY 30 days pantoprazole 40 mg PO DAILY 90 days propranolol 10 mg PO BID semaglutide (Ozempic) 0.5 mg (0.736 mL) subcut QWEEK 4 weeks vibegron (Gemtesa) 75 mg PO DAILY zolpidem 10 mg PO BEDTIME PRN HPI Comments Details: 10/13/24-- History of Present Illness The patient is a 54-year-old female presenting with urinary incontinence and bladder dysfunction. She reports persistent bladder control issues, worsening over the past few months. The patient has a history of diabetes and a past stroke, both of which may contribute to her symptoms. Urodynamics have confirmed detrusor overactivity, which helps explain the bladder spasms that contribute to her incontinence. Although conservative treatment options have been discussed previously, targeted medical therapy has not yet been initiated. Urinary Symptoms Review - Persistent urinary incontinence - Confirmed detrusor overactivity with bladder spasms - Absence of prior medication for bladder control - Previous recommendation for pelvic floor strengthening exercises Results - Urodynamics: Findings consistent with detrusor overactivity Discussion Notes During the visit, I discussed with the patient the findings of detrusor overactivity from the recent urodynamics study, explaining how this contributes to her bladder spasms and subsequent urinary incontinence. I emphasized the need for targeted medical treatment to address these spasms and improve bladder control. I presented the option of Gemtesa 75 mg daily, explaining its mechanism in relaxing bladder muscles to reduce urgency and frequency, and allow for improved control. Additionally, we discussed potential escalations such as Botox therapy should medication alone prove insufficient. I referenced the importance of pelvic floor strengthening exercises to support bladder neck muscles and suggested a referral to physical therapy for specialized assistance. The patient was informed of the plan to monitor her response over three months, with a follow-up to reassess symptom improvement. Consent was obtained for the treatment plan, and I explained how medication would be sent to her preferred pharmacy. Plan Gemtesa 75 mg will be initiated once daily to address the bladder spasms due to detrusor overactivity and improve urinary incontinence. Alongside, the patient will engage in pelvic floor exercises and is referred to physical therapy to further aid in strengthening. A follow-up appointment in three months is arranged to review progress and adjust the treatment plan as necessary. There is an understanding that if adequate control isn't achieved, we may consider Botox as a supplementary treatment. Patient Instructions - Begin taking Gemtesa 75 mg once a day as prescribed. - Perform pelvic floor exercises regularly to help strengthen the bladder-supporting muscles. - Attend physical therapy for specialized support in muscle strengthening techniques. - Return for a follow-up appointment in three months. - Contact the clinic sooner if symptoms worsen or become unmanageable. Patient was informed and verbally consented to the use of an ambient scribe for clinic note documentation during this visit. 06/27/24--Barbara is a very pleasant Yoruba-speaking 54-year-old patient of . She has a past medical history of type 2 diabetes, urge incontinence, lumbar degenerative disc disease, hypercalcemia, renal cysts, giant cell arteritis, history of CVA, neuropathy, mixed hyperlipidemia, anxiety, depression, ESQUIVEL, GERD, and hypertension. She presents to the office today as a new patient for stress/urge incontinence. She reports symptoms have been present for over a year. She denies currently using any Araceli pads for episodes of incontinence. She does report a previous history of 2 vaginal births in 1 . In office urinalysis results reviewed with the patient today. PVR 0 mL. We discussed at length potential causes of stress/urge incontinence as well as further treatment options and risks and benefits of these treatment options. In review of patient's chart it appears last A1c 02/14 6.3. We discussed importance of managing diabetes for improvement in lower urinary tract symptoms as well as overall health and well-being. She denies urinary urgency, urinary frequency, nocturia, hematuria, dysuria, foul smelling urine, changes to urinary stream, flank pain, fever, and or chills. She otherwise offers no other issues or concerns at this time. [facility] Medical History Urge incontinence of urine FHx: breast cancer in first degree relative Pre-op evaluation Lumbar degenerative disc disease Hypercalcemia Leukocytosis Renal cyst Giant cell arteritis Neuropathy History of CVA (cerebrovascular accident) COVID-19 vaccine series completed Mixed hyperlipidemia Obese Anxiety Moderate major depression ESQUIVEL (nonalcoholic steatohepatitis) Easy bruising Memory loss Nausea and vomiting GERD (gastroesophageal reflux disease) Essential hypertension Surgical History Hx of colonoscopy History of esophagogastroduodenoscopy (EGD) History of temporal artery biopsy History of cardiac cath History of endometrial ablation History of hernia repair H/O tubal ligation History of appendectomy H/O: Family History Father Stroke Breast cancer Mother Colon cancer, Onset Age: 64 Diabetes Hypertension Uterine cancer Brother Substance use disorder Family/Other Mental health disorder Sister Breast cancer, Onset Age: 38 Sister Breast cancer, Onset Age: 49 Social History Household Members: Significant Other and Children Housing: Apartment Alcohol intake: never Patient Tobacco Use Status: Never used Tobacco e-Cigarette/Vaping Use: Never Used Second Hand Smoke Exposure: No service: No Current occupational status: unemployed and disabled Sexual orientation: Straight/Heterosexual Gender identity: Female Cognitive needs: No Hearing needs: No Vision needs: Yes Female Reproductive History Menstrual Age of Menarche: 13 Review of Systems Const All systems reviewed & are unremarkable except as noted in HPI and below Reports no additional complaints Eyes Reports no additional complaints ENT Reports no additional complaints Card Reports no additional complaints Resp Reports no additional complaints GI Reports no additional complaints Reports as per HPI Musc Reports no additional complaints Skin/Breast Reports system reviewed and no additional complaints, except as documented Neuro Reports no additional complaints Psych Reports no additional complaints Endo Reports no additional complaints Ryan/Lymph Reports no additional complaints Aller/Immun Reports no additional complaints Office Procedures Urodynamic Studies Consent Discussed risk and benefit or proposed procedure with the patient. Information consent for procedure given to the patient. Discussed technical aspects, risks, benefits and alternatives in full. Addressed all of the patient's questions and concerns regarding the procedure. The patient demonstrated knowledge and understanding. They wish to proceed with this procedure. Preparation The patient was prepped in the usual manner. A director of maternity services was present and in the room. Genitalia was prepped with betadine solution in a sterile manner. Procedure Complex Uroflow Patient voided in waiting room, unable to obtain an adequate amount for test. Straight cath amount: 5ml Cystometrogram ? Vaginal/rectal catheter type: Vaginal First sensation at (mL): 32 mL First desire at (mL): 67 mL Strong desire to void occurred at (mL): 115 mL Strong desire detrusor pressure (cm H2O): 0.5 Maximum Capacity (mL): 118 mL Voiding Summary Voided with max detrusor pressure of (cm H2O): 66 Maximum flow rate (mL/second): 19 mL/s Voided volume (mL): ? 112 Calculated PVR: 0 mL Stress Testing Unable to perform stress testing due uncontrolled DO activity DO Dry: 81ml DO Wet:118ml manager fixed income ID # [id number] utilized throughout the test. Prep: The patient was prepped in the usual manner. A director of maternity services was present and in the room. Genitalia was prepped with betadine solution in a sterile manner. 68689-Vbpocoivmocahk w/ GAS PROCESSING PLANT OPERATOR 28723-Xfap/Urinary Muscle Study 71211-Hwydz-Tzytbntfg Pressure Test Procedure code (CPT) selection complete Office Meds nitrofurantoin monohydrate/macrocrystals 100 mg capsule Performing Provider: Mar Thomas MD [facility] [place] Administered by: Mayuri Arroyo RN on 10/13/24 10:01 Dose Route Admin Location Dispensed Lot Number Expiration Date NDC Payroll Human Resources Assistant 100 mg PO 1 cap Results AMB Urinalysis, Automated UA Leukoctes 0 Marianela/uL Last Edit by Mayuri Arroyo RN on 10/13/24 10:06 UA Nitrite Negative Last Edit by Mayuri Arroyo RN on 10/13/24 10:06 UA Urobilinogen 3.5 mg/dL Last Edit by Mayuri Arroyo RN on 10/13/24 10:06 UA Protein 0 mg/dL Last Edit by Mayuri Arroyo RN on 10/13/24 10:06 UA pH 5.5 Last Edit by Mayuri Arroyo RN on 10/13/24 10:06 UA Blood 10 Rafael/uL Last Edit by Mayuri Arroyo RN on 10/13/24 10:06 UA Specific Desdemona 1.0 Last Edit by Mayuri Arroyo RN on 10/13/24 10:06 UA Ketone Negative Last Edit by Mayuri Arroyo RN on 10/13/24 10:06 UA Bilirubin 0 mg/dL Last Edit by Mayuri Arroyo RN on 10/13/24 10:06 UA Glucose 0 mg/dL Last Edit by Mayuri Arroyo RN on 10/13/24 10:06 Results Reviewed Results Reviewed: Laboratory Last Values Urine pH (Auto) 5.5 10/13/24 10:05 Specific Desdemona (Auto) 1.0 10/13/24 10:05 Urine Protein (Auto) 0 mg/dL 10/13/24 10:05 Glucose (UA)(Auto) 0 mg/dL 10/13/24 10:05 Urine Ketones (Auto) Negative 10/13/24 10:05 Urine Blood (Auto) 10 Rafael/uL 10/13/24 10:05 Urine Nitrite (Auto) Negative 10/13/24 10:05 Urine Bilirubin (Auto) 0 mg/dL 10/13/24 10:05 Urine Urobilinogen (Auto) 3.5 mg/dL 10/13/24 10:05 Leukocyte Esterase (Auto) 0 Marianela/uL 10/13/24 10:05 Assessment & Plan Assessment & Plan (1) Pelvic floor weakness: Code(s): N81.89 - Other female genital prolapse Category: Medical (2) Urinary urgency: Code(s): R39.15 - Urgency of urination Category: Medical Orders: Orders AMB Urodynamics Studies Today N39.3 - Stress incontinence (female) (male) AMB Urinalysis Automated Today Z13.9 - Encounter for screening, unspecified Referrals Pelvic Manager Architecture Referral N81.89 - Other female genital prolapse, R39.15 - Urgency of urination Medications: New vibegron (Gemtesa) 75 mg PO DAILY 30 tabs 5RF Coding Diagnoses Pelvic floor weakness N81.89 Urinary urgency R39.15 CPT Codes Urodynamic Studies - CPT: 42853-Ljeogtdlaeewww w/ G[employer] PROCESSING PLANT OPERATOR ([id number]) Urodynamic Studies - CPT: 18040-Fhor/Urinary Muscle Study ([id number]) Urodynamic Studies - CPT: 17637-Lcgxc-Wrcfgsqqe Pressure Test ([id number])
== END 2024-10-13 10:37 | disposition home or self-care (01) ==
LOC: HO.HUSH 08:55
PROVIDERS: PCP Internal Medicine; Visit Provider Urology
DX: N39.3 Stress incontinence (female) (male) (principal)
CPT/HCPCS: 51728; 51784; 51797

== ENCOUNTER → 2024-10-13 08:55 | Outpatient (BNVA) | payer OTHER, SELFPAY | PROVIDERS: PCP Internal Medicine; Visit Provider Urology | DX: R39.15 Urgency of urination (principal); N81.89 Other female genital prolapse; N32.81 Overactive bladder | CPT/HCPCS: 51728; 51784; 51797; 81003; 99212 ==

== ENCOUNTER 2024-10-18 12:06 | Emergency (ER) | payer OTHER, SELFPAY ==
[2024-10-18 12:49] VITALS: BP 143/62; PULSE 95; RESP 16; TEMP 36.3; O2SAT 98; BMI 31.6
--- NOTE | 2024-10-18 12:50 | ED_ITS ---
HPI - Skin/Abscess/Foreign Bdy General Chief complaint: Skin/Abscess/Foreign Body Stated complaint: Swollen Lip Area, Under Boob Pain/ Swelling Time Seen by Provider: 10/18/24 14:52 History of Present Illness ED Provider: Ritesh Lockwood MD HPI narrative: 54-year-old female complaining of 3 distinct skin lesions the 1st 1 red swelling with some spreading on the face just at the corner of the left side of the mouth. No dental pain no eye pain or pain with movement of the eyes. The 2nd is at approximately 05:00 on the right breast just below the nipple refer to the photo below. Additionally there is 1 small 1 cm diameter pustule just below the right breast on the lower chest wall These all started proximally last 2 or 3 days slightly worsening. No systemic symptoms like fever or chills Related Data Home Medications ?Medication ?Instructions ?Recorded ?Confirmed buspirone 10 mg tablet 10 mg PO .at bedtime 02/26/20 10/13/24 lancets 28 gauge (FreeStyle #100 ea 02/26/20 10/13/24 Lancets) zolpidem 10 mg tablet 10 mg PO BEDTIME PRN Insomnia 02/26/20 10/13/24 bupropion HCl 300 mg 24 hr tablet, 300 mg PO DAILY 08/26/20 10/13/24 extended release baclofen 5 mg tablet 5 mg PO DAILY 03/05/23 10/13/24 Previous Rx's ?Medication ?Instructions ?Recorded blood-glucose meter (FreeStyle #1 ea 11/14/20 Lite Meter kit) fluocinonide 0.05 % topical cream 1 appl topical BID 30 days #30 12/20/20 grams linaclotide 145 mcg capsule 145 mcg PO DAILY #30 caps 12/08/21 (Linzess) propranolol 10 mg tablet 10 mg PO BID #30 tabs 12/08/21 blood sugar diagnostic (FreeStyle #100 strips 12/31/21 Lite Strips) lancets 33 gauge (TRUEplus Lancets) ##100 12/31/21 ondansetron HCl 8 mg tablet 8 mg PO DAILY 30 days #30 tabs 01/09/22 nitroglycerin 0.4 mg sublingual 0.4 mg sublingual Q5M PRN chest 04/24/22 tablet pain #25 tabs fenofibrate 54 mg tablet 54 mg PO DAILY #30 tabs 10/22/22 diclofenac sodium 1 % topical gel 2 g topical QID 30 days #100 grams 01/26/23 (Arthritis Pain (diclofenac)) lidocaine 5 % topical patch 1 patch topical DAILY PRN pain 30 07/03/23 days #30 ea enalapril maleate 10 mg tablet 10 mg PO DAILY 90 days #90 tabs 08/03/23 cholecalciferol (vitamin D3) 25 25 mcg PO DAILY 90 days #90 tabs 09/08/23 mcg (1,000 unit) tablet nabumetone 750 mg tablet 750 mg PO BID PRN pain 30 days #60 02/25/24 tabs clopidogrel 75 mg tablet 75 mg PO DAILY #90 tabs 02/28/24 celecoxib 200 mg capsule (Celebrex) 200 mg PO BID 30 days #60 caps 03/23/24 atorvastatin 80 mg tablet 80 mg PO DAILY #90 tabs 04/24/24 ondansetron 4 mg disintegrating 4 mg PO Q6-8H PRN nausea and 06/18/24 tablet vomiting #14 tabs semaglutide 0.25 mg or 0.5 mg (2 0.5 mg (0.736 mL) subcut QWEEK 4 07/04/24 mg/3 mL) subcutaneous pen injector weeks #2.944 mL (Ozempic) fluticasone propionate 50 1 spray intranasal DAILY 30 days 09/18/24 mcg/actuation nasal #16 grams spray,suspension (Flonase Allergy Relief) metformin 850 mg tablet 850 mg PO BID 30 days #60 tabs 09/18/24 pantoprazole 40 mg tablet,delayed 40 mg PO DAILY 90 days #90 tabs 09/18/24 release amitriptyline 10 mg tablet 10 mg PO BEDTIME #30 tabs 09/27/24 vibegron 75 mg tablet (Gemtesa) 75 mg PO DAILY #30 tabs 10/13/24 doxycycline hyclate 100 mg capsule 100 mg PO BID 10 days #20 caps 10/18/24 Allergies Allergy/AdvReac Type Severity Reaction Status Date / Time acetaminophen [Percocet] Allergy Intermediate dyspnea Verified 10/18/24 12:53 aspirin [Aspirin] Allergy Intermediate SWELLING, Verified 10/18/24 12:53 hives, uticaria carbamazepine [From TEGRETOL] Allergy Intermediate SWELLING Verified 10/18/24 12:53 gabapentin Allergy Intermediate abdominal Verified 10/18/24 12:53 pain, abd pain morphine [MORPHINE] Allergy Intermediate HIVES Verified 10/18/24 12:53 naproxen [From ALEVE] Allergy Intermediate RASH, Verified 10/18/24 12:53 MOUTH SORES oxycodone [OXYCODONE] Allergy Intermediate HIVES Verified 10/18/24 12:53 Penicillins Allergy Intermediate HIVES Verified 10/18/24 12:53 sertraline Allergy Intermediate nausea Verified 10/18/24 12:53 lisinopril [LISINOPRIL] Allergy Mild HICCUPS Verified 10/18/24 12:53 pramipexole AdvReac Mild dizziness Verified 10/18/24 12:53 PMF Past Medical History Medical History Urge incontinence of urine FHx: breast cancer in first degree relative Pre-op evaluation Lumbar degenerative disc disease Hypercalcemia Leukocytosis Renal cyst Giant cell arteritis Neuropathy History of CVA (cerebrovascular accident) COVID-19 vaccine series completed Mixed hyperlipidemia Obese Anxiety Moderate major depression ESQUIVEL (nonalcoholic steatohepatitis) Easy bruising Memory loss Nausea and vomiting GERD (gastroesophageal reflux disease) Essential hypertension Surgical History Hx of colonoscopy History of esophagogastroduodenoscopy (EGD) History of temporal artery biopsy History of cardiac cath History of endometrial ablation History of hernia repair H/O tubal ligation History of appendectomy H/O: Family History Family History Father Stroke Breast cancer Mother Colon cancer, Onset Age: 64 Diabetes Hypertension Uterine cancer Brother Substance use disorder Family/Other Mental health disorder Sister Breast cancer, Onset Age: 38 Sister Breast cancer, Onset Age: 49 Social History Social History Household Members: Significant Other and Children Housing: Apartment Alcohol intake: never Patient Tobacco Use Status: Never used Tobacco Smoked in Last 30 Days: No e-Cigarette/Vaping Use: Never Used Second Hand Smoke Exposure: No Use of substances other than those prescribed or required for medical reasons: No Advance Directives: No Advance Directives Information Provided: Yes Do you have a plan to hurt others: No Plan Patient : No service: No Current occupational status: unemployed and disabled Sexual orientation: Straight/Heterosexual Gender identity: Female Cognitive needs: No Hearing needs: No Vision needs: Yes Physical Exam 2 Vital Signs: Vital Signs: Last Vital Signs Temp 98.1 F 10/18/24 16:17 Pulse 78 10/18/24 16:17 Resp 13 10/18/24 16:17 BP 125/47 L 10/18/24 16:17 Pulse Ox 99 10/18/24 16:17 O2 Del Method Room Air 10/18/24 16:17 BMI result Body Mass Index 31.6 Const: Other: EXAM: Gen: Alert, awake, well appearing, well hydrated. Head: Atraumatic Eyes: Anicteric, Normal conjunctiva. ENT: Moist mucosa, no pallor. ?At the corner of the left side of the mouth is a small pustule with small amount of surrounding erythema. No expressible purulence or fluctuance of the face there is no cheek or periorbital swelling Skin: See photo of the right breast which shows no fluctuance or discharge from the nipple expressible. No regional lymphadenopathy. Just below the right breast there is a 1 cm small pustule. Neck: Supple. Respiratory: Breathing comfortably, No distress.Clear to auscultation bilaterally, symmetric chest expansion, No wheeze, rales, ronchi. Cardiovascular: Regular rate and rhythm. No murmurs or rub. Well perfused periphery, warm extremities. No edema. ? Abdominal: No FOCAL TENDERNESS. Soft, no objective distension. No palpable masses or obvious organomegaly. ?No guarding, no rebound tenderness or other peritoneal findings. : No flank tenderness. Neuro: Alert. Gross movement of all extremities intact. ? Vital signs: See flowsheet Course Course Course Narrative: 54 yo female with PMH of DM, HLD, migraines, HTN here with c/o a few days of noticing a pimple on her abdominal wall, a draining open wound under her R breast, facial swelling near L lip. She denies any hx of MRSA, no v/d and reports she feels chills and fevers. She has nausea. She denies hx of wounds like this in the past. She is using OTC ointment only. Labs ordered. She has not checked her blood sugar in 1 week due to not liking the feeling of the finger sticks. this is a RAPID medical screening exam the rest of the history and physical exam is to be done by the main provider. RADHA 10/18/24 1252pm Medications Administered Discontinued Medications Generic Name Dose Route Start Last Admin Trade Name Dakotaq PRN Reason Stop Dose Admin Doxycycline Monohydrate 100 mg 10/18/24 15:37 10/18/24 15:54 Doxycycline Monohydrate 100 Mg Capsule PO 10/18/24 15:38 100 mg ONCE ONE Administration Lidocaine HCl 10 ml 10/18/24 14:52 10/18/24 15:03 Lidocaine Hcl 1 % Mpf 5 Ml Vial INFILTRATI 10/18/24 14:53 10 ml ONCE ONE Administration Medical Decision Making Medical Decision Making MDM Narrative: Multiple skin lesions cellulitis versus abscess. No drainable collection of the left breast see point of care ultrasound report. Initiate antibiotics strict return precautions provided as this is a diabetic she is aware of this. Lab Data 10/18/24 13:21 10/18/24 13:21 Labs: Lab Results 10/18/24 Range/Units 13:21 WBC 13.7 H (4.8-10.8) X10*3/uL RBC 4.10 L (4.20-5.50) X10*6/uL Hgb 12.7 (12.0-16.0) g/dl Hct 38.3 (37.0-47.0) % MCV 93.4 (80.0-98.0) fL MCH 31.0 (27.0-33.0) pg MCHC 33.2 (31.0-35.0) g/dl RDW 12.3 (11.0-16.0) % Plt Count 335 (160-400) X10*3/uL MPV 9.9 (9.4-12.3) fL Immature Gran % (Auto) 0.4 (0.0-0.4) % Neut % (Auto) 73.7 H (45-73) % Lymph % (Auto) 19.1 L (20-40) % Mccreary % (Auto) 6.2 (2-11) % Eos % (Auto) 0.3 (0-4) % Baso % (Auto) 0.3 (0-2) % Lymph # (Auto) 2.6 (1.2-4.9) X10*3/uL Mccreary # (Auto) 0.9 (0.1-1.2) X10*3/uL Eos # (Auto) 0.0 (0.0-0.4) X10*3/uL Baso # (Auto) 0.0 (0.0-0.2) X10*3/uL Abs Immat Gran (auto) 0.05 H (0.00-0.03) X10*3/uL Absolute Neuts (auto) 10.1 H (2.0-8.3) x10*3/uL Absolute Nucleated RBC 0.000 (0.0-0.012) X10*3/uL Nucleated RBC % (auto) 0.0 (0.0-0.2) /100WBC Sodium 140 (135-145) mmol/L Potassium 4.5 (3.3-5.1) mmol/L Chloride 102 (96-108) mmol/L Carbon Dioxide 31 H (22-29) mmol/L Anion Gap 12 (12-20) BUN 19 H (9-16) mg/dL Creatinine 0.74 (0.5-1.4) mg/dL Estim Creat Clear Calc 85.2 Estimated GFR > 60 Random Glucose 96 (60-115) mg/dL Calcium 10.2 (8.4-10.2) mg/dL Magnesium 2.1 (1.6-2.6) mg/dL Total Bilirubin 0.5 (0.0-1.0) mg/dL Direct Bilirubin 0.2 (0.0-0.5) mg/dL AST 21 (5-31) U/L ALT 21 (0-31) U/L Alkaline Phosphatase 135 H (39-117) U/L Total Protein 7.6 (6.5-8.0) g/dL Albumin 4.3 (3.5-5.0) g/dL Procedures Procedure Narrative Procedure Narrative: EMERGENCY ULTRASOUND INTERPRETATION- Limited skin and soft tissue [This study was ordered, performed, and interpreted by myself. The study reveals: Impression: Cellulitis and/or skin ulceration without drainable collection [Indication: Redness superficial skin ulceration questionable fluctuance Right breast skin with ulceration without a drainable collection superficial signs of cobblestoning suggesting cellulitis Performed by: Ritesh Lockwood MD Images were stored ] Discharge Plan Discharge Clinical Impression: Abscess of skin, Abscess of breast Patient Disposition: Home, Self-Care Instructions: Mastitis (ED), Abscess Follow-up (ED) Additional Instructions: _ DISCHARGE DIAGNOSES: Cellulitis/small or early abscess of: Left corner of the mouth, right inferior breast, left lower chest wall HISTORY OF PRESENTATION: ?Skin lesions as above reported EMERGENCY DEPARTMENT COURSE,TESTS, TREATMENTS: While in the ED today you were given a dose of doxycycline an antibiotic which he will continue at home. An ultrasound was performed of your left breast without DISCHARGE MEDICATIONS: ?[We have made no changes to your regular medication regimen] identification of any drainable collection we have added an oral antibiotic which your to take twice a day do not miss a dose we recommend taking FOLLOW-UP: ?Call your primary or general physician soon as possible to discuss your symptoms, your ED visit and to discuss follow up plans 1 Italian yogurt per day to avoid complications of the antibiotics call your primary doctor INSTRUCTIONS ?& RETURN PRECAUTIONS: If any symptoms change first call your primary physician, if it is after-hours your primary doctors office should have a provider railroad construction director you can speak with. If the symptoms are severe or very concerning to you then call 911 or return to the ED. If the right breast worsens return back to the emergency department for evaluation Ritesh Lockwood MD Emergency Physician [facility] Prescriptions: New doxycycline hyclate 100 mg capsule 100 mg PO BID 10 Days Qty: 20 0RF No Action (DME) blood-glucose meter [FreeStyle Lite Meter] Kit See Rx Instructions .ROUTE .MEDSUPPLY Qty: 1 0RF Rx Instructions: TEST 2 TIMES DAILY fluocinonide 0.05 % cream 1 appl topical BID 30 Days Qty: 30 0RF (DME) FreeStyle Lite Strips Strip See Rx Instructions .ROUTE .COMPLEX Qty: 100 11RF Dose Instruction: TEST BLOOD SUGAR TWICE DAILY DIRECTED Rx Instructions: TEST BLOOD SUGAR TWICE DAILY DIRECTED (DME) lancets [TRUEplus Lancets] 33 gauge misc See Rx Instructions .ROUTE .COMPLEX Qty: 100 11RF Dose Instruction: TEST BLOOD SUGAR TWICE DAILY Rx Instructions: TEST BLOOD SUGAR TWICE DAILY ondansetron HCl 8 mg tablet 8 mg PO DAILY 30 Days Qty: 30 5RF nitroglycerin 0.4 mg tablet, sublingual 0.4 mg sublingual Q5M PRN (Reason: chest pain) Qty: 25 3RF Rx Instructions: Place 1 tablet under tongue every 5 mins as needed for chest pain. Maximum of 3 tablets. fenofibrate 54 mg tablet 54 mg PO DAILY Qty: 30 6RF lidocaine 5 % adhesive patch,medicated 1 patch topical DAILY PRN (Reason: pain) 30 Days Qty: 30 1RF Rx Instructions: leave on most painful area for up to 12 hrs enalapril maleate 10 mg tablet 10 mg PO DAILY 90 Days Qty: 90 3RF cholecalciferol (vitamin D3) 25 mcg (1,000 unit) tablet 25 mcg PO DAILY 90 Days Qty: 90 3RF nabumetone 750 mg tablet 750 mg PO BID PRN (Reason: pain) 30 Days Qty: 60 0RF clopidogrel 75 mg tablet 75 mg PO DAILY Qty: 90 3RF atorvastatin 80 mg tablet 80 mg PO DAILY Qty: 90 3RF metformin 850 mg tablet 850 mg PO BID 30 Days Qty: 60 3RF pantoprazole 40 mg tablet,delayed release (DR/EC) 40 mg PO DAILY 90 Days Qty: 90 1RF fluticasone propionate [Flonase Allergy Relief] 50 mcg/actuation spray,suspension 1 spray intranasal DAILY 30 Days Qty: 16 2RF Rx Instructions: administer into each nostril amitriptyline 10 mg tablet 10 mg PO BEDTIME Qty: 30 2RF ondansetron 4 mg tablet,disintegrating 4 mg PO Q6-8H PRN (Reason: nausea and vomiting) Qty: 14 0RF zolpidem 10 mg tablet 10 mg PO BEDTIME PRN (Reason: Insomnia) buspirone 10 mg tablet 10 mg PO .at bedtime (DME) lancets [FreeStyle Lancets] 28 gauge misc See Rx Instructions .ROUTE .MEDSUPPLY Qty: 100 Rx Instructions: Twice a day As directed diclofenac sodium [Arthritis Pain (diclofenac)] 1 % gel 2 g topical QID 30 Days Qty: 100 0RF Rx Instructions: apply to single elbow, wrist or hand; for hand includes palm/fingers/back of hand bupropion HCl 300 mg tablet extended release 24 hr 300 mg PO DAILY Linzess 145 mcg capsule 145 mcg PO DAILY Qty: 30 3RF propranolol 10 mg tablet 10 mg PO BID Qty: 30 0RF celecoxib [Celebrex] 200 mg capsule 200 mg PO BID 30 Days Qty: 60 3RF Ozempic 0.25 mg or 0.5 mg (2 mg/3 mL) pen injector 0.5 mg subcut QWEEK 28 Days Qty: 2.944 6RF Gemtesa 75 mg tablet 75 mg PO DAILY Qty: 30 5RF baclofen 5 mg tablet 5 mg PO DAILY Stand Alone Forms: Work/School Release Interventions: ED Discharge Assessment Last Done: 10/18/24 16:17 Discharge Date/Time: 10/18/24 16:18 Print Language: Pashto
[2024-10-18 13:24] LABS: MANUAL DIFF FLAG NO
[2024-10-18 13:28] LABS: Basophils Percent Auto 0.3 % (0-2); Eosinophils Percent Auto 0.3 % (0-4); Hematocrit 38.3 % (37.0-47.0); Hemoglobin 12.7 g/dl (12.0-16.0); Imm Gran Abs Auto 0.05 X10*3/uL (0.00-0.03); Imm Gran Pct Auto 0.4 % (0.0-0.4); Lymphocytes Absolute Auto 2.6 X10*3/uL (1.2-4.9); Lymphocytes Percent Auto 19.1 % (20-40); Mean Corpuscular HGB Conc 33.2 g/dl (31.0-35.0); Mean Corpuscular Volume 93.4 fL (80.0-98.0); Mean Platelet Volume 9.9 fL (9.4-12.3); Monocytes Absolute Auto 0.9 X10*3/uL (0.1-1.2); Monocytes Percent Auto 6.2 % (2-11); Neutrophils Absolute Auto 10.1 x10*3/uL (2.0-8.3); Neutrophils Percent Auto 73.7 % (45-73); Platelet Count 335 X10*3/uL (160-400); Red Cell Distribution Width 12.3 % (11.0-16.0); White Blood Count 13.7 X10*3/uL (4.8-10.8)
[2024-10-18 13:43] LABS: Alanine Aminotransferase 21 U/L (0-31); Albumin Level 4.3 g/dL (3.5-5.0); Alkaline Phosphatase 135 U/L (39-117); Anion Gap 12 (12-20); Aspartate Amino Transferase 21 U/L (5-31); Bilirubin Direct 0.2 mg/dL (0.0-0.5); Bilirubin Total 0.5 mg/dL (0.0-1.0); Blood Urea Nitrogen 19 mg/dL (9-16); Calcium 10.2 mg/dL (8.4-10.2); Carbon Dioxide 31 mmol/L (22-29); Chloride 102 mmol/L (96-108); Creatinine Clr Calc Pharmacy 85.2; Estimated Glomerular Filt Rate > 60; Glucose Random 96 mg/dL (60-115); Magnesium 2.1 mg/dL (1.6-2.6); Potassium 4.5 mmol/L (3.3-5.1); Sodium 140 mmol/L (135-145); Total Protein 7.6 g/dL (6.5-8.0)
[2024-10-18] MEDS: Lidocaine HCl 1 % MPF 5 ML VIAL 10 ML INFILTRATI (15:03)
--- OUTSIDE RECORDS SUMMARY | 2024-10-18 15:49 | XMS_ITS | Encounter Summary ---
Author Organization [employer] Address [address] [place] [address] Care Team Providers Care Valve Repairer Reclamation Name Role Phone Unavailable Primary Care Provider Unavailabl e Encounter Details Date Type Department Care Team (Late st Contact Info) Description 04/22/2022 Abstract [facility] [address] [place] [address] Dental, Provider, DDS Social History Tobacco Use [...]
[2024-10-18 15:53] VITALS: BP 125/47; PULSE 78; RESP 13; TEMP 36.7; O2SAT 99
[2024-10-18] MEDS: Doxycycline Monohydrate 100 MG CAPSULE PO (15:54)
--- NOTE | 2024-10-18 15:54 | PC.NURSE ---
patient medicated with antibiotics per order
[2024-10-18 16:17] VITALS: BP 125/47; PULSE 78; RESP 13; TEMP 36.7; O2SAT 99
== END 2024-10-18 16:18 | disposition home or self-care (01) ==
PROVIDERS: Emergency Medicine; Emergency Provider Emergency Medicine; PCP Internal Medicine
DX: L02.01 Cutaneous abscess of face (principal); N61.1 Abscess of the breast and nipple; L02.213 Cutaneous abscess of chest wall; Z79.899 Other long term (current) drug therapy; E11.9 Type 2 diabetes mellitus without complications; I10 Essential (primary) hypertension; E78.5 Hyperlipidemia, unspecified
CPT/HCPCS: 36415; 80048; 80076; 83735; 85025; 99284; J2003

== ENCOUNTER 2025-01-16 11:23 | Outpatient (AMB) | payer OTHER, SELFPAY ==
--- NOTE | 2025-01-16 11:30 | A.OFFVIS_ITS ---
Vital Signs 01/16/25 11:36 Height 5 ft 2 in Weight 180 lb BMI 32.9 BP 138/63 Blood Pressure Location Lt brachial Position Sitting Pulse 77 Intake Visit Reasons: 6m clinical breast exam Intake Note: Patient is seen in office for 6 month follow up visit, breast exam. Pt c/o: for the past 3 days burning pain in bilateral nipple, constant, tried creams with no relief, denies redness or other concerns MRI: 08/08/24 mm: 06/26/24 Health And Wellness Director Required: Yes Health And Wellness Director Language: Career Specialist Services: Health And Wellness Director Present Health And Wellness Director Name: Sonya CRANE Information Interpreted: non-clinical & clinical Finish Mixer: Finish Mixer Present Accompanied by: Self / Same As Patient Allergies acetaminophen (Percocet) Allergy (Intermediate, Verified 01/16/25 11:35) dyspnea aspirin (Aspirin) Allergy (Intermediate, Verified 01/16/25 11:35) SWELLING, hives, uticaria carbamazepine (From TEGRETOL) Allergy (Intermediate, Verified 01/16/25 11:35) SWELLING gabapentin Allergy (Intermediate, Verified 01/16/25 11:35) abdominal pain, abd pain morphine (MORPHINE) Allergy (Intermediate, Verified 01/16/25 11:35) HIVES naproxen (From ALEVE) Allergy (Intermediate, Verified 01/16/25 11:35) RASH, MOUTH SORES oxycodone (OXYCODONE) Allergy (Intermediate, Verified 01/16/25 11:35) HIVES Penicillins Allergy (Intermediate, Verified 01/16/25 11:35) HIVES sertraline Allergy (Intermediate, Verified 01/16/25 11:35) nausea lisinopril (LISINOPRIL) Allergy (Mild, Verified 01/16/25 11:35) HICCUPS pramipexole Adverse Reaction (Mild, Verified 01/16/25 11:35) dizziness HPI Comments Details: 54-year-old female patient presenting for high risk breast cancer evaluation. She has a strong family history of breast cancer including her father, mother, and 2 sisters. She denies any current breast symptoms or breast lumps and denies any previous history of breast surgery or breast biopsies. She is postmenopausal and her last menstrual period was 1-2 years ago. She is 3 para 3 and breastfed 2 of her children. Menarche was the age of 13. Her most recent mammogram was performed on 06/26/2024. This revealed no mammographic evidence of malignancy (BI-RADS 2). She underwent genetic testing on 06/01/2024. Results indicate no clinically significant mutations and no variance of uncertain significance identified. Based on her family history however her breast cancer risk score was calculated at 26.6%. This is well over the 20% threshold placing her at high risk for breast cancer. Recommendations included monthly self-examination, twice yearly clinical breast examination, yearly mammogram and yearly breast MRIs alternating every 6 months. Breast MRI was performed on 08/08/2024. This revealed no MR specific evidence of malignancy (BI-RADS 1 bilaterally). She denies any new breast symptoms. [facility], [facility] Medical History Urge incontinence of urine FHx: breast cancer in first degree relative Pre-op evaluation Lumbar degenerative disc disease Hypercalcemia Leukocytosis Renal cyst Giant cell arteritis Neuropathy History of CVA (cerebrovascular accident) COVID-19 vaccine series completed Mixed hyperlipidemia Obese Anxiety Moderate major depression ESQUIVEL (nonalcoholic steatohepatitis) Easy bruising Memory loss Nausea and vomiting GERD (gastroesophageal reflux disease) Essential hypertension Surgical History Hx of colonoscopy History of esophagogastroduodenoscopy (EGD) History of temporal artery biopsy History of cardiac cath History of endometrial ablation History of hernia repair H/O tubal ligation History of appendectomy H/O: Family History Father Stroke Breast cancer Mother Colon cancer, Onset Age: 64 Diabetes Hypertension Uterine cancer Brother Substance use disorder Family/Other Mental health disorder Sister Breast cancer, Onset Age: 38 Sister Breast cancer, Onset Age: 49 Social History Household Members: Significant Other and Children Housing: Apartment Alcohol intake: never Patient Tobacco Use Status: Never used Tobacco e-Cigarette/Vaping Use: Never Used Second Hand Smoke Exposure: No service: No Current occupational status: unemployed and disabled Sexual orientation: Straight/Heterosexual Gender identity: Female Cognitive needs: No Hearing needs: No Vision needs: Yes Female Reproductive History Menstrual Age of Menarche: 13 Review of Systems Const All systems reviewed & are unremarkable except as noted in HPI and below Denies chills, Denies fever(s), Denies headache(s), Denies poor appetite and Denies weakness ENT Denies headache(s) Card Denies chest pain, Denies irregular heart rhythm, Denies palpitations and Denies dyspnea Resp Denies cough, Denies excessive phlegm production and Denies dyspnea GI Denies abdominal pain, Denies bloating, Denies change in bowel habits, Denies constipation, Denies heartburn, Denies diarrhea, Denies nausea and Denies vomiting Denies urinary frequency Musc Denies back pain, Denies muscle weakness and Denies numbness Skin/Breast Denies changing lesions and Denies unusual bruising Neuro Denies headache(s), Denies numbness, Denies paresthesias and Denies weakness Psych Denies anxiety and Denies depression Endo Denies palpitations Ryan/Lymph Denies lymphadenopathy Physical Exam Const General: cooperative and no acute distress Nutritional Appearance: well nourished Orientation/consciousness: patient oriented x3 Limitations: no limitations HEENT Head: Yes normocephalic and Yes atraumatic Ears: hearing grossly normal bilaterally Chest Other: Left breast: No skin change, no nipple retraction, no nipple discharge, no palpable mass, no enlarged lymph nodes. Right breast: No skin change, no nipple retraction, no nipple discharge, no palpable mass, no enlarged lymph nodes Resp Effort & Inspection: normal respiratory effort, no audible wheezes, no cough and no respiratory distress Cardio Jugular venous distension: no JVD GI Inspection: Yes normal to inspection Skin Other: Warm, dry, no rash Neuro General: patient oriented x3 Extrem General: Yes no clubbing, cyanosis or edema Assessment & Plan Assessment & Plan (1) At high risk for breast cancer: Code(s): Z91.89 - Other specified personal risk factors, not elsewhere classified Category: Medical (2) FHx: breast cancer in first degree relative: Code(s): Z80.3 - Family history of malignant neoplasm of breast Category: Medical Plan 54-year-old female patient returning for high risk breast 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 Genetic testing revealed no clinically significant mutations and no variance of unknown significance. Her breast cancer risk score was calculated at 26.6% placing her at high risk for breast cancer. She will be placed on a high risk protocol with twice yearly clinical breast examination is, yearly mammogram and breast MRIs alternating every 6 months. Her most recent mammogram dated 06/26/2024 revealed no mammographic evidence of malignancy (BI-RADS 2). Breast MRI on 08/08/2024 also revealed no MR specific evidence of malignancy (BI-RADS 1). Examination today revealed no suspicious findings in either breast. I recommended follow-up examination in 6 months. She will continue with her annual mammogram and MRI alternating every 6 months. She is welcome to call sooner for any new concerns. Coding Level of Care Code Est Pt Level 3 (33205) Complex EM visit Add On G2211 Diagnoses At high risk for breast cancer Z91.89 FHx: breast cancer in first degree relative Z80.3
[2025-01-16 11:36] VITALS: BP 138/63; PULSE 77; BMI 32.9
== END 2025-01-16 11:50 | disposition home or self-care (01) ==
LOC: HO.HGS 11:24
PROVIDERS: PCP Internal Medicine; Visit Provider Surgery
DX: Z91.89 Other specified personal risk factors, not elsewhere classified (principal); Z80.3 Family history of malignant neoplasm of breast
CPT/HCPCS: 99213

== ENCOUNTER → 2025-01-16 11:23 | Outpatient (BNVA) | payer OTHER, SELFPAY | PROVIDERS: PCP Internal Medicine; Visit Provider Surgery | DX: Z80.3 Family history of malignant neoplasm of breast (principal); Z91.89 Other specified personal risk factors, not elsewhere classified | CPT/HCPCS: 99212 ==

== ENCOUNTER 2025-01-18 11:08 | Outpatient (AMB) | payer OTHER, SELFPAY ==
--- NOTE | 2025-01-18 11:50 | A.OFFVIS_ITS ---
Intake Visit Reasons: 3m/PVR/Med review Intake Note: New Patient presents for initial visit for: 3m/pvr/med Urology Medications: amtriptyline, gemtesa Blood Thinner: clopidogrel PVR: 0mls Card Sorter Required: Yes Card Sorter Services: Card Sorter Present Card Sorter Name: [id number] Jalloh Accompanied by: Self / Same As Patient Allergies acetaminophen (Percocet) Allergy (Intermediate, Verified 01/18/25 11:51) dyspnea aspirin (Aspirin) Allergy (Intermediate, Verified 01/18/25 11:51) SWELLING, hives, uticaria carbamazepine (From TEGRETOL) Allergy (Intermediate, Verified 01/18/25 11:51) SWELLING gabapentin Allergy (Intermediate, Verified 01/18/25 11:51) abdominal pain, abd pain morphine (MORPHINE) Allergy (Intermediate, Verified 01/18/25 11:51) HIVES naproxen (From ALEVE) Allergy (Intermediate, Verified 01/18/25 11:51) RASH, MOUTH SORES oxycodone (OXYCODONE) Allergy (Intermediate, Verified 01/18/25 11:51) HIVES Penicillins Allergy (Intermediate, Verified 01/18/25 11:51) HIVES sertraline Allergy (Intermediate, Verified 01/18/25 11:51) nausea lisinopril (LISINOPRIL) Allergy (Mild, Verified 01/18/25 11:51) HICCUPS pramipexole Adverse Reaction (Mild, Verified 01/18/25 11:51) dizziness Medication List - Last Reconciled 01/18/25 by Mar Thomas MD amitriptyline 10 mg PO BEDTIME atorvastatin 80 mg PO DAILY baclofen 5 mg PO DAILY blood sugar diagnostic (FreeStyle Lite Strips) TEST BLOOD SUGAR TWICE DAILY DIRECTED blood-glucose meter (FreeStyle Lite Meter kit) TEST 2 TIMES DAILY bupropion HCl XL 300 mg PO DAILY buspirone 10 mg PO .at bedtime celecoxib (Celebrex) 200 mg PO BID 30 days cholecalciferol (vitamin D3) 25 mcg PO DAILY 90 days clopidogrel 75 mg PO DAILY diclofenac sodium 1% (Arthritis Pain (diclofenac)) 2 grams topical QID 30 days doxycycline hyclate 100 mg PO BID 10 days enalapril maleate 10 mg PO DAILY 90 days fenofibrate 54 mg PO DAILY fluocinonide 0.05% 1 appl topical BID 30 days fluticasone propionate 50 mcg/actuation (Flonase Allergy Relief) 1 spray intranasal DAILY 30 days lancets (FreeStyle Lancets) Twice a day As directed lancets (TRUEplus Lancets) TEST BLOOD SUGAR TWICE DAILY lidocaine 5% 1 patch topical DAILY PRN 30 days linaclotide (Linzess) 145 mcg PO DAILY metformin 850 mg PO BID 30 days nabumetone 750 mg PO BID PRN 30 days nitroglycerin 0.4 mg sublingual Q5M PRN ondansetron 4 mg PO Q6-8H PRN ondansetron HCl 8 mg PO DAILY 30 days pantoprazole 40 mg PO DAILY 90 days propranolol 10 mg PO BID semaglutide (Ozempic) 0.5 mg (0.736 mL) subcut QWEEK 4 weeks vibegron (Gemtesa) 75 mg PO DAILY zolpidem 10 mg PO BEDTIME PRN HPI Comments Details: 01/18/25- 54-year-old female presenting with urinary incontinence and bladder dysfunction. Certified gis software engineer utilized. The patient states she did not receive the Gemtesa when she went to the pharmacy. She was told the medication was not sent. I have refilled the Gemtesa. If medication is not covered by insurance I have discussed that I will send an alternative medication. 10/13/24--Here for UDS. Findings c/w detrusor overactivity The patient is a 54-year-old female presenting with urinary incontinence and bladder dysfunction. She reports persistent bladder control issues, worsening over the past few months. The patient has a history of diabetes and a past stroke, both of which may contribute to her symptoms. Urodynamics have confirmed detrusor overactivity, which helps explain the bladder spasms that contribute to her incontinence. Although conservative treatment options have been discussed previously, targeted medical therapy has not yet been initiated. Results - Urodynamics: Findings consistent with detrusor overactivity Plan Gemtesa 75 mg will be initiated once daily to address the bladder spasms due to detrusor overactivity and improve urinary incontinence. Alongside, the patient will engage in pelvic floor exercises and is referred to physical therapy to further aid in strengthening. A follow-up appointment in three months is arranged to review progress and adjust the treatment plan as necessary. 06/27/24--Barbara is a very pleasant Uzbek-speaking 54-year-old patient of . She has a past medical history of type 2 diabetes, urge incontinence, lumbar degenerative disc disease, hypercalcemia, renal cysts, giant cell arteritis, history of CVA, neuropathy, mixed hyperlipidemia, anxiety, depression, ESQUIVEL, GERD, and hypertension. She presents to the office today as a new patient for stress/urge incontinence. She reports symptoms have been present for over a year. She denies currently using any Araceli pads for episodes of incontinence. She does report a previous history of 2 vaginal births in 1 . In office urinalysis results reviewed with the patient today. PVR 0 mL. We discussed at length potential causes of stress/urge incontinence as well as further treatment options and risks and benefits of these treatment options. In review of patient's chart it appears last A1c 02/14 6.3. We discussed importance of managing diabetes for improvement in lower urinary tract symptoms as well as overall health and well-being. She denies urinary urgency, urinary frequency, nocturia, hematuria, dysuria, foul smelling urine, changes to urinary stream, flank pain, fever, and or chills. She otherwise offers no other issues or concerns at this time. [facility] Medical History Urge incontinence of urine FHx: breast cancer in first degree relative Pre-op evaluation Lumbar degenerative disc disease Hypercalcemia Leukocytosis Renal cyst Giant cell arteritis Neuropathy History of CVA (cerebrovascular accident) COVID-19 vaccine series completed Mixed hyperlipidemia Obese Anxiety Moderate major depression ESQUIVEL (nonalcoholic steatohepatitis) Easy bruising Memory loss Nausea and vomiting GERD (gastroesophageal reflux disease) Essential hypertension Surgical History Hx of colonoscopy History of esophagogastroduodenoscopy (EGD) History of temporal artery biopsy History of cardiac cath History of endometrial ablation History of hernia repair H/O tubal ligation History of appendectomy H/O: Family History Father Stroke Breast cancer Mother Colon cancer, Onset Age: 64 Diabetes Hypertension Uterine cancer Brother Substance use disorder Family/Other Mental health disorder Sister Breast cancer, Onset Age: 38 Sister Breast cancer, Onset Age: 49 Social History Household Members: Significant Other and Children Housing: Apartment Alcohol intake: never Patient Tobacco Use Status: Never used Tobacco e-Cigarette/Vaping Use: Never Used Second Hand Smoke Exposure: No service: No Current occupational status: unemployed and disabled Sexual orientation: Straight/Heterosexual Gender identity: Female Cognitive needs: No Hearing needs: No Vision needs: Yes Female Reproductive History Menstrual Age of Menarche: 13 Review of Systems Const All systems reviewed & are unremarkable except as noted in HPI and below Reports no additional complaints Eyes Reports no additional complaints ENT Reports no additional complaints Card Reports no additional complaints Resp Reports no additional complaints GI Reports no additional complaints Reports as per HPI Musc Reports no additional complaints Skin/Breast Reports system reviewed and no additional complaints, except as documented Neuro Reports no additional complaints Psych Reports no additional complaints Endo Reports no additional complaints Ryan/Lymph Reports no additional complaints Aller/Immun Reports no additional complaints Office Procedures Post Void Residual Post Residual Void Post Void Residual (PVR): 0 [id number] Void Residual by ultrasound Results AMB Urinalysis, Automated UA Leukoctes 0 Marianela/uL Last Edit by DEANNA Pinzon on 01/18/25 12:06 UA Nitrite Negative Last Edit by DEANNA Pinzon on 01/18/25 12:06 UA Urobilinogen 3.5 mg/dL Last Edit by DEANNA Pinzon on 01/18/25 12:0 6 UA Protein 0 mg/dL Last Edit by DEANNA Pinzon on 01/18/25 12:06 UA pH 5.5 Last Edit by DEANNA Pinzno on 01/18/25 12:06 UA Blood 0 Rafael/uL Last Edit by DEANNA Pinzon on 01/18/25 12:06 UA Specific [place] 1.015 Last Edit by DEANNA Pinzon on 01/18/25 12: 06 UA Ketone Negative Last Edit by DEANNA Pinzon on 01/18/25 12:06 UA Bilirubin 0 mg/dL Last Edit by DEANNA Pinzon on 01/18/25 12:06 UA Glucose 0 mg/dL Last Edit by DEANNA Pinzon on 01/18/25 12:06 Results Reviewed Results Reviewed: Laboratory Last Values Urine pH (Auto) 5.5 01/18/25 12:05 Specific [place] (Auto) 1.015 01/18/25 12:05 Urine Protein (Auto) 0 mg/dL 01/18/25 12:05 Glucose (UA)(Auto) 0 mg/dL 01/18/25 12:05 Urine Ketones (Auto) Negative 01/18/25 12:05 Urine Blood (Auto) 0 Rafael/uL 01/18/25 12:05 Urine Nitrite (Auto) Negative 01/18/25 12:05 Urine Bilirubin (Auto) 0 mg/dL 01/18/25 12:05 Urine Urobilinogen (Auto) 3.5 mg/dL 01/18/25 12:05 Leukocyte Esterase (Auto) 0 Marianela/uL 01/18/25 12:05 Assessment & Plan Assessment & Plan (1) Pelvic floor weakness: Code(s): N81.89 - Other female genital prolapse Category: Medical (2) Urinary urgency: Code(s): R39.15 - Urgency of urination Category: Medical (3) OAB (overactive bladder): Code(s): N32.81 - Overactive bladder Category: Medical Plan Telehealth 10 weeks review urinary symptoms on medication Orders: Orders AMB Post Void Residual by ultrasound Today N39.41 - Urge incontinence AMB Urinalysis Automated Today Z13.9 - Encounter for screening, unspecified Medications: Refilled vibegron (Gemtesa) 75 mg PO DAILY 30 tabs 5RF Patient Instructions: The patient had an opportunity to ask questions regarding treatment plan. The patient expressed understanding and agreement with the above treatment plan. The patient is aware they should contact our office by phone for worsening of their current condition or the appearance of new symptoms. Compliance is encouraged with any medications and followup testing that is ordered. It is a privilege to be allowed the opportunity to participate in the urologic care of your patient. If you have any questions or concerns regarding treatment for the above conditions please do not hesitate to contact me. The office telephone contact is [phone]. This note is constructed in part using voice recognition software. While every effort has been made to ensure accuracy police department secretary errors may have been in cluded. Yours sincerely, Mar Thomas MD Coding Level of Care Code Est Pt Level 3 (58679) Diagnoses Pelvic floor weakness N81.89 Urinary urgency R39.15 OAB (overactive bladder) N32.81 CPT Codes Post Residual Void - PVR CPT Code: 59621-Udyn Void Residual by ultrasound ([id number])
== END 2025-01-18 12:22 | disposition home or self-care (01) ==
LOC: HO.HUSH 11:08
PROVIDERS: PCP Internal Medicine; Visit Provider Urology
DX: N81.89 Other female genital prolapse (principal); R39.15 Urgency of urination; N32.81 Overactive bladder; Z13.9 Encounter for screening, unspecified
CPT/HCPCS: 99213

== ENCOUNTER → 2025-01-18 11:08 | Outpatient (BNVA) | payer OTHER, SELFPAY | PROVIDERS: PCP Internal Medicine; Visit Provider Urology | DX: R39.15 Urgency of urination (principal); N32.81 Overactive bladder; N81.89 Other female genital prolapse | CPT/HCPCS: 51798; 81003; 99212 ==

== ENCOUNTER 2025-02-05 10:35 | Outpatient (REF) | payer OTHER, SELFPAY ==
[2025-02-05 12:09] LABS: Alanine Aminotransferase 31 U/L (0-31); Albumin Level 4.2 g/dL (3.5-5.0); Alkaline Phosphatase 132 U/L (39-117); Anion Gap 9 (12-20); Aspartate Amino Transferase 27 U/L (5-31); Blood Urea Nitrogen 14 mg/dL (9-16); Calcium 9.5 mg/dL (8.4-10.2); Carbon Dioxide 29 mmol/L (22-29); Chloride 108 mmol/L (96-108); Cholesterol 127 mg/dL (<200); Estimated Glomerular Filt Rate > 60; HDL Cholesterol 44 mg/dL (>40); Potassium 4.3 mmol/L (3.3-5.1); Sodium 142 mmol/L (135-145); Total Protein 7.2 g/dL (6.5-8.0); Triglycerides 80 mg/dL (<150)
== END 2025-02-05 10:36 | disposition home or self-care (01) ==
LOC: HO.LAB 10:35
PROVIDERS: PCP Internal Medicine; Visit Provider Internal Medicine
DX: E11.65 Type 2 diabetes mellitus with hyperglycemia (principal); E55.9 Vitamin D deficiency, unspecified; E78.5 Hyperlipidemia, unspecified; R80.9 Proteinuria, unspecified
CPT/HCPCS: 36415; 80053; 80061; 82306; 82570

== ENCOUNTER 2025-02-08 10:17 | Outpatient (AMB) | payer OTHER, SELFPAY ==
[2025-02-08 10:20] VITALS: BP 116/60; PULSE 74; O2SAT 97; BMI 33.3
--- NOTE | 2025-02-08 10:20 | A.OFFPC_ITS ---
Vital Signs 02/08/25 10:20 Height 5 ft 2 in Weight 182 lb 2 oz BMI 33.3 BP 116/60 Blood Pressure Location Lt brachial Position Sitting Pulse 74 Pulse Oximetry (%) 97 Oxygen Delivery Method Room Air Intake Visit Reasons: [id number] Manager [employer] Required: No Accompanied by: Self / Same As Patient Allergies acetaminophen (Percocet) Allergy (Intermediate, Verified 02/08/25 10:37) dyspnea aspirin (Aspirin) Allergy (Intermediate, Verified 02/08/25 10:37) SWELLING, hives, uticaria carbamazepine (From TEGRETOL) Allergy (Intermediate, Verified 02/08/25 10:37) SWELLING gabapentin Allergy (Intermediate, Verified 02/08/25 10:37) abdominal pain, abd pain morphine (MORPHINE) Allergy (Intermediate, Verified 02/08/25 10:37) HIVES naproxen (From ALEVE) Allergy (Intermediate, Verified 02/08/25 10:37) RASH, MOUTH SORES oxycodone (OXYCODONE) Allergy (Intermediate, Verified 02/08/25 10:37) HIVES Penicillins Allergy (Intermediate, Verified 02/08/25 10:37) HIVES sertraline Allergy (Intermediate, Verified 02/08/25 10:37) nausea lisinopril (LISINOPRIL) Allergy (Mild, Verified 02/08/25 10:37) HICCUPS pramipexole Adverse Reaction (Mild, Verified 02/08/25 10:37) dizziness Medication List - Last Reconciled 02/08/25 by Patricia Connelly MD amitriptyline 10 mg PO BEDTIME blood sugar diagnostic (FreeStyle Lite Strips) TEST BLOOD SUGAR TWICE DAILY DIRECTED blood-glucose meter (FreeStyle Lite Meter kit) TEST 2 TIMES DAILY bupropion HCl XL 300 mg PO DAILY buspirone 10 mg PO .at bedtime celecoxib (Celebrex) 200 mg PO BID 30 days cholecalciferol (vitamin D3) 25 mcg PO DAILY 90 days clopidogrel 75 mg PO DAILY diclofenac sodium 1% (Arthritis Pain (diclofenac)) 2 grams topical QID 30 days enalapril maleate 10 mg PO DAILY 90 days fenofibrate 54 mg PO DAILY fluocinonide 0.05% 1 appl topical BID 30 days fluticasone propionate 50 mcg/actuation (Flonase Allergy Relief) 1 spray intranasal DAILY 30 days lancets (FreeStyle Lancets) Twice a day As directed lancets (TRUEplus Lancets) TEST BLOOD SUGAR TWICE DAILY lidocaine 5% 1 patch topical DAILY PRN 30 days linaclotide (Linzess) 145 mcg PO DAILY metformin 850 mg PO BID 30 days nabumetone 750 mg PO BID PRN 30 days pantoprazole 40 mg PO DAILY 90 days semaglutide (Ozempic) 0.5 mg (0.736 mL) subcut QWEEK 4 weeks zolpidem 10 mg PO BEDTIME PRN Tobacco use date assessed: 02/08/25 Dental Screening Dental Screen Date: 02/08/25 Did you have a dental visit in the last 12 months?: No Did you have a dental problem in the last 6 months where you did not have access to dental care?: No Was dental information given to patient?: Patient has dentist HPI HPI Comments History of Present Illness Details This is a 54-year-old female with diabetes mellitus type 2 and moderate recurrent major depression that comes for her physical exam. A1c within goal being 6.7% today. LDL within goal being less than 70. Mammogram done this year. Colonoscopy done 2020. Pap smear done 2019. Tdap vaccine up-to-date. Will have PCV 20 today. Complains of bilateral knee pain and would like a knee brace. Also has constipation that has been stable with Linzess in the past. On medication for depression and follows with psychiatry and counseling. [facility] Medical History (Updated 02/08/25 @ 11:27 by Patricia Connelly MD) Urge incontinence of urine FHx: breast cancer in first degree relative Pre-op evaluation Lumbar degenerative disc disease Hypercalcemia Leukocytosis Renal cyst Giant cell arteritis Neuropathy History of CVA (cerebrovascular accident) COVID-19 vaccine series completed Mixed hyperlipidemia Obese Anxiety Moderate major depression ESQUIVEL (nonalcoholic steatohepatitis) Easy bruising Memory loss Nausea and vomiting GERD (gastroesophageal reflux disease) Essential hypertension Surgical History Hx of colonoscopy History of esophagogastroduodenoscopy (EGD) History of temporal artery biopsy History of cardiac cath History of endometrial ablation History of hernia repair H/O tubal ligation History of appendectomy H/O: Family History (Updated 02/08/25 @ 10:46 by Patricia Connelly MD) Father Stroke Breast cancer Mother Colon cancer, Onset Age: 64 Diabetes Hypertension Uterine cancer Breast cancer Brother Substance use disorder Family/Other Mental health disorder Sister Breast cancer, Onset Age: 38 Sister Breast cancer, Onset Age: 49 Social History Household Members: Significant Other and Children Housing: Apartment Alcohol intake: never Patient Tobacco Use Status: Never used Tobacco e-Cigarette/Vaping Use: Never Used Second Hand Smoke Exposure: No service: No Current occupational status: unemployed and disabled Sexual orientation: Straight/Heterosexual Gender identity: Female Cognitive needs: No Hearing needs: No Vision needs: Yes Female Reproductive History Menstrual Age of Menarche: 13 Questionnaire PHQ-9 Over the last 2 weeks, how often have you been bothered by any of the following problems? 1. Little interest or pleasure in doing things: nearly every day 2. Feeling down, depressed, or hopeless: more than half the days 3. Trouble falling or staying asleep, or sleeping too much: more than half the days 4. Feeling tired or having little energy: more than half the days 5. Poor appetite or overeating: more than half the days 6. Feeling bad about yourself - or that you are a failure or have let yourself or your family down: nearly every day 7. Trouble concentrating on things, such as reading the newspaper or watching television: nearly every day 8. Moving or speaking so slowly that other people could have noticed. Or the opposite - being so fidgety or restless that you have been moving around a lot more than usual: several days 9. Thoughts that you would be better off or of hurting yourself in some way: more than half the days Total score: 20 Depression Screening Interpretation: Positive (no suicidal thoughts) Depression Screening Follow-up: Existing condition, In treatment, Community Mental Health Worker F/U and Follow-up Visit Requested Depression Screening Done: Yes 23460 - PHQ-9 Billing: Yes Source: Developed by Drs. Santosh Maynard, Frances Santiago, Adam Cohen and colleagues, with an educational jasper from [employer]. Thrive Questionnaire Date Thrive assessed: 07/04/24 I am a: Patient What is your living situation today?: I have a steady place to live Within the past 12 months, did the food you bought not last and you didn't have the money to get more?: Never true Within the past 12 months, did you worry whether your food would run out before you got money to buy more?: Never true Do you have trouble paying for medicines?: No Do you have trouble getting transportation to medical appointments?: No Do you have trouble paying your heating and electricity bill?: Yes Do you have trouble taking care of your child, family member or friend?: No Do you have trouble with day-to-day activities such as bathing, preparing meals, shopping, managing finances, etc.?: No Are you currently unemployed and looking for a job?: No Are you interested in more education?: No Please select the resources that you would like help with: None THRIVE Score: 1 AUDIT C Alcohol Use Questionnaire (AUDIT-C) 1. How often do you have a drink containing alcohol?: Never Total Score: 0 Score Reviewed/Action Taken: No MARYCARMEN-7 AMB Questionnaire MARYCARMEN-7 Date MARYCARMEN - 7 assessed: 02/08/25 Feeling nervous, anxious, or on edge: 3 = Nearly every day Not being able to stop or control worryin = Nearly every day Worrying too much about different things: 3 = Nearly every day Trouble relaxin = Nearly every day Being so restless that it is hard to sit still: 2 = More than half the days Becoming easily annoyed or irritable: 1 = Several days Feeling afraid as if something awful might happen: 3 = Nearly every day Total MARYCARMEN-7 score (0-4 normal; 5-9 mild; 10-14 moderate; 15-21 severe): 18 Source: Developed by Drs. Santosh Maynard, Frances Santiago, Adam Cohen and colleagues, with an educational jasper from [employer]. MARYCARMEN-7 Assessment Billing MARYCARMEN-7 Assessment Tool: MARYCARMEN-7 Assessment 01516 Review of Systems Const All systems reviewed & are unremarkable except as noted in HPI and below Card Denies chest pain at rest, Denies chest pain with activity, Denies edema, Denies irregular heart rhythm, Denies claudication, Denies dyspnea, Denies dyspnea on exertion, Denies orthopnea, Denies paroxysmal nocturnal dyspnea and Denies slow heart rate Resp Denies cough, Denies dyspnea and Denies dyspnea on exertion GI Denies abdominal pain, Denies change in bowel habits, Denies excessive flatus, Denies nausea and Denies vomiting Physical exam (Primary Care) Vital Signs: Last Vital Signs Pulse 74 02/08/25 10:20 BP 116/60 02/08/25 10:20 Pulse Ox 97 02/08/25 10:20 Oxygen Delivery Method Room Air 02/08/25 10:20 BMI result Body Mass Index 33.3 Tobacco/Smoking Status: Tobacco use Status Tobacco use date assessed 02/08/25 02/08/25 10:34 Patient Tobacco Use Status Never used Tobacco 02/08/25 10:26 e-Cigarette/Vaping Use Never Used 02/08/25 10:26 PHQ-9: PHQ-9 Score PHQ-9: Total score 02/08/25 11:01 Depression Screening Interpretation: Positive (no suicidal thoughts) Depression Screening Follow-up: Existing condition, In treatment, Community Mental Health Worker F/U and Follow-up Visit Requested Thrive Assessment: Date of Thrive Assessment Date Thrive assessed 07/04/24 02/08/25 10:[address] [facility] Head: Yes normal to inspection, Yes normocephalic and Yes atraumatic Ears: external ears normal Eyes General: appearance normal, both eyes and all related structures Eyelids: Yes eyelids normal Conjunctivae: conjunctivae normal Neck Neck: Yes normal visual inspection and Yes supple Resp Effort & Inspection: normal respiratory effort Auscultation: clear to auscultation bilaterally Cardio Jugular venous distension: no JVD Rate: regular rate Rhythm: regular rhythm Heart sounds: S1 normal heart sound present and S2 normal heart sound present GI Inspection: Yes normal to inspection Palpation (GI): Soft to palpation and nontender Auscultation: normal bowel sounds Skin General skin exam: no rashes or lesions noted Neuro General: no focal motor deficits Extrem General: Yes full ROM Psych Appearance: grossly normal Results AMB Hemoglobin A1c AMB Hemoglobin A1c 6.7 % Last Edit by Sheridan Bustamante MA on 02/08/25 10:53 Immunizations pneumoc 20-conchita conj-dip cr(PF) 0.5 mL IM syringe Performing Provider: Patricia Connelly MD [facility] Administered by: Rosa M Arboleda RN on 02/08/25 10:59 Dose Route Admin Location Dispensed Lot Number Expiration Date NDC Lead Tinner 0.5 mL IM Left Deltoid 0.5 mL [id number] 02/20/26 [employer] Total Dispensed Waste 0.5 mL 0 % VIS Given Date VIS Provided VIS Publication Date 02/08/25 Single Vaccine 24 Eligibility Eligibility Date Funding Source Not [facility] Eligible 02/08/25 Private Results Reviewed Results Reviewed: Laboratory Last Values Hgb A1c (Clinic) 6.7 % (4.0-6.0) H 02/08/25 10:39 Coding Level of Care Code Est Pt Level 3 (87982) Est Pt Prev Care 40-64y(71462) Diagnoses Physical exam Z00.00 Moderate major depression F32.1 Type 2 diabetes mellitus with hyperglycemia, without long-term current use of insulin E11.65 Diabetes mellitus type: type 2 Diabetes mellitus complication status: with hyperglycemia Primary osteoarthritis of right knee M17.11 Osteoarthritis type: primary Left knee pain M25.562 Chronic idiopathic constipation K59.04 Additional Codes MARYCARMEN-7 Assessment Billing - MARYCARMEN-7 Assessment Tool: MARYCARMEN-7 Assessment 56388 ([id number]) PHQ-9 - 44073 - PHQ-9 Billing: Yes ([id number]) Time Spent (min) 36 Assessment & Plan Assessment & Plan (1) Physical exam: Code(s): Z00.00 - Encounter for general adult medical examination without abnormal findings Category: Medical (2) Moderate major depression: Code(s): F32.1 - Major depressive disorder, single episode, moderate Category: Medical (3) Diabetes mellitus, without long-term current use of insulin: Code(s): E11.9 - Type 2 diabetes mellitus without complications Category: Medical Qualifiers: Diabetes mellitus type: type 2 Diabetes mellitus complication status: with hyperglycemia Qualified Code(s): E11.65 - Type 2 diabetes mellitus with hyperglycemia (4) Osteoarthritis of right knee: Code(s): M17.11 - Unilateral primary osteoarthritis, right knee Category: Medical Qualifiers: Osteoarthritis type: primary Qualified Code(s): M17.11 - Unilateral primary osteoarthritis, right knee (5) Left knee pain: Code(s): M25.562 - Pain in left knee Category: Medical (6) Chronic idiopathic constipation: Code(s): K59.04 - Chronic idiopathic constipation Category: Medical Plan Repeat physical exam in a year. A1c goal is equal or less than 7%. Diabetic eye exam yearly. PCV 20 will be done today. Follow-up with psychiatry and counseling. Restart Linzess. Start knee brace for bilateral knee pain. Orders: Orders AMB Hemoglobin A1c Today Z13.9 - Encounter for screening, unspecified Pneumococcal 20 Immunization Today Z23 - Encounter for immunization
--- OUTSIDE RECORDS SUMMARY | 2025-02-08 12:16 | XMS_ITS | Encounter Summary ---
Author Organization [employer] Address [address] [facility] [address] [place] [address] Care Team Providers Care Public Relations Assistant Name Role Phone Unavailable Primary Care Provider Unavailabl e Encounter Details Date Type Department Care Team (Latest Contact Info) Description 10/01/2021 Abstract [facility] CONVERSIONS Dental, Provider, DDS Social History [...]
--- OUTSIDE RECORDS SUMMARY | 2025-02-08 12:16 | XMS_ITS | Clinical Summary ---
Author Organization [employer] Address [address] [facility] [address] [place] [address] Care Team Providers Care Med Surg Rn Name Role Phone Unavailable Primary Care [...] mellitus 04/27/2022 Hypertension 04/27/2022 Gingivitis 04/27/2022 Immunizations Immunization Administration Dates Next Due Influenza injectable quadriv [...] 70 04/27/2022 2:48 PM EST Temperature 21.1 C (70 F) 04/27/2022 2:52 PM EST Respiratory Rate - [...] Panel 1971 SDOH Screening 1971 Sigmoidoscopy 1971 Disability Screening 1971 Diabetes: Foot Exam 1981 Eye Exam [...] Tobacco Screening 04/27/2023 04/27/2022 COVID-19 Vaccine ( - season) 2025 04/09/2021, 08/01/2020, 07/04/2020 Influenza Vaccine (#1) 2025 2, 03/05/2021, 02/21/2019, Additional history exists DTaP/Tdap/Td [...] patient's age to complete this topic Meningococcal B Vaccine Aged Out No l onger eligible based on patient's age to complete [...] Most Recently Relevant to Health Maintenance Insurance [facility] [place]AND[place] STAND AD[place]
--- OUTSIDE RECORDS SUMMARY | 2025-02-08 12:16 | XMS_ITS | Encounter Summary ---
Author Organization [employer] Address [address] [facility] [address] [place] [address] Care Team Providers Care Supervisor Scouring Pads Name Role Phone Unavailable Primary Care Provider Unavailabl e Encounter Details Date Type Department Care Team (Latest Contact Info) Description 08/01/2020 Abstract [facility] CONVERSIONS Dental, Provider, DDS Social History Tobacco [...]
--- OUTSIDE RECORDS SUMMARY | 2025-02-08 12:16 | XMS_ITS | Encounter Summary ---
Author Organization [employer] Address [address] [facility] [address] [place] [address] Care Team Providers Care Superintendent Stevedoring Name Role Phone Unavailable Primary Care Provider Unavailabl e Encounter Details Date Type Department Care Team (Latest Contact Info) Description 07/22/[address] [facility] CONVERSIONS Dental, Provider, DDS Social History [...]
--- OUTSIDE RECORDS SUMMARY | 2025-02-08 12:16 | XMS_ITS | Encounter Summary ---
Author Organization [employer] Address [address] [facility] [address] [place] [address] Care Team Providers Care Business Analytics Director Name Role Phone Unavailable Primary Care Provider Unavailabl e Encounter Details Date Type Department Care Team (Late st Contact Info) Description 04/22/2022 Abstract [facility] [address] [place] [address] Dental, Provider, DDS Social History Tobacco Use [...]
--- OUTSIDE RECORDS SUMMARY | 2025-02-08 12:16 | XMS_ITS | Encounter Summary ---
Author Organization [employer] Address [address] [facility] [address] [place] [address] Care Team Providers Care [employer] Mechanical Name Role Phone Unavailable Primary Care Provider Unavailabl e Encounter Details Date Type Department Care Team (Latest Contact Info) Description 01/11/2019 Abstract [facility] CONVERSIONS Dental, Provider, DDS Social History [...]
== END 2025-02-08 11:02 | disposition home or self-care (01) ==
LOC: HO.HMCH 10:17
PROVIDERS: PCP Internal Medicine; Visit Provider Internal Medicine
DX: Z00.00 Encounter for general adult medical examination without abnormal findings (principal); E11.65 Type 2 diabetes mellitus with hyperglycemia; F32.1 Major depressive disorder, single episode, moderate; M17.11 Unilateral primary osteoarthritis, right knee; M25.562 Pain in left knee; K59.04 Chronic idiopathic constipation; Z23 Encounter for immunization

== ENCOUNTER → 2025-02-08 10:17 | Outpatient (BNVA) | payer OTHER, SELFPAY | PROVIDERS: PCP Internal Medicine; Visit Provider Internal Medicine | DX: Z00.00 Encounter for general adult medical examination without abnormal findings (principal); E11.9 Type 2 diabetes mellitus without complications; F32.1 Major depressive disorder, single episode, moderate; E11.65 Type 2 diabetes mellitus with hyperglycemia; M17.11 Unilateral primary osteoarthritis, right knee; M25.562 Pain in left knee; K59.04 Chronic idiopathic constipation; Z23 Encounter for immunization | CPT/HCPCS: 83036; 90471; 90677; 96127; 99212; 99396 ==

== ENCOUNTER 2025-03-26 10:31 | Outpatient (AMB) | payer OTHER, SELFPAY ==
--- NOTE | 2025-03-26 10:31 | A.OFFVIS_ITS ---
Intake Visit Reasons: 10w/med review Intake Note: Patient presents via telehealth for a 10w/med review Urology Medications: Amitriptyline, Oxybutynin Blood Thinner: Clopidogrel Antibiotic Allergy:Penicillin Showroom Manager Required: Yes Showroom Manager Services: Showroom Manager Present Showroom Manager Name: Yadira Jalloh Accompanied by: Self / Same As Patient Allergies acetaminophen (Percocet) Allergy (Intermediate, Verified 03/26/25 10:32) dyspnea aspirin (Aspirin) Allergy (Intermediate, Verified 03/26/25 10:32) SWELLING, hives, uticaria carbamazepine (From TEGRETOL) Allergy (Intermediate, Verified 03/26/25 10:32) SWELLING gabapentin Allergy (Intermediate, Verified 03/26/25 10:32) abdominal pain, abd pain morphine (MORPHINE) Allergy (Intermediate, Verified 03/26/25 10:32) HIVES naproxen (From ALEVE) Allergy (Intermediate, Verified 03/26/25 10:32) RASH, MOUTH SORES oxycodone (OXYCODONE) Allergy (Intermediate, Verified 03/26/25 10:32) HIVES Penicillins Allergy (Intermediate, Verified 03/26/25 10:32) HIVES sertraline Allergy (Intermediate, Verified 03/26/25 10:32) nausea lisinopril (LISINOPRIL) Allergy (Mild, Verified 03/26/25 10:32) HICCUPS pramipexole Adverse Reaction (Mild, Verified 03/26/25 10:32) dizziness Medication List - Last Reconciled 03/26/25 by Mar Thomas MD amitriptyline 10 mg PO BEDTIME blood sugar diagnostic (FreeStyle Lite Strips) TEST BLOOD SUGAR TWICE DAILY DIRECTED blood-glucose meter (FreeStyle Lite Meter kit) TEST 2 TIMES DAILY bupropion HCl XL 300 mg PO DAILY buspirone 10 mg PO .at bedtime celecoxib (Celebrex) 200 mg PO BID 30 days cholecalciferol (vitamin D3) 25 mcg PO DAILY 90 days clopidogrel 75 mg PO DAILY diclofenac sodium 1% (Arthritis Pain (diclofenac)) 2 grams topical QID 30 days enalapril maleate 10 mg PO DAILY 90 days fluocinonide 0.05% 1 appl topical BID 30 days fluticasone propionate 50 mcg/actuation (Flonase Allergy Relief) 1 spray intranasal DAILY 30 days lancets (FreeStyle Lancets) Twice a day As directed lancets (TRUEplus Lancets) TEST BLOOD SUGAR TWICE DAILY leg brace (MONIQUE Knee Brace) As directed leg brace (MONIQUE Knee Brace) As directed lidocaine 5% 1 patch topical DAILY PRN 30 days linaclotide (Linzess) 145 mcg PO DAILY metformin 850 mg PO BID 30 days nabumetone 750 mg PO BID PRN 30 days oxybutynin chloride ER 10 mg PO DAILY 30 days pantoprazole 40 mg PO DAILY 90 days zolpidem 10 mg PO BEDTIME PRN HPI Comments Details: 03/26/25--[place] is followed for urinary incontinence and bladder dysfunction. History of Present Illness The patient is a 55-year-old female presenting with urinary incontinence and bladder dysfunction. She is currently on anticholinergic therapy with oxybutynin, which has been effective in managing her symptoms. The patient has not reported any significant complications or additional interventions related to her condition. Plan 1. Urinary Incontinence 2. Bladder Dysfunction - Continue current anticholinergic therapy with oxybutynin as it is effective. - Schedule a follow-up appointment in 8 months to reassess symptoms and medication efficacy. - Monitor for any changes in symptoms or side effects. 01/18/25- 54-year-old female presenting with urinary incontinence and bladder dysfunction. Certified spanish medical interpreter utilized. The patient states she d id not receive the Gemtesa when she went to the pharmacy. She was told the medication was not sent. I have refilled the Gemtesa. If medication is not covered by insurance I have discussed that I will send an alternative medication. 10/13/24--Here for UDS. Findings c/w detrusor overactivity The patient is a 54-year-old female presenting with urinary incontinence and bladder dysfunction. She reports persistent bladder control issues, worsening over the past few months. The patient has a history of diabetes and a past stroke, both of which may contribute to her symptoms. Urodynamics have confirmed detrusor overactivity, which helps explain the bladder spasms that contribute to her incontinence. Although conservative treatment options have been discussed previously, targeted medical therapy has not yet been initiated. Results - Urodynamics: Findings consistent with detrusor overactivity Plan Gemtesa 75 mg will be initiated once daily to address the bladder spasms due to detrusor overactivity and improve urinary incontinence. Alongside, the patient will engage in pelvic floor exercises and is referred to physical therapy to further aid in strengthening. A follow-up appointment in three months is arranged to review progress and adjust the treatment plan as necessary. 06/27/24--Barbara is a very pleasant Guatemalan-speaking 54-year-old patient of . She has a past medical history of type 2 diabetes, urge incontinence, lumbar degenerative disc disease, hypercalcemia, renal cysts, giant cell arteritis, history of CVA, neuropathy, mixed hyperlipidemia, anxiety, depression, ESQUIVEL, GERD, and hypertension. She presents to the office today as a new patient for stress/urge incontinence. She reports symptoms have been present for over a year. She denies currently using any Araceli pads for episodes of incontinence. She does report a previous history of 2 vaginal births in 1 . In office urinalysis results reviewed with the patient today. PVR 0 mL. We discussed at length potential causes of stress/urge incontinence as well as further treatment options and risks and benefits of these treatment options. In review of patient's chart it appears last A1c 02/14 6.3. We discussed importance of managing diabetes for improvement in lower urinary tract symptoms as well as overall health and well-being. She denies urinary urgency, urinary frequency, nocturia, hematuria, dysuria, foul smelling urine, changes to urinary stream, flank pain, fever, and or chills. She otherwise offers no other issues or concerns at this time. [facility] Medical History Urge incontinence of urine FHx: breast cancer in first degree relative Pre-op evaluation Lumbar degenerative disc disease Hypercalcemia Leukocytosis Renal cyst Giant cell arteritis Neuropathy History of CVA (cerebrovascular accident) COVID-19 vaccine series completed Mixed hyperlipidemia Obese Anxiety Moderate major depression ESQUIVEL (nonalcoholic steatohepatitis) Easy bruising Memory loss Nausea and vomiting GERD (gastroesophageal reflux disease) Essential hypertension Surgical History Hx of colonoscopy History of esophagogastroduodenoscopy (EGD) History of temporal artery biopsy History of cardiac cath History of endometrial ablation History of hernia repair H/O tubal ligation History of appendectomy H/O: Family History Father Stroke Breast cancer Mother Colon cancer, Onset Age: 64 Diabetes Hypertension Uterine cancer Breast cancer Brother Substance use disorder Family/Other Mental health disorder Sister Breast cancer, Onset Age: 38 Sister Breast cancer, Onset Age: 49 Social History Household Members: Significant Other and Children Housing: Apartment Alcohol intake: never Patient Tobacco Use Status: Never used Tobacco e-Cigarette/Vaping Use: Never Used Second Hand Smoke Exposure: No service: No Current occupational status: unemployed and disabled Sexual orientation: Straight/Heterosexual Gender identity: Female Cognitive needs: No Hearing needs: No Vision needs: Yes Female Reproductive History Menstrual Age of Menarche: 13 Review of Systems Const All systems reviewed & are unremarkable except as noted in HPI and below Reports no additional complaints Eyes Reports no additional complaints ENT Reports no additional complaints Card Reports no additional complaints Resp Reports no additional complaints GI Reports no additional complaints Reports as per HPI Musc Reports no additional complaints Skin/Breast Reports system reviewed and no additional complaints, except as documented Neuro Reports no additional complaints Psych Reports no additional complaints Endo Reports no additional complaints Ryan/Lymph Reports no additional complaints Aller/Immun Reports no additional complaints Telehealth Telehealth [facility] Location of provider rendering services: practice address Location of patient: address on file Patient Identification confirmed using: Name, : Yes Telehealth method: voice only Patient verbally consented to treatment: Yes Patient verbally consented to billing insurance company: Yes Patient informed of any privacy concerns related to visit: Yes Minutes spent on Phone/Video with Pt.: 13 Assessment & Plan Assessment & Plan (1) Pelvic floor weakness: Code(s): N81.89 - Other female genital prolapse Category: Medical (2) Urinary urgency: Code(s): R39.15 - Urgency of urination Category: Medical (3) OAB (overactive bladder): Code(s): N32.81 - Overactive bladder Category: Medical Plan Plan 1. Urinary Incontinence 2. Bladder Dysfunction - Continue current anticholinergic therapy with oxybutynin as it is effective. - Schedule a follow-up appointment in 8 months to reassess symptoms and medication efficacy. - Monitor for any changes in symptoms or side effects. - Cont FU with KAMARI Lozano Medications: Refilled oxybutynin chloride ER 10 mg PO DAILY 90 tabs 3RF 30 days N39.41 - Urge incontinence Patient Instructions: The patient had an opportunity to ask questions regarding treatment plan. The patient expressed understanding and agreement with the above treatment plan. The patient is aware they should contact our office by phone for worsening of their current condition or the appearance of new symptoms. Compliance is encouraged with any medications and followup testing that is ordered. It is a privilege to be allowed the opportunity to participate in the urologic care of your patient. If you have any questions or concerns regarding treatment for the above conditions please do not hesitate to contact me. The office telephone contact is [phone]. This note is constructed in part using voice recognition software. While every effort has been made to ensure accuracy roller machine operator errors may have been included. Yours sincerely, Mar Thomas MD Scribe Plan - Not visible on output: Patient was informed and verbally consented to the use of an ambient scribe for clinic note documentation during this visit. Coding Level of Care Code Tele Est Pt Level 3 (44569) Diagnoses Pelvic floor weakness N81.89 Urinary urgency R39.15 OAB (overactive bladder) N32.81
--- OUTSIDE RECORDS SUMMARY | 2025-03-26 12:44 | XMS_ITS | Encounter Summary ---
Author Organization [employer] [facility] Address [address] [place] [address] Care Team Providers Care Sanitation Laborer Name Role Phone Unavailable Primary Care Provider Unavailabl e Encounter Details Date Type Department Care Team (Late st Contact Info) Description 04/22/2022 Abstract [facility] ADULT [facility] [address] [place] [address] Dental, Provider, DDS Social History Tobacco Use Types Packs/Day Years Used Date Smoking Tobacco: Never Assessed Comments Unknown Sex and Gender Information Value Date Recorded Sex Assigned at Female 03/23/2022 10:20 AM EDT Legal Sex Female 10:20 AM EDT Gender Identity Female 03/23/2022 10:20 AM EDT Sexual Orientation Straight 03/23/2022 10 :20 AM EDT documented as of this encounter Plan of Treatment Upcoming Encounters Date Type Department Care Team (Late st Contact Info) Description 03/30/2025 8:45 AM EST Office Visit [facility] [address] [place] [address] Nazario Smitharis [address] [place] [address] documented as of this encounter Procedures Procedure [...] AM EST 12 O COMPOSITE FILLING Routine 2 12:00 AM EST 7 ML COMPOSITE FILLING Routine 2 12:00 AM EST 5 DO COMPOSITE FILLING [...]
--- OUTSIDE RECORDS SUMMARY | 2025-03-26 12:44 | XMS_ITS | Encounter Summary ---
Author Organization [employer] [facility] Address [address] [place] [address] Care Team Providers Care Hot Water Heater Installer Name Role Phone Unavailable Primary Care Provider Unavailabl e Encounter Details Date Type Department Care Team (Latest Contact Info) Description 07/22/2020 Abstract [facility] CONVERSIONS Dental, Provider, DDS Social History [...] Description 03/30/2025 8:45 AM EST Office Visit [facility] ADULT DENTAL [address] [place] [address] Svetlana Smith [address] [place] [address] documented as of this encounter Visit Diagnoses Not on filedocumented in this encounter
--- OUTSIDE RECORDS SUMMARY | 2025-03-26 12:44 | XMS_ITS | Encounter Summary ---
Author Organization [employer] [facility] Address [address] [place] [address] Care Team Providers Care Javascript Ui Developer Name Role Phone Unavailable Primary Care Provider Unavailabl e Encounter Details Date Type Department Care Team (Latest Contact Info) Description 08/01/2020 Abstract [facility] CONVERSIONS Dental, Provider, DDS Social [...] Description 03/30/2025 8:45 AM EST Office Visit [facility] ADULT DENTAL [address] [place] [address] Svetlana Smith [address] [place] [address] documented as of this encounter Visit Diagnoses Not on filedocumented in this encounter
--- OUTSIDE RECORDS SUMMARY | 2025-03-26 12:44 | XMS_ITS | Encounter Summary ---
Author Organization [employer] [facility] Address [address] [place] [address] Care Team Providers Care Frame And Scrap Crusher Name Role Phone Unavailable Primary Care Provider Unavailabl e Encounter Details Date Type Department Care Team (Latest Contact Info) Description 10/01/2021 Abstract [facility] CONVERSIONS Dental, Provider, DDS Social History [...] Description 03/30/2025 8:45 AM EST Office Visit [facility] ADULT DENTAL [address] [place] [address] Svetlana Smith [address] [place] [address] documented as of this encounter Visit Diagnoses Not on filedocumented in this encounter
--- OUTSIDE RECORDS SUMMARY | 2025-03-26 12:44 | XMS_ITS | Clinical Summary ---
Author Organization [employer] Address [address] [place] [address] Care Team Providers Care Plate Roller Name Role Phone Unavailable Primary Care Provider [...] DAILY DIRECTED 2 Active TRUEplus Lancets 33G [facility] TEST BLOOD SUGAR TWICE DAILY 2 Active [...] Mass Index - - Plan of Treatment Upcoming Encounters Date Type Department Care Team (Late st Contact Info) Description 03/30/2025 8:45 AM EST Office Visit [facility] ADULT DENTAL [address] [place] [address] Sarah, Svetlana [address] [place] [address] Health Maintenance Due Date Last Done Comments [...] Cancer Screening 2001 HPV/Cotest 2001 Mammogram 2011 Dental Prophylaxis 10/27/2022 04/27/2022 Tobacco Screening 04/27/2023 04/27/2022 COVID-19 Vaccine ( season) 2025 04/09/2021, 08/01/2020, 07/04/2020 Influenza Vaccine (#1) 2025 , 06/03/2023, 04/23/2022, Additional history exists DTaP/Tdap/Td Vaccines (3 - Td or Tdap) 06/11/2032 06/11/2022, 03/31/2016 RSV Patients and Patients Aged 60 years or older (1 - 1-dose 75+ series) 2046 Zoster Vaccines Completed 02/05/2023, 12/04/2022 Pneumococcal Vaccine: 50+ Years Completed 02/08/2025, 04/09/2017 HIB Vaccines Aged Out No longer eligi [...] Most Recently Relevant to Health Maintenance Insurance [facility] [place] STAND ADULT
--- OUTSIDE RECORDS SUMMARY | 2025-03-26 12:44 | XMS_ITS | Encounter Summary ---
Author Organization [employer] [facility] Address [address] [place] [address] Care Team Providers Care Sports Book Board Attendant Name Role Phone Unavailable Primary Care Provider Unavailabl e Encounter Details Date Type Department Care Team (Latest Contact Info) Description 01/11/2019 Abstract [facility] CONVERSIONS Dental, Provider, DDS Social History Tobacco [...] Description 03/30/2025 8:45 AM EST Office Visit [facility] ADULT DENTAL [address] [place] [address] Svetlana Smith [address] [place] [address] documented as of this encounter Visit Diagnoses Not on filedocumented in this encounter
== END 2025-03-26 11:07 | disposition home or self-care (01) ==
LOC: HO.HUSH 10:31
PROVIDERS: PCP Internal Medicine; Visit Provider Urology
DX: N81.89 Other female genital prolapse (principal); R39.15 Urgency of urination; N32.81 Overactive bladder
CPT/HCPCS: 99213

== ENCOUNTER 2025-03-26 11:44 | Emergency (ER) | payer OTHER, SELFPAY ==
--- NOTE | ~2025-03-26 | XR_ITS ---
EXAMINATION: XR KNEE, LEFT CLINICAL INFORMATION: pain COMPARISON: June 25, 2023 TECHNIQUE: AP oblique and lateral views of the left knee. FINDINGS: No acute cortical disruption or malalignment. No lytic or blastic lesions. No suprapatellar bursa joint effusion. Mild joint space narrowing lateral compartment with small marginal osteophyte formation and the lateral tibial plateau. No subcutaneous emphysema. No soft tissue calcifications. XR/XR knee LT 4V IMPRESSION: Mild osteoarthrosis/osteoarthritis, lateral compartment. Electronically signed by: Rios Jenkins MD 03/26/2025 12:27 PM [facility]AM
[2025-03-26 11:55] VITALS: BP 127/64; PULSE 87; RESP 16; TEMP 36.1; O2SAT 97; BMI 35.2
--- NOTE | 2025-03-26 11:56 | ED_ITS ---
HPI - General Adult General Chief complaint: Extremity Problem Stated complaint: L Knee pain, keeps giving out Time Seen by Provider: 03/26/25 15:39 Source: patient and supervisor prep (BULGARIAN) Mode of arrival: ambulatory Limitations: language barrier (BULGARIAN) History of Present Illness ED Provider: CRISTY HOLT PA-C HPI narrative: 55 year old Jordanian speaking female presents to the ED today for evaluation of atraumatic left knee pain that began while she was walking one week ago. Endorses pain to the front of her left knee. No radiation. Denies blunt injury/trauma. Denies numbness/tingling/weakness. She reports chronic issues to right knee and as a result, has been compensating with her LLE. She has been taking celecoxib, which she takes at baseline for her right knee pain, with some improvement. Related Data Home Medications ?Medication ?Instructions ?Recorded ?Confirmed buspirone 10 mg tablet 10 mg PO .at bedtime 0 03/26/25 lancets 28 gauge (FreeStyle #100 ea 02/26/20 03/26/25 Lancets) zolpidem 10 mg tablet 10 mg PO BEDTIME PRN Insomni a 02/26/20 03/26/25 bupropion HCl 300 mg 24 hr tablet, 300 mg PO DAILY 10/1103/26/25 extended release Previous Rx's ?Medication ?Instructions ?Recorded blood-glucose meter (FreeStyle #1 ea 11/14/20 Lite Meter kit) fluocinonide 0.05 % topical cream 1 appl topical BID 3 0 days #30 12/20/20 grams blood sugar diagnostic (FreeStyle #100 strips 12/31/21 Lite Strips) lancets 33 gauge (TRUEplus Lancets) ##100 12/31/21 lidocaine 5 % topical patch 1 patch topical DAILY PRN pain 30 07/03/23 days #30 ea cholecalciferol (vitamin D3) 25 25 mcg PO DAILY 90 day s #90 tabs 09/08/23 mcg (1,000 unit) tablet nabumetone 750 mg tablet 750 mg PO BID PRN pain 30 da ys #60 02/25/24 tabs fluticasone propionate 50 1 spray intranasal DAILY 30 days 09/18/24 mcg/actuation nasal #16 grams spray,suspension (Flonase Allergy Relief) pantoprazole 40 mg tablet,delayed 40 mg PO DAILY 90 da ys #90 tabs 09/18/24 release celecoxib 200 mg capsule (Celebrex) 200 mg PO BID 30 d ays #60 caps 01/02/25 metformin 850 mg tablet 850 mg PO BID 30 days #60 ta bs 01/04/25 diclofenac sodium 1 % topical gel 2 g topical QID 30 d ays #100 grams 02/08/25 (Arthritis Pain (diclofenac)) enalapril maleate 10 mg tablet 10 mg PO DAILY 90 days #90 tabs 02/08/25 leg brace (MONIQUE Knee Brace) #1 ea 02/08/25 leg brace (MONIQUE Knee Brace) #1 ea 02/08/25 linaclotide 145 mcg capsule 145 mcg PO DAILY #30 caps 02/08/25 (Linzess) amitriptyline 10 mg tablet 10 mg PO BEDTIME #30 tabs 0 02/13/25 clopidogrel 75 mg tablet 75 mg PO DAILY #30 tabs 02/23 06/17 oxybutynin chloride 10 mg 10 mg PO DAILY 30 days #90 t abs 03/26/25 tablet,extended release 24 hr oxycodone 5 mg tablet 5 mg PO Q8H PRN pain (scale score 03/26/25 7-10) #9 tabs Allergies Allergy/AdvReac Type Severity Reaction Status Date / Time acetaminophen (Percocet) Allergy Intermediate dyspnea Verified 03/26/25 11:57 aspirin (Aspirin) Allergy Intermediate SWELLING, Verified 03/26/25 11:57 hives, uticaria carbamazepine (From TEGRETOL) Allergy Intermediate SWELLING Verified 03/26/25 11:57 gabapentin Allergy Intermediate abdominal Verified 03/26/25 11:57 pain, abd pain morphine (MORPHINE) Allergy Intermediate HIVES Verified 03/26/25 11:57 naproxen (From ALEVE) Allergy Intermediate RASH, Verified 03/26/25 11:57 MOUTH SORES oxycodone (OXYCODONE) Allergy Intermediate HIVES Verified 03/26/25 11:57 Penicillins Allergy Intermediate HIVES Verified 03/26/25 11:57 sertraline Allergy Intermediate nausea Verified 03/26/25 11:57 lisinopril (LISINOPRIL) Allergy Mild HICCUPS Verified 03/26/25 11:57 pramipexole AdvReac Mild dizziness Verified 03/26/25 11:57 Review of Systems Review of Systems: Yes all other systems are reviewed and are negative [facility] Past Medical History Attestation statement: The following information was validated with the patient. Source: old records reviewed and nursing notes reviewed Medical History Urge incontinence of urine FHx: breast cancer in first degree relative Pre-op evaluation Lumbar degenerative disc disease Hypercalcemia Leukocytosis Renal cyst Giant cell arteritis Neuropathy History of CVA (cerebrovascular accident) COVID-19 vaccine series completed Mixed hyperlipidemia Obese Anxiety Moderate major depression ESQUIVEL (nonalcoholic steatohepatitis) Easy bruising Memory loss Nausea and vomiting GERD (gastroesophageal reflux disease) Essential hypertension Surgical History Hx of colonoscopy History of esophagogastroduodenoscopy (EGD) History of temporal artery biopsy History of cardiac cath History of endometrial ablation History of hernia repair H/O tubal ligation History of appendectomy H/O: Family History Family History Father Stroke Breast cancer Mother Colon cancer, Onset Age: 64 Diabetes Hypertension Uterine cancer Breast cancer Brother Substance use disorder Family/Other Mental health disorder Sister Breast cancer, Onset Age: 38 Sister Breast cancer, Onset Age: 49 Social History Social History Household Members: Significant Other and Children Housing: Apartment Alcohol intake: never Patient Tobacco Use Status: Never used Tobacco e-Cigarette/Vaping Use: Never Used Second Hand Smoke Exposure: No Advance Directives: No Advance Directives Information Provided: Yes service: No Current occupational status: unemployed and disabled Sexual orientation: Straight/Heterosexual Gender identity: Female Cognitive needs: No Hearing needs: No Vision needs: Yes Physical Exam ED Vital Signs: Vital Signs - 24 hr 03/26/25 11:55 03/26/25 16:24 Temperature 97.0 F 97.0 F Pulse Rate 87 87 Respiratory Rate 16 16 Blood Pressure 127/64 127/64 Pulse Oximetry 97 97 Oxygen Delivery Method Room Air Room Air BMI result Body Mass Index 35.2 vital signs stable General: Well appearing, in no acute distress. Skin: Warm, dry, intact. No rashes or lesions. Head: Normocephalic, atraumatic. EENT: Hearing is intact b/l. Moist mucous membranes.? Cardiac: Chest wall symmetric. RRR Lungs: Normal respiratory effort without accessory muscle use. CTA bilaterally Ext: +left knee with minimal swelling although exam is somewhat limited due to patient's anatomy. there is no erythema, deformity or overlying wounds. able to full flex/extend the knee. diffusely ttp, no palpable deformity, fluctuance, wa rmth. no calf tenderness. no pitting edema. SILT. 2+ poplital and dp pulse. Neuro: AOx3. Normal speech. Ambulating with steady gait. Course Course Course Narrative: Rapid medical examination performed in triage by Nedra Harris PA-C: Patient is a 55 year old assigned female at presenting to the emergency department with left knee pain. Patient states that she was walking and all of a sudden got left knee pain that is not improving. Detailed physical exam and review of systems are deferred to the behavioral health clinician. Imaging ordered. Patient placed back in the waiting room pending room availability and results. Reevaluation(s) Reevaluation #1: X-ray left knee showing mild osteoarthritis, lateral compartment. No acute fracture. No significant joint effusion. Patient's exam is quite unremarkable. On chart review, patient has a variety of allergies. She reports allergy to NSAIDs however takes Celebrex daily. She reports prior issues with corticosteroid injection as it elevated her sugars. Will avoid prednisone and management. I will give her a few days of oxycodone for pain control. advised PCP and ortho follow up. She is ambulating steady gait. Patient has remained stable throughout ED visit today. Discussed worrisome signs and symptoms and when to return to the ED. All questions answered at this time. Patient is agreeable with disposition and stable for discharge. Medical Decision Making Medical Decision Making MDM Narrative: 55 year old Jordanian speaking female presents to the ED today for evaluation of atraumatic left knee pain that began while she was walking one week ago. vitals are stable. on exam, left knee with minimal swelling although exam is somewhat limited due to patient's anatomy. there is no erythema, deformity or overlying wounds. able to full flex/extend the knee. diffusely ttp, no palpable deformity, fluctuance, warmth. no calf tenderness. no pitting edema. SILT. 2+ poplital and dp pulse. Differential diagnosis includes arthritis, msk sprain/strain, tendonitis, bursitis, joint effusion. lower suspicion for gout/pseudogout. unlikely fr acture, dislocation, nv compromise, threat to limb, compartment syndrome, dvt, backer's cyst. Plan for imaging and re-evaluation. Differential Diagnosis Differential Diagnoses: The differential diagnosis associated with the presentation includes as above. Admission/Observation not indicated. Independent Interpretation I performed an independent interpretation of an: Plain X-Ray Interpretation: xr left knee w/o fracture Radiology Impression Discussion of test interpretation with radiology: I have reviewed the radi ologist's reading. Radiologist Impression: Procedure(s): XR knee LT 4V Accession Number(s): [id number] cc: Nedra Harris; Patricia England MD~ Reason for Exam: pain EXAMINATION: XR KNEE, LEFT CLINICAL INFORMATION: pain COMPARISON: June 25, 2023 TECHNIQUE: AP oblique and lateral views of the left knee. FINDINGS: No acute cortical disruption or malalignment. No lytic or blastic lesions. No suprapatellar bursa joint effusion. Mild joint space narrowing lateral compartment with small marginal osteophyte formation and the lateral tibial plateau. No subcutaneous emphysema. No soft tissue calcifications. XR/XR knee LT 4V IMPRESSION: Mild osteoarthrosis/osteoarthritis, lateral compartment. Electronically signed by: Rios Jenkins MD 03/26/2025 12:27 PM EST Prescription Management I considered prescription management with: Pain Medication Chronic Conditions Patient?s care impacted by: Diabetes Social Determinants Patient?s care significantly limited by Social Determinants of Health including: Other Social Determinant of Health Critical Care Time Critical Care Time Critical Care Time: No Discharge Plan Discharge Clinical Impression: Osteoarthritis of left knee Patient Disposition: Home, Self-Care Instructions: Osteoarthritis (ED) Additional Instructions: You were evaluated in the ED today for left knee pain. The xray your left knee shows osteoarthritis. There is no fracture. I am sending oxycodone, a controlled pain medication, to your pharmacy for you to take for breakthrough pain control. Please use this with caution as opioid pain medications have addictive properties. Please follow up with your primary care provider. I have also provided you with a referral to the orthopedic doctor. Return with any new or worsening symptoms. In the case of an emergency call 911 Prescriptions: New oxycodone 5 mg tablet 5 mg PO Q8H PRN (Reason: pain (scale score 7-10)) Qty: 9 0RF Rx Instructions: Partial Fill upon patient request. No Action (DME) blood-glucose meter [FreeStyle Lite Meter] Kit See Rx Instructions .ROUTE .MEDSUPPLY Qty: 1 0RF Rx Instructions: TEST 2 TIMES DAILY fluocinonide 0.05 % cream 1 appl topical BID 30 Days Qty: 30 0RF (DME) FreeStyle Lite Strips Strip See Rx Instructions .ROUTE .COMPLEX Qty: 100 11RF Dose Instruction: TEST BLOOD SUGAR TWICE DAILY DIRECTED Rx Instructions: TEST BLOOD SUGAR TWICE DAILY DIRECTED (DME) lancets [TRUEplus Lancets] 33 gauge misc See Rx Instructions .ROUTE .COMPLEX Qty: 100 11RF Dose Instruction: TEST BLOOD SUGAR TWICE DAILY Rx Instructions: TEST BLOOD SUGAR TWICE DAILY lidocaine 5 % adhesive patch,medicated 1 patch topical DAILY PRN (Reason: pain) 30 Days Qty: 30 1RF Rx Instructions: leave on most painful area for up to 12 hrs cholecalciferol (vitamin D3) 25 mcg (1,000 unit) tablet 25 mcg PO DAILY 90 Days Qty: 90 3RF nabumetone 750 mg tablet 750 mg PO BID PRN (Reason: pain) 30 Days Qty: 60 0RF pantoprazole 40 mg tablet,delayed release (DR/EC) 40 mg PO DAILY 90 Days Qty: 90 1RF fluticasone propionate [Flonase Allergy Relief] 50 mcg/actuation spray,suspension 1 spray intranasal DAILY 30 Days Qty: 16 2RF Rx Instructions: administer into each nostril celecoxib [Celebrex] 200 mg capsule 200 mg PO BID 30 Days Qty: 60 3RF metformin 850 mg tablet 850 mg PO BID 30 Days Qty: 60 3RF amitriptyline 10 mg tablet 10 mg PO BEDTIME Qty: 30 2RF clopidogrel 75 mg tablet 75 mg PO DAILY Qty: 30 0RF Rx Instructions: Need follow-up for more med refills [phone]. zolpidem 10 mg tablet 10 mg PO BEDTIME PRN (Reason: Insomnia) buspirone 10 mg tablet 10 mg PO .at bedtime (DME) lancets [FreeStyle Lancets] 28 gauge misc See Rx Instructions .ROUTE .MEDSUPPLY Qty: 100 Rx Instructions: Twice a day As directed bupropion HCl 300 mg tablet extended release 24 hr 300 mg PO DAILY Linzess 145 mcg capsule 145 mcg PO DAILY Qty: 30 3RF enalapril maleate 10 mg tablet 10 mg PO DAILY 90 Days Qty: 90 3RF diclofenac sodium [Arthritis Pain (diclofenac)] 1 % gel 2 g topical QID 30 Days Qty: 100 0RF Rx Instructions: apply to single elbow, wrist or hand; for hand includes palm/fingers/back of hand (DME) MONIQUE Knee Brace Misc See Rx Instructions .Route Qty: 1 0RF Rx Instructions: As directed (DME) MONIQUE Knee Brace Misc See Rx Instructions .Route Qty: 1 0RF Rx Instructions: As directed oxybutynin chloride 10 mg tablet extended release 24hr 10 mg PO DAILY 30 Days Qty: 90 3RF Referrals: [facility] [Provider Group] Patricia England MD [Primary Care Provider, Internal Medicine] Stand Alone Forms: Work/School Release Interventions: ED Discharge Assessment Last Done: 03/26/25 16:24 Discharge Date/Time: 03/26/25 16:25 Print Language: Jordanian
[2025-03-26 16:24] VITALS: BP 127/64; PULSE 87; RESP 16; TEMP 36.1; O2SAT 97
== END 2025-03-26 16:25 | disposition home or self-care (01) ==
PROVIDERS: Emergency Provider Emergency Medicine; PCP Internal Medicine
DX: M17.12 Unilateral primary osteoarthritis, left knee (principal); M25.562 Pain in left knee
CPT/HCPCS: 73564; 99282; 99283

== ENCOUNTER → 2025-03-26 11:57 | Outpatient (BNV) | payer OTHER, SELFPAY | PROVIDERS: PCP Internal Medicine; Visit Provider Radiology Diagnostic Radiology | DX: M17.12 Unilateral primary osteoarthritis, left knee (principal) | CPT/HCPCS: 73564 ==

== ENCOUNTER 2025-03-29 11:06 | Outpatient (AMB) | payer OTHER, SELFPAY ==
--- NOTE | 2025-03-29 11:16 | MHC.PC.OV ---
Vital Signs 03/29/25 11:18 Height 5 ft 2 in Weight 192 lb 2 oz BMI 35.1 BP 120/62 Blood Pressure Location Lt brachial Position Sitting Pulse 105 H Pulse Source Pulse Oximeter Temp 97.3 F Temp Source Temporal Artery Scan Pulse Oximetry (%) 196 H Oxygen Delivery Method Room Air Intake Visit Reasons: knee pain, wants referral Intake Note: Patient is here to follow up on Bilateral Knee pain, left worse, requesting for referral. Utility Helicopter Repairer Required: No Accounting Manager Cpa: Present Accompanied by: Spouse Allergies acetaminophen (Percocet) Allergy (Intermediate, Verified 03/29/25 11:31) dyspnea aspirin (Aspirin) Allergy (Intermediate, Verified 03/29/25 11:31) SWELLING, hives, uticaria carbamazepine (From TEGRETOL) Allergy (Intermediate, Verified 03/29/25 11:31) SWELLING gabapentin Allergy (Intermediate, Verified 03/29/25 11:31) abdominal pain, abd pain morphine (MORPHINE) Allergy (Intermediate, Verified 03/29/25 11:31) HIVES naproxen (From ALEVE) Allergy (Intermediate, Verified 03/29/25 11:31) RASH, MOUTH SORES oxycodone (OXYCODONE) Allergy (Intermediate, Verified 03/29/25 11:31) HIVES Penicillins Allergy (Intermediate, Verified 03/29/25 11:31) HIVES sertraline Allergy (Intermediate, Verified 03/29/25 11:31) nausea lisinopril (LISINOPRIL) Allergy (Mild, Verified 03/29/25 11:31) HICCUPS pramipexole Adverse Reaction (Mild, Verified 03/29/25 11:31) dizziness Medication List - Last Reconciled 03/29/25 by Patricia Connelly MD amitriptyline 10 mg PO BEDTIME blood sugar diagnostic (FreeStyle Lite Strips) TEST BLOOD SUGAR TWICE DAILY DIRECTED blood-glucose meter (FreeStyle Lite Meter kit) TEST 2 TIMES DAILY bupropion HCl XL 300 mg PO DAILY buspirone 10 mg PO .at bedtime celecoxib (Celebrex) 200 mg PO BID 30 days cholecalciferol (vitamin D3) 25 mcg PO DAILY 90 days clopidogrel 75 mg PO DAILY diclofenac sodium 1% (Arthritis Pain (diclofenac)) 2 grams topical QID 30 days enalapril maleate 10 mg PO DAILY 90 days fluocinonide 0.05% 1 appl topical BID 30 days fluticasone propionate 50 mcg/actuation (Flonase Allergy Relief) 1 spray intranasal DAILY 30 days lancets (FreeStyle Lancets) Twice a day As directed lancets (TRUEplus Lancets) TEST BLOOD SUGAR TWICE DAILY leg brace (MONIQUE Knee Brace) As directed leg brace (MONIQUE Knee Brace) As directed lidocaine 5% 1 patch topical DAILY PRN 30 days linaclotide (Linzess) 145 mcg PO DAILY metformin 850 mg PO BID 30 days nabumetone 750 mg PO BID PRN 30 days oxybutynin chloride ER 10 mg PO DAILY 30 days oxycodone 5 mg PO Q8H PRN pantoprazole 40 mg PO DAILY 90 days zolpidem 10 mg PO BEDTIME PRN Tobacco use date assessed: 03/29/25 Dental Screening Dental Screen Date: 02/08/25 HPI HPI Comments History of Present Illness Details The patient is a 55-year-old female presenting for evaluation of knee arthritis. The patient reports significant pain from her arthritis, which affects her ability to work and has caused her to be out since March 23. She experiences difficulty extending her left knee and feels as if something is behind it, with pain that radiates through the area. Her recent A1c was 6.7, and her vitamin D level was normal. Diabetes well controlled with an A1c within goal. Blood pressure also well control with blood pressure less than 130/80. LDL within goal being less than 70. She has moderate major depression with anxiety that is follow by Psychiatry. The patient reports a history of multiple drug allergies, including to Percocet, aspirin, Tegretol, gabapentin, morphine, naproxen, oxycodone, penicillin, sertraline, and lisinopril. Her current medications for depression with anxiety, hypertension, constipation, and other conditions were reviewed. [facility] Medical History (Updated 03/29/25 @ 12:09 by Patricia Connelly MD) Urge incontinence of urine FHx: breast cancer in first degree relative Pre-op evaluation Lumbar degenerative disc disease Hypercalcemia Leukocytosis Renal cyst Giant cell arteritis Neuropathy History of CVA (cerebrovascular accident) COVID-19 vaccine series completed Mixed hyperlipidemia Obese Anxiety Moderate major depression ESQUIVEL (nonalcoholic steatohepatitis) Easy bruising Memory loss Nausea and vomiting GERD (gastroesophageal reflux disease) Essential hypertension Surgical History Hx of colonoscopy History of esophagogastroduodenoscopy (EGD) History of temporal artery biopsy History of cardiac cath History of endometrial ablation History of hernia repair H/O tubal ligation History of appendectomy H/O: Family History Father Stroke Breast cancer Mother Colon cancer, Onset Age: 64 Diabetes Hypertension Uterine cancer Breast cancer Brother Substance use disorder Family/Other Mental health disorder Sister Breast cancer, Onset Age: 38 Sister Breast cancer, Onset Age: 49 Social History Household Members: Significant Other and Children Housing: Apartment Alcohol intake: never Patient Tobacco Use Status: Never used Tobacco e-Cigarette/Vaping Use: Never Used Second Hand Smoke Exposure: No service: No Current occupational status: unemployed and disabled Sexual orientation: Straight/Heterosexual Gender identity: Female Cognitive needs: No Hearing needs: No Vision needs: Yes Female Reproductive History Menstrual Age of Menarche: 13 Questionnaire PHQ-9 Over the last 2 weeks, how often have you been bothered by any of the following problems? 1. Little interest or pleasure in doing things: several days 2. Feeling down, depressed, or hopeless: nearly every day 3. Trouble falling or staying asleep, or sleeping too much: nearly every day 4. Feeling tired or having little energy: nearly every day 5. Poor appetite or overeating: more than half the days 6. Feeling bad about yourself - or that you are a failure or have let yourself or your family down: nearly every day 7. Trouble concentrating on things, such as reading the newspaper or watching television: nearly every day 8. Moving or speaking so slowly that other people could have noticed. Or the opposite - being so fidgety or restless that you have been moving around a lot more than usual: nearly every day 9. Thoughts that you would be better off or of hurting yourself in some way: nearly every day Total score: 24 Depression Screening Interpretation: Positive (no suicidal thoughts) Depression Screening Follow-up: Existing condition, In treatment, Community Mental Health Worker F/U and Follow-up Visit Requested Depression Screening Done: Yes 06885 - PHQ-9 Billing: Yes Source: Developed by Drs. Santosh Maynard, Adam Henry and colleagues, with an educational jasper from [employer]. Thrive Questionnaire Date Thrive assessed: 07/04/24 I am a: Patient What is your living situation today?: I have a steady place to live Within the past 12 months, did the food you bought not last and you didn't have the money to get more?: Often true Within the past 12 months, did you worry whether your food would run out before you got money to buy more?: Often true Do you have trouble paying for medicines?: No Do you have trouble getting transportation to medical appointments?: No Do you have trouble paying your heating and electricity bill?: Yes Do you have trouble taking care of your child, family member or friend?: No Do you have trouble with day-to-day activities such as bathing, preparing meals, shopping, managing finances, etc.?: No Are you currently unemployed and looking for a job?: No Are you interested in more education?: No Please select the resources that you would like help with: Food Currently or been in a relationship where the following occur: I choose not to answer THRIVE Score: 3 AUDIT C Alcohol Use Questionnaire (AUDIT-C) 1. How often do you have a drink containing alcohol?: Never Total Score: 0 Score Reviewed/Action Taken: No MARYCARMEN-7 AMB Questionnaire MARYCARMEN-7 Date MARYCARMEN - 7 assessed: 02/08/25 Feeling nervous, anxious, or on edge: 2 = More than half the days Not being able to stop or control worryin = More than half the days Worrying too much about different things: 2 = More than half the days Trouble relaxin = Nearly every day Being so restless that it is hard to sit still: 2 = More than half the days Becoming easily annoyed or irritable: 3 = Nearly every day Feeling afraid as if something awful might happen: 3 = Nearly every day Total MARYCARMEN-7 score (0-4 normal; 5-9 mild; 10-14 moderate; 15-21 severe): 17 Source: Developed by Frances Horne Kurt Kroenke and colleagues, with an educational jasper from [employer]. MARYCARMEN-7 Assessment Billing MARYCARMEN-7 Assessment Tool: MARYCARMEN-7 Assessment 62542 Review of Systems Const All systems reviewed & are unremarkable except as noted in HPI and below Card Denies chest pain at rest, Denies chest pain with activity, Denies edema, Denies irregular heart rhythm, Denies claudication, Denies dyspnea, Denies dyspnea on exertion, Denies orthopnea, Denies paroxysmal nocturnal dyspnea and Denies slow heart rate Resp Denies cough, Denies dyspnea and Denies dyspnea on exertion GI Denies abdominal pain, Denies change in bowel habits, Denies excessive flatus, Denies nausea and Denies vomiting Neuro Denies lack of coordination Physical exam (Primary Care) Vital Signs: Last Vital Signs Temp 97.3 F 03/29/25 11:18 Pulse 105 H 03/29/25 11:18 BP 120/62 03/29/25 11:18 Pulse Ox 196 H 03/29/25 11:18 Oxygen Delivery Method Room Air 03/29/25 11:18 BMI result Body Mass Index 35.1 BMI Assessment/Plan discussion: High BMI High, discussed plan: lifestyle, weight reduction, dietary and physical activity Tobacco/Smoking Status: Tobacco use Status Tobacco use date assessed 03/29/25 03/29/25 11:23 Patient Tobacco Use Status Never used Tobacco 03/29/25 11:23 e-Cigarette/Vaping Use Never Used 03/29/25 11:23 PHQ-9: PHQ-9 Score PHQ-9: Total score 24 03/29/25 11:23 Depression Screening Interpretation: Positive (no suicidal thoughts) Depression Screening Follow-up: Existing condition, In treatment, Community Mental Health Worker F/U and Follow-up Visit Requested Thrive Assessment: Date of Thrive Assessment Date Thrive assessed 07/04/24 03/29/25 11:23 Currently or been in a relationship where the following occur: I choose not to answer Resp Effort & Inspection: normal respiratory effort Auscultation: clear to auscultation bilaterally Cardio Jugular venous distension: no JVD Rate: regular rate Rhythm: regular rhythm Heart sounds: S1 normal heart sound present and S2 normal heart sound present Extrem General: Yes full ROM Office Procedures Flu Questionnaire Does the patient have a severe egg allergy?: No Does the patient have severe life threatening allergies?: No Does the patient have a fever or illness today?: No Has the patient ever had Guillain-Cheyenne Syndrome?: No Has the patient ever had any past reaction to a flu shot?: No Immunizations Fluarix [id number] (PF) 45 mcg (15 mcg x 3)/0.5 mL IM syringe Performing Provider: Patricia Connelly MD [facility] Administered by: Rosa M Arboleda RN on 03/29/25 11:33 Dose Route Admin Location Dispensed Lot Number Expiration Date NDC Bartender Manager 0.5 mL IM Left Deltoid 0.5 mL [id number] 11/20/25 69025-459-32 [employer] VIS Given Date VIS Provided VIS Publication Date 03/29/25 Single Vaccine 24 Eligibility Eligibility Date Funding Source Not [facility] Eligible 03/29/25 Private Coding Level of Care Code Est Pt Level 4 (68129) Complex EM visit Add On G2211 Diagnoses Type 2 diabetes mellitus with hyperglycemia, without long-term current use of insulin E11.65 Diabetes mellitus type: type 2 Diabetes mellitus complication status: with hyperglycemia Hyperlipidemia LDL goal <70 E78.5 Essential hypertension I10 Moderate major depression F32.1 Anxiety F41.9 Bilateral primary osteoarthritis of knee M17.0 Additional Codes PHQ-9 - 34457 - PHQ-9 Billing: Yes ([id number]) MARYCARMEN-7 Assessment Billing - MARYCARMEN-7 Assessment Tool: MARYCARMEN-7 Assessment 51009 ([id number]) Time Spent (min) 24 Assessment & Plan Assessment & Plan (1) Diabetes mellitus, without long-term current use of insulin: Code(s): E11.9 - Type 2 diabetes mellitus without complications Category: Medical Qualifiers: Diabetes mellitus type: type 2 Diabetes mellitus complication status: with hyperglycemia Qualified Code(s): E11.65 - Type 2 diabetes mellitus with hyperglycemia (2) Hyperlipidemia LDL goal <70: Code(s): E78.5 - Hyperlipidemia, unspecified Category: Medical (3) Essential hypertension: Code(s): I10 - Essential (primary) hypertension Category: Medical (4) Moderate major depression: Code(s): F32.1 - Major depressive disorder, single episode, moderate Category: Medical (5) Anxiety: Code(s): F41.9 - Anxiety disorder, unspecified Category: Medical (6) Bilateral primary osteoarthritis of knee: Code(s): M17.0 - Bilateral primary osteoarthritis of knee Category: Medical Plan Plan 1. Knee Arthritis The patient's knee arthritis is severe, causing significant pain and functional limitation, including an inability to fully extend the right knee. An X-ray of the right knee will be ordered, as one has not been done in a while. A prescription for a knee sleeve brace will be provided. A referral will be made to [facility] for specialist evaluation due to the severity of symptoms. A work excuse note will be provided for the patient's absence from work since March 23. 2. Diabetes mellitus type 2 Continue metformin. A1c goal is equal or less than 7%. 3. Essential hypertension Continue enalapril. Blood pressure goal is equal or less than 130/80. 4. Hyperlipidemia Continue statins. LDL goal is less than 70. 5. Moderate major depression Follow-up with psychiatry. Continue bupropion. 6. Anxiety Continue buspirone. Follow-up with psychiatry. Orders: Orders Influenza [id number] Immunization Today Z23 - Encounter for immunization MR knee LT wo con Today M17.12 - Unilateral primary osteoarthritis, left knee XR knee RT 2V Today M25.561 - Pain in right knee Referrals Orthopedics Referral M17.0 - Bilateral primary osteoarthritis of knee Medications: New [knee sleeve brace] As directed 2 ea 2RF M17.0 - Bilateral primary osteoarthritis of knee
[2025-03-29 11:18] VITALS: BP 120/62; PULSE 105; TEMP 36.3; O2SAT 196; BMI 35.1
--- OUTSIDE RECORDS SUMMARY | 2025-03-29 13:45 | XMS_ITS | Encounter Summary ---
Author Organization [employer] [facility] Address [address] [place] [address] 7 [place] [address] Care Team Providers Care Transport Company Manager Name Role Phone Unavailable Primary Care Provider Unavailabl e Encounter Details Date Type Department Care Team (Latest Contact Info) Description 10/01/2021 Abstract [facility] CONVERSIONS Dental, Provider, DDS Social History [...] 8:45 AM EST Office Visit [facility] ADULT DENTAL [address] [place] [address] Nazario Smitharis [address] [place] [address] documented as of this encounter Visit Diagnoses Not on filedocumented in this encounter
--- OUTSIDE RECORDS SUMMARY | 2025-03-29 13:45 | XMS_ITS | Encounter Summary ---
Author Organization [employer] [facility] Address [address] [place] [address] 7 [place] [address] Care Team Providers Care Marine Engineering Technicians Name Role Phone Unavailable Primary Care Provider Unavailabl e Encounter Details Date Type Department Care Team (Latest Contact Info) Description 01/11/2019 Abstract [facility] CONVERSIONS Dental, Provider, DDS Social [...] Description 03/30/2025 8:45 AM EST Office Visit [facility] ADULT DENTAL [address] [place] [address] Sarah, Svetlana [address] [place] [address] documented as of this encounter Visit Diagnoses Not on filedocumented in this encounter
--- OUTSIDE RECORDS SUMMARY | 2025-03-29 13:45 | XMS_ITS | Clinical Summary ---
Author Organization [employer] Address [address] [place] [address] Care Team Providers Care Train Clerk Name Role Phone Unavailable Primary Care [...] Description 03/30/2025 8:45 AM EST Office Visit [facility] ADULT DENTAL [address] [place] [address] Sarah, Svetlana [address] [place] [address] Health Maintenance Due Date Last Done Comments [...] Most Recently Relevant to Health Maintenance Insurance [facility] [address] STANDARD DENTAL-[facility] [address] MEDICAID STAND ADULT
--- OUTSIDE RECORDS SUMMARY | 2025-03-29 13:45 | XMS_ITS | Encounter Summary ---
Author Organization [employer] [facility] Address [address] [place] [address] 7 [place] [address] Care Team Providers Care Social Worker Masters Name Role Phone Unavailable Primary Care Provider Unavailabl e Encounter Details Date Type Department Care Team (Late st Contact Info) Description 04/22/2022 Abstract [facility] ADULT DENTAL [address] [place] [address] Dental, Provider, DDS Social History Tobacco Use [...] Description 03/30/2025 8:45 AM EST Office Visit [facility] ADULT DENTAL [address] [place] [address] SarahNazarioSvetlana [address] [place] [address] documented as of this encounter Procedures Procedure Name Priority Date/Time Associated Diagnosis Comments ,30,19,22 PARTIAL DENTURE - RESIN Routine 04/22/2022 12:00 [...]
--- OUTSIDE RECORDS SUMMARY | 2025-03-29 13:45 | XMS_ITS | Encounter Summary ---
Author Organization [employer] [facility] Address [address] [place] [address] 7 [place] [address] Care Team Providers Care Permit Agent Name Role Phone Unavailable Primary Care Provider Unavailabl e Encounter Details Date Type Department Care Team (Latest Contact Info) Description 08/01/2020 Abstract [facility] CONVERSIONS Dental, Provider, DDS Social [...] Description 03/30/2025 8:45 AM EST Office Visit [facility] ADULT DENTAL [address] [place] [address] Nazario Smitharis [address] [place] [address] documented as of this encounter Visit Diagnoses Not on filedocumented in this encounter
--- OUTSIDE RECORDS SUMMARY | 2025-03-29 13:45 | XMS_ITS | Encounter Summary ---
Author Organization [employer] [facility] Address [address] [place] [address] 7 [place] [address] Care Team Providers Care Financial Assistant Name Role Phone Unavailable Primary Care Provider Unavailabl e Encounter Details Date Type Department Care Team (Latest Contact Info) Description 07/22/2020 Abstract [facility] CONVERSIONS Dental, Provider, DDS Social History [...] 8:45 AM EST Office Visit [facility] ADULT DENTAL [address] [place] [address] Nazario Smitharis [address] [place] [address] documented as of this encounter Visit Diagnoses Not on filedocumented in this encounter
== END 2025-03-29 11:50 | disposition home or self-care (01) ==
LOC: HO.HMCH 11:07
PROVIDERS: PCP Internal Medicine; Visit Provider Internal Medicine
DX: E11.65 Type 2 diabetes mellitus with hyperglycemia (principal); E78.5 Hyperlipidemia, unspecified; I10 Essential (primary) hypertension; F32.1 Major depressive disorder, single episode, moderate; F41.9 Anxiety disorder, unspecified; M17.0 Bilateral primary osteoarthritis of knee; Z23 Encounter for immunization

== ENCOUNTER 2025-03-29 11:06 | Outpatient (REF) | payer OTHER, SELFPAY ==
--- NOTE | ~2025-03-29 | XR_ITS ---
EXAMINATION: XR KNEE 1-2 VIEWS RIGHT HISTORY: M25.561 - Pain in right knee COMPARISON: Comparison is made with the prior examination dated 06/21/2023. FINDINGS: AP and lateral views of the right knee are submitted. Osseous mineralization is normal. There is no fracture or dislocation. There is minimal degenerative change involving the medial compartment with osteophyte formation. The soft tissues are unremarkable. There is no joint effusion. XR/XR knee RT 2V IMPRESSION: Minimal degenerative changes of the medial compartment. Electronically signed by: Santosh Brito MD 03/29/2025 12:32 PM EST
== END 2025-03-29 11:07 | disposition home or self-care (01) ==
LOC: HO.XRAY 11:06
PROVIDERS: PCP Internal Medicine; Visit Provider Internal Medicine
DX: M17.0 Bilateral primary osteoarthritis of knee (principal); E11.65 Type 2 diabetes mellitus with hyperglycemia; E78.5 Hyperlipidemia, unspecified; I10 Essential (primary) hypertension; F32.1 Major depressive disorder, single episode, moderate; F41.9 Anxiety disorder, unspecified; Z23 Encounter for immunization
CPT/HCPCS: 73560; 90471; 90656; 96127; 99212

== ENCOUNTER → 2025-03-29 12:16 | Outpatient (BNV) | payer OTHER, SELFPAY | PROVIDERS: PCP Internal Medicine; Visit Provider Radiology Diagnostic Radiology | DX: M17.11 Unilateral primary osteoarthritis, right knee (principal) | CPT/HCPCS: 73560 ==

== ENCOUNTER 2025-04-30 18:27 | Outpatient (REF) | payer OTHER, SELFPAY ==
--- NOTE | ~2025-04-30 | MR_ITS ---
EXAMINATION: MR KNEE WITHOUT CONTRAST, LEFT CLINICAL INFORMATION: Primary osteoarthritis COMPARISON: None available. TECHNIQUE: MRI of the knee without contrast was performed using routine sequences on a high-field scanner. FINDINGS: MENISCI: Medial Meniscus: Mild degenerative fraying of the posterior horn. Lateral Meniscus: Horizontal signal in the body, contacting the free edge, from possible horizontal tear. Ill-defined degenerative fraying/tearing of the posterior root/central posterior horn. Degenerative signal otherwise present. LIGAMENTS: Cruciate: Mild ACL mucoid degeneration. Intact PCL. Collateral: Intact EXTENSOR MECHANISM: Intact ARTICULAR CARTILAGE/BONE: Patellofemoral Compartment: Moderate-severe arthritis, with nonuniform chondral loss, marginal osteophytes. Medial Compartment: Moderate arthritis. Nonuniform chondral loss more prominently in the weightbearing compartment. Lateral Compartment: Mild-moderate arthritis. Chondral thinning in the weightbearing compartment. No fracture. No suspicious marrow signal changes. JOINT FLUID AND BURSAE: Small effusion. There is intermediate signal foci within the joint space, could reflect synovitis/debris. Small mildly complex Coreas's cyst. There is a septated cystic focus in the posterior and medial deep soft tissues, the level of the distal femur.Given the configuration, measurement is difficult. The posterior portion of the cystic focus measures approximately 5.3 cm transverse. The medial component measures approximately 3.5 cm AP. Differential consideration include ganglion cyst. MR/MR knee LT wo con IMPRESSION: * Mild degenerative fraying of the medial meniscal posterior horn. * Degenerative fraying/tear of the lateral meniscal posterior root/central posterior horn. Possible horizontal tear in the body.. * Mild ACL mucoid degeneration * Tricompartment arthritis as above. *Small effusion. Mild synovitis/debris. *Septated T2 bright cystic focus in the deep soft tissues, along the posterior and medial aspect, at the level of the distal femur. This is nonspecific in nature. Differential consideration include ganglion cyst. Clinically correlate. Further evaluation with MRI without and with contrast as clinically indicated. Consider follow-up MRI for reassessment. Electronically signed by: Stas Pettit MD 05/01/2025 10:49 AM [facility]
--- OUTSIDE RECORDS SUMMARY | 2025-05-01 02:25 | XMS_ITS | Encounter Summary ---
Author Organization [facility] Address [address] [place] [address] [address] [place] [address] Care Team Providers Care Workers Compensation Defense Attorney Name Role Phone Unavailable Primary Care Provider Unavailabl e Encounter Details Date Type Department Care Team (Latest Contact Info) Description 10/01/2021 Abstract [facility] CONVERSIONS Dental, Provider, DDS Social [...] Care Team (Late st Contact Info) Description 05/31/2025 11:00 AM EST Office Visit [facility] ADULT DENTAL [address] [place] [address] Clay Pan DDS [address] [place] [address] 09/28/2025 8:45 AM EDT Office Visit [facility] ADULT DENTAL [address] [place] [address] Nazario Smitharis [address] [place] [address] documented as of this encounter Visit Diagnoses Not on filedocumented in this encounter
--- OUTSIDE RECORDS SUMMARY | 2025-05-01 02:25 | XMS_ITS | Encounter Summary ---
Author Organization [facility] Address [address] [place] [address] [address] [place] [address] Care Team Providers Care Shower Doors And Panels Fabricator Name Role Phone Unavailable Primary Care Provider Unavailabl e Encounter Details Date Type Department Care Team (Latest Contact Info) Description 08/01/2020 Abstract [facility] CONVERSIONS Dental, Provider, DDS Social History [...] Description 05/31/2025 11:00 AM EST Office Visit [facility] ADULT DENTAL [address] [place] [address] Clay Pan DDS [address] [place] [address] 09/28/2025 8:45 AM EDT Office Visit [facility] ADULT DENTAL [address] [place] [address] Nazario Smitharis [address] [place] [address] documented as of this encounter Visit Diagnoses Not on filedocumented in this encounter
--- OUTSIDE RECORDS SUMMARY | 2025-05-01 02:25 | XMS_ITS | Encounter Summary ---
Author Organization [facility] Address [address] [place] [address] [address] [place] [address] Care Team Providers Care Shipfitter Helper Name Role Phone Unavailable Primary Care Provider Unavailabl e Encounter Details Date Type Department Care Team (Latest Contact Info) Description 07/22/2020 Abstract [facility] CONVERSIONS Dental, Provider, DDS Social History [...] Description 05/31/2025 11:00 AM EST Office Visit [facility] ADULT DENTAL [address] [place] [address] Clay Pan DDS [address] [place] [address] 09/28/2025 8:45 AM EDT Office Visit [facility] ADULT DENTAL [address] [place] [address] Nazario Smitharis [address] [place] [address] documented as of this encounter Visit Diagnoses Not on filedocumented in this encounter
--- OUTSIDE RECORDS SUMMARY | 2025-05-01 02:25 | XMS_ITS | Encounter Summary ---
Author Organization [facility] Address [address] [place] [address] [address] [place] [address] Care Team Providers Care Esl Teacher Name Role Phone Unavailable Primary Care Provider Unavailabl e Encounter Details Date Type Department Care Team (Late st Contact Info) Description 04/22/2022 Abstract [facility] ADULT DENTAL [address] [place] [address] Dental, Provider, DDS Social History Tobacco Use [...] Description 05/31/2025 11:00 AM EST Office Visit [facility] ADULT DENTAL [address] [place] [address] Clay Pan DDS [address] [place] [address] 09/28/2025 8:45 AM EDT Office Visit [facility] ADULT DENTAL [address] [place] [address] Svetlana Smith [address] [place] [address] documented as of this encounter Procedures Procedure [...]
--- OUTSIDE RECORDS SUMMARY | 2025-05-01 02:25 | XMS_ITS | Encounter Summary ---
Author Organization [facility] Address [address] [place] [address] 7 [place] [address] Care Team Providers Care Talent Acquisition Specialist Name Role Phone Unavailable Primary Care Provider Unavailabl e Encounter Details Date Type Department Care Team (Latest Contact Info) Description 01/11/2019 Abstract [facility] CONVERSIONS Dental, Provider, DDS Social [...] Description 05/31/2025 11:00 AM EST Office Visit [facility] ADULT DENTAL [address] [place] [address] Clay Pan DDS [address] [place] [address] 09/28/2025 8:45 AM EDT Office Visit [facility] ADULT DENTAL [address] [place] [address] Nazario Smitharis [address] [place] [address] documented as of this encounter Visit Diagnoses Not on filedocumented in this encounter
--- OUTSIDE RECORDS SUMMARY | 2025-05-01 02:25 | XMS_ITS | Clinical Summary ---
Author Organization [facility] Address [address] [place] [address] Care Team Providers Care Aircraft Landing Gear Inspector Name Role Phone Unavailable Primary Care Provider [...] DIRECTED 2 Active [facility] [place] BLOOD SUGAR TWICE DAILY 2 Active [...] Active Problems Problem Noted Date Diagnosed Date Missing teeth, acquired 03/30/2025 Dental plaque 03/30/2025 Dental abscess 03/30/2025 Diabetes mellitus 04/27/2022 Hypertension 04/27/2022 Gingivitis 04/27/2022 Encounters Date Type Department Care Team Description 03/30/2025 8:45 AM EST Office Visit [facility] ADULT DENTAL [address] [place] [address] Svetlana Smith Missing teeth, acquired (Primary Dx); Dental plaque; Dental abscess from Last 3 Months Immunizations Immunization Administration Dates Next Due Influenza [...] Sign Reading Time Taken Comments Blood Pressure 136/80 03/30/2025 8:50 AM EST Pulse 70 04/27/2022 2:48 PM EST Temperature 21.1 C (70 F) 04/27/2022 2:52 PM EST Respiratory Rate - - Oxygen Saturation - - Inhaled Oxygen Concentration - - Weight - - Height - - Body Mass Index - - Plan of Treatment Upcoming Encounters Date Type Department Care Team (Late st Contact Info) Description 05/31/2025 11:00 AM EST Office Visit [facility] ADULT DENTAL [address] [place] [address] Clay Pan DDS [address] [place] [address] 09/28/2025 8:45 AM EDT Office Visit [facility] ADULT DENTAL [address] [place] [address] Svetlana Smith [address] [place] [address] Health Maintenance Due Date Last Done Comments CT Colonography 1971 Colonoscopy 1971 Colorectal Cancer Screening 1971 Depression Screening 1971 Diabetes: Hemoglobin A1C [...] Cancer Screening 2001 HPV/Cotest 2001 Mammogram 2011 COVID-19 Vaccine ( season) 2025 04/09/2021, 08/01/2020, 07/04/2020 Dental Oral Exam 09/28/2025 03/30/2025 Dental Prophylaxis 09/28/2025 03/30/2025, 04/27/2022 Tobacco Screening 03/30/2026 03/30/2025 Dental X-Ray: Bitewings 03/31/2026 03/30/2025, 04/11 Dental X-Ray: Full Mouth 03/31/2028 03/30/2025, 03/0 05/2020 DTaP/Tdap/Td Vaccines (3 - Td or Tdap) 06/11/2032 06/11/2022, 03/31/2016 RSV Patients and Patients Aged 60 years or older (1 - 1-dose 75+ series) 2046 Zoster Vaccines Completed 02/05/2023, 12/04/2022 Pneumococcal Vaccine: 50+ Years Completed 02/08/2025, 04/09/2017 Influenza Vaccine Completed 03/29/2025, , 06/03/2023, Additional history exists HIB Vaccines Aged Out No longer eligi [...] Procedure Name Priority Date/Time Associated Diagnosis Comments PERIODIC ORAL EVALUATION - ESTABLISHED PATIENT Routine 03/30/2025 8:45 AM EST CASE PRESENTATION, DETAILED AND EXTENSIVE TREATMENT PLANNING Routine 03/30/2025 8:45 AM EST Missing teeth, acquired Dental plaque Dental abscess PROPHYLAXIS - ADULT Routine 03/30/2025 8 :45 AM EST Missing teeth, acquired Dental plaque Dental abscess INTRAORAL - COMPLETE SERIES OF RADIOGRAPHIC IMAGES Routine 03/30/2025 8:45 AM EST Missing teeth, acquired Dental abscess from Last [address] [facility] STANDARD D[facility] MEDICAID STAND ADULT
== END 2025-04-30 18:28 | disposition home or self-care (01) ==
LOC: HO.MRI 18:27
PROVIDERS: PCP Internal Medicine; Visit Provider Internal Medicine
DX: M17.12 Unilateral primary osteoarthritis, left knee (principal)
CPT/HCPCS: 73721

== ENCOUNTER 2025-05-01 10:31 | Outpatient (AMB) | payer OTHER, SELFPAY ==
[2025-05-01 10:46] VITALS: BP 122/80; BMI 35.4
--- NOTE | 2025-05-01 10:46 | MHC.OFFVIS ---
Vital Signs 05/01/25 10:46 Height 5 ft 2 in Weight 193 lb 8 oz BMI 35.4 BP 122/80 Blood Pressure Location Rt brachial Position Sitting Intake Visit Reasons: Annual Marketing Assistant Required: Yes Marketing Assistant Language: Sports Team Manager Name: Ifeoma ([id number] Allergies acetaminophen (Percocet) Allergy (Intermediate, Verified 05/01/25 10:48) dyspnea aspirin (Aspirin) Allergy (Intermediate, Verified 05/01/25 10:48) SWELLING, hives, uticaria carbamazepine (From TEGRETOL) Allergy (Intermediate, Verified 05/01/25 10:48) SWELLING gabapentin Allergy (Intermediate, Verified 05/01/25 10:48) abdominal pain, abd pain morphine (MORPHINE) Allergy (Intermediate, Verified 05/01/25 10:48) HIVES naproxen (From ALEVE) Allergy (Intermediate, Verified 05/01/25 10:48) RASH, MOUTH SORES oxycodone (OXYCODONE) Allergy (Intermediate, Verified 05/01/25 10:48) HIVES Penicillins Allergy (Intermediate, Verified 05/01/25 10:48) HIVES sertraline Allergy (Intermediate, Verified 05/01/25 10:48) nausea lisinopril (LISINOPRIL) Allergy (Mild, Verified 05/01/25 10:48) HICCUPS pramipexole Adverse Reaction (Mild, Verified 05/01/25 10:48) dizziness HPI Comments Details: Patient is a postmenopausal woman presenting for her annual skin former 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 Currently sexually active. Denies any vaginal dryness or irritation. STI testing offered; she accepts. Attempting to eat a healthy diet with calcium and vitamin D and stays active with exercise. Last pap smear; 2019, negative. Last mammogram/MRI; 2024. Colonoscopy is UTD. REPLACED BY [facility] Medical History Urge incontinence of urine FHx: breast cancer in first degree relative Pre-op evaluation Lumbar degenerative disc disease Hypercalcemia Leukocytosis Renal cyst Giant cell arteritis Neuropathy History of CVA (cerebrovascular accident) COVID-19 vaccine series completed Mixed hyperlipidemia Obese Anxiety Moderate major depression ESQUIVEL (nonalcoholic steatohepatitis) Easy bruising Memory loss Nausea and vomiting GERD (gastroesophageal reflux disease) Essential hypertension Surgical History Hx of colonoscopy History of esophagogastroduodenoscopy (EGD) History of temporal artery biopsy History of cardiac cath History of endometrial ablation History of hernia repair H/O tubal ligation History of appendectomy H/O: Family History Father Stroke Breast cancer Mother Colon cancer, Onset Age: 64 Diabetes Hypertension Uterine cancer Breast cancer Brother Substance use disorder Family/Other Mental health disorder Sister Breast cancer, Onset Age: 38 Sister Breast cancer, Onset Age: 49 Social History Household Members: Significant Other and Children Housing: Apartment Alcohol intake: never Patient Tobacco Use Status: Never used Tobacco e-Cigarette/Vaping Use: Never Used Second Hand Smoke Exposure: No service: No Current occupational status: unemployed and disabled Sexual orientation: Straight/Heterosexual Gender identity: Female Cognitive needs: No Hearing needs: No Vision needs: Yes Female Reproductive History Menstrual Age of Menarche: 13 Date of last pap smear: 05/02/20 Date of Mammogram: 06/26/24 Review of Systems Const All systems reviewed & are unremarkable except as noted in HPI and below Reports as per HPI Eyes Reports no additional complaints ENT Reports no additional complaints Card Reports no additional complaints Resp Reports no additional complaints GI Reports as per HPI and Reports no additional complaints Reports as per HPI Musc Reports no additional complaints Skin/Breast Reports as per HPI Neuro Reports no additional complaints Psych Reports no additional complaints Endo Reports no additional complaints Ryan/Lymph Reports no additional complaints Aller/Immun Reports no additional complaints Physical Exam Vital Signs: Last Vital Signs BP 122/80 05/01/25 10:46 BMI result Body Mass Index 35.4 Const General: cooperative, healthy appearing, no acute distress, well developed and alert Orientation/consciousness: patient oriented x3 HEENT Head: Yes normal to inspection Eyes General: appearance normal, both eyes and all related structures Neck Neck: Yes normal visual inspection Thyroid: Thyroid normal Chest Chest palpation & inspection: normal inspection of the chest and other (no puckering, dimpling, peau de orange, retraction, discharge, masses) Breast/axilla inspection: normal inspection of the breasts Breast/axilla palpation: normal palpation of the breasts Resp Effort & Inspection: normal respiratory effort GI Inspection: Yes normal to inspection Palpation (GI): Soft to palpation Rectal Exam - Female: deferred General: Yes bladder normal to palpation External Female Exam: normal external appearance and normal appearance of the urethra Speculum Exam - Vagina: normal appearance of the vagina, normal palpation, normal vaginal discharge and vagina atrophic Speculum Exam - Cervix: normal appearance of the cervix and normal palpation Bimanual exam- vagina & uterus: normal bimanual exam, normal palpation, uterine size normal, bladder normal to palpation, normal palpation and non-tender Bimanual Exam- Adnexa, other: no masses Skin General skin exam: no rashes or lesions noted Rashes: no rashes Neuro General: patient oriented x3 Cognition (Neuro): normal cognition Extrem General: Yes normal to inspection Psych Attitude: cooperative Thought process: Normal thought process present Assessment & Plan Assessment & Plan (1) Encounter for well woman exam with routine gynecological exam: Code(s): Z01.419 - Encounter for gynecological examination (general) (routine) without abnormal findings Category: Medical Plan Discussed: Current recommendations for pap smears per ASCCP guidelines. Pap obtained. Breast awareness, periodic self breast exams and yearly mammogram. Maintain a healthy lifestyle, well balanced diet including Calcium 1,200 mg and Vitamin D 600 IU daily, and routine exercise. Contact the office with any postmenopausal bleeding. Patient verbalizes understanding and agrees to the plan of care. She was given opportunity to ask questions and all questions were answered to the best of my ability. RTO in 1 year for annual skin former exam. This note is constructed using voice recognition software. While every effort has been made to ensure accuracy, property and equipment clerk errors may have been included. Orders: Orders CT NG by PCR Vag/Cerv Today Z01.419 - Encounter for gynecological examination (general) (routine) without abnormal findings Bacterial Vaginosis Panel Today Z01.419 - Encounter for gynecological examination (general) (routine) without abnormal findings Pap Smear Today Z01.419 - Encounter for gynecological examination (general) (routine) without abnormal findings Coding Level of Care Code Est Pt Prev Care 40-64y(71443) Diagnoses Encounter for well woman exam with routine gynecological exam Z01.419
== END 2025-05-01 11:17 | disposition home or self-care (01) ==
LOC: HO.HWS 10:31
PROVIDERS: PCP Internal Medicine; Visit Provider Advanced Practice Midwife
DX: Z01.419 Encounter for gynecological examination (general) (routine) without abnormal findings (principal)
CPT/HCPCS: 99396; 99459

== ENCOUNTER 2025-05-01 10:31 | Outpatient (REF) | payer OTHER, SELFPAY ==
[2025-05-02 00:24] LABS: Bacterial Vaginosis PCR NEGATIVE (Negative); Candida Group PCR NOT DETECTED (Not Detect); Candida glab krusei PCR NOT DETECTED (Not Detect); Trichomonas vaginalis PCR NOT DETECTED (Not Detect)
[2025-05-02 00:55] LABS: CT PCR NOT DETECTED (Not Detect.); NG PCR NOT DETECTED (Not Detect.)
== END 2025-05-01 10:32 | disposition home or self-care (01) ==
LOC: HO.LNP 10:31
PROVIDERS: PCP Internal Medicine; Visit Provider Advanced Practice Midwife
DX: Z01.419 Encounter for gynecological examination (general) (routine) without abnormal findings (principal); Z11.51 Encounter for screening for human papillomavirus (HPV); Z20.2 Contact with and (suspected) exposure to infections with a predominantly sexual mode of transmission; Z98.51 Tubal ligation status
CPT/HCPCS: 81515; 87491; 87591; 87626; 88175